=== PATIENT | male | born 1935 | race African-American/Black ===

== ENCOUNTER → 2016-03-15 | Outpatient (CLI) | payer MEDICARE, BC ==
[2016-03-15 12:00] LABS: Blood Urea Nitrogen 19 mg/dL (9-20); Non-African American GFR(MDRD) >60 (>60 ml/min/1.73 sqM)
--- NOTE | 2016-03-15 13:05 | CT ---
EXAMINATION TYPE: CT brain wo/w con DATE OF EXAM: 03/15/2016 12:57 PM COMPARISON: CT brain August 03, 2015 HISTORY: prostate CA, BLANCO CT DLP: 398 mGycm Automated Exposure Control for Dose Reduction was Utilized. TECHNIQUE: CT scan of the head is performed with IV contrast.,CT scan of the head is performed withou t and with with IV Contrast, patient injected with 100 mL of Omnipaque 300. FINDINGS: Noncontrast images show no acute intracranial hemorrhage or midline shift. There is ventr icular and sulcal prominence consistent with mild age-related cerebral atrophy. There is some low-att enuation in the periventricular white matter. Old lacunar infarct right basal ganglia near axial imag e 29 is redemonstrated. Postcontrast images show no suspicious enhancing intraparenchymal mass. The g lobes are intact and the visualized sinuses are clear. Well-defined erosive lesions along frontal kaylan varium favor enchondroma or other benign etiology. IMPRESSION: Mild generalized cerebral atrophy and chronic small vessel ischemic change redemonstrated . No suspicious new enhancing intraparenchymal mass to suggest malignancy is identified.
--- NOTE | 2016-03-15 13:18 | CT ---
EXAMINATION TYPE: CT ChestAbdPelvis w con DATE OF EXAM: 03/15/2016 12:57 PM COMPARISON: CTA chest March 28, 2015. CTA abdomen and pelvis November 05, 2014 HISTORY: prostate CA, history of colon mass removal. CT DLP: 3984 mGycm. Automated Exposure Control for Dose Reduction was Utilized. CONTRAST: CT scan of the thorax, abdomen and pelvis is performed with oral and with IV Contrast, patient inject ed with 100 mL of Omnipaque 300. FINDINGS: LUNGS: The lungs are grossly clear, there is no concerning greater than 4 mm parenchymal mass or nodu le identified on current study. There is no pleural effusion or pneumothorax seen. The tracheobron chial tree is patent. MEDIASTINUM: There are no greater than 1 cm hilar or mediastinal lymph nodes. No cardiomegaly or pe ricardial effusion is seen. OTHER: There is 1 cm calcification right submandibular gland on axial image 8 could reflect sialolith . LIVER/GB: Multiple metastatic lesions throughout the liver significantly improved from October 2014 CT. There are several low dense lesions redemonstrated. Reference anterior right hepatic dome lesion measures 1.4 cm on long axis axial image 45 versus 4.3 cm on prior study image 7. Dependent calculus is redemonstrated in gallbladder. There may be cholesterolosis in the wall centrally seen best on co gilma images. PANCREAS: No significant abnormality is seen. SPLEEN: No significant abnormality is seen. ADRENALS: No significant abnormality is seen. KIDNEYS: There is 2.2 cm simple appearing cyst lower pole level right kidney redemonstrated. Scattere d pelvic phleboliths are again seen. BOWEL: The oral contrast to the level of the transverse colon. There is no suspicious small or large bowel dilatation seen. Sigmoid colonic diverticulosis is redemonstrated. GENITAL ORGANS: Prostate gland is diminished in size versus prior exam but still bulging on bladder b ase. Eccentric prominence along the left periphery of prostate on prior study image 65 is less promin ent on current study. No adjacent adenopathy is clearly seen. LYMPH NODES: No greater than 1cm abdominal or pelvic lymph nodes are appreciated. OSSEOUS STRUCTURES: Marked exaggerated cervical thoracic kyphosis is noted. Sclerotic expansile lesio n right iliac bone is redemonstrated. There is new sclerotic lesion posterior to this near inferior s acroiliac joint on axial image 92. Large spur the right lumbosacral junction is redemonstrated. There is multilevel facet arthropathy in the lower lumbar spine. Multilevel spurring in the thoracic spine . No convincing evidence of metastatic disease otherwise. OTHER: No significant additional abnormality is seen. IMPRESSION: Interval resolution of pulmonary metastatic disease. Interval marked improvement of hepa tic metastatic disease. Nonspecific right iliac bone lesion worrisome for malignancy redemonstrated p robable metastatic in etiology. New small sclerotic lesion right iliac bone is difficult to exclude. Marked interval improvement in size of prostate gland with treatment.
== END | disposition home or self-care (01) ==
LOC: RADCTMAIN 10:41
PROVIDERS: ATTEND Internal Medicine Hematology & Oncology
DX: C61 Malignant neoplasm of prostate (principal); C78.7 Secondary malignant neoplasm of liver and intrahepatic bile duct; G31.9 Degenerative disease of nervous system, unspecified; I67.82 Cerebral ischemia
CPT/HCPCS: 82565; 84520; 70470; 71260; 74177; 36415; Q9967

== ENCOUNTER 2016-05-29 13:27 | Emergency (ER) | payer MEDICARE, BC ==
[2016-05-29 13:32] VITALS: RESP 18
[2016-05-29] MEDS ORDERED: NITROGLYCERIN OINT 1 INCH/GM PACKET TOPICAL STA (13:54)
[2016-05-29] MEDS ORDERED: ASPIRIN 81 MG CHEW PO STA (13:54)
--- NOTE | 2016-05-29 13:57 | ED ---
General Adult HPI - General Chief complaint: Chest Pain Stated complaint: Chest Pain Time Seen by Provider: 05/29/16 13:40 Source: patient, RN notes reviewed Mode of arrival: ambulatory Limitations: no limitations - History of Present Illness Initial comments: Patient is a pleasant 80-year-old male presenting to the emergency department complaining of chest discomfort. Symptoms started a couple of days ago. Symptoms have been intermittent. Discomfort is mild at this time. Patient has an ache of the left shoulder and left arm. Patient may also have some chest discomfort. No associated dyspnea. No diaphoresis or nausea. Symptoms are not positional. No history of similar symptoms previously. Currently symptoms are very mild. - Related Data Home Medications Medication Instructions Recorded Confirmed Lisinopril [Zestril] 10 mg PO QAM 08/07/13 05/29/16 Hydrocodone/Acetaminophen [Schurz 1 tab PO Q6H PRN 08/03/15 05/29/16 7.5-325] Tamsulosin [Flomax] 0.4 mg PO DAILY 02/28/16 05/29/16 Atenolol [Tenormin] 25 mg PO DAILY 05/29/16 05/29/16 Prochlorperazine [Compazine] 10 mg PO Q6H PRN 05/29/16 05/29/16 Venlafaxine HCl ER [Effexor Xr] 75 mg PO DAILY 05/29/16 05/29/16 Allergies Allergy/AdvReac Type Severity Reaction Status Date / Time No Known Allergies Allergy Verified 05/29/16 14:42 Review of Systems ROS Statement: Those systems with pertinent positive or pertinent negative responses have been documented in the HPI. ROS Other: All systems not noted in ROS Statement are negative. 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, pelvis and liver, on chemo History of Any Multi-Drug Resistant Organisms: None Reported Past Surgical History: Heart Catheterization Additional Past Surgical History / Comment(s): CATARACT SURGERY, Past Anesthesia/Blood Transfusion Reactions: No Reported Reaction Past Psychological History: No Psychological Hx Reported Smoking Status: Never smoker Past Alcohol Use History: Rare Past Drug Use History: None Reported - Past Family History Father Family Medical History: No Reported History General Exam Limitations: no limitations General appearance: alert, in no apparent distress Head exam: Present: atraumatic Eye exam: Present: normal appearance, PERRL ENT exam: Present: normal oropharynx Neck exam: Present: normal inspection Respiratory exam: Present: normal lung sounds bilaterally. Absent: chest wall tenderness Cardiovascular Exam: Present: regular rate, normal rhythm Expanded Peripheral pulses: 2+: Radial (R), Radial (L), Posterior Tibialis (R), Posterior Tibialis (L) GI/Abdominal exam: Present: soft. Absent: tenderness Extremities exam: Present: normal inspection, full ROM. Absent: tenderness, pedal edema, calf tenderness Back exam: Present: normal inspection Neurological exam: Present: alert Psychiatric exam: Present: normal affect, normal mood Skin exam: Absent: rash Course Vital Signs 05/29/16 05/29/16 05/29/16 13:30 15:46 16:30 Temperature 97.4 F L 98.0 F Pulse Rate 67 64 65 Respiratory 18 18 18 Rate Blood Pressure 209/104 162/94 169/99 O2 Sat by Pulse 98 98 98 Oximetry EKG Findings - EKG Comments: EKG Findings:: Normal sinus rhythm at 67. OR 154. QRS 110. QT 4:30. QTC 454. Left axis. LVH criteria. Nonspecific ST-T. Medical Decision Making - Medical Decision Making Patient reexamined and symptom-free. Case discussed twice with Dr. Miguel who is familiar with this patient. He recommends discharge. Patient updated on results and need for follow-up. - Lab Data Result diagrams: 05/29/16 14:05 05/29/16 14:05 Lab Results 05/29/16 05/29/16 05/29/16 Range/Units 14:05 14:05 14:05 WBC 7.1 (3.8-10.6) k/uL RBC 4.13 L (4.30-5.90) m/uL Hgb 12.6 L (13.0-17.5) gm/dL Hct 38.1 L (39.0-53.0) % MCV 92.3 (80.0-100.0) fL MCH 30.4 (25.0-35.0) pg MCHC 33.0 (31.0-37.0) g/dL RDW 15.6 H (11.5-15.5) % Plt Count 232 (150-450) k/uL Neutrophils % 66 % Lymphocytes % 24 % Monocytes % 4 % Eosinophils % 2 % Basophils % 0 % Neutrophils # 4.7 (1.3-7.7) k/uL Lymphocytes # 1.7 (1.0-4.8) k/uL Monocytes # 0.3 (0-1.0) k/uL Eosinophils # 0.1 (0-0.7) k/uL Basophils # 0.0 (0-0.2) k/uL Hypochromasia Slight PT (9.0-12.0) sec INR (<1.1) APTT (22.0-30.0) sec D-Dimer (<0.60) mg/L FEU Sodium 142 (137-145) mmol/L Potassium 4.0 (3.5-5.1) mmol/L Chloride 104 (98-107) mmol/L Carbon Dioxide 27 (22-30) mmol/L Anion Gap 11 mmol/L BUN 19 (9-20) mg/dL Creatinine 1.13 (0.66-1.25) mg/dL Est GFR (MDRD) Af Amer >60 (>60 ml/min/1.73 sqM) Est GFR (MDRD) Non-Af >60 (>60 ml/min/1.73 sqM) Glucose 139 H (74-99) mg/dL Calcium 9.7 (8.4-10.2) mg/dL Magnesium 2.1 (1.6-2.3) mg/dL Total Bilirubin 0.5 (0.2-1.3) mg/dL AST 26 (17-59) U/L ALT 29 (21-72) U/L Alkaline Phosphatase 84 (38-126) U/L Total Creatine Kinase 121 (55-170) U/L CK-MB (CK-2) 1.4 (0.0-2.4) ng/mL CK-MB (CK-2) Rel Index 1.2 Troponin I <0.012 (0.000-0.034) ng/mL Total Protein 7.4 (6.3-8.2) g/dL Albumin 4.1 (3.5-5.0) g/dL 05/29/16 Range/Units 14:05 WBC (3.8-10.6) k/uL RBC (4.30-5.90) m/uL Hgb (13.0-17.5) gm/dL Hct (39.0-53.0) % MCV (80.0-100.0) fL MCH (25.0-35.0) pg MCHC (31.0-37.0) g/dL RDW (11.5-15.5) % Plt Count (150-450) k/uL Neutrophils % % Lymphocytes % % Monocytes % % Eosinophils % % Basophils % % Neutrophils # (1.3-7.7) k/uL Lymphocytes # (1.0-4.8) k/uL Monocytes # (0-1.0) k/uL Eosinophils # (0-0.7) k/uL Basophils # (0-0.2) k/uL Hypochromasia PT 10.1 (9.0-12.0) sec INR 1.0 (<1.1) APTT 25.3 (22.0-30.0) sec D-Dimer 0.66 H (<0.60) mg/L FEU Sodium (137-145) mmol/L Potassium (3.5-5.1) mmol/L Chloride (98-107) mmol/L Carbon Dioxide (22-30) mmol/L Anion Gap mmol/L BUN (9-20) mg/dL Creatinine (0.66-1.25) mg/dL Est GFR (MDRD) Af Amer (>60 ml/min/1.73 sqM) Est GFR (MDRD) Non-Af (>60 ml/min/1.73 sqM) Glucose (74-99) mg/dL Calcium (8.4-10.2) mg/dL Magnesium (1.6-2.3) mg/dL Total Bilirubin (0.2-1.3) mg/dL AST (17-59) U/L ALT (21-72) U/L Alkaline Phosphatase (38-126) U/L Total Creatine Kinase (55-170) U/L CK-MB (CK-2) (0.0-2.4) ng/mL CK-MB (CK-2) Rel Index Troponin I (0.000-0.034) ng/mL Total Protein (6.3-8.2) g/dL Albumin (3.5-5.0) g/dL - Radiology Data Radiology results: report reviewed (Computed tomography scan of the chest shows no evidence of pulmonary embolism.), image reviewed (Two-view chest x-ray shows no acute process.) Disposition Clinical Impression: Shoulder pain Disposition: HOME SELF-CARE Condition: Stable Instructions: Chest Pain (ED) Additional Instructions: Please follow-up with Dr. Miguel in the next day or 2 for recheck. Return for increased pain, change or worsening symptoms, difficulty breathing or any other concerns. Referrals: Fritz Miguel MD [Primary Care Provider] - 1-2 days
[2016-05-29 14:26] LABS: Basophils % (A) 0 %; CH 29.4; CHCM 31.9; Eosinophils # (A) 0.1 k/uL (0-0.7); Eosinophils % (A) 2 %; HCT 38.1 % (39.0-53.0); HDW 2.81; HGB 12.6 gm/dL (13.0-17.5); Hypochromasia Slight; Luc % (Auto) 3; Lymphocytes # (A) 1.7 k/uL (1.0-4.8); Lymphocytes % (A) 24 %; MCH 30.4 pg (25.0-35.0); MCV 92.3 fL (80.0-100.0); Mean Platelet Volume 7.9; Monocytes # (A) 0.3 k/uL (0-1.0); Monocytes % (A) 4 %; Neutrophils # (A) 4.7 k/uL (1.3-7.7); Neutrophils % (A) 66 %; RBC 4.13 m/uL (4.30-5.90); RDW 15.6 % (11.5-15.5); WBC 7.1 k/uL (3.8-10.6); WBC (Perox) 7.06
--- NOTE | 2016-05-29 14:27 | XR ---
EXAMINATION TYPE: XR chest 2V DATE OF EXAM: 05/29/2016 2:21 PM COMPARISON: August 03 2015 HISTORY: chest pain TECHNIQUE: Frontal and lateral views of the chest are obtained. FINDINGS: There is no focal air space opacity, pleural effusion, or pneumothorax seen. The cardiac silhouette size is within normal limits. The osseous structures are intact. IMPRESSION: No acute cardiopulmonary process.
[2016-05-29 14:36] LABS: ALT 29 U/L (21-72); AST 26 U/L (17-59); Alkaline Phosphatase 84 U/L (38-126); Anion Gap 11 mmol/L; Blood Urea Nitrogen 19 mg/dL (9-20); Calcium 9.7 mg/dL (8.4-10.2); Carbon Dioxide 27 mmol/L (22-30); Chloride 104 mmol/L (98-107); Glucose 139 mg/dL (74-99); Magnesium 2.1 mg/dL (1.6-2.3); Non-African American GFR(MDRD) >60 (>60 ml/min/1.73 sqM); Partial Thromboplastin Time 25.3 sec (22.0-30.0); Prothrombin Time 10.1 sec (9.0-12.0); Sodium 142 mmol/L (137-145); Total Bilirubin 0.5 mg/dL (0.2-1.3); Total Protein 7.4 g/dL (6.3-8.2)
[2016-05-29 14:43] LABS: Creatine Kinase 121 U/L (55-170)
[2016-05-29 14:57] LABS: Creatine Kinase MB 1.4 ng/mL (0.0-2.4); Troponin I <0.012 ng/mL (0.000-0.034)
[2016-05-29] MEDS ORDERED: RX INFO: IV CONTRAST WAS GIVEN 1 EACH MISC MISCELLANE PRN (14:59)
--- NOTE | 2016-05-29 15:29 | CT ---
CT CHEST FOR PULMONARY EMBOLISM. EXAMINATION TYPE: CT angio chest DATE OF EXAM: 05/29/2016 3:22 PM INDICATION: Left shoulder pain, chest pain CT DLP: 309.7 mGycm, Automated exposure control for dose reduction was used. CONTRAST: Patient injected with 100 mL of Omnipaque 350. COMPARISON: CT chest 03/15/2016 TECHNIQUE: CT of the chest is performed on a spiral scan at 2 mm thick sections. Study is performed with intravenous contrast timed for evaluation for pulmonary embolism. This will limit additional po rtions of the evaluation. 3-D MIP images reconstructed by the technologist are reviewed on the compu ter in the coronal and sagittal planes. FINDINGS: No persistent filling defects are evident to suggest an acute pulmonary embolism. No mediastinal or hilar adenopathy enlarged by CT criteria is evident. The ascending aorta diameter at the level of the main pulmonary artery is 3.0 cm. The main pulmonary artery diameter at the bifur cation is 3.1 cm. Small hiatal hernia is present. Lung windows appear clear. Gallstone is present. IMPRESSIONS: 1. No acute pulmonary embolism.
[2016-05-29] MEDS ORDERED: LISINOPRIL 10 MG TAB PO STA (16:35)
[2016-05-29 17:13] VITALS: BP 147/91; PULSE 68; TEMP 98.5
== END 2016-05-29 17:21 | disposition home or self-care (01) ==
LOC: EC 13:27
DX: M25.512 Pain in left shoulder (principal); R07.89 Other chest pain; M79.602 Pain in left arm; I10 Essential (primary) hypertension; Z79.899 Other long term (current) drug therapy; Z85.46 Personal history of malignant neoplasm of prostate
CPT/HCPCS: 99285; 36415; 93005; 85379; 80053; 82550; 82553; 83735; 84484; 85025; 85610; 85730; 71020; 71275; Q9967

== ENCOUNTER → 2016-06-28 | Outpatient (CLI) | payer MEDICARE, BC ==
--- NOTE | 2016-06-28 10:46 | MR ---
EXAMINATION TYPE: MR cervical spine wo/w con DATE OF EXAM: 06/28/2016 10:31 AM COMPARISON: NONE HISTORY: cervical radiculopathy, left side weakness/numbness TECHNIQUE: Multiplanar, multisequence images of the cervical spine were acquired utilizing 15 mL intravenous Mul tiHance gadolinium contrast. Diffusion weighted imaging was performed. Abnormal signal seen diffus raman throughout the hammad may been the basis of previous ischemia. No enhancement. C2-C3: Uncovertebral joint hypertrophy. Left paracentral spondylosis but no canal stenosis or foramin al encroachment. C3-C4: Degenerative disc disease with posterior spondylosis which abuts the anterior margin the spina l cord. There is facet arthropathy and uncovertebral joint hypertrophy with mild to moderate bilatera l foraminal encroachment and mild canal stenosis. Broad-based disc bulging capped by spur. C4-C5: Severe degenerative disc disease with complete loss of disc space. Focal central disc small pr otrusion abuts the anterior margin the spinal cord results in spinal stenosis. Uncovertebral joint hy pertrophy and facet arthropathy result in mild foraminal encroachment. C5-C6: Severe degenerative disc disease with complete loss of disc signal and space. There is posteri or disc osteophyte complex resulting in moderate canal stenosis. Findings greater paracentrally to th e left. Moderate bilateral foraminal encroachment. C6-C7: Severe degenerative disc disease with central disc protrusion or small herniation capped by sp ur results in anterior contact of the spinal cord but no displacement. Facet arthropathy and uncovert ebral joint hypertrophy with moderate bilateral foraminal encroachment and moderate canal stenosis. C7-T1: Degenerative disc disease but no canal stenosis or foraminal encroachment. Cervical segments are intact. There is normal alignment. Cervical spinal cord is of normal signal. Craniovertebral junction relationships are within normal limits. Prominence the left spinal canal f oramina within the vertebral body appears to be chronic. IMPRESSION: Multilevel disc bulging or protrusions with hypertrophic changes and cervical spondylosis result in m ultilevel significant canal stenosis with anterior encroachment upon the spinal cord. Most marked fin dings seen at levels C3-C7. See above. Diffuse abnormal signal throughout the hammad may been the basis of previous ischemia correlate clinica lly. There is a rounded area of low signal on T1 imaging the region of the submandibular gland. Correlate with soft tissue CT neck for possible nodule or vascular structure.
== END | disposition home or self-care (01) ==
LOC: RADMRIMAIN 09:05
PROVIDERS: ATTEND Internal Medicine
DX: M50.11 Cervical disc disorder with radiculopathy, high cervical region (principal); M48.02 Spinal stenosis, cervical region; M46.92 Unspecified inflammatory spondylopathy, cervical region; R93.0 Abnormal findings on diagnostic imaging of skull and head, not elsewhere classified; C61 Malignant neoplasm of prostate
CPT/HCPCS: 72156; A9577

== ENCOUNTER → 2016-09-06 | Outpatient (CLI) | payer MEDICARE, BC ==
--- NOTE | 2016-09-06 12:15 | XR ---
EXAMINATION TYPE: XR chest 2V DATE OF EXAM: 09/06/2016 HISTORY: J40 bronchitis. REFERENCE: Previous study dated 05/29/2016. FINDINGS: The lungs are clear. Pleural spaces are clear. Heart size is upper limits of normal. There is hypertrophic spondylosis within the dorsal spine. IMPRESSION: NO ACUTE INTRATHORACIC ABNORMALITY.
== END | disposition home or self-care (01) ==
LOC: RADXRMAIN 11:54
PROVIDERS: ATTEND Internal Medicine
DX: J40 Bronchitis, not specified as acute or chronic (principal); R61 Generalized hyperhidrosis
CPT/HCPCS: 71020

== ENCOUNTER → 2016-10-26 | Outpatient (CLI) | payer MEDICARE, BC ==
--- NOTE | 2016-10-26 15:15 | XR ---
EXAM TYPE: LUMBAR SPINE X RAY SERIES COMPARISON: NONE HISTORY: Low back pain TECHNIQUE: 4 views are submitted. FINDINGS: There are large hypertrophic spurs involving multiple levels. Vacuum discs is seen at L3-4 and L4-5 a nd severe degenerative disc disease L5-S1. Facet arthropathy at all levels with most marked findings at L4-S1. There is a grade 1 anterolisthesis L5 on S1. Vascular calcifications in the soft tissues are noted. Findings suggest right sacroiliitis. IMPRESSION: 1. Multilevel severe degenerative disc disease with grade 1 anterolisthesis L5 on S1 likely degenerat neo secondary to severe facet arthropathy. Large hypertrophic spurs are seen anteriorly at multiple l evels with most marked findings at L5-S1.
== END | disposition home or self-care (01) ==
LOC: RADXRMAIN 14:53
PROVIDERS: ATTEND Internal Medicine
DX: M51.16 Intervertebral disc disorders with radiculopathy, lumbar region (principal); M43.17 Spondylolisthesis, lumbosacral region; C61 Malignant neoplasm of prostate; M46.07 Spinal enthesopathy, lumbosacral region
CPT/HCPCS: 72110

== ENCOUNTER → 2017-04-16 | Outpatient (CLI) | payer BC, MEDICARE ==
[~2017-04-16] MED LIST: LEUPROLIDE ACETATE 22.5 MG SYRG KIT IM ONE
[2017-04-16 14:55] VITALS: RESP 16; TEMP 97.8
[2017-04-16 15:26] VITALS: PULSE 64
[2017-04-16 15:42] VITALS: BP 194/92
== END | disposition home or self-care (01) ==
LOC: PROCWHC3 14:23
PROVIDERS: ATTEND Internal Medicine Hematology & Oncology
DX: C61 Malignant neoplasm of prostate (principal); C79.51 Secondary malignant neoplasm of bone
CPT/HCPCS: 96402; J9217

== ENCOUNTER → 2017-07-20 | Outpatient (CLI) | payer MEDICARE ==
[~2017-07-20] MED LIST changes: +DENOSUMAB 120 MG/1.7 ML VIAL SQ ONE
[2017-07-20 13:43] VITALS: BP 188/90; PULSE 64; RESP 16; TEMP 98.1
== END | disposition home or self-care (01) ==
LOC: PROCWHC3 13:13
PROVIDERS: ATTEND Internal Medicine Hematology & Oncology
DX: C61 Malignant neoplasm of prostate (principal); C79.51 Secondary malignant neoplasm of bone
CPT/HCPCS: 96372; J9217; J0897

== ENCOUNTER → 2017-10-12 | Outpatient (CLI) | payer MEDICARE ==
--- NOTE | 2017-10-13 08:29 | ECHOF ---
Referral Reason:I10 Hypertension, R06.09 Dyspnea on exertion MEASUREMENTS -------- HEIGHT: 172.7 cm WEIGHT: 77.1 kg BP: IVSd: 1.4 cm (0.6 - 1.1) LVIDd: 4.1 cm (3.9 - 5.3) LVPWd: 1.3 cm (0.6 - 1.1) IVSs: 1.5 cm LVIDs: 3.1 cm LVPWs: 1.6 cm LAESV Index (A-L): 21.58 ml/m Ao Diam: 3.5 cm (2.0 - 3.7) AV Cusp: 1.9 cm (1.5 - 2.6) LA Diam: 2.5 cm (2.7 - 3.8) MV EXCURSION: 18.872 mm (> 18.000) MV EF SLOPE: 42 mm/s (70 - 150) EPSS: 1.0 cm MV E Herve: 0.41 m/s MV DecT: 423 ms MV A Herve: 0.77 m/s MV E/A Ratio: 0.54 RAP: 5.00 mmHg RVSP: 16.65 mmHg FINDINGS -------- Sinus rhythm. This was a technically adequate study. The left ventricular size is normal. There is mild concentric left ventricular hypertrophy. Overa ll left ventricular systolic function is normal with, an EF between 55 - 60 %. The right ventricle is normal in size and function. Normal LA size by volume 22+/-6 ml/m2. The right atrium is normal in size. Aortic valve is trileaflet and is mildly thickened. There is no evidence of aortic regurgitation. There is no evidence of aortic stenosis. The mitral valve is normal. Mild mitral regurgitation is present. Mild tricuspid regurgitation present. Right ventricular systolic pressure is normal at < 35 mmHg. The right ventricular systolic pressure, as measured by Doppler, is 16.65mmHg. Trace/mild (physiologic) pulmonic regurgitation. The aortic root size is normal. Normal inferior vena cava with normal inspiratory collapse consistent with estimated right atrial pre ssure of 5 mmHg. There is no pericardial effusion. CONCLUSIONS -------- 1. Sinus rhythm. 2. This was a technically adequate study. 3. The left ventricular size is normal. 4. There is mild concentric left ventricular hypertrophy. 5. Overall left ventricular systolic function is normal with, an EF between 55 - 60 %. 6. Normal LA size by volume 22+/-6 ml/m2. 7. Aortic valve is trileaflet and is mildly thickened. 8. Mild mitral regurgitation is present. 9. Mild tricuspid regurgitation present. 10. Right ventricular systolic pressure is normal at < 35 mmHg. 11. Trace/mild (physiologic) pulmonic regurgitation. 12. The aortic root size is normal. 13. There is no pericardial effusion. ASSISTANT COUNTY ENGINEER: Omar Gudino RDCS
== END | disposition home or self-care (01) ==
LOC: RADECHMAIN 13:14
PROVIDERS: ATTEND Internal Medicine
DX: I08.1 Rheumatic disorders of both mitral and tricuspid valves (principal); I10 Essential (primary) hypertension
CPT/HCPCS: 93306

== ENCOUNTER → 2017-10-22 | Outpatient (CLI) | payer MEDICARE ==
[2017-10-22 13:27] VITALS: TEMP 98.2
[2017-10-22 13:53] VITALS: BP 186/90; PULSE 78; RESP 16
== END | disposition home or self-care (01) ==
LOC: PROCWHC3 13:02
PROVIDERS: ATTEND Internal Medicine Hematology & Oncology
DX: Z51.11 Encounter for antineoplastic chemotherapy (principal); C79.51 Secondary malignant neoplasm of bone; C61 Malignant neoplasm of prostate
CPT/HCPCS: 96372; 96402; J9217; J0897

== ENCOUNTER → 2018-01-21 | Outpatient (CLI) | payer MEDICARE ==
[~2018-01-21] MED LIST changes: +DENOSUMAB 120 MG/1.7 ML VIAL SQ NR; -DENOSUMAB 120 MG/1.7 ML VIAL SQ ONE; +LEUPROLIDE ACETATE 22.5 MG SYRG KIT IM NR; -LEUPROLIDE ACETATE 22.5 MG SYRG KIT IM ONE
[2018-01-21 13:09] VITALS: BP 179/95; PULSE 72; RESP 18; TEMP 98.1
== END ==
LOC: PROCWHC3 12:55
PROVIDERS: ATTEND Internal Medicine Hematology & Oncology
DX: Z51.11 Encounter for antineoplastic chemotherapy (principal); C61 Malignant neoplasm of prostate; C79.51 Secondary malignant neoplasm of bone
CPT/HCPCS: 96372; 96402; J9217; J0897

== ENCOUNTER → 2018-04-22 | Outpatient (CLI) | payer MEDICARE ==
[2018-04-22 13:20] VITALS: PULSE 65; RESP 16; TEMP 97.4
[2018-04-22 13:21] VITALS: BP 218/114
== END ==
LOC: PROCWHC3 13:00
PROVIDERS: ATTEND Internal Medicine Hematology & Oncology
DX: Z51.11 Encounter for antineoplastic chemotherapy (principal); C61 Malignant neoplasm of prostate; C79.51 Secondary malignant neoplasm of bone
CPT/HCPCS: 96372; 96402; J9217; J0897

== ENCOUNTER → 2018-07-23 | Outpatient (CLI) | payer MEDICARE ==
[~2018-07-23] MED LIST changes: -DENOSUMAB 120 MG/1.7 ML VIAL SQ NR; +DENOSUMAB 120 MG/1.7 ML VIAL SQ ONE; -LEUPROLIDE ACETATE 22.5 MG SYRG KIT IM NR; +LEUPROLIDE ACETATE 22.5 MG SYRG KIT IM ONE
[2018-07-23 13:06] VITALS: BP 188/97; PULSE 60; RESP 16; TEMP 98.2
== END | disposition home or self-care (01) ==
LOC: PROCWHC3 12:50
PROVIDERS: ATTEND Internal Medicine Hematology & Oncology
DX: C61 Malignant neoplasm of prostate (principal); C79.51 Secondary malignant neoplasm of bone
CPT/HCPCS: 96372; 96402; J9217; J0897

== ENCOUNTER 2018-07-28 03:59 | Inpatient (IN) | payer MEDICARE ==
[2018-07-28] MEDS ORDERED: SODIUM CHLORIDE 0.9% 1,000 ML IV STA (04:13)
--- NOTE | 2018-07-28 04:21 | ED ---
Nausea/Vomiting/Diarrhea HPI - General Chief complaint: Nausea/Vomiting/Diarrhea Stated complaint: Vomiting/Abdominal Pain Time Seen by Provider: 07/28/18 04:13 Source: patient Mode of arrival: ambulatory Limitations: no limitations - History of Present Illness Initial comments: Bonilla is a pleasant 82-year-old gentleman with a past medical history significant for metastatic prostate cancer for which he is currently being treated with Lupron injections. Patient presents the emergency department today for evaluation of 1 day of nausea vomiting and diarrhea. Patient reports that he believes this began after eating a cream filled [place] roll. Patient denies any sick contacts any feel sick in the home. Patient reports he's been unable to sleep due to epigastric discomfort persistent nausea and multiple episodes of nonbloody nonbilious emesis. denies any history of similar symptoms. He has no history of any gallbladder pathology. No History of irritable or inflammatory bowel. - Related Data Home Medications Medication Instructions Recorded Confirmed Lisinopril [Zestril] 10 mg PO HS 08/07/13 07/23/18 Hydrocodone/Acetaminophen [Hecker 1 tab PO Q6H PRN 08/03/15 07/23/18 7.5-325] Tamsulosin [Flomax] 0.4 mg PO DAILY 02/28/16 07/23/18 Atenolol [Tenormin] 50 mg PO DAILY 05/29/16 07/23/18 Prochlorperazine [Compazine] 10 mg PO Q6H PRN 05/29/16 07/23/18 Venlafaxine HCl ER [Effexor Xr] 75 mg PO DAILY 05/29/16 07/23/18 Allergies Allergy/AdvReac Type Severity Reaction Status Date / Time No Known Allergies Allergy Verified 07/28/18 04:08 Review of Systems ROS Statement: Those systems with pertinent positive or pertinent negative responses have been documented in the HPI. ROS Other: All systems not noted in ROS Statement are negative. Past Medical History Past Medical History: Cancer, Hypertension Additional Past Medical History / Comment(s): prostate CA with mets to bone, pelvis and liver, chemo completed, History of Any Multi-Drug Resistant Organisms: None Reported Past Surgical History: Heart Catheterization Additional Past Surgical History / Comment(s): CATARACT SURGERY, Past Anesthesia/Blood Transfusion Reactions: No Reported Reaction Past Psychological History: No Psychological Hx Reported Smoking Status: Former smoker Past Alcohol Use History: None Reported Past Drug Use History: None Reported - Past Family History Father Family Medical History: No Reported History General Exam - General Exam Comments Initial Comments: Physical Exam GENERAL: Chronically ill appearing elderly gentleman Appears uncomfortable and dehydrated HENT: Normocephalic, Atraumatic. EYES: PERRL, EOMI PULMONARY: Unlabored respirations CARDIOVASCULAR: RRR ABDOMEN: Soft, NABS Tenderness to palpation in epigastrum SKIN: Skin is clear with no lesions or rashes and otherwise unremarkable. : Deferred NEUROLOGIC: Patient is alert and oriented x3. Moving all extremities spontaneously MUSCULOSKELETAL: Normal extremities with adequate strength and full range of motion. No lower extremity swelling or edema. No calf tenderness. PSYCHIATRIC: Normal psychiatric evaluation Limitations: no limitations Course Vital Signs 07/28/18 07/28/18 07/28/18 04:05 04:53 06:23 Temperature 98.5 F Pulse Rate 84 74 81 Respiratory 16 16 18 Rate Blood Pressure 183/93 188/96 178/101 O2 Sat by Pulse 100 90 L 98 Oximetry Medical Decision Making - Medical Decision Making Patient was seen and evaluated history is obtained from the patient and review of medical record This is a pleasant 82-year-old with a history of metastatic prostate cancer presenting with nausea vomiting and diarrhea for 24 hours duration after eating what he believes was food that made him ill. No one else at home is sick. Labs and imaging were obtained EKG confirms a prolonged QT, Tigan and Pepcid will be ordered for nausea Labs with elevated transaminases, patient does have a history of metastatic disease to liver however there are no previous labs for comparison. Computed tomography scan of the abdomen was ordered and revealed possible gallbladder sludge, likely cysts versus metastases to the liver. No acute cholecystitis, no evidence pancreatic inflammation. No evidence of bowel obstruction. Patient with persistent nausea and discomfort despite Tigan and fluids. We'll plan to admit - Lab Data Result diagrams: 07/28/18 04:20 07/28/18 04:20 Lab Results 07/28/18 07/28/18 07/28/18 Range/Units 04:20 04:20 04:20 WBC 6.0 (3.8-10.6) k/uL RBC 4.24 L (4.30-5.90) m/uL Hgb 12.4 L (13.0-17.5) gm/dL Hct 38.5 L (39.0-53.0) % MCV 90.8 (80.0-100.0) fL MCH 29.1 (25.0-35.0) pg MCHC 32.1 (31.0-37.0) g/dL RDW 15.2 (11.5-15.5) % Plt Count 212 (150-450) k/uL Neutrophils % 77 % Lymphocytes % 19 % Monocytes % 3 % Eosinophils % 1 % Basophils % 0 % Neutrophils # 4.6 (1.3-7.7) k/uL Lymphocytes # 1.1 (1.0-4.8) k/uL Monocytes # 0.2 (0-1.0) k/uL Eosinophils # 0.0 (0-0.7) k/uL Basophils # 0.0 (0-0.2) k/uL Sodium 141 (137-145) mmol/L Potassium 3.5 (3.5-5.1) mmol/L Chloride 103 (98-107) mmol/L Carbon Dioxide 32 H (22-30) mmol/L Anion Gap 6 mmol/L BUN 16 (9-20) mg/dL Creatinine 1.13 (0.66-1.25) mg/dL Est GFR (CKD-EPI)AfAm 71 (>60 ml/min/1.73 sqM) Est GFR (CKD-EPI)NonAf 61 (>60 ml/min/1.73 sqM) Glucose 231 H (74-99) mg/dL Plasma Lactic Acid Terence 2.9 H* (0.7-2.0) mmol/L Calcium 9.6 (8.4-10.2) mg/dL Total Bilirubin 1.1 (0.2-1.3) mg/dL AST 444 H (17-59) U/L ALT 167 H (21-72) U/L Alkaline Phosphatase 164 H (38-126) U/L Total Protein 6.9 (6.3-8.2) g/dL Albumin 4.0 (3.5-5.0) g/dL Amylase 86 (30-110) U/L Lipase 337 H (23-300) U/L Urine Color Urine Appearance (Clear) Urine pH (5.0-8.0) Ur Specific [place] (1.001-1.035) Urine Protein (Negative) Urine Glucose (UA) (Negative) Urine Ketones (Negative) Urine Blood (Negative) Urine Nitrite (Negative) Urine Bilirubin (Negative) Urine Urobilinogen (<2.0) mg/dL Ur Leukocyte Esterase (Negative) Urine RBC (0-5) /hpf Urine WBC (0-5) /hpf Ur Squamous Epith Cells (0-4) /hpf Hyaline Casts (0-2) /lpf Urine Mucus (None) /hpf 07/28/18 Range/Units 05:00 WBC (3.8-10.6) k/uL RBC (4.30-5.90) m/uL Hgb (13.0-17.5) gm/dL Hct (39.0-53.0) % MCV (80.0-100.0) fL MCH (25.0-35.0) pg MCHC (31.0-37.0) g/dL RDW (11.5-15.5) % Plt Count (150-450) k/uL Neutrophils % % Lymphocytes % % Monocytes % % Eosinophils % % Basophils % % Neutrophils # (1.3-7.7) k/uL Lymphocytes # (1.0-4.8) k/uL Monocytes # (0-1.0) k/uL Eosinophils # (0-0.7) k/uL Basophils # (0-0.2) k/uL Sodium (137-145) mmol/L Potassium (3.5-5.1) mmol/L Chloride (98-107) mmol/L Carbon Dioxide (22-30) mmol/L Anion Gap mmol/L BUN (9-20) mg/dL Creatinine (0.66-1.25) mg/dL Est GFR (CKD-EPI)AfAm (>60 ml/min/1.73 sqM) Est GFR (CKD-EPI)NonAf (>60 ml/min/1.73 sqM) Glucose (74-99) mg/dL Plasma Lactic Acid Terence (0.7-2.0) mmol/L Calcium (8.4-10.2) mg/dL Total Bilirubin (0.2-1.3) mg/dL AST (17-59) U/L ALT (21-72) U/L Alkaline Phosphatase (38-126) U/L Total Protein (6.3-8.2) g/dL Albumin (3.5-5.0) g/dL Amylase (30-110) U/L Lipase (23-300) U/L Urine Color Yellow Urine Appearance Clear (Clear) Urine pH 6.5 (5.0-8.0) Ur Specific [place] 1.017 (1.001-1.035) Urine Protein 1+ H (Negative) Urine Glucose (UA) 1+ H (Negative) Urine Ketones Negative (Negative) Urine Blood Negative (Negative) Urine Nitrite Negative (Negative) Urine Bilirubin Negative (Negative) Urine Urobilinogen 3.0 (<2.0) mg/dL Ur Leukocyte Esterase Negative (Negative) Urine RBC 1 (0-5) /hpf Urine WBC 1 (0-5) /hpf Ur Squamous Epith Cells <1 (0-4) /hpf Hyaline Casts 3 H (0-2) /lpf Urine Mucus Rare H (None) /hpf - EKG Data -: EKG Interpreted by Me EKG Comments: EKG was obtained at 4:20 AM for evaluation of epigastric discomfort and for evaluation of QT given patient is on multiple medications that can prolong QT. EKG obtained at 4:20 AM, rate 79 rhythm is sinus with evidence of LVH and leftward axis. There is W[place] 172, QRS 111 QT is prolonged at [address] QTC [address] elevations or depressions or no evidence of acute ischemia or infarction. Disposition Clinical Impression: Nausea and vomiting, Transaminitis Disposition: ADMITTED IP TO THIS HOSP Referrals: Fritz Miguel MD [Primary Care Provider] - 1-2 days
[2018-07-28] MEDS ORDERED: TRIMETHOBENZAMIDE 100 MG/ML 2 ML VIAL IM STA (04:32)
[2018-07-28 04:46] LABS: Basophils % (A) 0 %; Eosinophils % (A) 1 %; HCT 38.5 % (39.0-53.0); HGB 12.4 gm/dL (13.0-17.5); Lymphocytes # (A) 1.1 k/uL (1.0-4.8); Lymphocytes % (A) 19 %; MCH 29.1 pg (25.0-35.0); MCHC 32.1 g/dL (31.0-37.0); MCV 90.8 fL (80.0-100.0); Mean Platelet Volume 8.2; Monocytes # (A) 0.2 k/uL (0-1.0); Monocytes % (A) 3 %; Neutrophils # (A) 4.6 k/uL (1.3-7.7); Neutrophils % (A) 77 %; Platelet Count 212 k/uL (150-450); RBC 4.24 m/uL (4.30-5.90); RDW 15.2 % (11.5-15.5)
[2018-07-28] MEDS ORDERED: FAMOTIDINE 20 MG/2 ML VIAL IV STA (04:51)
[2018-07-28 04:59] LABS: Calcium 9.6 mg/dL (8.4-10.2); Potassium 3.5 mmol/L (3.5-5.1); Total Bilirubin 1.1 mg/dL (0.2-1.3); Total Protein 6.9 g/dL (6.3-8.2)
[2018-07-28 05:30] LABS: Appearance,Urine Clear (Clear); Bilirubin,Urine Negative (Negative); Blood,Urine Negative (Negative); Color,Urine Yellow; Glucose,Urine (UA) 1+ (Negative); Hyaline Casts,Urine 3 /lpf (0-2); Ketones,Urine Negative (Negative); Leukocyte Esterase,Urine Negative (Negative); Mucus,Urine Rare /hpf; Nitrite,Urine Negative (Negative); PH, Urine 6.5 (5.0-8.0); Protein,Urine 1+ (Negative); RBC,Urine 1 /hpf (0-5); Specific Gravity,Urine 1.017 (1.001-1.035); Squamous Epithelial Cell,Urine <1 /hpf (0-4); WBC,Urine 1 /hpf (0-5)
[2018-07-28] MEDS: SODIUM CHLORIDE 0.9% 1,000 ML IV SCH ×3 (06:22→19:28)
--- NOTE | 2018-07-28 06:33 | CT ---
EXAM: CT Abdomen and Pelvis With Intravenous Contrast CLINICAL HISTORY: ITS.REASON CT Reason: nausea, vom, diarrhea, transaminitis, metastatic c TECHNIQUE: Axial computed tomography images of the abdomen and pelvis with intravenous contrast. CTDI is 17.4 mGy and DLP is 782 mGy-cm. This CT exam was performed using one or more of the following dose reduction techniques: automated exposure control, adjustment of the mA and/or kV according to patient size, and/or use of iterative reconstruction technique. COMPARISON: 03/15/2016 FINDINGS: Lung bases: Minimal linear changes in the lower lobes and inferior lingular segments is presumed atelectasis or scarring. ABDOMEN: Liver: Ill-defined hypodensities in the superior aspect of the liver are stable from previous exam and are presumed hepatic cysts., The largest measures 12 mm. Gallbladder and bile ducts: There is dependent hyperdensity with scattered calcifications noted in the gallbladder. This appears to be new from the previous examination. No ductal dilation. Pancreas: Unremarkable. No mass. No ductal dilation. Spleen: Unremarkable. No splenomegaly. Adrenals: Unremarkable. No mass. Kidneys and ureters: The kidneys demonstrate normal enhancement without calcifications or hydronephrosis. A stable cortical cyst involving the inferior pole the right kidney is noted measuring 2.2 cm. Delayed phase imaging demonstrates normal excreted contrast in the renal collecting systems and proximal ureters. Stomach and bowel: Diverticulosis is seen involving the colon without CT evidence for diverticulitis. Mucosal prominence of the transverse and left colon is presumed related to decompression. No obstruction. PELVIS: Appendix: No findings to suggest acute appendicitis. Bladder: Unremarkable. No mass. Reproductive: Unremarkable as visualized. ABDOMEN and PELVIS: Intraperitoneal space: Unremarkable. No free air. No significant fluid collection. Bones/joints: Degenerative changes are noted involving the lumbar spine. Grade 1 anterolisthesis of L5 on S1 is stable. No acute fracture. No dislocation. Soft tissues: Unremarkable. Vasculature: Unremarkable. No abdominal aortic aneurysm. Lymph nodes: Unremarkable. No enlarged lymph nodes. IMPRESSION: There is dependent hyperdensity with scattered calcifications noted in the gallbladder. This appears to be new from the previous examination. Primary consideration is hyperdense sludge with probable gallstones. An underlying gallbladder mass is considered less likely but is a diagnostic consideration. No CT evidence for pericholecystic fluid or gallbladder wall thickening identified. No biliary dilatation. If there is right upper quadrant tenderness, right upper quadrant ultrasound may provide greater detail in this region.
[2018-07-28] MEDS ORDERED: NALOXONE 0.4 MG/ML 1 ML VIAL IV PRN (06:56)
--- NOTE | 2018-07-28 08:06 | US ---
EXAMINATION TYPE: US gallbladder DATE OF EXAM: 07/28/2018 COMPARISON: NONE CLINICAL HISTORY: transaminitis, vomiting. EXAM MEASUREMENTS: Liver Length: 15.4 cm Gallbladder Wall: 0.2 cm CBD: 0.7 cm Right Kidney: 8.7 x 4.9 x 6.0 cm Technically difficult study due to extensive overlying bowel gas Pancreas: Obscured by bowel gas Liver: partially obscured, liver cyst noted measuring 2.8 x 2.9 x 2.4cm Gallbladder: large shadowing stone, multiple mobile echogenic foci, non -shadowing Evidence for sonographic Ryder's sign: Yes CBD: dilated Right Kidney: inferior pole cyst measuring 1.8 x 1.8 x 2.3cm, measures small The pancreas is obscured. The liver is normal in size without evidence of biliary dilatation. There are multiple nonshadowing stones within the gallbladder. Gallbladder wall measures 2 mm. The di stal common hepatic duct measures 7 mm which is normal in this age group. There is right upper quadra nt tenderness. There is a somewhat lobulated, 1.8 x 1.8 x 2.3 cm cyst in the lower pole of the right kidney. IMPRESSION: 1. LIMITED EXAMINATION. 2. NONSHADOWING GALLSTONES WITHIN THE GALLBLADDER. 3. SLIGHTLY LOBULATED RIGHT LOWER POLE RENAL CYST.
[2018-07-28] MEDS ORDERED: ONDANSETRON 4 MG/2 ML VIAL IVP PRN (09:52)
[2018-07-28] MEDS: TAMSULOSIN 0.4 MG CAP.ER.24H PO SCH (09:56)
[2018-07-28] MEDS: ATENOLOL 50 MG TAB PO SCH (09:56)
[2018-07-28] MEDS: VENLAFAXINE HCL ER 75 MG CAP PO SCH (09:56)
--- NOTE | 2018-07-28 10:01 | P.HPIM ---
History of Present Illness H&P Date: 07/28/18 Chief Complaint: Nausea vomiting abdominal pain The patient is a 82-year-old male with a past medical history of essential hypertension and stage IV prostate adenocarcinoma who presents to the ER via private vehicle with chief complaint of abdominal pain and nausea and vomiting. The patient reports that his symptoms began approximately 4 PM yesterday reports that he had previously eaten a cream filled donuts pecan and then began having midepigastric to right sided abdominal discomfort, with symptoms of bloating and belching and indigestion that progressed to intractable nausea and nonbloody bilious emesis. the patient attempted to drink some Vern[place] hakeem tadeo without any relief. He denies any change in his bowel habits denies diarrhea or constipation, denies any bright red blood per rectum or dark melanotic stools, he denies chest pain Or shortness of breath, denies any subjective fevers chills or night sweats. The patient reports to being followed by Dr. Alvarez and is currently on Lupron injections In the ER the patient had a comprehensive workup with CT abdomen and pelvis indicating gallstones and possible biliary sludge, subsequent right upper quadrant ultrasound indicated non-shadowing gallstones with gallbladder, slightly lobulated right lower pole renal cyst. Admission labs included a hemoglobin of 12.4, lactate of 2.9, AST 444, [id number], alk phos 164, lipase of 337 EKG showed normal sinus rhythm without any suggestion of acute ischemia . In the ER the patient was noted to have extremely high blood pressure but had not taken his morning meds as yet, Patient is recommended for admission Review of Systems Pertinent positives per HPI, all other review of systems otherwise negative Past Medical History Past Medical History: Cancer, Hypertension, Osteoarthritis (OA), Prostate Disorder Additional Past Medical History / Comment(s): prostate CA with mets to bone, pelvis and liver, chemo completed, History of Any Multi-Drug Resistant Organisms: None Reported Past Surgical History: Heart Catheterization Additional Past Surgical History / Comment(s): CATARACT SURGERY, Past Anesthesia/Blood Transfusion Reactions: No Reported Reaction Additional Past Anesthesia/Blood Transfusion Reaction / Comment(s): NO BLOOD PRO DUCTS Past Psychological History: No Psychological Hx Reported Smoking Status: Former smoker Past Alcohol Use History: None Reported Past Drug Use History: None Reported - Past Family History Father Family Medical History: No Reported History Medications and Allergies Home Medications Medication Instructions Recorded Confirmed Type Lisinopril [Zestril] 10 mg PO HS 08/07/13 07/28/18 History Tamsulosin [Flomax] 0.4 mg PO DAILY 02/28/16 07/28/18 History Atenolol [Tenormin] 50 mg PO DAILY 05/29/16 07/28/18 History Venlafaxine HCl ER [Effexor Xr] 75 mg PO DAILY 05/29/16 07/28/18 History Allergies Allergy/AdvReac Type Severity Reaction Status Date / Time No Known Allergies Allergy Verified 07/28/18 07:29 Physical Exam Vitals: Vital Signs Temp Pulse Pulse Resp BP BP BP 07/28/18 09:29 97.6 F 82 15 222/117 202/97 07/28/18 08:00 75 18 193/109 07/28/18 06:23 81 18 178/101 07/28/18 04:53 74 16 188/96 07/28/18 04:05 98.5 F 84 16 183/93 Pulse Ox 07/28/18 09:29 97 07/28/18 08:00 99 07/28/18 06:23 98 07/28/18 04:53 90 L 07/28/18 04:05 100 Intake and Output 07/27/18 07/28/18 07/28/18 22:59 06:59 14:59 Other: Weight 77.111 kg Constitutional: No acute distress, conversant, pleasant Eyes: Anicteric sclerae, moist conjunctiva, no lid-lag, PERRLA ENMT: NC/AT,Oropharynx clear, no erythema, exudates Neck:Supple, FROM, no masses, or JVD, No carotid bruits; No thyromegaly Lungs: Clear to auscultation, Clear to percussion, Normal respiratory effort, no accessory muscle use Cardiovascular: Heart regular in rate and rhythm, No murmurs, gallops, or rubs no peripheral edema Abdominal: Soft tender to palpation in the midepigastrium, positive Ryder sign, slightly distended, no guarding, no rebound or rigidity, Normoactive bowel sounds. Skin: Normal temperature, tone, texture, turgor, No induration No subcutaneous nodules, No rash, lesions, No ulcers Extremities:No digital cyanosis No clubbing, Pedal pulses intact and symmetrical Radial pulses intact and symmetrical Normal gait and station, No calf tenderness Psychiatric: Alert and oriented to person, place and time, Appropriate affect Intact judgement Neuro: Muscles Strength 5/5 in all 4 extremities, Sensation to light touch grossly present throughout, Cranial nerves II-XII grossly intact. No focal se nsory deficits Results CBC & Chem 7: 07/28/18 04:20 07/28/18 04:20 Labs: Abnormal Lab Results - Last 24 Hours (Table) 07/28/18 07/28/18 07/28/18 Range/Units 04:20 04:20 04:20 RBC 4.24 L (4.30-5.90) m/uL Hgb 12.4 L (13.0-17.5) gm/dL Hct 38.5 L (39.0-53.0) % Carbon Dioxide 32 H (22-30) mmol/L Glucose 231 H (74-99) mg/dL Plasma Lactic Acid Terence 2.9 H* (0.7-2.0) mmol/L AST 444 H (17-59) U/L ALT 167 H (21-72) U/L Alkaline Phosphatase 164 H (38-126) U/L Lipase 337 H (23-300) U/L Urine Protein (Negative) Urine Glucose (UA) (Negative) Hyaline Casts (0-2) /lpf Urine Mucus (None) /hpf 07/28/18 Range/Units 05:00 RBC (4.30-5.90) m/uL Hgb (13.0-17.5) gm/dL Hct (39.0-53.0) % Carbon Dioxide (22-30) mmol/L Glucose (74-99) mg/dL Plasma Lactic Acid Terence (0.7-2.0) mmol/L AST (17-59) U/L ALT (21-72) U/L Alkaline Phosphatase (38-126) U/L Lipase (23-300) U/L Urine Protein 1+ H (Negative) Urine Glucose (UA) 1+ H (Negative) Hyaline Casts 3 H (0-2) /lpf Urine Mucus Rare H (None) /hpf Assessment and Plan (1) Intractable nausea and vomiting Current Visit: Yes Status: Acute Code(s): R11.2 - NAUSEA WITH VOMITING, UNSPECIFIED SNOMED Code(s): 986730159 (2) Cholelithiasis Current Visit: Yes Status: Acute Code(s): K80.20 - CALCULUS OF GALLBLADDER W/O CHOLECYSTITIS W/O OBSTRUCTION SNOMED Code(s): 706608227 (3) Accelerated hypertension Current Visit: Yes Status: Acute Code(s): I10 - ESSENTIAL (PRIMARY) HYPERTENSION SNOMED Code(s): 28745975 (4) Transaminitis Current Visit: Yes Status: Acute Code(s): R74.0 - NONSPEC ELEV OF LEVELS OF TRANSAMNS & LACTIC ACID DEHYDRGNSE SNOMED Code(s): 158203050 (5) Prostate cancer metastatic to bone Current Visit: Yes Status: Acute Code(s): C61 - MALIGNANT NEOPLASM OF PROSTATE; C79.51 - SECONDARY MALIGNANT NEOPLASM OF BONE SNOMED Code(s): 607463611 Plan: The patient is placed on observation anticipate a less than 2 midnight stay with intractable nausea and vomiting with concern for acute hepatobiliary disease with elevated transaminases, and evidence of cholelithiasis on imaging. We'll plan to consult general surgery, check a HIDA scan, acute hepatitis panel, Coags, continue supportive treatment with PPIs therapy, GI cocktail, Zofran And IV fluids. Oncology is also consulted given the patient's history of prostate cancer and is currently on chemotherapy with Lupron. The patient is noted to have extremely elevated blood pressures due to not taking his blood pressure medications this morning, but is asymptomatic. We will resume his home hypertensive regimen and continue monitor his blood pressure closely. Continue to monitor his clinical course CODE STATUS: Full code Discussed plan of care with: Patient Anticipated discharge: 1-[address] : Home Time with Patient: Greater than 30
[2018-07-28] MEDS ORDERED: MAG HYDROX/AL HYDROX/SIMETH 30 ML, HYOSCYAMINE ELIXIR 10 ML, CIMETIDINE HCL 300 MG, LID... PO ONE ×4 (10:30)
[2018-07-28 10:37] LABS: Prothrombin Time 10.9 sec (9.0-12.0)
[2018-07-28] MEDS ORDERED: hydrALAZINE HCL 25 MG TAB PO PRN (10:58)
[2018-07-28] MEDS ORDERED: amLODIPine 10 MG TAB PO STA (10:58)
--- NOTE | 2018-07-28 11:11 | P.CONS ---
History of Present Illness - Reason for Consult Consult date: 07/28/18 Abdominal pain, N/V. Metastatic prostate cancer on treatment - History of Present Illness The patient is an 82-year-old -[place] male, well known to myself. The patient had initially presented in the fall of 2014, with abdominal pain and elevated liver enzymes. He was seen by gastroenterology and had imaging studies done which revealed multiple liver masses. He had a liver biopsy in 11/26 which showed metastatic prostate cancer. The patient was seen in consultation at that time and was found to have widespread disease with lung nodules, liver metastasis, and bone metastasis. He was started on Lupron, and also received 6 cycles of Taxotere upfront. Overall he tolerated chemotherapy reasonably well and had a very good remission by PSA and imaging studies. He is currently continuing on Lupron and Xgeva, with no evidence of progression The patient came into the hospital with fairly acute onset of abdominal pain in the right upper quadrant and epigastrium, associated with nausea and vomiting. This has started the night before. The patient had eaten outside prior to onset of the symptoms. He denied any obvious bleeding or change in bowel habits. On admission to the hospital he was found to have elevated liver enzymes. Abdominal imaging revealed no change in appearance of ill-defined liver lesions compared to 2017. However he was noted to have evidence of possible gallbladder inflammation and sludge or stones. Consult was placed for further evaluation and recommendations Review of Systems Constitutional: Reports poor appetite, Reports weakness Eyes: denies blurred vision, denies pain Ears: deny: decreased hearing, ear discharge, earache, tinnitus Ears, nose, mouth and throat: Denies headache, Denies sore throat Cardiovascular: Denies chest pain, Denies shortness of breath Respiratory: Denies cough Gastrointestinal: Reports abdominal pain, Reports nausea, Reports vomiting Genitourinary: Reports as per HPI Musculoskeletal: Reports muscle weakness Integumentary: Denies pruritus, Denies rash Neurological: Denies numbness, Denies weakness Psychiatric: Denies anxiety, Denies depression Endocrine: Denies fatigue, Denies weight change Hematologic/Lymphatic: Reports as per HPI Past Medical History Past Medical History: Cancer, Hypertension, Osteoarthritis (OA), Prostate Disorder Additional Past Medical History / Comment(s): prostate CA with mets to bone, pelvis and liver, chemo completed, History of Any Multi-Drug Resistant Organisms: None Reported Past Surgical History: Heart Catheterization Additional Past Surgical History / Comment(s): CATARACT SURGERY, Past Anesthesia/Blood Transfusion Reactions: No Reported Reaction Additional Past Anesthesia/Blood Transfusion Reaction / Comm: NO BLOOD PRODUCTS Past Psychological History: No Psychological Hx Reported Smoking Status: Former smoker Past Alcohol Use History: None Reported Past Drug Use History: None Reported - Past Family History Father Family Medical History: No Reported History Medications and Allergies Home Medications Medication Instructions Recorded Confirmed Type Lisinopril [Zestril] 10 mg PO HS 08/07/13 07/28/18 History Tamsulosin [Flomax] 0.4 mg PO DAILY 02/28/16 07/28/18 History Atenolol [Tenormin] 50 mg PO DAILY 05/29/16 07/28/18 History Venlafaxine HCl ER [Effexor Xr] 75 mg PO DAILY 05/29/16 07/28/18 History Allergies Allergy/AdvReac Type Severity Reaction Status Date / Time No Known Allergies Allergy Verified 07/28/18 07:29 Physical Exam Vitals: Vital Signs Temp Pulse Pulse Resp BP BP BP 07/28/18 09:29 97.6 F 82 15 222/117 202/97 07/28/18 08:00 75 18 193/109 07/28/18 06:23 81 18 178/101 07/28/18 04:53 74 16 188/96 07/28/18 04:05 98.5 F 84 16 183/93 Pulse Ox 07/28/18 09:29 97 07/28/18 08:00 99 07/28/18 06:23 98 07/28/18 04:53 90 L 07/28/18 04:05 100 Intake and Output 07/27/18 07/28/18 07/28/18 22:59 06:59 14:59 Other: Weight 77.111 kg - Constitutional General appearance: no acute distress - EENT Eyes: EOMI, PERRLA ENT: hearing grossly normal, normal oropharynx - Neck Neck: no lymphadenopathy - Respiratory Respiratory: bilateral: CTA - Cardiovascular Rhythm: regular Heart sounds: normal: S1, S2 - Gastrointestinal General gastrointestinal: decreased bowel sounds, soft Localized gastrointestinal: tender: RUQ - Integumentary Integumentary: normal - Neurologic Neurologic: CNII-XII intact - Musculoskeletal Musculoskeletal: generalized weakness, strength equal bilaterally - Psychiatric Psychiatric: A&O x's 3, appropriate affect Results CBC & Chem 7: 07/28/18 04:20 07/28/18 04:20 Labs: Abnormal Lab Results - Last 24 Hours (Table) 07/28/18 07/28/18 07/28/18 Range/Units 04:20 04:20 04:20 RBC 4.24 L (4.30-5.90) m/uL Hgb 12.4 L (13.0-17.5) gm/dL Hct 38.5 L (39.0-53.0) % Carbon Dioxide 32 H (22-30) mmol/L Glucose 231 H (74-99) mg/dL Plasma Lactic Acid Terence 2.9 H* (0.7-2.0) mmol/L AST 444 H (17-59) U/L ALT 167 H (21-72) U/L Alkaline Phosphatase 164 H (38-126) U/L Lipase 337 H (23-300) U/L Urine Protein (Negative) Urine Glucose (UA) (Negative) Hyaline Casts (0-2) /lpf Urine Mucus (None) /hpf 07/28/18 07/28/18 Range/Units 05:00 09:23 RBC (4.30-5.90) m/uL Hgb (13.0-17.5) gm/dL Hct (39.0-53.0) % Carbon Dioxide (22-30) mmol/L Glucose (74-99) mg/dL Plasma Lactic Acid Terence 3.3 H* (0.7-2.0) mmol/L AST (17-59) U/L ALT (21-72) U/L Alkaline Phosphatase (38-126) U/L Lipase (23-300) U/L Urine Protein 1+ H (Negative) Urine Glucose (UA) 1+ H (Negative) Hyaline Casts 3 H (0-2) /lpf Urine Mucus Rare H (None) /hpf CT scan - abdomen: report reviewed CT scan - pelvis: report reviewed US - abdomen: report reviewed Assessment and Plan (1) Cholelithiasis Narrative/Plan: The patient's current presentation is most likely related to the same. Based on exam and imaging, he appears to have cholecystitis. Case was discussed with the surgical service. There is also possibility of obstruction due to stone in transit, as lipase was also elevated. It was discussed with surgery that if the patient needs surgical intervention, there is no quadrant medication from the oncology standpoint as the patient is currently only on hormonal treatment, with no evidence of cancer progression Current Visit: Yes Status: Acute Code(s): K80.20 - CALCULUS OF GALLBLADDER W/O CHOLECYSTITIS W/O OBSTRUCTION SNOMED Code(s): 599020918 (2) Prostate cancer metastatic to bone Narrative/Plan: The patient had presented with widespread prostate cancer with bone and visceral metastasis, with diagnostic and therapeutic circumstances as noted. Is currently continuing on Lupron, and Xgeva, without evidence of cancer progression. Liver parenchymal findings on computed tomography scan are stable compared to 2017. The liver enzyme elevation noted this admission is new for him. Therefore his current presentation is likely to be unrelated to his malignancy and more due to cholecystitis and/or gallstone obstruction. He will continue Lupron and Xgeva as scheduled Current Visit: Yes Status: Acute Code(s): C61 - MALIGNANT NEOPLASM OF PROSTATE; C79.51 - SECONDARY MALIGNANT NEOPLASM OF BONE SNOMED Code(s): 557952101 Plan: Defer to the admitting service and other consultants for management of his other medical problems
[2018-07-28] MEDS: MORPHINE SULFATE 4 MG/ML SYRINGE IVP PRN (12:15)
--- NOTE | 2018-07-28 12:22 | P.GSCN ---
History of Present Illness Consult date: 07/28/18 Reason for Consult: Acute cholecystitis History of present illness: Patient came to the hospital early this morning because of abdominal pain. Pain is mostly right upper quadrant. This began last night around 7:00. He has had some nausea and vomiting with this. No history of similar events in the past. Appetite diminished. Pain is persisting. Patient had a CAT scan followed by ultrasound. Both studies reveal gallstones. Common bile duct slightly dilated. Patient with history of stage IV prostate cancer. Apparently he did have liver metastasis. The liver itself appears fairly normal-appearing and the degree of inflammation of the gallbladder by CAT scan at least does not look too bad. The patient has one large stone and several other smaller ones. Per oncology the patient's malignancy is well-controlled at this time. The patient's labs reveal an elevated lactic acid. His ALT and AST are elevated at 167 and 444. Alkaline phosphatase slightly elevated at 164 and bilirubin 1.1. Lipase elevated at 337 with normal amylase. Hepatitis panel has been ordered. Patient was having significant hypertension which is being treated. Review of Systems The patient denies any acute changes in vision or hearing, no dysphagia or odynophagia, no chest pain or shortness of breath, no dysuria or hematuria, no headache, no runny nose, no rectal bleeding or melena, no unexplained weight loss Past Medical History Past Medical History: Cancer, Hypertension, Osteoarthritis (OA), Prostate Disorder Additional Past Medical History / Comment(s): prostate CA with mets to bone, pelvis and liver, chemo completed, History of Any Multi-Drug Resistant Organisms: None Reported Past Surgical History: Heart Catheterization Additional Past Surgical History / Comment(s): CATARACT SURGERY, Past Anesthesia/Blood Transfusion Reactions: No Reported Reaction Additional Past Anesthesia/Blood Transfusion Reaction / Comm: NO BLOOD PRODUCTS Past Psychological History: No Psychological Hx Reported Smoking Status: Former smoker Past Alcohol Use History: None Reported Past Drug Use History: None Reported - Past Family History Father Family Medical History: No Reported History Medications and Allergies Home Medications Medication Instructions Recorded Confirmed Type Lisinopril [Zestril] 10 mg PO HS 08/07/13 07/28/18 History Tamsulosin [Flomax] 0.4 mg PO DAILY 02/28/16 07/28/18 History Atenolol [Tenormin] 50 mg PO DAILY 05/29/16 07/28/18 History Venlafaxine HCl ER [Effexor Xr] 75 mg PO DAILY 05/29/16 07/28/18 History Allergies Allergy/AdvReac Type Severity Reaction Status Date / Time No Known Allergies Allergy Verified 07/28/18 07:29 Surgical - Exam Vital Signs Temp Pulse Resp BP Pulse Ox 98.5 F 84 16 183/93 100 07/28/18 04:05 07/28/18 04:05 07/28/18 04:05 07/28/18 04:05 07/28/18 04:05 Physical exam: General: Well-developed, well-nourished HEENT: Normocephalic, sclerae nonicteric Abdomen: Right upper quadrant tenderness, no palpable masses, nondistended Extremities: No edema Neuro: Alert and oriented Results - Labs 07/28/18 04:20 07/28/18 04:20 Abnormal Lab Results - Last 24 Hours (Table) 07/28/18 07/28/18 07/28/18 Range/Units 04:20 04:20 04:20 RBC 4.24 L (4.30-5.90) m/uL Hgb 12.4 L (13.0-17.5) gm/dL Hct 38.5 L (39.0-53.0) % Carbon Dioxide 32 H (22-30) mmol/L Glucose 231 H (74-99) mg/dL Plasma Lactic Acid Terence 2.9 H* (0.7-2.0) mmol/L AST 444 H (17-59) U/L ALT 167 H (21-72) U/L Alkaline Phosphatase 164 H (38-126) U/L Lipase 337 H (23-300) U/L Urine Protein (Negative) Urine Glucose (UA) (Negative) Hyaline Casts (0-2) /lpf Urine Mucus (None) /hpf 07/28/18 07/28/18 Range/Units 05:00 09:23 RBC (4.30-5.90) m/uL Hgb (13.0-17.5) gm/dL Hct (39.0-53.0) % Carbon Dioxide (22-30) mmol/L Glucose (74-99) mg/dL Plasma Lactic Acid Terence 3.3 H* (0.7-2.0) mmol/L AST (17-59) U/L ALT (21-72) U/L Alkaline Phosphatase (38-126) U/L Lipase (23-300) U/L Urine Protein 1+ H (Negative) Urine Glucose (UA) 1+ H (Negative) Hyaline Casts 3 H (0-2) /lpf Urine Mucus Rare H (None) /hpf Diabetes panel 07/28/18 Range/Units 04:20 Sodium 141 (137-145) mmol/L Potassium 3.5 (3.5-5.1) mmol/L Chloride 103 (98-107) mmol/L Carbon Dioxide 32 H (22-30) mmol/L BUN 16 (9-20) mg/dL Creatinine 1.13 (0.66-1.25) mg/dL Glucose 231 H (74-99) mg/dL Calcium 9.6 (8.4-10.2) mg/dL AST 444 H (17-59) U/L ALT 167 H (21-72) U/L Alkaline Phosphatase 164 H (38-126) U/L Total Protein 6.9 (6.3-8.2) g/dL Albumin 4.0 (3.5-5.0) g/dL Calcium panel 07/28/18 Range/Units 04:20 Calcium 9.6 (8.4-10.2) mg/dL Albumin 4.0 (3.5-5.0) g/dL Pituitary panel 07/28/18 Range/Units 04:20 Sodium 141 (137-145) mmol/L Potassium 3.5 (3.5-5.1) mmol/L Chloride 103 (98-107) mmol/L Carbon Dioxide 32 H (22-30) mmol/L BUN 16 (9-20) mg/dL Creatinine 1.13 (0.66-1.25) mg/dL Glucose 231 H (74-99) mg/dL Calcium 9.6 (8.4-10.2) mg/dL Adrenal panel 07/28/18 Range/Units 04:20 Sodium 141 (137-145) mmol/L Potassium 3.5 (3.5-5.1) mmol/L Chloride 103 (98-107) mmol/L Carbon Dioxide 32 H (22-30) mmol/L BUN 16 (9-20) mg/dL Creatinine 1.13 (0.66-1.25) mg/dL Glucose 231 H (74-99) mg/dL Calcium 9.6 (8.4-10.2) mg/dL Total Bilirubin 1.1 (0.2-1.3) mg/dL AST 444 H (17-59) U/L ALT 167 H (21-72) U/L Alkaline Phosphatase 164 H (38-126) U/L Total Protein 6.9 (6.3-8.2) g/dL Albumin 4.0 (3.5-5.0) g/dL Assessment and Plan (1) Acute calculous cholecystitis Narrative/Plan: 82-year-old male with suspected acute calculus cholecystitis. Underlying choledocholithiasis/gallstone pancreatitis has not been completely excluded. Begin IV antibiotics. Keep on clear liquids for today. Repeat labs tomorrow. If the patient's liver enzymes increase further we'll consult GI to evaluate for choledocholithiasis. If the patient's liver enzymes do not suggest biliary obstruction Will proceed with laparoscopic cholecystectomy tomorrow. Risks of bleeding, infection, bile leak, bile duct injury, retained common bile duct stone, trocar injury, conversion to an open procedure, hernia, anesthesia relate d complications were reviewed. The patient understands and wishes to proceed. Current Visit: Yes Status: Acute Code(s): K80.00 - CALCULUS OF GALLBLADDER W ACUTE CHOLECYST W/O OBSTRUCTION SNOMED Code(s): 27509781715016
[2018-07-28] MEDS: HEPARIN SODIUM,PORCINE 5,000 UNIT/ML 1 ML VIAL SQ SCH ×2 (15:59→23:41)
[2018-07-28] MEDS: PIPERACILLIN-TAZOBACTAM 3.375 GM in SODIUM CHLORIDE 0.9% 100 ML IVPB SCH ×2 (15:59→23:41)
[2018-07-28] MEDS: LISINOPRIL 10 MG TAB PO SCH (20:42)
[2018-07-29] MEDS: SODIUM CHLORIDE 0.9% 1,000 ML IV SCH ×3 (04:12→19:49)
[2018-07-29] MEDS: MORPHINE SULFATE 4 MG/ML SYRINGE IVP PRN ×2 (05:31→15:49)
[2018-07-29 07:21] LABS: Basophils % (A) 0 %; Eosinophils # (A) 0.1 k/uL (0-0.7); Eosinophils % (A) 1 %; HCT 34.6 % (39.0-53.0); HGB 11.3 gm/dL (13.0-17.5); Lymphocytes # (A) 1.6 k/uL (1.0-4.8); Lymphocytes % (A) 16 %; MCH 29.4 pg (25.0-35.0); MCHC 32.8 g/dL (31.0-37.0); MCV 89.8 fL (80.0-100.0); Mean Platelet Volume 8.7; Monocytes # (A) 0.4 k/uL (0-1.0); Monocytes % (A) 4 %; Neutrophils # (A) 7.6 k/uL (1.3-7.7); Neutrophils % (A) 77 %; Platelet Count 179 k/uL (150-450); RBC 3.85 m/uL (4.30-5.90); WBC 9.8 k/uL (3.8-10.6)
[2018-07-29] MEDS: TAMSULOSIN 0.4 MG CAP.ER.24H PO SCH (07:40)
[2018-07-29] MEDS: VENLAFAXINE HCL ER 75 MG CAP PO SCH (07:40)
[2018-07-29] MEDS: ATENOLOL 50 MG TAB PO SCH (07:40)
[2018-07-29] MEDS: amLODIPine 10 MG TAB PO SCH (07:41)
[2018-07-29] MEDS: HEPARIN SODIUM,PORCINE 5,000 UNIT/ML 1 ML VIAL SQ SCH ×3 (07:41→23:12)
[2018-07-29] MEDS: PIPERACILLIN-TAZOBACTAM 3.375 GM in SODIUM CHLORIDE 0.9% 100 ML IVPB SCH ×3 (07:41→23:12)
[2018-07-29] MEDS: PANTOPRAZOLE 40 MG/10 ML VIAL IVP SCH (07:41)
[2018-07-29 08:00] LABS: Albumin 3.1 g/dL (3.5-5.0); Calcium 7.9 mg/dL (8.4-10.2); Potassium 3.3 mmol/L (3.5-5.1); Total Bilirubin 1.5 mg/dL (0.2-1.3); Total Protein 5.7 g/dL (6.3-8.2)
[2018-07-29] MEDS: POTASSIUM CHLORIDE 10 MEQ in WATER FOR INJECTION 1 100ML.BAG IVPB SCH ×4 (09:46→14:19)
[2018-07-29] MEDS ORDERED: IV FLUID CONTINUATION 1,000 ML IV ONE (10:44)
[2018-07-29 11:21] LABS: Hepatitis A Antibody IgM Non-Reactive (Non-Reactive); Hepatitis B Core IgM Non-Reactive (Non-Reactive)
[2018-07-29] MEDS ORDERED: ePHEDrine SULFATE/0.9% NACL/PF 50 MG/5 ML SYRINGE IV ONE (11:25)
[2018-07-29] MEDS ORDERED: PHENYLEPHRINE-0.9% NACL SYG 1 MG/10 ML SYRINGE ONE (11:25)
[2018-07-29] MEDS ORDERED: MIDAZOLAM 2 MG/2 ML VIAL ONE (11:25)
[2018-07-29] MEDS ORDERED: ROCURONIUM BROMIDE 10 MG/ML 10 ML VIAL IV ONE (11:25)
[2018-07-29] MEDS ORDERED: LIDOCAINE 1% INJ 10MG/ML (20 ML MDV) ONE (11:25)
[2018-07-29] MEDS ORDERED: GLYCOPYRROLATE 0.2 MG/ML 2 ML VIAL ONE (11:25)
[2018-07-29] MEDS ORDERED: PROPOFOL 10 MG/ML 20 ML VIAL IV ONE (11:25)
[2018-07-29] MEDS ORDERED: SUCCINYLCHOLINE CHLORIDE 100 MG/5 ML SYR IV ONE (11:25)
[2018-07-29] MEDS ORDERED: fentaNYL (PF) 50 MCG/ML 2 ML AMP ONE (11:25)
[2018-07-29] MEDS ORDERED: NEOSTIGMINE 1 MG/ML 10 ML VIAL ONE (11:25)
[2018-07-29] MEDS ORDERED: BUPIVACAINE-EPI 0.5%-1:200,000 10 ML VIAL SQ ONE ×2 (11:58)
[2018-07-29] MEDS ORDERED: LACTATED RINGERS 1,000 ML IV ONE ×2 (12:29)
--- NOTE | 2018-07-29 13:21 | P.OP ---
Date of Procedure: 07/29/18 Procedure(s) Performed: PREOPERATIVE DIAGNOSIS: Acute cholecystitis POSTOPERATIVE DIAGNOSIS: Acute gangrenous cholecystitis PROCEDURE: Laparoscopic cholecystectomy SURGEON: Ness EBL: Minimal see anesthesia record ANESTHESIA: Gen. COMPLICATIONS: None OPERATIVE PROCEDURE: The patient was brought and placed on the operating room table in the supine position. The patient was placed under general anesthesia at that time. The abdomen was prepped and draped in the usual sterile fashion. A small curvilinear infraumbilical incision was made. The fascia was grasped with the Altagracia forceps. The fascia was retracted anteriorly. The Veress needle was advanced into the peritoneal cavity. The saline drop test was normal. Insufflation took place up to 15 mmHg. A 5 mm optical trocar was advanced and the peritoneal cavity. 2 additional 5 mm trochars were placed in the right upper quadrant under direct visualization. A 12 mm trocar was advanced into the epigastric incision site. The gallbladder was noted to be acutely inflamed with gangrene involving 60% or more of the visualized gallbladder. This was not perforated. An opening was made in the fundus and the contents were evacuated given its tense appearance. The gallbladder was retracted superiorly and laterally. The peritoneum overlying the infundibulum was bluntly dissected. The patient's cystic duct was visualized. This was not noted to be gangrenous. The junction between the cystic duct common and hepatic duct was identified. The cystic duct was then divided after placement of 3 12 mm clips on the patient's side and one on the specimen side. The cystic artery was identified and clipped as well. A small vessel was seen along the gallbladder fossa and clipped as well. The gallbladder was then removed from the liver bed using electrocautery and blunt dissection. The gallbladder was then removed from the epigastric trocar site with an Endo Catch bag. The gallbladder fossa was irrigated with saline. There was no evidence of any bleeding or biliary drainage seen. I did place a drain in the gallbladder fossa exiting from our most lateral 5 mm trocar site. This was sutured in place using a 3-0 silk stitch. The fascia at the 12 millimeter site was closed using a running 0 Vicryl stitch. The trochars were then removed. The skin at all 3 sites was closed using a 4-0 Monocryl stitch. Skin glue was utilized on the incision sites. At the end of this procedure the sponge and needle counts were correct. DISPOSITION: Stable to the recovery room
--- NOTE | 2018-07-29 14:09 | P.PN ---
Subjective Progress Note Date: 07/29/18 Principal diagnosis: Metastatic prostate cancer In f/u today pt RUQ is less tender, denies fever, nausea, vomiting, diarrhea. Objective - Vital Signs Vital signs: Vital Signs Temp 97.3 F L 07/29/18 13:03 Pulse 48 L 07/29/18 13:48 Resp 18 07/29/18 13:48 BP 138/67 07/29/18 13:48 Pulse Ox 93 L 07/29/18 13:48 Intake & Output 07/28/18 07/29/18 07/29/18 18:59 06:59 18:59 Intake Total 1840 1800 Output Total 15 Balance 1840 1785 Intake: IV 1800 Piperacillin-Tazobactam 3 100 .375 gm In Sodium Chloride 0.9% 100 ml @ 25 mls/hr IVPB Q8HR LUIS A Rx# :[id number] Potassium Chloride 10 meq 400 In Water For Injection 1 100ml.bag @ 100 mls/hr IVPB Q1HR LUIS A Rx#: [id number] Intake, IV Titration 1600 Amount Piperacillin-Tazobactam 3 100 .375 gm In Sodium Chloride 0.9% 100 ml @ 25 mls/hr IVPB Q8HR LUIS A Rx# :[id number] Sodium Chloride 0.9% 1, 1500 000 ml @ 125 mls/hr IV . Q8H LUIS A Rx#:[id number] Oral 240 Output: Estimated Blood Loss 15 Other: Voiding Method Toilet Urinal # Voids 1 2 - Constitutional General appearance: Present: average body habitus, cooperative, no acute distress - EENT Eyes: Present: anicteric sclerae, EOMI ENT: Present: hearing grossly normal - Respiratory Respiratory: bilateral: CTA - Cardiovascular Heart sounds: normal: S1, S2 Abnormal Heart Sounds: Absent: systolic murmur, diastolic murmur, rub, S3 Gallop, S4 Gallop, click, other - Peripheral edema leg Peripheral Edema: bilateral: None - Gastrointestinal General gastrointestinal: Present: distended, normal bowel sounds, soft. Absent: absent bowel sounds, decreased bowel sounds, hepatomegaly, hyperactive bowel sounds, organomegaly, rigid, scaphoid, splenomegaly, tenderness, umbilical hernia, ventral hernia - Neurologic Neurologic: Present: CNII-XII intact - Musculoskeletal Musculoskeletal: Present: generalized weakness, strength equal bilaterally - Psychiatric Psychiatric: Present: A&O x's 3, appropriate affect, intact judgment & insight - Labs CBC & Chem 7: 07/29/18 06:56 07/29/18 06:56 Labs: Abnormal Lab Results - Last 24 Hours (Table) 07/29/18 07/29/18 Range/Units 06:56 06:56 RBC 3.85 L (4.30-5.90) m/uL Hgb 11.3 L (13.0-17.5) gm/dL Hct 34.6 L (39.0-53.0) % RDW 16.0 H (11.5-15.5) % Potassium 3.3 L (3.5-5.1) mmol/L Glucose 129 H (74-99) mg/dL Calcium 7.9 L (8.4-10.2) mg/dL Total Bilirubin 1.5 H (0.2-1.3) mg/dL AST 123 H (17-59) U/L ALT 106 H (21-72) U/L Total Protein 5.7 L (6.3-8.2) g/dL Albumin 3.1 L (3.5-5.0) g/dL Assessment and Plan (1) Prostate cancer metastatic to bone Narrative/Plan: Pt has done very well on his current regimen of RANK-Ligand inhibitor and lupron every 3 months. Last PSA, in our office, was done on 05/06/18 and was 0.21. From an Onc standpoint surgery is ok if needed. Current Visit: Yes Status: Chronic Priority: Low Code(s): C61 - MALIGNANT NEOPLASM OF PROSTATE; C79.51 - SECONDARY MALIGNANT NEOPLASM OF BONE SNOMED Code(s): 329966839 (2) Cholelithiasis Narrative/Plan: Surgery following, pending possible surgical intervention. Current Visit: Yes Status: Acute Priority: High Code(s): K80.20 - CALCULUS OF GALLBLADDER W/O CHOLECYSTITIS W/O OBSTRUCTION SNOMED Code(s): 986338272
--- NOTE | 2018-07-29 16:13 | P.PN ---
Subjective Progress Note Date: 07/29/18 Patient seen and examined at bedside. and daughter present. Having some abdominal discomfort but improved from yesterday. recently back from lap cholecystectomy. deies any significant nausea. afebrile and lactic acid improved. Objective - Vital Signs Vital signs: Vital Signs Temp 98.1 F 07/29/18 15:30 Pulse 64 07/29/18 15:30 Resp 17 07/29/18 15:30 BP 150/73 07/29/18 15:30 Pulse Ox 98 07/29/18 15:30 Intake & Output 07/28/18 07/29/18 07/29/18 18:59 06:59 18:59 Intake Total 1840 1800 Output Total 15 Balance 1840 1785 Intake: IV 1800 Piperacillin-Tazobactam 3 100 .375 gm In Sodium Chloride 0.9% 100 ml @ 25 mls/hr IVPB Q8HR [facility]IS A Rx# :[id number] Potassium Chloride 10 meq 400 In Water For Injection 1 100ml.bag @ 100 mls/hr IVPB Q1HR [facility]IS A Rx#: [id number] Intake, IV Titration 1600 Amount Piperacillin-Tazobactam 3 100 .375 gm In Sodium Chloride 0.9% 100 ml @ 25 mls/hr IVPB Q8HR [facility]IS A Rx# :[id number] Sodium Chloride 0.9% 1, 1500 000 ml @ 125 mls/hr IV . Q8H LUIS A Rx#:[id number] Oral 240 Output: Estimated Blood Loss 15 Other: Voiding Method Toilet Urinal # Voids 1 2 - Exam Constitutional: No acute distress, conversant, pleasant Eyes: Anicteric sclerae, moist conjunctiva, no lid-lag, PERRLA ENMT: NC/AT,Oropharynx clear, no erythema, exudates Neck:Supple, FROM, no masses, or JVD, No carotid bruits; No thyromegaly Lungs: Clear to auscultation, Clear to percussion, Normal respiratory effort, no accessory muscle use Cardiovascular: Heart regular in rate and rhythm, No murmurs, gallops, or rubs no peripheral edema Abdominal: Soft tender to palpation over the incision sites, no guarding, no rebound or rigidity, Normoactive bowel sounds. Skin: Normal temperature, tone, texture, turgor, No induration No subcutaneous nodules, No rash, lesions, No ulcers Extremities:No digital cyanosis No clubbing, Pedal pulses intact and symmetrical Radial pulses intact and symmetrical Normal gait and station, No calf tenderness Psychiatric: Alert and oriented to person, place and time, Appropriate affect Intact judgement Neuro: Muscles Strength 5/5 in all 4 extremities, Sensation to light touch grossly present throughout, Cranial nerves II-XII grossly intact. No focal sensory deficits - Labs CBC & Chem 7: 07/29/18 06:56 07/29/18 06:56 Labs: Abnormal Lab Results - Last 24 Hours (Table) 07/29/18 07/29/18 Range/Units 06:56 06:56 RBC 3.85 L (4.30-5.90) m/uL Hgb 11.3 L (13.0-17.5) gm/dL Hct 34.6 L (39.0-53.0) % RDW 16.0 H (11.5-15.5) % Potassium 3.3 L (3.5-5.1) mmol/L Glucose 129 H (74-99) mg/dL Calcium 7.9 L (8.4-10.2) mg/dL Total Bilirubin 1.5 H (0.2-1.3) mg/dL AST 123 H (17-59) U/L ALT 106 H (21-72) U/L Total Protein 5.7 L (6.3-8.2) g/dL Albumin 3.1 L (3.5-5.0) g/dL Assessment and Plan (1) Acute calculous cholecystitis Narrative/Plan: * s/p laporoscopic cholecystectomy 07/29 * currently on clear liquids, advance as tolerated * continue Zosyn Current Visit: Yes Status: Acute Code(s): K80.00 - CALCULUS OF GALLBLADDER W ACUTE CHOLECYST W/O OBSTRUCTION SNOMED Code(s): 21967733898144 (2) Intractable nausea and vomiting Narrative/Plan: * secondary to problem listed above Current Visit: Yes Status: Acute Code(s): R11.2 - NAUSEA WITH VOMITING, UNSPECIFIED SNOMED Code(s): 744070037 (3) Accelerated hypertension Narrative/Plan: * BP improved today * continue current regimen Current Visit: Yes Status: Resolved Code(s): I10 - ESSENTIAL (PRIMARY) HYPERTENSION SNOMED Code(s): 67717476 (4) Transaminitis Narrative/Plan: * secondary to acute cholecystitis Current Visit: Yes Status: Acute Code(s): R74.0 - NONSPEC ELEV OF LEVELS OF TRANSAMNS & LACTIC ACID DEHYDRGNSE SNOMED Code(s): 127065911 (5) Prostate cancer metastatic to bone Current Visit: Yes Status: Chronic Priority: Low Code(s): C61 - MALIGNANT NEOPLASM OF PROSTATE; C79.51 - SECONDARY MALIGNANT NEOPLASM OF BONE SNOMED Code(s): 057847160
[2018-07-29] MEDS: LISINOPRIL 10 MG TAB PO SCH (21:11)
[2018-07-30] MEDS: SODIUM CHLORIDE 0.9% 1,000 ML IV SCH ×2 (05:40→15:44)
[2018-07-30 06:58] LABS: Anisocytosis Slight; Basophils % (A) 0 %; Eosinophils % (A) 0 %; HCT 36.5 % (39.0-53.0); HGB 11.6 gm/dL (13.0-17.5); Lymphocytes # (A) 1.2 k/uL (1.0-4.8); Lymphocytes % (A) 13 %; MCH 29.3 pg (25.0-35.0); MCHC 31.7 g/dL (31.0-37.0); MCV 92.5 fL (80.0-100.0); Mean Platelet Volume 8.5; Monocytes # (A) 0.4 k/uL (0-1.0); Monocytes % (A) 4 %; Neutrophils # (A) 7.5 k/uL (1.3-7.7); Neutrophils % (A) 81 %; Platelet Count 214 k/uL (150-450); RBC 3.95 m/uL (4.30-5.90); RDW 16.2 % (11.5-15.5); WBC 9.3 k/uL (3.8-10.6)
[2018-07-30 07:24] LABS: Albumin 3.1 g/dL (3.5-5.0); Calcium 7.5 mg/dL (8.4-10.2); Potassium 3.3 mmol/L (3.5-5.1); Total Bilirubin 1.4 mg/dL (0.2-1.3); Total Protein 5.9 g/dL (6.3-8.2)
[2018-07-30] MEDS: traMADol 50 MG TAB PO PRN ×2 (08:51→17:21)
[2018-07-30] MEDS: amLODIPine 10 MG TAB PO SCH (08:52)
[2018-07-30] MEDS: PIPERACILLIN-TAZOBACTAM 3.375 GM in SODIUM CHLORIDE 0.9% 100 ML IVPB SCH ×3 (08:52→23:11)
[2018-07-30] MEDS: PANTOPRAZOLE 40 MG/10 ML VIAL IVP SCH (08:52)
[2018-07-30] MEDS: VENLAFAXINE HCL ER 75 MG CAP PO SCH (08:52)
[2018-07-30] MEDS: HEPARIN SODIUM,PORCINE 5,000 UNIT/ML 1 ML VIAL SQ SCH ×3 (08:52→23:11)
[2018-07-30] MEDS: ATENOLOL 50 MG TAB PO SCH (08:52)
[2018-07-30] MEDS: TAMSULOSIN 0.4 MG CAP.ER.24H PO SCH (08:52)
[2018-07-30] MEDS ORDERED: POTASSIUM CHLORIDE ER 20 MEQ TAB.ER PO STA (09:51)
--- NOTE | 2018-07-30 11:49 | XR ---
EXAMINATION TYPE: XR chest 2V DATE OF EXAM: 07/30/2018 COMPARISON: 05/29/2016 TECHNIQUE: PA and lateral views submitted. HISTORY: Difficulty breathing FINDINGS: Bilateral infiltrate and small effusion. No overt failure artifacts. Heart size mildly enlarged. Arth ropathy shoulders. Surgical clips in the abdomen. Surgical drains images. IMPRESSION: 1. Bilateral lower lobe infiltrate and small effusion
[2018-07-30] MEDS: MORPHINE SULFATE 4 MG/ML SYRINGE IVP PRN (12:11)
--- NOTE | 2018-07-30 16:08 | P.PN ---
Subjective Progress Note Date: 07/30/18 Principal diagnosis: Gangrenous cholecystitis Patient doing well today. His pain is improved. Drain is serosanguineous. Labs are about the same. Not eating much thus far. Objective - Vital Signs Vital signs: Vital Signs Temp 98.3 F 07/30/18 11:45 Pulse 77 07/30/18 11:45 Resp 17 07/30/18 11:45 BP 154/80 07/30/18 11:45 Pulse Ox 95 07/30/18 11:45 Intake & Output 07/29/18 07/30/18 07/30/18 18:59 06:59 18:59 Intake Total 1800 3320 700 Output Total 75 85 Balance 1725 3235 700 Intake: IV 1800 100 100 Piperacillin-Tazobactam 3 100 100 100 .375 gm In Sodium Chloride 0.9% 100 ml @ 25 mls/hr IVPB Q8HR LUIS A Rx# :[id number] Potassium Chloride 10 meq 400 In Water For Injection 1 100ml.bag @ 100 mls/hr IVPB Q1HR LUIS A Rx#: [id number] Intake, IV Titration 1900 Amount Piperacillin-Tazobactam 3 100 .375 gm In Sodium Chloride 0.9% 100 ml @ 25 mls/hr IVPB Q8HR LUIS A Rx# :[id number] Sodium Chloride 0.9% 1, 1800 000 ml @ 125 mls/hr IV . Q8H LUIS A Rx#:[id number] Oral 1320 600 Output: Drainage 60 85 Right Abdomen 60 85 Estimated Blood Loss 15 Other: Voiding Method Toilet Toilet Toilet Urinal Urinal Urinal # Voids 3 4 - Exam Abdomen: Soft, nondistended, mild tenderness, incisions clean and dry, AVNI serosanguineous - Labs CBC & Chem 7: 07/30/18 06:41 07/30/18 06:41 Labs: Abnormal Lab Results - Last 24 Hours (Table) 07/30/18 07/30/18 Range/Units 06:41 06:41 RBC 3.95 L (4.30-5.90) m/uL Hgb 11.6 L (13.0-17.5) gm/dL Hct 36.5 L (39.0-53.0) % RDW 16.2 H (11.5-15.5) % Potassium 3.3 L (3.5-5.1) mmol/L Chloride 110 H (98-107) mmol/L Carbon Dioxide 21 L (22-30) mmol/L Glucose 130 H (74-99) mg/dL Calcium 7.5 L (8.4-10.2) mg/dL Total Bilirubin 1.4 H (0.2-1.3) mg/dL AST 135 H (17-59) U/L ALT 107 H (21-72) U/L Alkaline Phosphatase 136 H (38-126) U/L Total Protein 5.9 L (6.3-8.2) g/dL Albumin 3.1 L (3.5-5.0) g/dL Assessment and Plan (1) Acute calculous cholecystitis Narrative/Plan: Continue advancing diet. Keep AVNI drain today. Recheck labs tomorrow. Probably remove drain prior to discharge tomorrow. Current Visit: Yes Status: Acute Code(s): K80.00 - CALCULUS OF GALLBLADDER W ACUTE CHOLECYST W/O OBSTRUCTION SNOMED Code(s): 04029403844113
--- NOTE | 2018-07-30 16:20 | P.PN ---
Subjective Progress Note Date: 07/30/18 Patient seen and examined at bedside. and family friend present. Denies any significant abdominal discomfort. Doing mild clear liquids this morning witho any significant nausea. No acute events overnight . Objective - Vital Signs Vital signs: Vital Signs Temp 98.3 F 07/30/18 11:45 Pulse 77 07/30/18 11:45 Resp 17 07/30/18 11:45 BP 154/80 07/30/18 11:45 Pulse Ox 95 07/30/18 11:45 Intake & Output 07/29/18 07/30/18 07/30/18 18:59 06:59 18:59 Intake Total 1800 3320 700 Output Total 75 85 Balance 1725 3235 700 Intake: IV 1800 100 100 Piperacillin-Tazobactam 3 100 100 100 .375 gm In Sodium Chloride 0.9% 100 ml @ 25 mls/hr IVPB Q8HR LUIS A Rx# :[id number] Potassium Chloride 10 meq 400 In Water For Injection 1 100ml.bag @ 100 mls/hr IVPB Q1HR LUIS A Rx#: [id number] Intake, IV Titration 1900 Amount Piperacillin-Tazobactam 3 100 .375 gm In Sodium Chloride 0.9% 100 ml @ 25 mls/hr IVPB Q8HR LUIS A Rx# :[id number] Sodium Chloride 0.9% 1, 1800 000 ml @ 125 mls/hr IV . Q8H LUIS A Rx#:[id number] Oral 1320 600 Output: Drainage 60 85 Right Abdomen 60 85 Estimated Blood Loss 15 Other: Voiding Method Toilet Toilet Toilet Urinal Urinal Urinal # Voids 3 4 - Exam Constitutional: No acute distress, conversant, pleasant Eyes: Anicteric sclerae, moist conjunctiva, no lid-lag, PERRLA ENMT: NC/AT,Oropharynx clear, no erythema, exudates Neck:Supple, FROM, no masses, or JVD, No carotid bruits; No thyromegaly Lungs: Clear to auscultation, Clear to percussion, Normal respiratory effort, no accessory muscle use Cardiovascular: Heart regular in rate and rhythm, No murmurs, gallops, or rubs no peripheral edema Abdominal: Soft tender to palpation over the incision sites, no guarding, no rebound or rigidity, Normoactive bowel sounds. Skin: Normal temperature, tone, texture, turgor, No induration No subcutaneous nodules, No rash, lesions, No ulcers Extremities:No digital cyanosis No clubbing, Pedal pulses intact and symmetrical Radial pulses intact and symmetrical Normal gait and station, No calf tenderness Psychiatric: Alert and oriented to person, place and time, Appropriate affect Intact judgement Neuro: Muscles Strength 5/5 in all 4 extremities, Sensation to light touch grossly present throughout, Cranial nerves II-XII grossly intact. No focal sensory deficits - Labs CBC & Chem 7: 07/30/18 06:41 07/30/18 06:41 Labs: Abnormal Lab Results - Last 24 Hours (Table) 07/30/18 07/30/18 Range/Units 06:41 06:41 RBC 3.95 L (4.30-5.90) m/uL Hgb 11.6 L (13.0-17.5) gm/dL Hct 36.5 L (39.0-53.0) % RDW 16.2 H (11.5-15.5) % Potassium 3.3 L (3.5-5.1) mmol/L Chloride 110 H (98-107) mmol/L Carbon Dioxide 21 L (22-30) mmol/L Glucose 130 H (74-99) mg/dL Calcium 7.5 L (8.4-10.2) mg/dL Total Bilirubin 1.4 H (0.2-1.3) mg/dL AST 135 H (17-59) U/L ALT 107 H (21-72) U/L Alkaline Phosphatase 136 H (38-126) U/L Total Protein 5.9 L (6.3-8.2) g/dL Albumin 3.1 L (3.5-5.0) g/dL Assessment and Plan (1) Acute calculous cholecystitis Narrative/Plan: * s/p laporoscopic cholecystectomy 07/29 * currently on clear liquids, advance as tolerated * AVNI drain in with scant output likely removal today or tomorrow, * continue Zosyn Current Visit: Yes Status: Acute Code(s): K80.00 - CALCULUS OF GALLBLADDER W ACUTE CHOLECYST W/O OBSTRUCTION SNOMED Code(s): 15302954083502 (2) Intractable nausea and vomiting Narrative/Plan: * secondary to problem listed above Current Visit: Yes Status: Acute Code(s): R11.2 - NAUSEA WITH VOMITING, UNSPECIFIED SNOMED Code(s): 972919430 (3) Accelerated hypertension Narrative/Plan: * BP improved today * continue current regimen Current Visit: Yes Status: Resolved Code(s): I10 - ESSENTIAL (PRIMARY) HYPERTENSION SNOMED Code(s): 94253184 (4) Transaminitis Narrative/Plan: * secondary to acute cholecystitis Current Visit: Yes Status: Acute Code(s): R74.0 - NONSPEC ELEV OF LEVELS OF TRANSAMNS & LACTIC ACID DEHYDRGNSE SNOMED Code(s): 517603701 (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
[2018-07-30] MEDS: LISINOPRIL 10 MG TAB PO SCH (20:55)
[2018-07-31] MEDS ORDERED: PANTOPRAZOLE 40 MG TABLET PO SCH (07:30)
[2018-07-31] MEDS: PIPERACILLIN-TAZOBACTAM 3.375 GM in SODIUM CHLORIDE 0.9% 100 ML IVPB SCH (09:57)
[2018-07-31] MEDS: VENLAFAXINE HCL ER 75 MG CAP PO SCH (09:59)
[2018-07-31] MEDS: TAMSULOSIN 0.4 MG CAP.ER.24H PO SCH (09:59)
[2018-07-31] MEDS: ATENOLOL 50 MG TAB PO SCH (09:59)
[2018-07-31] MEDS: HEPARIN SODIUM,PORCINE 5,000 UNIT/ML 1 ML VIAL SQ SCH (09:59)
[2018-07-31] MEDS: amLODIPine 10 MG TAB PO SCH (09:59)
[2018-07-31 10:05] LABS: Albumin 3.1 g/dL (3.5-5.0); Calcium 7.7 mg/dL (8.4-10.2); Potassium 3.4 mmol/L (3.5-5.1); Total Bilirubin 0.9 mg/dL (0.2-1.3); Total Protein 5.9 g/dL (6.3-8.2)
[2018-07-31 12:46] VITALS: BP 175/78; PULSE 95; RESP 18; TEMP 98.4
--- NOTE | 2018-07-31 16:18 | P.DS ---
Providers Date of admission: 07/28/18 12:45 Expected date of discharge: 07/31/18 Attending physician: Anabela Guzmán MD Consults: 07/28/18 06:57 Consult Physician Routine Consulting Provider: Arturo Alvarez Consult Reason/Comments: established patient, N/V Do you want consulting provider notified?: Yes 07/28/18 09:47 Consult Physician Routine Consulting Provider: Shin Arzola Consult Reason/Comments: eval for cholecysectomy Do you want consulting provider notified?: Yes Primary care physician: Fritz Miguel - Discharge Diagnosis(es) (1) Acute calculous cholecystitis Current Visit: Yes Status: Acute (2) Intractable nausea and vomiting Current Visit: Yes Status: Acute (3) Accelerated hypertension Current Visit: Yes Status: Resolved (4) Transaminitis Current Visit: Yes Status: Acute (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 Gen. surgery was consulted and Dr. Arzola performed a laparoscopic cholecystectomy that revealed a gangrenous gallbladder. Patient was to supportively with IV fluids, morphine for pain, Zofran for nausea. Postoperatively the patient did well Diet was advanced from clear liquids to regular diet and the patient's AVNI drain was pulled prior to discharge, the patient had elevated blood pressures during the hospitalization which was treated with lisinopril and Norvasc and hydralazine as needed. Patient was discharged when stable with new prescription for Norvasc. This discharge process took approximately 30 minutes Focused exam GI: Soft nontender nondistended normal bowel sounds all 4 quadrants. Patient Condition at Discharge: Good Plan - Discharge Summary Discharge Rx Participant: No New Discharge Prescriptions: New amLODIPine [Norvasc] 10 mg PO DAILY #30 tab Continue Lisinopril [Zestril] 10 mg PO HS Tamsulosin [Flomax] 0.4 mg PO DAILY Atenolol [Tenormin] 50 mg PO DAILY Venlafaxine HCl ER [Effexor XR] 75 mg PO DAILY Discharge Medication List Lisinopril [Zestril] 10 mg PO HS 08/07/13 [History] Tamsulosin [Flomax] 0.4 mg PO DAILY 02/28/16 [History] Atenolol [Tenormin] 50 mg PO DAILY 05/29/16 [History] Venlafaxine HCl ER [Effexor XR] 75 mg PO DAILY 05/29/16 [History] amLODIPine [Norvasc] 10 mg PO DAILY #30 tab 07/31/18 [Rx] Follow up Appointment(s)/Referral(s): Arturo Alvarez MD [STAFF PHYSICIAN] - 09/10/18 11:00 am Fritz Miguel MD [Primary Care Provider] - 1-2 days Patient Instructions/Handouts: *Surgery [facility] - Laparoscopic Cholecystectomy Discharge Instructions, Amlodipine (By mouth), Low Fat Diet (DC), Acute Nausea and Vomiting (DC)
--- NOTE | 2018-07-31 16:38 | P.PN ---
Subjective Progress Note Date: 07/31/18 Principal diagnosis: Metastatic prostate cancer, choleycystitis with choleycystectomy In f/u today pt has abd tenderness but, much better then on admit, no fever, nausea, vomiting or diarrhea. Objective - Vital Signs Vital signs: Vital Signs Temp 98.4 F 07/31/18 12:44 Pulse 95 07/31/18 12:44 Resp 18 07/31/18 12:44 BP 175/78 07/31/18 12:44 Pulse Ox 94 L 07/31/18 12:44 Intake & Output 07/30/18 07/31/18 07/31/18 18:59 06:59 18:59 Intake Total 700 1180 650 Output Total 80 300 370 Balance 620 880 280 Intake: IV 100 100 Piperacillin-Tazobactam 3 100 100 .375 gm In Sodium Chloride 0.9% 100 ml @ 25 mls/hr IVPB Q8HR LUIS A Rx# :[id number] Oral 600 1180 550 Output: Drainage 80 20 Right Abdomen 80 20 Urine 300 350 Other: Voiding Method Toilet Toilet Toilet Urinal Urinal Urinal # Voids 4 2 - Constitutional General appearance: Present: average body habitus, cooperative, no acute distress - EENT Eyes: Present: anicteric sclerae, EOMI - Respiratory Respiratory: bilateral: CTA - Cardiovascular Heart sounds: normal: S1, S2 - Gastrointestinal Localized gastrointestinal: tender: RUQ (laproscopic incision well approximated, AVNI drain scant look of blood in otherwise clear fluid) - Neurologic Neurologic: Present: CNII-XII intact - Musculoskeletal Musculoskeletal: Present: strength equal bilaterally - Psychiatric Psychiatric: Present: A&O x's 3, appropriate affect, intact judgment & insight - Labs CBC & Chem 7: 07/30/18 06:41 07/31/18 08:43 Labs: Abnormal Lab Results - Last 24 Hours (Table) 07/31/18 Range/Units 08:43 Potassium 3.4 L (3.5-5.1) mmol/L Chloride 109 H (98-107) mmol/L Glucose 144 H (74-99) mg/dL Calcium 7.7 L (8.4-10.2) mg/dL AST 69 H (17-59) U/L Alkaline Phosphatase 148 H (38-126) U/L Total Protein 5.9 L (6.3-8.2) g/dL Albumin 3.1 L (3.5-5.0) g/dL Assessment and Plan (1) Prostate cancer metastatic to bone Narrative/Plan: Pt has done very well on his current regimen of RANK-Ligand inhibitor and lupron every 3 months. Last PSA, in our office, was done on 05/06/18 and was 0.21, drawn here 0.2. Reviewed stable result with pt. Pt has f/u with Dr. Alvarez end of next month. Pt knows he has to keep appt with Urologist who administers his lupron and xgeva Status: Chronic Priority: Low Code(s): C61 - MALIGNANT NEOPLASM OF PROSTATE; C79.51 - SECONDARY MALIGNANT NEOPLASM OF BONE SNOMED Code(s): 739851734 (2) Cholelithiasis Narrative/Plan: S/P surgical intervention, improved symptoms, Surgeon following. Status: Acute Priority: High Code(s): K80.20 - CALCULUS OF GALLBLADDER W/O CHOLECYSTITIS W/O OBSTRUCTION SNOMED Code(s): 614793795
--- NOTE | 2018-07-31 18:11 | P.PN ---
Progress Note - Text Progress Note Date: 07/31/18 Patient is doing well today. I saw him earlier on rounds. Pain is minimal. He is tolerating diet. Drain remained serosanguineous. Liver enzymes improved. I agree with discharge. We'll remove drain prior to discharge. Follow-up one week.
== END 2018-07-31 15:37 | disposition home or self-care (01) | DRG 418 ==
LOC: EC 03:59 → 3NMEDONC 06:58 → OBSVTOIN 12:45 → 3NMEDONC 07-29 17:00
PROVIDERS: ADMIT Internal Medicine; ATTEND Internal Medicine
PROC: 0FT44ZZ Resection of Gallbladder, Percutaneous Endoscopic Approach (ICD-10-PCS; principal; 2018-07-29 11:30)
DX: K80.62 Calculus of gallbladder and bile duct with acute cholecystitis without obstruction (principal); C78.7 Secondary malignant neoplasm of liver and intrahepatic bile duct; C79.51 Secondary malignant neoplasm of bone; C61 Malignant neoplasm of prostate; M19.90 Unspecified osteoarthritis, unspecified site; I10 Essential (primary) hypertension; R74.0 Nonspecific elevation of levels of transaminase and lactic acid dehydrogenase [LDH]; Z98.49 Cataract extraction status, unspecified eye; Z87.891 Personal history of nicotine dependence; Z79.899 Other long term (current) drug therapy
CPT/HCPCS: 36415; 71046; 74177; 76705; 80053; 80074; 81001; 82150; 83605; 83690; 84153; 85025; 85610; 88304; 88341; 88342; 93005; 96361; 96372; 96374; 99285

== ENCOUNTER → 2018-10-22 | Outpatient (CLI) | payer MEDICARE ==
[~2018-10-22] MED LIST changes: +DENOSUMAB 120 MG/1.7 ML VIAL SQ NR; -DENOSUMAB 120 MG/1.7 ML VIAL SQ ONE; +LEUPROLIDE ACETATE 22.5 MG SYRG KIT IM NR; -LEUPROLIDE ACETATE 22.5 MG SYRG KIT IM ONE
[2018-10-22 11:31] VITALS: BP 206/90; PULSE 63; RESP 16; TEMP 97.9
== END | disposition home or self-care (01) ==
LOC: PROCWHC3 11:20
PROVIDERS: ATTEND Internal Medicine Hematology & Oncology
DX: Z51.11 Encounter for antineoplastic chemotherapy (principal); C79.51 Secondary malignant neoplasm of bone; C61 Malignant neoplasm of prostate
CPT/HCPCS: 96372; 96402; J9217; J0897

== ENCOUNTER → 2019-01-21 | Outpatient (CLI) | payer MEDICARE ==
[2019-01-21 17:10] LABS: HCT 37.3 % (39.0-53.0); HGB 12.6 gm/dL (13.0-17.5); MCH 31.1 pg (25.0-35.0); MCHC 33.8 g/dL (31.0-37.0); MCV 92.1 fL (80.0-100.0); Mean Platelet Volume 8.8; Platelet Count 222 k/uL (150-450); RBC 4.05 m/uL (4.30-5.90); RDW 14.5 % (11.5-15.5); WBC 7.5 k/uL (3.8-10.6)
[2019-01-21 17:27] LABS: Potassium 4.2 mmol/L (3.5-5.1)
== END | disposition home or self-care (01) ==
LOC: LABPAT 15:43
PROVIDERS: ATTEND Internal Medicine Cardiovascular Disease
DX: Z01.812 Encounter for preprocedural laboratory examination (principal); R07.2 Precordial pain
CPT/HCPCS: 80051; 82565; 84520; 85027

== ENCOUNTER → 2019-01-22 | Outpatient (CLI) | payer MEDICARE ==
[2019-01-22 11:48] VITALS: BP 180/86; PULSE 84; RESP 16; TEMP 97.8
== END ==
LOC: PROCWHC3 11:20
PROVIDERS: ATTEND Internal Medicine Hematology & Oncology
DX: Z51.11 Encounter for antineoplastic chemotherapy (principal); C61 Malignant neoplasm of prostate; C79.51 Secondary malignant neoplasm of bone
CPT/HCPCS: 96372; 96402; J9217; J0897

== ENCOUNTER → 2019-01-28 | Day surgery (SDC) | payer MEDICARE ==
[2019-01-24 13:59] VITALS: BMI 25.5
[~2019-01-28] MED LIST changes: +ALPRAZolam 0.25 MG TAB PO PRN; +ALPRAZolam 0.5 MG TAB PO PRN; +ASPIRIN 325 MG TAB PO STA; +ATORVASTATIN 80 MG TAB PO STA; -DENOSUMAB 120 MG/1.7 ML VIAL SQ NR; +IOPAMIDOL-370 125ML BTL INJ ONE; -LEUPROLIDE ACETATE 22.5 MG SYRG KIT IM NR; +LIDOCAINE 1% INJ 10MG/ML (20 ML MDV) ONE; +LIDOCAINE 1% INJ 10MG/ML (20 ML MDV) SQ ONE; +MIDAZOLAM 2 MG/2 ML VIAL IV ONE; +NITROGLYCERIN SL TABS 0.4 MG TAB SUBLINGUAL PRN; +RX INFO: IV CONTRAST WAS GIVEN 1 EACH MISC MISCELLANE PRN; +SODIUM CHLORIDE 0.9% 1,000 ML IV SCH; +SODIUM CHLORIDE 0.9% 1,000 ML in EMPTY BAG 1 BAG IV ONE; +amLODIPine 10 MG TAB PO STA; +amLODIPine 5 MG TAB ONE; +fentaNYL (PF) 50 MCG/ML 2 ML AMP IV ONE; +fentaNYL (PF) 50 MCG/ML 2 ML AMP ONE; +hydrALAZINE HCL 20 MG/ML 1 ML VIAL IVP STA
[2019-01-28 06:49] VITALS: RESP 18; TEMP 97.9
--- NOTE | 2019-01-28 08:42 | LTR ---
January 28, 2019 Re: Bonilla Glover Dear Fritz: I performed cardiac catheterization on Bonilla Glover. A detailed catheterization note is enclosed for your records. In brief, the cardiac catheterization did not reveal significant obstructive CAD and patient does not need any revascularization at this time. His management is going to be in the form of optimal control of his blood pressure and medical therapy with beta blockers and NAE inhibitors for cardiomyopathy. Thank you for giving me the privilege to participate in the care of this pleasant gentleman. Sincerely, MD DARINEL Benitez / ESTHER: [id number] /
--- NOTE | 2019-01-28 08:42 | CC ---
CARDIAC CATHETERIZATION REPORT INDICATION: Cardiomyopathy with moderate LV dysfunction. PROCEDURE NOTE: After obtaining informed consent, left heart catheterization and coronary angiogram are performed via the right femoral artery using standard Liz catheters. The patient tolerated the procedure well without any obvious immediate complications. A femoral angiogram was performed and Angio-Seal will be deployed for hemostasis. Patient received moderate conscious sedation. Total sedation time was 15 minutes. FINDINGS: 1. HEMODYNAMICS: Left ventricular end-diastolic pressure is 18 to 20 mm. There is no significant gradient across the aortic valve. 2. LEFT VENTRICULOGRAM: Left ventriculogram was not performed. 3. ANGIOGRAPHIC DATA: Left Main Coronary Artery: Left main coronary artery is a normal-sized vessel and is free of stenosis. Divides into left anterior descending coronary artery and circumflex coronary artery. LAD shows mild nonobstructive coronary artery disease. Circumflex coronary artery is a nondominant vessel shows a 30% to 40% stenosis in the proximal part. Right coronary artery is a large dominant vessel that shows mild nonobstructive disease involving proximal and middle thirds and the PDA has a 30% to 40% stenosis. CONCLUSIONS: A 30% to 40% stenosis involving PDA. Mild nonobstructive coronary artery disease involving LAD and circumflex coronary artery. PLAN: Patient's management is going to be with continued optimal medical therapy. MMODL / IJN: [id number] /
[2019-01-28 11:30] VITALS: PULSE 69
[2019-01-28 13:02] VITALS: BP 156/76
== END ==
LOC: CATHCVL 06:18
PROVIDERS: ATTEND Internal Medicine Cardiovascular Disease
DX: I25.10 Atherosclerotic heart disease of native coronary artery without angina pectoris (principal); I42.9 Cardiomyopathy, unspecified; I10 Essential (primary) hypertension; F17.210 Nicotine dependence, cigarettes, uncomplicated; Z85.9 Personal history of malignant neoplasm, unspecified; Z79.899 Other long term (current) drug therapy
CPT/HCPCS: 93458; C1769 ×2; C1760; C1894; J2250; J0360; J2001; J3010; Q9967

== ENCOUNTER → 2019-02-26 | Outpatient (CLI) | payer MEDICARE ==
[2019-02-26 18:52] LABS: Chol/HDL Ratio 3.18; LDL Cholesterol,Calculated 93.8 mg/dL (0.0-131.0); VLDL Calculation 30.2 mg/dL (5.00-40.00)
== END ==
LOC: LABWHC1 14:16
PROVIDERS: ATTEND Internal Medicine Cardiovascular Disease
DX: E78.2 Mixed hyperlipidemia (principal)
CPT/HCPCS: 36415; 80061; 84450; 84460

== ENCOUNTER → 2019-04-24 | Outpatient (CLI) | payer MEDICARE ==
[~2019-04-24] MED LIST changes: -ALPRAZolam 0.25 MG TAB PO PRN; -ALPRAZolam 0.5 MG TAB PO PRN; -ASPIRIN 325 MG TAB PO STA; -ATORVASTATIN 80 MG TAB PO STA; +DENOSUMAB 120 MG/1.7 ML VIAL SQ NR; -IOPAMIDOL-370 125ML BTL INJ ONE; +LEUPROLIDE ACETATE 22.5 MG SYRG KIT IM NR; -LIDOCAINE 1% INJ 10MG/ML (20 ML MDV) ONE; -LIDOCAINE 1% INJ 10MG/ML (20 ML MDV) SQ ONE; -MIDAZOLAM 2 MG/2 ML VIAL IV ONE; -NITROGLYCERIN SL TABS 0.4 MG TAB SUBLINGUAL PRN; -RX INFO: IV CONTRAST WAS GIVEN 1 EACH MISC MISCELLANE PRN; -SODIUM CHLORIDE 0.9% 1,000 ML IV SCH; -SODIUM CHLORIDE 0.9% 1,000 ML in EMPTY BAG 1 BAG IV ONE; -amLODIPine 10 MG TAB PO STA; -amLODIPine 5 MG TAB ONE; -fentaNYL (PF) 50 MCG/ML 2 ML AMP IV ONE; -fentaNYL (PF) 50 MCG/ML 2 ML AMP ONE; -hydrALAZINE HCL 20 MG/ML 1 ML VIAL IVP STA
[2019-04-24 14:53] VITALS: PULSE 83; RESP 16; TEMP 97.9
== END | disposition home or self-care (01) ==
LOC: PROCWHC3 14:29
PROVIDERS: ATTEND Internal Medicine Hematology & Oncology
DX: Z51.11 Encounter for antineoplastic chemotherapy (principal); C79.51 Secondary malignant neoplasm of bone; C61 Malignant neoplasm of prostate
CPT/HCPCS: 96372; 96402; J9217; J0897

== ENCOUNTER → 2019-07-24 | Outpatient (CLI) | payer MEDICARE ==
[2019-07-24 15:04] VITALS: BP 199/98; PULSE 57; RESP 16; TEMP 98.2
== END | disposition home or self-care (01) ==
LOC: PROCWHC3 14:43
PROVIDERS: ATTEND Internal Medicine Hematology & Oncology
DX: Z51.11 Encounter for antineoplastic chemotherapy (principal); C61 Malignant neoplasm of prostate; C79.51 Secondary malignant neoplasm of bone
CPT/HCPCS: 96372; 96402; J9217; J0897

== ENCOUNTER → 2019-10-23 | Outpatient (CLI) | payer MEDICARE ==
[2019-10-23 14:45] VITALS: RESP 16; TEMP 97.9
[2019-10-23 15:04] VITALS: BP 183/89
== END | disposition home or self-care (01) ==
LOC: PROCWHC3 14:28
PROVIDERS: ATTEND Internal Medicine Hematology & Oncology
DX: C61 Malignant neoplasm of prostate (principal); C79.51 Secondary malignant neoplasm of bone
CPT/HCPCS: 96372; 96402; J9217; J0897

== ENCOUNTER → 2020-01-22 | Outpatient (CLI) | payer MEDICARE ==
[2020-01-22 14:32] VITALS: PULSE 83; RESP 16; TEMP 98.4
[2020-01-22 14:38] VITALS: BP 186/99
== END | disposition home or self-care (01) ==
LOC: PROCWHC3 14:19
PROVIDERS: ATTEND Internal Medicine Hematology & Oncology
DX: C79.51 Secondary malignant neoplasm of bone (principal)
CPT/HCPCS: 96372; 96402; J9217; J0897

== ENCOUNTER → 2020-04-29 | Outpatient (CLI) | payer MEDICARE ==
[2020-04-29 14:31] VITALS: BP 192/94; PULSE 110; RESP 16; TEMP 97.8
== END | disposition home or self-care (01) ==
LOC: PROCWHC3 14:19
PROVIDERS: ATTEND Internal Medicine Hematology & Oncology
DX: Z51.11 Encounter for antineoplastic chemotherapy (principal); C61 Malignant neoplasm of prostate; C79.51 Secondary malignant neoplasm of bone
CPT/HCPCS: 96372; 96402; J9217; J0897

== ENCOUNTER 2020-06-08 18:47 | Inpatient (IN) | payer MEDICARE ==
[2020-06-08] MEDS ORDERED: PANTOPRAZOLE 40 MG/10 ML VIAL IVP STA (19:06)
[2020-06-08] MEDS ORDERED: SODIUM CHLORIDE 0.9% 1,000 ML IV STA (19:06)
--- NOTE | 2020-06-08 19:09 | ED ---
General Adult HPI - General Chief complaint: GI Bleed Stated complaint: GI Bleed Time Seen by Provider: 06/08/20 18:52 Source: patient, EMS, RN notes reviewed, old records reviewed Mode of arrival: EMS Limitations: no limitations - History of Present Illness Initial comments: Patient is a pleasant 84-year-old male presenting to the emergency Department with complaints of rectal bleeding. Onset was today. Patient did have an episode of went to his doctor. There was concern for hemorrhoids and patient was sent home. Patient is having continued bleeding. Patient is having mild unsettled feeling his stomach, no pain. No vomiting. No weakness or dyspnea. No history of similar symptoms previously. - Related Data Home Medications Medication Instructions Recorded Confirmed lisinopriL [Zestril] 10 mg PO BID 08/07/13 04/29/20 Tamsulosin [Flomax] 0.4 mg PO DAILY 02/28/16 04/29/20 Venlafaxine HCl ER [Effexor XR] 75 mg PO DAILY 05/29/16 04/29/20 atenoloL [Tenormin] 50 mg PO DAILY 05/29/16 04/29/20 Aspirin [Adult Low Dose Aspirin EC] 81 mg PO DAILY 01/24/19 04/29/20 Lupron Injection (Unknown Dose 1 tab PO DIRECTED 01/24/19 04/29/20 Allergies Allergy/AdvReac Type Severity Reaction Status Date / Time No Known Allergies Allergy Verified 04/29/20 14:28 Review of Systems ROS Statement: Those systems with pertinent positive or pertinent negative responses have been documented in the HPI. ROS Other: All systems not noted in ROS Statement are negative. Constitutional: Denies: fever Eyes: Denies: eye pain ENT: Denies: ear pain Respiratory: Denies: cough Cardiovascular: Denies: chest pain Gastrointestinal: Reports: as per HPI, hematochezia Genitourinary: Denies: dysuria Musculoskeletal: Denies: back pain Skin: Denies: rash Neurological: Denies: weakness Past Medical History Past Medical History: Cancer, Hypertension, Osteoarthritis (OA), Prostate Disorder Additional Past Medical History / Comment(s): prostate CA with mets to bone, pelvis and liver, chemo completed, History of Any Multi-Drug Resistant Organisms: None Reported Past Surgical History: Cholecystectomy, Heart Catheterization Additional Past Surgical History / Comment(s): CATARACT SURGERY, Past Anesthesia/Blood Transfusion Reactions: No Reported Reaction Additional Past Anesthesia/Blood Transfusion Reaction / Comment(s): NO BLOOD PRODUCTS Past Psychological History: No Psychological Hx Reported Smoking Status: Former smoker Past Alcohol Use History: None Reported Past Drug Use History: None Reported - Past Family History Father Family Medical History: No Reported History General Exam Limitations: no limitations General appearance: alert, in no apparent distress Head exam: Present: normocephalic Eye exam: Present: normal appearance Neck exam: Present: normal inspection Respiratory exam: Present: normal lung sounds bilaterally Cardiovascular Exam: Present: regular rate, normal rhythm GI/Abdominal exam: Present: soft. Absent: tenderness Extremities exam: Present: normal inspection Neurological exam: Present: alert Psychiatric exam: Present: normal affect, normal mood Skin exam: Present: normal color Course Vital Signs 06/08/20 06/08/20 18:49 19:42 Temperature 98.5 F Pulse Rate 62 58 L Respiratory 16 16 Rate Blood Pressure 205/93 180/86 O2 Sat by Pulse 98 97 Oximetry EKG Findings - EKG Comments: EKG Findings:: Sinus bradycardia with a rate of 58. HI 166. QRS 106. QT 454. QTC 445. Left axis. LVH with repolarization change. Medical Decision Making - Medical Decision Making Patient reevaluated and updated. Case was discussed with Dr. lee, who will admit covering for Dr. Amin. - Lab Data Result diagrams: 06/08/20 19:37 06/08/20 19:37 Lab Results 06/08/20 06/08/20 06/08/20 Range/Units 19:07 19:37 19:37 WBC 7.5 (3.8-10.6) k/uL RBC 3.38 L (4.30-5.90) m/uL Hgb 10.1 L (13.0-17.5) gm/dL Hct 30.4 L (39.0-53.0) % MCV 89.8 (80.0-100.0) fL MCH 29.8 (25.0-35.0) pg MCHC 33.2 (31.0-37.0) g/dL RDW 14.9 (11.5-15.5) % Plt Count 236 (150-450) k/uL MPV 8.1 Neutrophils % 62 % Lymphocytes % 27 % Monocytes % 6 % Eosinophils % 3 % Basophils % 0 % Neutrophils # 4.7 (1.3-7.7) k/uL Lymphocytes # 2.0 (1.0-4.8) k/uL Monocytes # 0.5 (0-1.0) k/uL Eosinophils # 0.2 (0-0.7) k/uL Basophils # 0.0 (0-0.2) k/uL PT 10.7 (9.0-12.0) sec INR 1.0 (<1.2) APTT 23.6 (22.0-30.0) sec Sodium (137-145) mmol/L Potassium (3.5-5.1) mmol/L Chloride (98-107) mmol/L Carbon Dioxide (22-30) mmol/L Anion Gap mmol/L BUN (9-20) mg/dL Creatinine (0.66-1.25) mg/dL Est GFR (CKD-EPI)AfAm (>60 ml/min/1.73 sqM) Est GFR (CKD-EPI)NonAf (>60 ml/min/1.73 sqM) Glucose (74-99) mg/dL Calcium (8.4-10.2) mg/dL Total Bilirubin (0.2-1.3) mg/dL AST (17-59) U/L ALT (4-49) U/L Alkaline Phosphatase (38-126) U/L Total Protein (6.3-8.2) g/dL Albumin (3.5-5.0) g/dL Stool Occult Blood Positive (Negative) 06/08/20 Range/Units 19:37 WBC (3.8-10.6) k/uL RBC (4.30-5.90) m/uL Hgb (13.0-17.5) gm/dL Hct (39.0-53.0) % MCV (80.0-100.0) fL MCH (25.0-35.0) pg MCHC (31.0-37.0) g/dL RDW (11.5-15.5) % Plt Count (150-450) k/uL MPV Neutrophils % % Lymphocytes % % Monocytes % % Eosinophils % % Basophils % % Neutrophils # (1.3-7.7) k/uL Lymphocytes # (1.0-4.8) k/uL Monocytes # (0-1.0) k/uL Eosinophils # (0-0.7) k/uL Basophils # (0-0.2) k/uL PT (9.0-12.0) sec INR (<1.2) APTT (22.0-30.0) sec Sodium 141 (137-145) mmol/L Potassium 3.8 (3.5-5.1) mmol/L Chloride 108 H (98-107) mmol/L Carbon Dioxide 26 (22-30) mmol/L Anion Gap 7 mmol/L BUN 20 (9-20) mg/dL Creatinine 1.07 (0.66-1.25) mg/dL Est GFR (CKD-EPI)AfAm 75 (>60 ml/min/1.73 sqM) Est GFR (CKD-EPI)NonAf 65 (>60 ml/min/1.73 sqM) Glucose 102 H (74-99) mg/dL Calcium 9.1 (8.4-10.2) mg/dL Total Bilirubin 0.3 (0.2-1.3) mg/dL AST 33 (17-59) U/L ALT 21 (4-49) U/L Alkaline Phosphatase 66 (38-126) U/L Total Protein 5.8 L (6.3-8.2) g/dL Albumin 3.1 L (3.5-5.0) g/dL Stool Occult Blood (Negative) Disposition Clinical Impression: Lower gastrointestinal hemorrhage Disposition: ADMITTED IP TO THIS HOSP Is patient prescribed a controlled substance at d/c from ED?: No Referrals: Gonzalez Trujillo MD [Primary Care Provider] - 1-2 days Decision Time: 20:05
[2020-06-08 19:44] LABS: Basophils % (A) 0 %; Eosinophils # (A) 0.2 k/uL (0-0.7); Eosinophils % (A) 3 %; HCT 30.4 % (39.0-53.0); HGB 10.1 gm/dL (13.0-17.5); Lymphocytes % (A) 27 %; MCH 29.8 pg (25.0-35.0); MCHC 33.2 g/dL (31.0-37.0); MCV 89.8 fL (80.0-100.0); Mean Platelet Volume 8.1; Monocytes # (A) 0.5 k/uL (0-1.0); Monocytes % (A) 6 %; Neutrophils # (A) 4.7 k/uL (1.3-7.7); Neutrophils % (A) 62 %; Platelet Count 236 k/uL (150-450); RBC 3.38 m/uL (4.30-5.90); RDW 14.9 % (11.5-15.5); WBC 7.5 k/uL (3.8-10.6)
[2020-06-08 19:54] LABS: Albumin 3.1 g/dL (3.5-5.0); Calcium 9.1 mg/dL (8.4-10.2); Potassium 3.8 mmol/L (3.5-5.1); Total Bilirubin 0.3 mg/dL (0.2-1.3); Total Protein 5.8 g/dL (6.3-8.2)
[2020-06-08 19:55] LABS: Partial Thromboplastin Time 23.6 sec (22.0-30.0); Prothrombin Time 10.7 sec (9.0-12.0)
[2020-06-08] MEDS ORDERED: NALOXONE 0.4 MG/ML 1 ML VIAL IV PRN (20:05)
[2020-06-08] MEDS ORDERED: hydrALAZINE HCL 25 MG TAB PO STA (21:59)
[2020-06-08] MEDS: SODIUM CHLORIDE 0.9% 1,000 ML IV SCH (22:09)
--- NOTE | 2020-06-08 23:31 | P.HPIM ---
History of Present Illness H&P Date: 06/08/20 The patient is an 84-year-old male with a PMH of prostate cancer status post brachytherapy and hypertension who presented to the emergency room with complaints of bloody bowel movements. The patient reports that he was in his usual state of health until about 3 days ago when he initially noticed a small amount of bright red blood upon wiping. The patient notes that he previously had hemorrhoids which were removed. The patient initially didn't pay much mind to it until yesterday when he again had a grossly bloody bowel movement with dark red along with black tarry stools. The patient also reported feeling a mild left sided abdominal discomfort, sharp, 2 out of 10, nonradiating, with no alleviating or exacerbating features. The patient subsequently went back to sleep and went to see his oncologist earlier today who advised him to come to the emergency room. The patient reports that throughout the day today he also had 2 additional similar bowel movements with bright red along with dark red blood. He denied pain on defecation. Also denied nausea, vomiting. Denied any history of GI bleeding. Denied use of any blood thinners aside from a baby aspirin once daily. Denied chest pain, shortness of breath, fever, chills, cough. Denied dizziness or blurred vision. EKG in the emergency room revealed sinus bradycardia at 58 bpm with LVH. Laboratory evaluation was remarkable for hemoglobin of 10.1 down from 11.6 in 09/2019. Vitals upon presentation revealed significant hypertension with BP 205/93, pulse 62, temp 98.5, and SpO2 98% on room air. Review of Systems Pertinent positives and negatives as discussed in HPI, a complete review of systems was performed and all other systems are negative. Past Medical History Past Medical History: Cancer, Hypertension, Osteoarthritis (OA), Prostate Disorder Additional Past Medical History / Comment(s): prostate CA with mets to bone, pe lvis and liver, chemo completed, History of Any Multi-Drug Resistant Organisms: None Reported Past Surgical History: Cholecystectomy, Heart Catheterization Additional Past Surgical History / Comment(s): CATARACT SURGERY, Past Anesthesia/Blood Transfusion Reactions: No Reported Reaction Additional Past Anesthesia/Blood Transfusion Reaction / Comment(s): NO BLOOD PRODUCTS Past Psychological History: No Psychological Hx Reported Smoking Status: Former smoker Past Alcohol Use History: None Reported Past Drug Use History: None Reported - Past Family History Father Family Medical History: No Reported History Medications and Allergies Home Medications Medication Instructions Recorded Confirmed Type lisinopriL [Zestril] 10 mg PO BID 08/07/13 06/08/20 History Tamsulosin [Flomax] 0.4 mg PO DAILY 02/28/16 06/08/20 History Venlafaxine HCl ER [Effexor XR] 75 mg PO DAILY 05/29/16 06/08/20 History atenoloL [Tenormin] 50 mg PO DAILY 05/29/16 06/08/20 History Aspirin [Adult Low Dose Aspirin EC] 81 mg PO DAILY 01/24/19 06/08/20 History Benzonatate [Benzonatate Perle] 200 mg PO TID PRN 06/08/20 06/08/20 History Clindamycin Phos 1% Pledget 1 applic TOPICAL BID 06/08/20 06/08/20 History Latanoprost/Pf [Latanoprost 0.005% 1 drop BOTH EYES HS 06/08/20 06/08/20 History Eye Drop] Allergies Allergy/AdvReac Type Severity Reaction Status Date / Time No Known Allergies Allergy Verified 06/08/20 20:32 Physical Exam Vitals: Vital Signs Temp Pulse Pulse Resp BP BP Pulse Ox 06/08/20 21:16 97.5 F L 62 18 196/94 98 06/08/20 20:58 59 L 16 191/96 93 L 06/08/20 19:42 58 L 16 180/86 97 06/08/20 18:49 98.5 F 62 16 205/93 98 Intake and Output 06/08/20 06/08/20 06/08/20 06:59 14:59 22:59 Other: Weight 78.018 kg General: non toxic, no distress, appears at stated age, normal weight Derm: no unusual rashes/lesions no unusual ecchymoses, warm, dry Head: atraumatic, normocephalic, symmetric Eyes: EOMI, no lid lag, anicteric sclera, pupils equal round reactive to light ENT: Nose and ears atraumatic, no thrush, no pharyngeal erythema Neck: No thyromegaly, no cervical lymphadenopathy, trachea midline, supple Mouth: no lip lesion, mucus membranes moist Cardiovascular: S1S2 reg, no murmur, positive posterior tibial pulse bilateral, no edema, capillary refill less than 2 seconds Lungs: CTA bilateral, no rhonchi, no rales , no accessory muscle use Abdominal: soft, mild left sided abdominal tenderness, no guarding, no appreciable organomegaly, normal bowel sounds Ext: no gross muscle atrophy, muscle strength 5 out of 5 in all 4 extremities grossly, no contractures, Neuro: CN II-XI grossly intact, light touch intact all 4 extremities, finger to nose within normal limits, Psych: Alert, oriented, appropriate affect Results CBC & Chem 7: 06/08/20 19:37 06/08/20 19:37 Labs: Abnormal Lab Results - Last 24 Hours (Table) 06/08/20 06/08/20 Range/Units 19:37 19:37 RBC 3.38 L (4.30-5.90) m/uL Hgb 10.1 L (13.0-17.5) gm/dL Hct 30.4 L (39.0-53.0) % Chloride 108 H (98-107) mmol/L Glucose 102 H (74-99) mg/dL Total Protein 5.8 L (6.3-8.2) g/dL Albumin 3.1 L (3.5-5.0) g/dL Assessment and Plan Plan: Acute blood loss anemia secondary to GI bleeding, suspected upper GI source -Continue to monitor CBC -GI consult -IV fluids -Protonix IV -NPO Hypertensive urgency -Status post hydralazine 25 mg by mouth -Continue home medication DVT prophylaxis -IPCDs The patient is admitted with an anticipated less than 2 midnight stay for evaluation of anemia CODE STATUS: Full Code Discussed with: Patient Anticipated discharge date: in am Anticipated discharge place: home A total of 35 minutes was spent on the care of this complex patient more than 50% of the time was spent in counseling and care coordination.
[2020-06-09] MEDS: lisinopriL 10 MG TAB PO SCH ×3 (00:23→19:46)
[2020-06-09] MEDS: PANTOPRAZOLE 40 MG/10 ML VIAL IV SCH (08:16)
[2020-06-09] MEDS: atenoloL 50 MG TAB PO SCH (08:17)
[2020-06-09] MEDS: SODIUM CHLORIDE 0.9% 1,000 ML IV SCH ×2 (08:17→17:17)
[2020-06-09] MEDS: TAMSULOSIN 0.4 MG CAP.ER.24H PO SCH (08:17)
[2020-06-09] MEDS: VENLAFAXINE HCL ER 75 MG CAP PO SCH (08:35)
[2020-06-09 09:59] LABS: Basophils # (A) 0.02 X 10*3/uL (0.00-0.10); Basophils % (A) 0.3 %; Eosinophils # (A) 0.21 X 10*3/uL (0.04-0.35); Eosinophils % (A) 3.1 %; HCT 26.8 % (39.6-50.0); HGB 8.5 g/dL (13.0-17.0); Lymphocytes # (A) 1.98 X 10*3/uL (0.90-5.00); Lymphocytes % (A) 29.4 %; MCH 29.5 pg (27.0-32.0); MCHC 31.7 g/dL (32.0-37.0); MCV 93.1 fL (80.0-97.0); Mean Platelet Volume 11.3 fL (9.5-12.2); Monocytes # (A) 0.48 X 10*3/uL (0.20-1.00); Monocytes % (A) 7.1 %; Neutrophils # (A) 4.02 X 10*3/uL (1.80-7.70); Neutrophils % (A) 59.7 %; Platelet Count 214 X 10*3/uL (140-440); RBC 2.88 X 10*6/uL (4.40-5.60); RDW 14.9 % (11.5-14.5); WBC 6.74 X 10*3/uL (4.50-10.00)
[2020-06-09 10:03] LABS: African American GFR (CKD) 91.9 (60.0-200.0); Anion Gap 5.7 mmol/L (4.00-12.00); BUN/Creat Ratio 17.78 Ratio (12.00-20.00); Calcium 8.1 mg/dL (8.7-10.3); Carbon Dioxide 24.3 mmol/L (21.6-31.8); Non-African American GFR(CKD) 79.3 (60.0-200.0); Potassium 3.5 mmol/L (3.5-5.5)
--- NOTE | 2020-06-09 13:20 | P.PN ---
Subjective Progress Note Date: 06/09/20 He told me that he is still having a lot of bloody bowel movement with blood clots. Nursing staff confirmed that. He remained hemodynamically stable. He is scheduled for a tagged RBC scan this afternoon. Objective - Vital Signs Vital signs: Vital Signs Temp 98.0 F 06/09/20 07:00 Pulse 63 06/09/20 07:00 Resp 16 06/09/20 07:00 BP 166/86 06/09/20 07:00 Pulse Ox 98 06/09/20 07:00 Intake & Output 06/08/20 06/09/20 06/09/20 18:59 06:59 18:59 Intake Total 600 Output Total 400 Balance 600 -400 Weight 78.018 kg 78.018 kg Intake: Oral 600 Output: Urine 400 Other: # Voids 2 # Bowel Movements 1 - Exam General: The patient is awake and alert, in no distress Eye: there is normal conjunctiva bilaterally. Neck: The neck is supple, there is no JVD. Cardiovascular: Normal S1-S2, no S3-S4, no murmurs. Respiratory: Lungs clear to auscultation bilaterally Gastrointestinal: Abdomen is soft, nontender Musculoskeletal: There is no pedal edema. Neurological:. Speech is normal. Skin: Skin is warm and dry - Labs CBC & Chem 7: 06/09/20 05:14 06/09/20 05:14 Labs: Abnormal Lab Results - Last 24 Hours (Table) 06/08/20 06/08/20 06/09/20 Range/Units 19:37 19:37 05:14 RBC 3.38 L 2.88 L (4.30-5.90) m/uL Hgb 10.1 L 8.5 L (13.0-17.5) gm/dL Hct 30.4 L 26.8 L (39.0-53.0) % MCHC 31.7 L (32.0-37.0) g/dL RDW 14.9 H (11.5-14.5) % Chloride 108 H (98-107) mmol/L Glucose 102 H (74-99) mg/dL Calcium (8.7-10.3) mg/dL Total Protein 5.8 L (6.3-8.2) g/dL Albumin 3.1 L (3.5-5.0) g/dL 06/09/20 Range/Units 05:14 RBC (4.30-5.90) m/uL Hgb (13.0-17.5) gm/dL Hct (39.0-53.0) % MCHC (32.0-37.0) g/dL RDW (11.5-14.5) % Chloride 113 H (98-107) mmol/L Glucose 131 H (74-99) mg/dL Calcium 8.1 L (8.7-10.3) mg/dL Total Protein (6.3-8.2) g/dL Albumin (3.5-5.0) g/dL Assessment and Plan Assessment: This is a 84-year-old male with past medical history noted below that presented to the emergency room with bloody bowel movement. Patient was evaluated in the ER and admitted to the hospital for further management of his medical problems noted below. 1. GI bleed, possibly lower. Seen and evaluated by GI. Type RBC scan ordered for today. Continue IV Protonix as ordered. 2. Acute blood loss anemia, transfuse as needed for hemoglobin less than 8. St at CBC ordered to check hemoglobin this afternoon. 3. Hypertensive urgency, blood pressure improved. We'll continue to monitor closely 4. Essential hypertension: Continue home regimen 5. History of prostate cancer 6. DVT prophylaxis with SCDs
--- NOTE | 2020-06-09 15:46 | CONS ---
CONSULTATION DATE OF DICTATION: June 09, 2020 REASON FOR CONSULTATION: Acute lower GI bleed. HISTORY OF PRESENT ILLNESS: The patient is an 84-year-old pleasant white male who is a [employer], prior history of prostate cancer, treated with radiation therapy in the past, history of hypertension presented to the hospital with multiple episodes of bright red blood per rectum that started yesterday evening. He had about 3 episodes at home and hence came into the emergency room with some dizziness and he had another 3 large bloody bowel movements with clots this morning. His initial hemoglobin was 10.5 and subsequently dropped to 8.7 g/dL. He complains of some gurgling, cramping, lower abdominal pain. He never had these symptoms in the past. His last colonoscopy by Dr. Mac was in August of 2013 and was noted to have mucosal prolapse, internal as well as external hemorrhoids that were resected. He denies any recent NSAID use. He takes aspirin on a regular basis. Not on any anticoagulation. Denies any prior history of peptic ulcer disease. PAST MEDICAL HISTORY: Significant for prostate cancer, hypertension, degenerative joint disease. PAST SURGICAL HISTORY: Prostate cancer with bone mets, cataract surgery, cholecystectomy, cardiac catheterization. MEDICATIONS: Medications at home include Zestril, Flomax, Effexor, Tenormin, aspirin, clindamycin 1% and eyedrops. ALLERGIES: None. SOCIAL HISTORY: Former smoker. No alcohol use. FAMILY HISTORY: Unremarkable. REVIEW OF SYSTEMS: CARDIOPULMONARY: No chest pain or shortness of breath. GENITOURINARY: No dysuria or hematuria. MUSCULOSKELETAL: Unremarkable. SKIN: Unremarkable. ENDOCRINE: Unremarkable. PSYCHIATRIC: Unremarkable. NEUROLOGY: Mild dizziness. ENT/VISION: Unremarkable. CONSTITUTIONAL: No recent weight loss. No fever, chills, night sweats. HEMATOLOGY: Mild anemia. PHYSICAL EXAMINATION: Blood pressure is 166/86, pulse is 63, temperature 98. HEENT EXAMINATION: Unremarkable. Conjunctivae pink. Sclerae anicteric. Oral cavity no lesions. NECK: No JVD or lymph node enlargement. CHEST: Was clear to auscultation. HEART: Regular rate and rhythm. ABDOMEN: Soft. It was nontender, nondistended. Bowel sounds are positive. No organomegaly. EXTREMITIES: No pedal edema. NEURO: He is alert and oriented x3. No focal deficits. LABS: WBC 6.7, hemoglobin 8.5, platelets 214. Hemoglobin yesterday was 10.1. BUN and creatinine are within normal limits. Basic metabolic panel is normal. Stool occult blood was positive. Coronavirus PCR is negative. IMPRESSION: Acute gastrointestinal bleed, most likely lower in etiology. The patient presented with multiple episodes of bright red blood with large clots since yesterday evening. He had at least 6 or 7 episodes since yesterday and it dropped hemoglobin from 10-8.6 g/dL. The patient is a [employer] and does not want to have any blood products at this time. Most likely dealing with a diverticular bleed but cannot rule out upper gastrointestinal source of bleeding. His last colonoscopy by Dr. Mac in July of 2013 revealed large internal and external hemorrhoids as well as sigmoid diverticulosis. RECOMMENDATIONS: I had a lengthy discussion with the patient regarding management of acute GI bleed. At this time since the patient is a [employer] and we cannot give him any blood products, I will proceed with a bleeding scan to localize the site of bleeding and also consult surgery in case of need for surgical intervention if he continues to have significant bleeding and hemodynamically instability. In the meantime, if he remains stable, we will monitor CBC every 6 hours. Continue with aggressive IV hydration and plan on EGD colonoscopy tomorrow morning. In the meantime, continue with Protonix 40 mg twice daily and we will follow with you closely. Thank you for this consultation. MMWOODL / IJN: [id number] /
--- NOTE | 2020-06-09 16:47 | NM ---
EXAMINATION TYPE: NM GI bleeding DATE OF EXAM: 06/09/2020 HISTORY: GI bleeding COMPARISON: NONE Following administration of 3 ml PYP 27.9 mCi Tc 99m Sodium Pertechnete. Immediate images post inject ion. FINDINGS: Normal tracer activity is seen in the blood pool of the abdominal aorta, common iliac arteries, femor al arteries, liver, and spleen on all of the interval images. Later images show accumulation of trace r in the urinary bladder, which is consistent with excreted tracer. No abnormal tracer uptake is pres ent outside the blood pool that would be consistent with an active GI bleed. IMPRESSION: Normal exam. No evidence of active GI bleeding.
[2020-06-09 17:46] LABS: Basophils % (A) 0 %; Eosinophils # (A) 0.1 k/uL (0-0.7); Eosinophils % (A) 2 %; HCT 22.7 % (39.0-53.0); Lymphocytes # (A) 1.4 k/uL (1.0-4.8); Lymphocytes % (A) 20 %; MCH 30.2 pg (25.0-35.0); MCHC 33.3 g/dL (31.0-37.0); MCV 90.9 fL (80.0-100.0); Mean Platelet Volume 8.3; Monocytes # (A) 0.3 k/uL (0-1.0); Monocytes % (A) 4 %; Neutrophils # (A) 5.3 k/uL (1.3-7.7); Neutrophils % (A) 73 %; Platelet Count 206 k/uL (150-450); RBC 2.49 m/uL (4.30-5.90); RDW 15.2 % (11.5-15.5); WBC 7.2 k/uL (3.8-10.6)
[2020-06-09 17:57] LABS: HGB 7.5 gm/dL (13.0-17.5)
[2020-06-09] MEDS ORDERED: PEG 3350-NA SULF,BICARB,CL/KCL 4,000 ML BOTTLE PO ONE (18:00)
--- NOTE | 2020-06-09 19:27 | P.GSCN ---
History of Present Illness Consult date: 06/09/20 History of present illness: Patient seen and evaluated. Patient had a tagged RBC scan that I personally reviewed without findings of active bleeding. He reports his recent bowel movement was stool not dark. His signs of bleeding has stopped. He is undergoing a bowel prep for colonoscopy. No reports of abdominal pain. He denies any prior episodes. Reports loss of taste and smell since his prostate cancer diagnosis. Recommend iron panel. With Jehovah witness status, other forms to supplement bone marrow includes iron infusion. Additionally, may benefit from Procrit. I personally reviewed his past computed tomography scan of the abdomen and pelvis with severe diverticulosis involving the descending colon and sigmoid colon. Past Medical History Past Medical History: Cancer, Hypertension, Osteoarthritis (OA), Prostate Disorder Additional Past Medical History / Comment(s): prostate CA with mets to bone, pelvis and liver, chemo completed, History of Any Multi-Drug Resistant Organisms: None Reported Past Surgical History: Cholecystectomy, Heart Catheterization Additional Past Surgical History / Comment(s): CATARACT SURGERY, Past Anesthesia/Blood Transfusion Reactions: No Reported Reaction Additional Past Anesthesia/Blood Transfusion Reaction / Comm: NO BLOOD PRODUCTS Past Psychological History: No Psychological Hx Reported Smoking Status: Former smoker Past Alcohol Use History: None Reported Past Drug Use History: None Reported - Past Family History Father Family Medical History: No Reported History Medications and Allergies Home Medications Medication Instructions Recorded Confirmed Type lisinopriL [Zestril] 10 mg PO BID 08/07/13 06/08/20 History Tamsulosin [Flomax] 0.4 mg PO DAILY 02/28/16 06/08/20 History Venlafaxine HCl ER [Effexor XR] 75 mg PO DAILY 05/29/16 06/08/20 History atenoloL [Tenormin] 50 mg PO DAILY 05/29/16 06/08/20 History Aspirin [Adult Low Dose Aspirin EC] 81 mg PO DAILY 01/24/19 06/08/20 History Benzonatate [Benzonatate Perle] 200 mg PO TID PRN 06/08/20 06/08/20 History Clindamycin Phos 1% Pledget 1 applic TOPICAL BID 06/08/20 06/08/20 History Latanoprost/Pf [Latanoprost 0.005% 1 drop BOTH EYES HS 06/08/20 06/08/20 History Eye Drop] Allergies Allergy/AdvReac Type Severity Reaction Status Date / Time No Known Allergies Allergy Verified 06/08/20 20:32 Surgical - Exam Vital Signs Temp Pulse Resp BP Pulse Ox 98.5 F 62 16 205/93 98 06/08/20 18:49 06/08/20 18:49 06/08/20 18:49 06/08/20 18:49 06/08/20 18:49 Results - Labs 06/09/20 16:47 06/09/20 05:14 Abnormal Lab Results - Last 24 Hours (Table) 06/08/20 06/08/20 06/09/20 Range/Units 19:37 19:37 05:14 RBC 3.38 L 2.88 L (4.30-5.90) m/uL Hgb 10.1 L 8.5 L (13.0-17.5) gm/dL Hct 30.4 L 26.8 L (39.0-53.0) % MCHC 31.7 L (32.0-37.0) g/dL RDW 14.9 H (11.5-14.5) % Chloride 108 H (98-107) mmol/L Glucose 102 H (74-99) mg/dL Calcium (8.7-10.3) mg/dL Total Protein 5.8 L (6.3-8.2) g/dL Albumin 3.1 L (3.5-5.0) g/dL 06/09/20 06/09/20 Range/Units 05:14 16:47 RBC 2.49 L (4.30-5.90) m/uL Hgb 7.5 L D (13.0-17.5) gm/dL Hct 22.7 L (39.0-53.0) % MCHC (32.0-37.0) g/dL RDW (11.5-14.5) % Chloride 113 H (98-107) mmol/L Glucose 131 H (74-99) mg/dL Calcium 8.1 L (8.7-10.3) mg/dL Total Protein (6.3-8.2) g/dL Albumin (3.5-5.0) g/dL Diabetes panel 06/08/20 06/09/20 Range/Units 19:37 05:14 Sodium 141 143 (137-145) mmol/L Potassium 3.8 3.5 (3.5-5.1) mmol/L Chloride 108 H 113 H (98-107) mmol/L Carbon Dioxide 26 24.3 (22-30) mmol/L BUN 20 16.0 (9-20) mg/dL Creatinine 1.07 0.9 (0.66-1.25) mg/dL Glucose 102 H 131 H (74-99) mg/dL Calcium 9.1 8.1 L (8.4-10.2) mg/dL AST 33 (17-59) U/L ALT 21 (4-49) U/L Alkaline Phosphatase 66 (38-126) U/L Total Protein 5.8 L (6.3-8.2) g/dL Albumin 3.1 L (3.5-5.0) g/dL Calcium panel 06/08/20 06/09/20 Range/Units 19:37 05:14 Calcium 9.1 8.1 L (8.4-10.2) mg/dL Albumin 3.1 L (3.5-5.0) g/dL Pituitary panel 06/08/20 06/09/20 Range/Units 19:37 05:14 Sodium 141 143 (137-145) mmol/L Potassium 3.8 3.5 (3.5-5.1) mmol/L Chloride 108 H 113 H (98-107) mmol/L Carbon Dioxide 26 24.3 (22-30) mmol/L BUN 20 16.0 (9-20) mg/dL Creatinine 1.07 0.9 (0.66-1.25) mg/dL Glucose 102 H 131 H (74-99) mg/dL Calcium 9.1 8.1 L (8.4-10.2) mg/dL Adrenal panel 06/08/20 06/09/20 Range/Units 19:37 05:14 Sodium 141 143 (137-145) mmol/L Potassium 3.8 3.5 (3.5-5.1) mmol/L Chloride 108 H 113 H (98-107) mmol/L Carbon Dioxide 26 24.3 (22-30) mmol/L BUN 20 16.0 (9-20) mg/dL Creatinine 1.07 0.9 (0.66-1.25) mg/dL Glucose 102 H 131 H (74-99) mg/dL Calcium 9.1 8.1 L (8.4-10.2) mg/dL Total Bilirubin 0.3 (0.2-1.3) mg/dL AST 33 (17-59) U/L ALT 21 (4-49) U/L Alkaline Phosphatase 66 (38-126) U/L Total Protein 5.8 L (6.3-8.2) g/dL Albumin 3.1 L (3.5-5.0) g/dL
[2020-06-09] MEDS: LATANOPROST 0.005% OPHTH DROPS 2.5 ML BTL BOTH EYES SCH (20:55)
[2020-06-09 23:31] LABS: HCT 21.8 % (39.0-53.0); HGB 7.3 gm/dL (13.0-17.5); MCH 30.3 pg (25.0-35.0); MCHC 33.6 g/dL (31.0-37.0); MCV 90.3 fL (80.0-100.0); Mean Platelet Volume 8.4; Platelet Count 184 k/uL (150-450); RBC 2.42 m/uL (4.30-5.90); RDW 15.2 % (11.5-15.5); WBC 6.6 k/uL (3.8-10.6)
[2020-06-10 00:39] LABS: % Iron Saturation 21.52 (15.00-50.00)
[2020-06-10 00:49] LABS: Ferritin 76.3 ng/mL (22.0-322.0)
[2020-06-10] MEDS: SODIUM CHLORIDE 0.9% 1,000 ML IV SCH (02:59)
[2020-06-10] MEDS: PANTOPRAZOLE 40 MG/10 ML VIAL IV SCH (08:50)
[2020-06-10] MEDS: lisinopriL 10 MG TAB PO SCH ×2 (08:50→20:00)
[2020-06-10] MEDS: atenoloL 50 MG TAB PO SCH (08:51)
[2020-06-10 09:50] LABS: HCT 22.5 % (39.0-53.0); HGB 7.6 gm/dL (13.0-17.5); Hypochromasia Slight; MCH 30.6 pg (25.0-35.0); MCHC 33.6 g/dL (31.0-37.0); MCV 91.2 fL (80.0-100.0); Mean Platelet Volume 8.1; Platelet Count 213 k/uL (150-450); RBC 2.47 m/uL (4.30-5.90); RDW 15.4 % (11.5-15.5); WBC 7.7 k/uL (3.8-10.6)
[2020-06-10 10:02] LABS: Calcium 7.7 mg/dL (8.4-10.2); Potassium 3.6 mmol/L (3.5-5.1)
[2020-06-10] MEDS ORDERED: DARBEPOETIN ALFA 25 MCG/0.42 ML SYRINGE SQ ONE (10:30)
--- NOTE | 2020-06-10 11:07 | P.PN ---
Subjective Progress Note Date: 06/10/20 Patient continues to have bloody bowel movement this morning. He is scheduled for colonoscopy later today. He remained hemodynamically stable. Hemoglobin this morning 7.6. Objective - Vital Signs Vital signs: Vital Signs Temp 97.6 F 06/10/20 03:28 Pulse 74 06/10/20 03:28 Resp 17 06/10/20 03:28 BP 177/84 06/10/20 03:28 Pulse Ox 98 06/10/20 03:28 Intake & Output 06/09/20 06/10/20 06/10/20 18:59 06:59 18:59 Intake Total 0 Output Total 400 Balance -400 0 Weight 78.2 kg Intake: Oral 0 Output: Urine 400 Other: Voiding Method Toilet # Voids 1 # Bowel Movements 1 1 1 - Exam General: The patient is awake and alert, in no distress Eye: there is normal conjunctiva bilaterally. Neck: The neck is supple, there is no JVD. Cardiovascular: Normal S1-S2, no S3-S4, no murmurs. Respiratory: Lungs clear to auscultation bilaterally Gastrointestinal: Abdomen is soft, nontender Musculoskeletal: There is no pedal edema. Neurological:. Speech is normal. Skin: Skin is warm and dry - Labs CBC & Chem 7: 06/10/20 09:15 06/10/20 09:15 Labs: Abnormal Lab Results - Last 24 Hours (Table) 06/09/20 06/09/20 06/09/20 Range/Units 05:14 16:47 23:08 RBC 2.49 L 2.42 L (4.30-5.90) m/uL Hgb 7.5 L D 7.3 L (13.0-17.5) gm/dL Hct 22.7 L 21.8 L (39.0-53.0) % Chloride (98-107) mmol/L Glucose (74-99) mg/dL Calcium (8.4-10.2) mg/dL Iron 51 L (65-175) ug/dL 06/10/20 06/10/20 Range/Units 09:15 09:15 RBC 2.47 L (4.30-5.90) m/uL Hgb 7.6 L (13.0-17.5) gm/dL Hct 22.5 L (39.0-53.0) % Chloride 111 H (98-107) mmol/L Glucose 112 H (74-99) mg/dL Calcium 7.7 L (8.4-10.2) mg/dL Iron (65-175) ug/dL Assessment and Plan Assessment: This is a 84-year-old male with past medical history noted below that presented to the emergency room with bloody bowel movement. Patient was evaluated in the ER and admitted to the hospital for further management of his medical problems noted below. 1. GI bleed, possibly lower. Seen and evaluated by GI. Tagged RBC scan with no identifiable source of bleeding. Plan for colonoscopy today. Continue IV Protonix as ordered. 2. Acute blood loss anemia, patient is a [employer]. We discussed risk of not receiving blood transfusions and patient is agreeable to accept that risk based on baptist belief. IV iron ordered. 3. Hypertensive urgency, blood pressure improved. We'll continue to monitor closely 4. Essential hypertension: Continue home regimen 5. History of prostate cancer 6. DVT prophylaxis with SCDs
[2020-06-10] MEDS: SODIUM FERRIC GLUCONAT-SUCROSE 125 MG in SODIUM CHLORIDE 0.9% 100 ML IVPB SCH (11:56)
[2020-06-10] MEDS: LACTATED RINGERS 1,000 ML IV SCH (12:01)
[2020-06-10] MEDS ORDERED: LIDOCAINE 1% INJ 10MG/ML (20 ML MDV) ONE (13:05)
[2020-06-10] MEDS ORDERED: PROPOFOL 10 MG/ML 20 ML VIAL IV ONE (13:05)
[2020-06-10] MEDS ORDERED: IV FLUID CONTINUATION 1,000 ML IV ONE (13:08)
--- NOTE | 2020-06-10 13:21 | P.PN ---
Subjective Progress Note Date: 06/10/20 CHIEF COMPLAINT: GI bleed HISTORY OF PRESENT ILLNESS: This is a 84-year-old male who presented to the [facility] with complaints of bright red blood per rectum. Patient continues to have bleeding. He had a bowel movement last night that contained bright red blood. He is taking the GoLYTELY prep for his colonoscopy and continues to have bleeding with no stool. Patient is scheduled for EGD and colonoscopy today. Hemoglobin 7.6. Tagged RBC scan was normal. No evidence of active GI bleeding. Patient denies any abdominal pain. Denies any nausea vomiting. He is afebrile. Blood pressures have been elevated in medicine service is following. WBC 7.7 hemoglobin has gone up from 7.3-7.6 platelets 213 sodium 140 potassium 3.6 creatinine 0.92 iron 51 TIBC 237 iron saturation 21.52 ferritin 76.3 patient is a Jehovah witness and has refused blood products PHYSICAL EXAM: VITAL SIGNS: Reviewed GENERAL: Well-developed in no acute distress. HEENT: No sclera icterus. Extraocular movements grossly intact. Moist buccal mucosa. Head is atraumatic, normocephalic. Hears conversational speech. No nasal drainage. NECK: Supple without lymphadenopathy. CHEST: Non-labored respirations and equal bilateral excursions. CARDIOVASCULAR: Palpable 2+ radial pulses. ABDOMEN: Soft. Nondistended. Nontender. MUSCULOSKELETAL: No clubbing or cyanosis. NEUROLOGIC: No focal or lateralizing signs. Cranial nerves II through XII grossly intact. PSYCH: Appropriate affect. Alert and oriented to person, place and time. SKIN: Well perfused. Good skin turgor. ASSESSMENT: 1. Acute GI bleed with possible diverticular bleed 2. Acute blood loss anemia 3. Hypertension 4. History of diverticulosis PLAN: -Patient scheduled for EGD and colonoscopy with GI service today -We will give patient IV iron 3 doses -Continue to monitor hemoglobin -Continue Protonix Physician Magneto Repairer note has been reviewed by physician. Signing provider agrees with the documented findings, assessment, and plan of care. Objective - Vital Signs Vital signs: Vital Signs Temp 97.6 F 06/10/20 03:28 Pulse 74 06/10/20 03:28 Resp 17 06/10/20 03:28 BP 177/84 06/10/20 03:28 Pulse Ox 98 06/10/20 03:28 Intake & Output 06/09/20 06/10/20 06/10/20 18:59 06:59 18:59 Intake Total 0 Output Total 400 Balance -400 0 Weight 78.2 kg Intake: Oral 0 Output: Urine 400 Other: Voiding Method Toilet # Voids 1 # Bowel Movements 1 1 1 - Labs CBC & Chem 7: 06/10/20 09:15 06/10/20 09:15 Labs: Abnormal Lab Results - Last 24 Hours (Table) 06/09/20 06/09/20 06/09/20 Range/Units 05:14 16:47 23:08 RBC 2.49 L 2.42 L (4.30-5.90) m/uL Hgb 7.5 L D 7.3 L (13.0-17.5) gm/dL Hct 22.7 L 21.8 L (39.0-53.0) % Chloride (98-107) mmol/L Glucose (74-99) mg/dL Calcium (8.4-10.2) mg/dL Iron 51 L (65-175) ug/dL 06/10/20 06/10/20 Range/Units 09:15 09:15 RBC 2.47 L (4.30-5.90) m/uL Hgb 7.6 L (13.0-17.5) gm/dL Hct 22.5 L (39.0-53.0) % Chloride 111 H (98-107) mmol/L Glucose 112 H (74-99) mg/dL Calcium 7.7 L (8.4-10.2) mg/dL Iron (65-175) ug/dL
--- NOTE | 2020-06-10 13:30 | P.PCN ---
Date of Procedure: 06/10/20 Procedure(s) Performed: Brief history: Patient is a pleasant 82-year-old white male admitted hospital with acute GI bleed. Had multiple episodes of dark-colored/Breitenbach rectum that started 2 days ago. He dropped his hemoglobin from 10-7.6 g/dL. He scheduled for an upper endoscopy as well as colonoscopy to evaluate further. Procedure performed: Esophagogastroduodenoscopy Colonoscopy Preoperative diagnosis: Acute GI bleed Anesthesia: MAC Procedure: After informed consent was obtained from the patient was brought into the endoscopy unit and IV sedation was administered by anesthesia under continuous monitoring. Initially upper endoscopy was done. The Olympus GF 160 video endoscope was inserted inserted into the mouth and esophagus intubated without any difficulty and was gradually advanced into the stomach and duodenum and carefully examined. The bulb and second part of the duodenum appeared normal. The scope was then withdrawn into the stomach adequately insufflated with air and upon careful examination the antrum had mild gastritis. No active bleeding noted. The body, cardia and fundus appeared normal. The scope was then withdrawn into the esophagus. The GE junction was located at 40 cm to the incisors. It appeared regular with no erythema erosions or ulcerations. Rest of the esophagus appeared normal. Patient tolerated the procedure well. At this time the patient continued to remain sedation. Initial digital rectal examination was normal. Olympus CF 160 video colonoscope was then inserted into the rectum and gradually advanced to the cecum without any difficulty. Careful examination was performed as the scope was gradually being withdrawn. The prep wafair. The cecum, ascending colon, transverse colon, appeared normal. There was extensive diverticulosis noted in the left colon. There was some old blood identified in the left colon but no active bleeding noted. Mucosa of the descending colon, sigmoid colon and rectum appeared normal. Retroflexion was performed in the rectum and no lesions were noted. Patient tolerated the proc edure well. Impression: 1. upper endoscopy revealed mild antral gastritis but no active upper GI bleed 2. Colonoscopy revealed extensive left sided diverticulosis with some old blood but no active bleeding Recommendations: Findings of this examination were discussed with the patient as well as his family. Recent episode of bleeding most likely diverticular in nature which has spontaneously resolved. At this time will start him on a full liquid diet and monitor CBC daily..
[2020-06-10] MEDS: TAMSULOSIN 0.4 MG CAP.ER.24H PO SCH (16:35)
[2020-06-10] MEDS: VENLAFAXINE HCL ER 75 MG CAP PO SCH (16:35)
[2020-06-10] MEDS: LATANOPROST 0.005% OPHTH DROPS 2.5 ML BTL BOTH EYES SCH (20:00)
[2020-06-11] MEDS: PANTOPRAZOLE 40 MG/10 ML VIAL IV SCH (08:36)
[2020-06-11] MEDS: VENLAFAXINE HCL ER 75 MG CAP PO SCH (08:37)
[2020-06-11] MEDS: atenoloL 50 MG TAB PO SCH (08:37)
[2020-06-11] MEDS: TAMSULOSIN 0.4 MG CAP.ER.24H PO SCH (08:37)
[2020-06-11] MEDS: lisinopriL 10 MG TAB PO SCH ×2 (08:37→20:25)
[2020-06-11 09:21] LABS: Anisocytosis Slight; HCT 23.8 % (39.0-53.0); HGB 7.6 gm/dL (13.0-17.5); Hypochromasia Slight; MCH 29.6 pg (25.0-35.0); MCV 92.5 fL (80.0-100.0); Mean Platelet Volume 8.3; Platelet Count 232 k/uL (150-450); RBC 2.57 m/uL (4.30-5.90); WBC 8.1 k/uL (3.8-10.6)
[2020-06-11] MEDS: SODIUM FERRIC GLUCONAT-SUCROSE 125 MG in SODIUM CHLORIDE 0.9% 100 ML IVPB SCH (09:56)
[2020-06-11] MEDS ORDERED: atenoloL 25 MG TAB PO STA (10:05)
--- NOTE | 2020-06-11 10:08 | P.PN ---
Subjective Progress Note Date: 06/11/20 Patient is doing fairly well today. No further episodes of GI bleed. Hemoglobin this morning is stable at 7.6. Objective - Vital Signs Vital signs: Vital Signs Temp 98.1 F 06/11/20 04:00 Pulse 91 06/11/20 04:00 Resp 18 06/11/20 04:00 BP 157/79 06/11/20 04:00 Pulse Ox 97 06/11/20 04:00 Intake & Output 06/10/20 06/11/20 06/11/20 18:59 06:59 18:59 Intake Total 1518 160 382 Output Total 800 675 Balance 718 -515 382 Weight 76.6 kg Intake: IV 100 Intake, IV Titration 820 160 Amount Lactated Ringers 1,000 ml 160 @ 20 mls/hr IV .Q24H LUIS A Rx#:[id number] Sodium Chloride 0.9% 1, 720 000 ml @ 90 mls/hr IV . Q11H7M LUIS A Rx#:[id number] Sodium Ferric Gluconat- 100 Sucrose 125 mg In Sodium Chloride 0.9% 100 ml @ 100 mls/hr IVPB DAILY LUIS A Rx#:[id number] Oral 598 382 Output: Urine 800 675 Other: Voiding Method Toilet Toilet # Voids 1 # Bowel Movements 5 1 - Exam General: The patient is awake and alert, in no distress Eye: there is normal conjunctiva bilaterally. Neck: The neck is supple, there is no JVD. Cardiovascular: Normal S1-S2, no S3-S4, no murmurs. Respiratory: Lungs clear to auscultation bilaterally Gastrointestinal: Abdomen is soft, nontender Musculoskeletal: There is no pedal edema. Neurological:. Speech is normal. Skin: Skin is warm and dry - Labs CBC & Chem 7: 06/11/20 07:38 06/10/20 09:15 Labs: Abnormal Lab Results - Last 24 Hours (Table) 06/10/20 06/11/20 Range/Units 09:15 07:38 RBC 2.57 L (4.30-5.90) m/uL Hgb 7.6 L (13.0-17.5) gm/dL Hct 23.8 L (39.0-53.0) % RDW 16.0 H (11.5-15.5) % Chloride 111 H (98-107) mmol/L Glucose 112 H (74-99) mg/dL Calcium 7.7 L (8.4-10.2) mg/dL Assessment and Plan Assessment: This is a 84-year-old male with past medical history noted below that presented to the emergency room with bloody bowel movement. Patient was evaluated in the ER and admitted to the hospital for further management of his medical problems noted below. 1. GI bleed, possibly lower. Seen and evaluated by GI. Tagged RBC scan with no identifiable source of bleeding. Patient underwent EGD showing mild antral gastritis with no active bleeding, colonoscopy revealed extensive left-sided diverticulosis with some old blood but no active bleeding. I would switch Protonix to oral 2. Acute blood loss anemia, patient is a Catholic. We discussed risk of not receiving blood transfusions and patient is agreeable to accept that risk based on sabianist belief. IV iron ordered 2/3 doses given 3. Hypertensive urgency, blood pressure improved. We'll continue to monitor closely 4. Essential hypertension: Blood pressure not well controlled. I would increase home dose of atenolol to 75 mg daily. Continue lisinopril 20 mg twice a day 5. History of prostate cancer 6. DVT prophylaxis with SCDs Today, I reviewed his medication list and lab work results. We will continue to monitor clinical status for another 24 hours to assure no recurrent bleeding given significant diverticulosis. General surgery on board if needed. Repeat CBC in the morning. Anticipate discharge home tomorrow if stable.
[2020-06-11] MEDS: LACTATED RINGERS 1,000 ML IV SCH (10:47)
--- NOTE | 2020-06-11 11:54 | P.PN ---
<Kayla Heaton - Last Filed: 06/11/20 11:51> Subjective Progress Note Date: 06/11/20 CHIEF COMPLAINT: GI bleed HISTORY OF PRESENT ILLNESS: This is a 84-year-old male who presented to the hospital with complaints of bright red blood per rectum. Patient is status post EGD and colonoscopy by Dr. Gomez. EGD showed mild antral gastritis no active upper GI bleed. Colonoscopy revealed extensive left-sided diverticulosis with some old blood but no active bleeding. Patient reports that he has had a non- bloody stool after the colonoscopy. He denies any abdominal pain. Denies any nausea or vomiting. He had no further bleeding. Afebrile. Hemoglobin stable at 7.6. WBC 8.1. Currently on a full liquid diet. Patient is receiving his second IV iron transfusion. PHYSICAL EXAM: VITAL SIGNS: Reviewed GENERAL: Well-developed in no acute distress. HEENT: No sclera icterus. Extraocular movements grossly intact. Moist buccal mucosa. Head is atraumatic, normocephalic. Hears conversational speech. No nasal drain age. NECK: Supple without lymphadenopathy. CHEST: Non-labored respirations and equal bilateral excursions. CARDIOVASCULAR: Palpable 2+ radial pulses. ABDOMEN: Soft. Nondistended. Nontender. MUSCULOSKELETAL: No clubbing or cyanosis. NEUROLOGIC: No focal or lateralizing signs. Cranial nerves II through XII grossly intact. PSYCH: Appropriate affect. Alert and oriented to person, place and time. SKIN: Well perfused. Good skin turgor. ASSESSMENT: 1. Acute GI bleed secondary to diverticular bleed 2. Acute blood loss anemia 3. Hypertension 4. History of diverticulosis PLAN: -Patient receiving second IV iron transfusion out of a total of 3 -Continue to monitor hemoglobin -No surgical intervention planned Physician Automatic Beam Warper Tender note has been reviewed by physician. Signing provider agrees with the documented findings, assessment, and plan of care. Objective - Vital Signs Vital signs: Vital Signs Temp 97.9 F 06/11/20 08:00 Pulse 91 06/11/20 08:00 Resp 18 06/11/20 08:00 BP 168/84 06/11/20 08:00 Pulse Ox 100 06/11/20 08:00 Intake & Output 06/10/20 06/11/20 06/11/20 18:59 06:59 18:59 Intake Total 1518 160 382 Output Total 800 675 Balance 718 -515 382 Weight 76.6 kg Intake: IV 100 Intake, IV Titration 820 160 Amount Lactated Ringers 1,000 ml 160 @ 20 mls/hr IV .Q24H LUIS A Rx#:[id number] Sodium Chloride 0.9% 1, 720 000 ml @ 90 mls/hr IV . Q11H7M LUIS A Rx#:[id number] Sodium Ferric Gluconat- 100 Sucrose 125 mg In Sodium Chloride 0.9% 100 ml @ 100 mls/hr IVPB DAILY LUIS A Rx#:[id number] Oral 598 382 Output: Urine 800 675 Other: Voiding Method Toilet Toilet Toilet # Voids 1 # Bowel Movements 5 1 - Labs CBC & Chem 7: 06/11/20 07:38 06/10/20 09:15 Labs: Abnormal Lab Results - Last 24 Hours (Table) 06/11/20 Range/Units 07:38 RBC 2.57 L (4.30-5.90) m/uL Hgb 7.6 L (13.0-17.5) gm/dL Hct 23.8 L (39.0-53.0) % RDW 16.0 H (11.5-15.5) % <Angela Lubin N - Last Filed: 06/11/20 19:57> Objective - Vital Signs Vital signs: Vital Signs Temp 98.0 F 06/11/20 16:00 Pulse 82 06/11/20 16:00 Resp 16 06/11/20 16:00 BP 171/84 06/11/20 16:00 Pulse Ox 97 06/11/20 16:00 Intake & Output 06/11/20 06/11/20 06/12/20 06:59 18:59 06:59 Intake Total 160 1304 Output Total 675 302 Balance -515 1002 Weight 76.6 kg 76.6 kg Intake: Intake, IV Titration 160 Amount Lactated Ringers 1,000 ml 160 @ 20 mls/hr IV .Q24H LUIS A Rx#:[id number] Oral 1304 Output: Urine 675 300 Stool 2 Other: Voiding Method Toilet Toilet # Voids 1 # Bowel Movements 1 - Labs CBC & Chem 7: 06/11/20 07:38 06/10/20 09:15 Labs: Abnormal Lab Results - Last 24 Hours (Table) 06/11/20 Range/Units 07:38 RBC 2.57 L (4.30-5.90) m/uL Hgb 7.6 L (13.0-17.5) gm/dL Hct 23.8 L (39.0-53.0) % RDW 16.0 H (11.5-15.5) %
[2020-06-11 15:03] VITALS: BMI 25.7
--- NOTE | 2020-06-11 15:50 | P.PN ---
Subjective Progress Note Date: 06/11/20 Principal diagnosis: Lower GI Bleed This is an 84-year-old male Jehovah's witnesses patient who presented to the emergency department with supple episodes of rectal bleeding and bowel movements mixed with blood. He states he had approximately 3 episodes at home with some dizziness and came to the emergency department. Yesterday he underwent an EGD and colonoscopy which showed mild antral gastritis but no active upper GI bleed, colonoscopy revealed extensive left-sided diverticulosis with some old blood but no active bleeding. He is seen and examined today and states he's had no further bleeding. He is getting IV iron transfusion. He denies abdominal pain, nausea, or vomiting. He is tolerating his full liquid diet. Objective - Vital Signs Vital signs: Vital Signs Temp 98.1 F 06/11/20 04:00 Pulse 91 06/11/20 04:00 Resp 18 06/11/20 04:00 BP 157/79 06/11/20 04:00 Pulse Ox 97 06/11/20 04:00 Intake & Output 06/10/20 06/11/20 06/11/20 18:59 06:59 18:59 Intake Total 1518 160 382 Output Total 800 675 Balance 718 -515 382 Weight 76.6 kg Intake: IV 100 Intake, IV Titration 820 160 Amount Lactated Ringers 1,000 ml 160 @ 20 mls/hr IV .Q24H LUIS A Rx#:[id number] Sodium Chloride 0.9% 1, 720 000 ml @ 90 mls/hr IV . Q11H7M LUIS A Rx#:[id number] Sodium Ferric Gluconat- 100 Sucrose 125 mg In Sodium Chloride 0.9% 100 ml @ 100 mls/hr IVPB DAILY LUIS A Rx#:[id number] Oral 598 382 Output: Urine 800 675 Other: Voiding Method Toilet Toilet # Voids 1 # Bowel Movements 5 1 - Exam General appearance: The patient is alert, oriented, appears in no acute distress. HET: Head is normocephalic and atraumatic. Conjunctiva pink. Sclera anicteric. Neck: Supple without lymphadenopathy. Abdomen: Soft, nontender, nondistended with bowel sounds. No guarding or rig idity. Extremities: Normal skin color and turgor. No pedal edema Skin: No rashes, no jaundice Neurological: No focal deficits. Alert and oriented 3. - Labs CBC & Chem 7: 06/11/20 07:38 06/10/20 09:15 Labs: Abnormal Lab Results - Last 24 Hours (Table) 06/11/20 Range/Units 07:38 RBC 2.57 L (4.30-5.90) m/uL Hgb 7.6 L (13.0-17.5) gm/dL Hct 23.8 L (39.0-53.0) % RDW 16.0 H (11.5-15.5) % Assessment and Plan (1) Lower gastrointestinal hemorrhage Narrative/Plan: This 84-year-old male who presented to the emergency department with acute gastrointestinal bleed most likely lower in etiology. The patient presented with multiple episodes of bright red blood with large clots. 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 Most likely dealing with a diverticular bleed but cannot rule out upper GI source of bleeding. Last colonoscopy was in July 2013 by which revealed large internal and external hemorrhoids as well as sigmoid diverticulosis. He underwent an upper and lower endoscopy yesterday, upper endoscopy revealed mild gastritis with no evidence of GI bleed. Colonoscopy refused extensive scattered left sigmoid diverticulosis without any active bleeding but old blood noted. Current Visit: Yes Status: Acute Code(s): K92.2 - GASTROINTESTINAL HEMORRHAGE, UNSPECIFIED SNOMED Code(s): 27633277 Plan: 1. Advance diet as tolerated 2. Repeat CBC in the morning 3. Agree with iron infusion Thank you for this consultation, we will continue to follow Dr. Ap Gomez I agree with the dictator's note, documented as a scribe by Micaela Hickman.
[2020-06-11] MEDS: LATANOPROST 0.005% OPHTH DROPS 2.5 ML BTL BOTH EYES SCH (20:25)
[2020-06-12] MEDS ORDERED: PANTOPRAZOLE 40 MG TABLET PO SCH (07:30)
[2020-06-12] MEDS: VENLAFAXINE HCL ER 75 MG CAP PO SCH (08:29)
[2020-06-12] MEDS: TAMSULOSIN 0.4 MG CAP.ER.24H PO SCH (08:30)
[2020-06-12] MEDS: lisinopriL 10 MG TAB PO SCH (08:30)
[2020-06-12] MEDS: LACTATED RINGERS 1,000 ML IV SCH (08:30)
[2020-06-12] MEDS: SODIUM FERRIC GLUCONAT-SUCROSE 125 MG in SODIUM CHLORIDE 0.9% 100 ML IVPB SCH (08:37)
[2020-06-12 08:48] LABS: Anisocytosis Slight; HCT 23.1 % (39.0-53.0); HGB 7.4 gm/dL (13.0-17.5); MCH 29.5 pg (25.0-35.0); MCHC 32.1 g/dL (31.0-37.0); MCV 91.6 fL (80.0-100.0); Mean Platelet Volume 8.5; Platelet Count 211 k/uL (150-450); RBC 2.52 m/uL (4.30-5.90); RDW 16.7 % (11.5-15.5)
[2020-06-12] MEDS ORDERED: atenoloL 25 MG TAB PO SCH (09:00)
[2020-06-12 09:15] VITALS: RESP 20
[2020-06-12 10:00] LABS: Band Neutrophils % 1 %; Myelocytes # (M) 0.08 k/uL (0); Myelocytes % 1 %; Neutrophils % (M) 74 %; Nucleated Red Blood Cells 1 /100 WBC (0-0); Total Cells Counted 200
[2020-06-12 10:01] LABS: Eosinophils # (M) 0.32 k/uL (0-0.7); Lymphocytes # (M) 1.46 k/uL (1.0-4.8); Monocytes # (M) 0.32 k/uL (0-1.0); Polychromasia Present; WBC 8.1 k/uL (3.8-10.6)
--- NOTE | 2020-06-12 11:51 | PN ---
PROGRESS NOTE DATE OF SERVICE: 06/12/2020 INTERVAL HISTORY: Patient is an 84-year-old pleasant white male admitted to the hospital with acute diverticular bleed. He underwent EGD and colonoscopy 2 days ago that showed left-sided diverticulosis and bleeding has spontaneously resolved. He dropped his hemoglobin from 10 to 7.4 g/dL and currently remains stable. He has been receiving iron infusions. He denies any bowel movements for the last 3 days. He denies any abdominal pain. No nausea, no vomiting. PHYSICAL EXAMINATION: VITAL SIGNS: Stable. Blood pressure 161/80, pulse rate 60, temperature 97.7. HEENT: Examination unremarkable. Conjunctivae are pink. Sclerae anicteric. Oral cavity no lesions. NECK: No JVD or lymph node enlargement. CHEST: Clear to auscultation. HEART: Regular rate and rhythm. ABDOMEN: Soft, bowel sounds are positive, no organomegaly. EXTREMITIES: No pedal edema. NEURO: Alert and oriented x3. No focal deficits. LABS: WBC 8.2, hemoglobin 7.4, platelets normal. Rest of the metabolic panel is normal. IMPRESSION: Acute diverticular bleed spontaneously resolved. The patient dropped hemoglobin from 10 to 7.4 g/dL. He is currently receiving IV infusions. He did not receive any blood products because of Religious. He is clinically and hemodynamically stable, status post EGD and colonoscopy 3 days ago, as mentioned above. RECOMMENDATIONS: 1. Continue with iron infusions. 2. Regular diet. 3. If hemoglobin is stable, he can be discharged home today with outpatient followup as needed. Thank you for this consultation. DARINEL / JADYNN: [id number] /
[2020-06-12 12:09] VITALS: BP 152/74; PULSE 55; TEMP 98.1
--- NOTE | 2020-06-12 18:54 | P.DS ---
Providers Date of admission: 06/10/20 15:34 Expected date of discharge: 06/12/20 Attending physician: Anabela Guzmán MD Consults: 06/08/20 20:06 Consult Physician Urgent Consulting Provider: Ignacia Gomez Consult Reason/Comments: lower gi hemorrhage Do you want consulting provider notified?: Yes 06/09/20 12:53 Consult Physician Urgent Consulting Provider: Angela Lubin Consult Reason/Comments: GI bleed Jehovah witness Do you want consulting provider notified?: Yes Primary care physician: Gonzalez Trujillo MD Hospital Course: Discharge Diagnosis: Acute diverticular bleed secondary to significant diverticulosis Acute blood loss anemia Hypertensive urgency History of prostate cancer Hospital Course: Patient is an 84-year-old male with a past medical history of hypertension, prostate cancer, and osteoarthritis who presented to the ER secondary to bloody bowel movements. In the ER he underwent an extensive evaluation. Initial laboratory analysis showed hemoglobin 10.1, and he was positive for fecal occult blood. Is admitted for further monitoring. His hemoglobin continued to downtrend. He was seen by GI and underwent an upper and lower endoscopy. EGD demonstrated mild gastritis and colonoscopy demonstrated diffuse diverticulosis without any active bleeding but old blood noted. He is a [employer]ism and would not want blood transfusion. He was given 3 doses of IV iron. His hemoglobin remained stable and he tolerated being restarted on a diet. He was determined stable for discharge. Follow-up: Atenolol increased secondary to elevated blood pressures during his hospital stay, follow up with Dr. Trujillo, PPI X 6 week for mild gastritis, ASA resumed. Follow-up with GI as needed. Recommend repeat CBC in 1 week. Patient seen and examined at bedside. Vital signs reviewed and stable. General: non toxic, no distress, appears at stated age Derm: warm, dry Head: atraumatic, normocephalic, symmetric Eyes: EOMI, no lid lag, anicteric sclera Mouth: no lip lesion, mucus membranes moist Cardiovascular: S1S2 reg, no murmur, positive posterior tibial pulse bilateral, Lungs: CTA bilateral, no rhonchi, no rales , no accessory muscle use Abdominal: soft, nontender to palpation, no guarding, no appreciable organomegaly Ext: no gross muscle atrophy, no edema, no contractures Neuro: CN II-XI grossly intact, no focal neuro deficits Psych: Alert, oriented, appropriate affect A total of 25 minutes of time were spent preparing this complex discharge summary . Patient Condition at Discharge: Stable Plan - Discharge Summary Discharge Rx Participant: Yes New Discharge Prescriptions: New Pantoprazole Sodium [Protonix] 20 mg PO DAILY #30 tablet. atenoloL [Tenormin] 75 mg PO DAILY #90 tab Continue lisinopriL [Zestril] 10 mg PO BID Tamsulosin [Flomax] 0.4 mg PO DAILY Venlafaxine HCl ER [Effexor XR] 75 mg PO DAILY Aspirin [Adult Low Dose Aspirin EC] 81 mg PO DAILY Latanoprost/Pf [Latanoprost 0.005% Eye Drop] 1 drop BOTH EYES HS Clindamycin Phos 1% Pledget 1 applic TOPICAL BID Benzonatate [Benzonatate Perle] 200 mg PO TID PRN PRN Reason: Cough Discontinued atenoloL [Tenormin] 50 mg PO DAILY Discharge Medication List lisinopriL [Zestril] 10 mg PO BID 08/07/13 [History] Tamsulosin [Flomax] 0.4 mg PO DAILY 02/28/16 [History] Venlafaxine HCl ER [Effexor XR] 75 mg PO DAILY 05/29/16 [History] Aspirin [Adult Low Dose Aspirin EC] 81 mg PO DAILY 01/24/19 [History] Benzonatate [Benzonatate Perle] 200 mg PO TID PRN 06/08/20 [History] Clindamycin Phos 1% Pledget 1 applic TOPICAL BID 06/08/20 [History] Latanoprost/Pf [Latanoprost 0.005% Eye Drop] 1 drop BOTH EYES HS 06/08/20 [History] Pantoprazole Sodium [Protonix] 20 mg PO DAILY #30 tablet. 06/12/20 [Rx] atenoloL [Tenormin] 75 mg PO DAILY #90 tab 06/12/20 [Rx] Follow up Appointment(s)/Referral(s): Gonzalez Trujillo MD [Primary Care Provider] - 1-2 days (please call office when open to make follow up appointment) [facility] [NON-STAFF] - Patient Instructions/Handouts: Gastrointestinal Bleeding (DC), High Fiber Diet (DC) Activity/Diet/Wound Care/Special Instructions: Activity: as tolerated Diet: high fiber Discharge/Stand Alone Forms: Who Do I Call? Discharge Disposition: HOME SELF-CARE
== END 2020-06-12 15:21 | disposition home or self-care (01) | DRG 378 ==
LOC: EC 18:47 → 6NMEDSUR 20:05 → 3SCARD 06-09 13:29 → OBSVTOIN 06-10 15:34
PROVIDERS: ADMIT Internal Medicine; ATTEND Internal Medicine
DX: K57.31 Diverticulosis of large intestine without perforation or abscess with bleeding (principal); D62 Acute posthemorrhagic anemia; C78.7 Secondary malignant neoplasm of liver and intrahepatic bile duct; C79.51 Secondary malignant neoplasm of bone; Z20.822 Contact with and (suspected) exposure to COVID-19; C61 Malignant neoplasm of prostate; I10 Essential (primary) hypertension; I16.0 Hypertensive urgency; K29.70 Gastritis, unspecified, without bleeding; Z92.3 Personal history of irradiation; Z92.21 Personal history of antineoplastic chemotherapy; M19.90 Unspecified osteoarthritis, unspecified site; R00.1 Bradycardia, unspecified; Z53.1 Procedure and treatment not carried out because of patient's decision for reasons of belief and group pressure; Z79.82 Long term (current) use of aspirin; Z79.899 Other long term (current) drug therapy; Z87.891 Personal history of nicotine dependence; Z90.49 Acquired absence of other specified parts of digestive tract; Z98.49 Cataract extraction status, unspecified eye
CPT/HCPCS: 36415; 43235; 45378; 78278; 80048; 80053; 82272; 82728; 83540; 83550; 85025; 85027; 85610; 85730; 86850; 86900; 86901; 87636; 93005; 96374; 99285

== ENCOUNTER → 2020-08-02 | Outpatient (CLI) | payer MEDICARE ==
[2020-08-02 14:29] VITALS: RESP 16; TEMP 98.4
[2020-08-02 14:35] VITALS: BP 175/87; PULSE 61
== END | disposition home or self-care (01) ==
LOC: PROCWHC3 13:51
PROVIDERS: ATTEND Internal Medicine Hematology & Oncology
DX: Z51.11 Encounter for antineoplastic chemotherapy (principal); C61 Malignant neoplasm of prostate; C79.51 Secondary malignant neoplasm of bone
CPT/HCPCS: 96372; 96402; J9217; J0897

== ENCOUNTER → 2020-11-02 | Outpatient (CLI) | payer MEDICARE ==
[~2020-11-02] MED LIST changes: -DENOSUMAB 120 MG/1.7 ML VIAL SQ NR
[2020-11-02 13:18] VITALS: BP 195/100; PULSE 65; RESP 16; TEMP 98.5
== END | disposition home or self-care (01) ==
LOC: PROCWHC3 12:56
PROVIDERS: ATTEND Internal Medicine Hematology & Oncology
DX: C61 Malignant neoplasm of prostate (principal)
CPT/HCPCS: 96402; J9217

== ENCOUNTER → 2021-02-03 | Outpatient (CLI) | payer MEDICARE ==
[2021-02-03 13:09] VITALS: BP 203/97; PULSE 64; RESP 15; TEMP 97.8
[2021-02-03] MEDS: LEUPROLIDE ACETATE 22.5 MG SYRG KIT IM NR (13:12)
== END ==
LOC: PROCWHC3 12:51
PROVIDERS: ATTEND Internal Medicine Hematology & Oncology
DX: C61 Malignant neoplasm of prostate (principal); Z87.891 Personal history of nicotine dependence
CPT/HCPCS: 96402; J9217

== ENCOUNTER → 2021-02-18 | Outpatient (CLI) | payer MEDICARE | END | disposition home or self-care (01) | LOC: LABWHC1 11:00 | PROVIDERS: ATTEND Internal Medicine | DX: R05.9 Cough, unspecified (principal) | CPT/HCPCS: U0003; C9803; U0005 ==

== ENCOUNTER → 2022-05-03 | Outpatient (CLI) | payer MEDICARE ==
[~2022-05-03] MED LIST changes: +DENOSUMAB 120 MG/1.7 ML VIAL SQ NR
[2022-05-03 13:14] VITALS: BP 168/99; PULSE 104; RESP 16
[2022-05-03 13:22] VITALS: TEMP 97
== END ==
LOC: PROCWHC3 12:53
PROVIDERS: ATTEND Internal Medicine Hematology & Oncology
DX: C61 Malignant neoplasm of prostate (principal); C79.51 Secondary malignant neoplasm of bone; Z87.891 Personal history of nicotine dependence
CPT/HCPCS: 96372; 96402; J9217; J0897

== ENCOUNTER 2022-05-18 20:36 | Inpatient (IN) | payer MEDICARE ==
[2022-05-18 21:43] LABS: Basophils % (A) 0 %; Eosinophils # (A) 0.2 k/uL (0-0.7); Eosinophils % (A) 2 %; HCT 35.4 % (39.0-53.0); HGB 11.5 gm/dL (13.0-17.5); Lymphocytes # (A) 1.3 k/uL (1.0-4.8); Lymphocytes % (A) 18 %; MCH 29.1 pg (25.0-35.0); MCHC 32.3 g/dL (31.0-37.0); MCV 90.1 fL (80.0-100.0); Monocytes # (A) 0.3 k/uL (0-1.0); Monocytes % (A) 4 %; Neutrophils % (A) 73 %; Platelet Count 211 k/uL (150-450); RBC 3.93 m/uL (4.30-5.90); RDW 15.6 % (11.5-15.5); WBC 6.9 k/uL (3.8-10.6)
[2022-05-18 21:49] LABS: INR 1.1 (<1.2); Partial Thromboplastin Time 25.7 sec (22.0-30.0); Prothrombin Time 11.4 sec (9.0-12.0)
[2022-05-18 21:53] LABS: Albumin 3.2 g/dL (3.5-5.0); Magnesium 2.1 mg/dL (1.6-2.3); Total Bilirubin 0.7 mg/dL (0.2-1.3)
[2022-05-18 22:00] LABS: Appearance,Urine Clear (Clear); Bilirubin,Urine Negative (Negative); Blood,Urine Negative (Negative); Color,Urine Yellow; Glucose,Urine (UA) 4+ (Negative); Ketones,Urine Negative (Negative); Leukocyte Esterase,Urine Negative (Negative); Nitrite,Urine Negative (Negative); Protein,Urine Trace (Negative); Urobilinogen,Urine <2.0 mg/dL (<2.0)
--- NOTE | 2022-05-18 22:23 | XR ---
EXAMINATION TYPE: XR chest 2V DATE OF EXAM: 05/18/2022 COMPARISON: Chest x-ray April 04, 2022 HISTORY: Difficulty in breathing. TECHNIQUE: Frontal and lateral views of the chest are obtained. FINDINGS: Cardiomegaly is redemonstrated. There are small bilateral pleural effusions and central va scular congestion. There is left greater than right bibasilar opacities. Cholecystectomy clips noted on lateral view. Osseous structures are intact. IMPRESSION: Findings consistent with CHF exacerbation are present. There is cardiomegaly with centra l vascular congestion and small bilateral pleural effusions. Bibasilar opacities favor associated ate lectasis.
--- NOTE | 2022-05-18 22:41 | ED ---
SOB HPI - General Chief Complaint: Shortness of Breath Stated Complaint: SOB, Weakness Time Seen by Provider: 05/18/22 20:57 Source: patient, EMS Mode of arrival: EMS Limitations: physical limitation - History of Present Illness Initial Comments: Patient is an 86-year-old male with history of CHF, COPD, hypertension, hyperlipidemia, and diabetes presenting with chief complaint of shortness of breath. Patient states that for several days he has had progressive shortness of breath at rest. He also admits to generalized weakness. He has had a w orsening productive cough for the last 3 days. He was seen by his PCP in the office yesterday who was concerned that this may be an exacerbation of his heart failure. EMS reports that when they arrived at his home he was 87% on room air, he was placed on 5 L nasal cannula. Patient denies any chest pain or palpitations. No fevers or chills. Admits to nasal congestion. No abdominal pain, nausea, vomiting. No diaphoresis. No lower extremity swelling. - Related Data Home Medications Medication Instructions Recorded Confirmed Tamsulosin [Flomax] 0.4 mg PO DAILY 02/28/16 05/18/22 glipiZIDE [glipiZIDE ER] 2.5 mg PO DAILY 03/27/22 05/18/22 Empagliflozin [Jardiance] 10 mg PO DAILY 05/18/22 05/18/22 Sacubitril/Valsartan [Entresto 24 1 tab PO BID 05/18/22 05/18/22 mg-26 mg Tablet] Previous Rx's Medication Instructions Recorded Aspirin 81 mg PO DAILY #30 tab 03/31/22 Atorvastatin [Lipitor] 40 mg PO HS #30 tab 03/31/22 carvediloL [Coreg] 6.25 mg PO BID-W/MEALS #60 tab 03/31/22 Furosemide [Lasix] 20 mg PO BID@0900,1600 #60 tab 04/05/22 Allergies Allergy/AdvReac Type Severity Reaction Status Date / Time No Known Allergies Allergy Verified 05/18/22 21:54 Review of Systems ROS Statement: Those systems with pertinent positive or pertinent negative responses have been documented in the HPI. ROS Other: All systems not noted in ROS Statement are negative. Past Medical History Past Medical History: Cancer, Hypertension, Osteoarthritis (OA), Prostate Disorder Additional Past Medical History / Comment(s): prostate CA with mets to bone, pelvis and liver, chemo completed, History of Any Multi-Drug Resistant Organisms: None Reported Past Surgical History: Cholecystectomy, Heart Catheterization Additional Past Surgical History / Comment(s): CATARACT SURGERY, Past Anesthesia/Blood Transfusion Reactions: No Reported Reaction Additional Past Anesthesia/Blood Transfusion Reaction / Comment(s): NO BLOOD PRODUCTS Past Psychological History: No Psychological Hx Reported Smoking Status: Former smoker - Past Family History Father Family Medical History: No Reported History General Exam Limitations: physical limitation General appearance: alert, in no apparent distress Head exam: Present: atraumatic, normocephalic, normal inspection Eye exam: Present: normal appearance Neck exam: Present: normal inspection, full ROM Respiratory exam: Present: decreased breath sounds (Diminished lung sounds at the bases). Absent: respiratory distress, wheezes, rales, rhonchi, stridor Cardiovascular Exam: Present: regular rate, normal rhythm, normal heart sounds. Absent: systolic murmur, diastolic murmur, rubs, gallop, clicks Extremities exam: Absent: pedal edema Neurological exam: Present: alert, oriented X3 Psychiatric exam: Present: normal affect, normal mood Skin exam: Present: warm, dry, intact, normal color. Absent: rash Course Vital Signs 05/18/22 05/18/22 05/19/22 20:41 22:52 00:00 Temperature 98.1 F Pulse Rate 93 87 90 Respiratory 22 20 20 Rate Blood Pressure 144/93 144/92 155/101 O2 Sat by Pulse 93 L 95 95 Oximetry Medical Decision Making - Medical Decision Making Was pt. sent in by a medical professional or institution (, PA, PSYCHOLOGICAL OPERATIONS, urgent care, hospital, or fdc...) When possible be specific @ -No Did you speak to anyone other than the patient for history (EMS, parent, family, police, friend...)? What history was obtained from this source @ - and daughter Did you review nursing and triage notes (agree or disagree)? Why? @ -I reviewed and agree with nursing and triage notes Were old charts reviewed (outside hosp., previous admission, EMS record, old EKG, old radiological studies, urgent care reports/EKG's, fdc records)? Report findings @ -No old charts were reviewed Differential Diagnosis (chest pain, altered mental status, abdominal pain women, abdominal pain men, vaginal bleeding, weakness, fever, dyspnea, syncope, headache, dizziness, GI bleed, back pain, seizure, CVA, palpatations, mental health, musculoskeletal)? @ -MDM Differential Dyspnea: Coronary syndrome, arrhythmia, tamponade, asthma, COPD, pulmonary embolism, pneumonia, pneumothorax, pulmonary effusion, anaphylaxis, diabetic ketoacidosis, flailed chest, pulmonary contusion, diaphragmatic rupture, anemia, neuromuscular this is not meant to be an all-inclusive list. EKG interpreted by me (3pts min.). @ -Sinus rhythm ventricular rate 87. IL interval 146. QRS 170. QT 437. QTC 482. Left bundle branch block. Left axis deviation. X-rays interpreted by me (1pt min.). @ -Chest x-ray findings are consistent with CHF exacerbation including cardiomegaly and small bilateral pleural effusions CT interpreted by me (1pt min.). @ -None done U/S interpreted by me (1pt. min.). @ -None done What testing was considered but not performed or refused? (CT, X-rays, U/S, labs)? Why? @ -None What meds were considered but not given or refused? Why? @ -None Did you discuss the management of the patient with other professionals (pro fessionals i.e. , PA, PSYCHOLOGICAL OPERATIONS, lab, RT, psych nurse, social and human services assistant, top lift cutter, teacher, conservation officer, case reviewer)? Give summary @ -Discussed with admitting physician Was smoking cessation discussed for >3mins.? @ -No Was critical care preformed (if so, how long)? @ -No Were there social determinants of health that impacted care today? How? (Homelessness, low income, unemployed, alcoholism, drug addiction, transportation, low edu. Level, literacy, decrease access to med. care, [facility], rehab)? @ -No Was there de-escalation of care discussed even if they declined (Discuss DNR or withdrawal of care, Hospice)? DNR status @ -No What co-morbidities impacted this encounter? (DM, HTN, Smoking, COPD, CAD, Cancer, CVA, ARF, Chemo, Hep., AIDS, mental health diagnosis, sleep apnea, morbid obesity)? @ -CHF, hypertension, diabetes, COPD Was patient admitted / discharged? Hospital course, mention meds given and route, prescriptions, significant lab abnormalities, going to OR and other pertinent info. @ -This is an 86-year-old male presenting with chief complaint of progressive shortness of breath as well as generalized weakness and productive cough. Mert juarez was hypoxic at home upon EMS arrival. At this time is resting comfortably in bed 2 L nasal cannula sating at 95%+. Lungs sounds are diminished at the bases. Lab work shows no leukocytosis, hemoglobin 11.5 consistent with baseline. BNP 17,400. Chest x-ray consistent with CHF exacerbation. Patient's negative for influenza, RSV, and Covid. On reassessment patient is resting comfortably with nasal cannula, patient and family are educated on findings and on the need for admission. I spoke with Dr. Sharp who accepted admission. Patient is agreeable to this plan. I discussed this case with my attending Dr. Soriano Undiagnosed new problem with uncertain prognosis? @ -No Drug Therapy requiring intensive monitoring for toxicity (Heparin, Nitro, Insulin, Cardizem)? @ -No Were any procedures done? @ -No Diagnosis/symptom? @ -CHF Acute, or Chronic, or Acute on Chronic? @ -Acute on chronic Uncomplicated (without systemic symptoms) or Complicated (systemic symptoms)? @ -Complicated Side effects of treatment? @ -No Exacerbation, Progression, or Severe Exacerbation? @ -Exacerbation Poses a threat to life or bodily function? How? (Chest pain, [place], [place], pneumonia, PE, COPD, DKA, ARF, appy, cholecystitis, CVA, Diverticulitis, Homicidal, Suicidal, threat to staff... and all critical care pts) @ -Yes - Lab Data Result diagrams: 05/18/22 21:25 05/18/22 21:25 Lab Results 05/18/22 05/18/22 05/18/22 Range/Units 21:25 21:25 21:25 WBC 6.9 (3.8-10.6) k/uL RBC 3.93 L (4.30-5.90) m/uL Hgb 11.5 L (13.0-17.5) gm/dL Hct 35.4 L (39.0-53.0) % MCV 90.1 (80.0-100.0) fL MCH 29.1 (25.0-35.0) pg MCHC 32.3 (31.0-37.0) g/dL RDW 15.6 H (11.5-15.5) % Plt Count 211 (150-450) k/uL MPV 9.0 Neutrophils % 73 % Lymphocytes % 18 % Monocytes % 4 % Eosinophils % 2 % Basophils % 0 % Neutrophils # 5.0 (1.3-7.7) k/uL Lymphocytes # 1.3 (1.0-4.8) k/uL Monocytes # 0.3 (0-1.0) k/uL Eosinophils # 0.2 (0-0.7) k/uL Basophils # 0.0 (0-0.2) k/uL PT 11.4 (9.0-12.0) sec INR 1.1 (<1.2) APTT 25.7 (22.0-30.0) sec Sodium 142 (137-145) mmol/L Potassium 4.0 (3.5-5.1) mmol/L Chloride 113 H (98-107) mmol/L Carbon Dioxide 22 (22-30) mmol/L Anion Gap 7 mmol/L BUN 24 H (9-20) mg/dL Creatinine 1.05 (0.66-1.25) mg/dL Est GFR (CKD-EPI)AfAm 76 (>60 ml/min/1.73 sqM) Est GFR (CKD-EPI)NonAf 65 (>60 ml/min/1.73 sqM) Glucose 134 H (74-99) mg/dL Plasma Lactic Acid Terence (0.7-2.0) mmol/L Calcium 9.0 (8.4-10.2) mg/dL Magnesium 2.1 (1.6-2.3) mg/dL Total Bilirubin 0.7 (0.2-1.3) mg/dL AST 27 (17-59) U/L ALT 19 (4-49) U/L Alkaline Phosphatase 64 (38-126) U/L Troponin I (0.000-0.034) ng/mL NT-Pro-B Natriuret Pep pg/mL Total Protein 6.0 L (6.3-8.2) g/dL Albumin 3.2 L (3.5-5.0) g/dL Urine Color Urine Appearance (Clear) Urine pH (5.0-8.0) Ur Specific Alexis (1.001-1.035) Urine Protein (Negative) Urine Glucose (UA) (Negative) Urine Ketones (Negative) Urine Blood (Negative) Urine Nitrite (Negative) Urine Bilirubin (Negative) Urine Urobilinogen (<2.0) mg/dL Ur Leukocyte Esterase (Negative) Influenza Type A (PCR) (Not Detectd) Influenza Type B (PCR) (Not Detectd) RSV (PCR) (Not Detectd) SARS-CoV-2 (PCR) (Not Detectd) 05/18/22 05/18/22 05/18/22 Range/Units 21:25 21:25 21:25 WBC (3.8-10.6) k/uL RBC (4.30-5.90) m/uL Hgb (13.0-17.5) gm/dL Hct (39.0-53.0) % MCV (80.0-100.0) fL MCH (25.0-35.0) pg MCHC (31.0-37.0) g/dL RDW (11.5-15.5) % Plt Count (150-450) k/uL MPV Neutrophils % % Lymphocytes % % Monocytes % % Eosinophils % % Basophils % % Neutrophils # (1.3-7.7) k/uL Lymphocytes # (1.0-4.8) k/uL Monocytes # (0-1.0) k/uL Eosinophils # (0-0.7) k/uL Basophils # (0-0.2) k/uL PT (9.0-12.0) sec INR (<1.2) APTT (22.0-30.0) sec Sodium (137-145) mmol/L Potassium (3.5-5.1) mmol/L Chloride (98-107) mmol/L Carbon Dioxide (22-30) mmol/L Anion Gap mmol/L BUN (9-20) mg/dL Creatinine (0.66-1.25) mg/dL Est GFR (CKD-EPI)AfAm (>60 ml/min/1.73 sqM) Est GFR (CKD-EPI)NonAf (>60 ml/min/1.73 sqM) Glucose (74-99) mg/dL Plasma Lactic Acid Terence 1.1 (0.7-2.0) mmol/L Calcium (8.4-10.2) mg/dL Magnesium (1.6-2.3) mg/dL Total Bilirubin (0.2-1.3) mg/dL AST (17-59) U/L ALT (4-49) U/L Alkaline Phosphatase (38-126) U/L Troponin I 0.121 H* (0.000-0.034) ng/mL NT-Pro-B Natriuret Pep 37552 pg/mL Total Protein (6.3-8.2) g/dL Albumin (3.5-5.0) g/dL Urine Color Urine Appearance (Clear) Urine pH (5.0-8.0) Ur Specific Alexis (1.001-1.035) Urine Protein (Negative) Urine Glucose (UA) (Negative) Urine Ketones (Negative) Urine Blood (Negative) Urine Nitrite (Negative) Urine Bilirubin (Negative) Urine Urobilinogen (<2.0) mg/dL Ur Leukocyte Esterase (Negative) Influenza Type A (PCR) (Not Detectd) Influenza Type B (PCR) (Not Detectd) RSV (PCR) (Not Detectd) SARS-CoV-2 (PCR) (Not Detectd) 05/18/22 05/18/22 Range/Units 21:25 21:44 WBC (3.8-10.6) k/uL RBC (4.30-5.90) m/uL Hgb (13.0-17.5) gm/dL Hct (39.0-53.0) % MCV (80.0-100.0) fL MCH (25.0-35.0) pg MCHC (31.0-37.0) g/dL RDW (11.5-15.5) % Plt Count (150-450) k/uL MPV Neutrophils % % Lymphocytes % % Monocytes % % Eosinophils % % Basophils % % Neutrophils # (1.3-7.7) k/uL Lymphocytes # (1.0-4.8) k/uL Monocytes # (0-1.0) k/uL Eosinophils # (0-0.7) k/uL Basophils # (0-0.2) k/uL PT (9.0-12.0) sec INR (<1.2) APTT (22.0-30.0) sec Sodium (137-145) mmol/L Potassium (3.5-5.1) mmol/L Chloride (98-107) mmol/L Carbon Dioxide (22-30) mmol/L Anion Gap mmol/L BUN (9-20) mg/dL Creatinine (0.66-1.25) mg/dL Est GFR (CKD-EPI)AfAm (>60 ml/min/1.73 sqM) Est GFR (CKD-EPI)NonAf (>60 ml/min/1.73 sqM) Glucose (74-99) mg/dL Plasma Lactic Acid Terence (0.7-2.0) mmol/L Calcium (8.4-10.2) mg/dL Magnesium (1.6-2.3) mg/dL Total Bilirubin (0.2-1.3) mg/dL AST (17-59) U/L ALT (4-49) U/L Alkaline Phosphatase (38-126) U/L Troponin I (0.000-0.034) ng/mL NT-Pro-B Natriuret Pep pg/mL Total Protein (6.3-8.2) g/dL Albumin (3.5-5.0) g/dL Urine Color Yellow Urine Appearance Clear (Clear) Urine pH 5.0 (5.0-8.0) Ur Specific Alexis 1.020 (1.001-1.035) Urine Protein Trace H (Negative) Urine Glucose (UA) 4+ H (Negative) Urine Ketones Negative (Negative) Urine Blood Negative (Negative) Urine Nitrite Negative (Negative) Urine Bilirubin Negative (Negative) Urine Urobilinogen <2.0 (<2.0) mg/dL Ur Leukocyte Esterase Negative (Negative) Influenza Type A (PCR) Not Detected (Not Detectd) Influenza Type B (PCR) Not Detected (Not Detectd) RSV (PCR) Not Detected (Not Detectd) SARS-CoV-2 (PCR) Not Detected (Not Detectd) Disposition Clinical Impression: CHF (congestive heart failure), Elevated troponin Disposition: ADMITTED IP TO THIS HOSP Condition: Fair Time of Disposition: 23:42
[2022-05-18] MEDS ORDERED: FUROSEMIDE 10 MG/ML 2 ML VIAL IV ONE (23:20)
[2022-05-18] MEDS ORDERED: ASPIRIN 81 MG PO STA (23:20)
[2022-05-18] MEDS ORDERED: NALOXONE 0.4 MG/ML 1 ML VIAL IV PRN (23:39)
--- NOTE | 2022-05-19 03:15 | P.HPIM ---
History of Present Illness H&P Date: 05/19/22 Chief Complaint: shortness of breath 86 year old male with chronic systolic CHF with LVEF 20% patient coming in due to worsening SOB over past few days, he saw his doctor ear lier this week , but no changes were made, his SOB progressed over the following days , today he was having KIM while resting doing nothing, he reports orthopnea and PNDs, but no chest pain , no leg edema, no fever, no chills, no chages in his meds. he does not use home oxygen. upon arrival of EMS, he was found to be hypoxic in the 80s requiring 5 L NC. patient had multiple hospital stays over the month of march of 2022 initially for NSTEMI , then for near syncope. with extensive workup done during both stays . he claims to be compliant with meds, no known sick contacts, no evidence of bleeding. Review of Systems Pertinent positives as noted in HPI. 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, pelvis and liver, chemo completed, History of Any Multi-Drug Resistant Organisms: None Reported Past Surgical History: Cholecystectomy, Heart Catheterization Additional Past Surgical History / Comment(s): CATARACT SURGERY, Past Anesthesia/Blood Transfusion Reactions: No Reported Reaction Additional Past Anesthesia/Blood Transfusion Reaction / Comment(s): NO BLOOD PRODUCTS Past Psychological History: No Psychological Hx Reported Smoking Status: Former smoker - Past Family History Father Family Medical History: No Reported History Medications and Allergies Home Medications Medication Instructions Recorded Confirmed Type Tamsulosin [Flomax] 0.4 mg PO DAILY 02/28/16 05/18/22 History glipiZIDE [glipiZIDE ER] 2.5 mg PO DAILY 03/27/22 05/18/22 History Aspirin 81 mg PO DAILY #30 tab 03/31/22 05/18/22 Rx Atorvastatin [Lipitor] 40 mg PO HS #30 tab 03/31/22 05/18/22 Rx carvediloL [Coreg] 6.25 mg PO BID-W/MEALS #60 tab 03/31/22 05/18/22 Rx Furosemide [Lasix] 20 mg PO BID@0900,1600 #60 tab 04/05/22 05/18/22 Rx Empagliflozin [Jardiance] 10 mg PO DAILY 05/18/22 05/18/22 History Sacubitril/Valsartan [Entresto 24 1 tab PO BID 05/18/22 05/18/22 History mg-26 mg Tablet] Allergies Allergy/AdvReac Type Severity Reaction Status Date / Time No Known Allergies Allergy Verified 05/18/22 21:54 Physical Exam Vitals: Vital Signs Temp Pulse Resp BP Pulse Ox 05/19/22 00:00 90 20 155/101 95 05/18/22 22:52 87 20 144/92 95 05/18/22 20:41 98.1 F 93 22 144/93 93 L Intake and Output 05/18/22 05/18/22 05/19/22 14:59 22:59 06:59 Other: Weight 73.936 kg Constitutional: No acute distress, conversant, pleasant Eyes: Anicteric sclerae, moist conjunctiva, Pupils equal round reactive to light ENMT: NC/AT Oropharynx clear, no erythema, or exudates Neck: Supple, no masses, or JVD No carotid bruits No thyromegaly Lungs: Clear to auscultation Clear to percussion Normal respiratory effort, no accessory muscle use Cardiovascular: Heart regular in rate and rhythm, No murmurs, gallops, or rubs No peripheral edema Abdominal: Soft Nontender, no guarding, rebound or rigidity Abdomen moving with respiration Normoactive bowel sounds No hepatomegaly, No splenomegaly No palpable mass No abdominal wall hernia noted Skin: Normal temperature, tone, texture, turgor No induration No subcutaneous nodules No rash, lesions No ulcers Extremities: No digital cyanosis No clubbing Pedal pulses intact and symmetrical Radial pulses intact and symmetrical No calf tenderness Psychiatric: Alert and oriented to person, place Neuro Muscles Strength 4/5 in all 4 extremities Sensation to light touch grossly present throughout Cranial nerves II-XII grossly intact Lymphatics: no palpable cervical or supraclavicular lymph nodes Results CBC & Chem 7: 05/18/22 21:25 05/18/22 21:25 Labs: Abnormal Lab Results - Last 24 Hours (Table) 05/18/22 05/18/22 05/18/22 Range/Units 21:25 21:25 21:25 RBC 3.93 L (4.30-5.90) m/uL Hgb 11.5 L (13.0-17.5) gm/dL Hct 35.4 L (39.0-53.0) % RDW 15.6 H (11.5-15.5) % Chloride 113 H (98-107) mmol/L BUN 24 H (9-20) mg/dL Glucose 134 H (74-99) mg/dL Troponin I 0.121 H* (0.000-0.034) ng/mL Total Protein 6.0 L (6.3-8.2) g/dL Albumin 3.2 L (3.5-5.0) g/dL Urine Protein (Negative) Urine Glucose (UA) (Negative) 05/18/22 Range/Units 21:44 RBC (4.30-5.90) m/uL Hgb (13.0-17.5) gm/dL Hct (39.0-53.0) % RDW (11.5-15.5) % Chloride (98-107) mmol/L BUN (9-20) mg/dL Glucose (74-99) mg/dL Troponin I (0.000-0.034) ng/mL Total Protein (6.3-8.2) g/dL Albumin (3.5-5.0) g/dL Urine Protein Trace H (Negative) Urine Glucose (UA) 4+ H (Negative) Assessment and Plan Assessment: 86 year old male with chronic systolic chf LVEF 20% , coming in due to worsening SOB, I discussed the case with ED doc, EMS found him hpoxic in the 80s% requiring 5 L NC , I accepted the admission for IV diuresis and cardiac workup , anticipated length of stay > 2 midnights acute hypoxic respiratory failure acute on chronic systolic CHF with LVEF 20% (mar 2022) elevated trops , type II secondary to acute CHF exacerbation IV diuresis with lasix 40 mg bid IVP ada accommodation consultant monitor vital signs trend trops , if continue to increase will start heparin gtt CXR shows atelactesis and small bilateral pleural effusion supplemental oxygen as needed continue ASA 81 mg daily , atorvastatin 40 mg qhs , coreg 6.25 po bid , entresto DM , insulin sliding scale full code DVT PPX heparin sc tid
[2022-05-19 08:09] LABS: Glucose,Whole Blood 104 mg/dL (70-110)
[2022-05-19] MEDS: INSULIN ASPART (NovoLOG) 100 UNIT/ML VIAL SQ SCH ×4 (08:19→20:26)
[2022-05-19] MEDS: carvediloL 6.25 MG TAB PO SCH ×2 (08:34→17:27)
[2022-05-19] MEDS: HEPARIN SODIUM,PORCINE/PF 5,000 UNIT/0.5 ML SYRINGE SQ SCH ×2 (08:34→17:27)
[2022-05-19] MEDS: TAMSULOSIN 0.4 MG CAP.ER.24H PO SCH (08:34)
[2022-05-19] MEDS: SACUBITRIL/VALSARTAN 24 MG-26 MG TABLET PO SCH ×2 (08:54→20:33)
[2022-05-19] MEDS: FUROSEMIDE 10 MG/ML 4 ML VIAL IV SCH ×2 (08:54→20:33)
[2022-05-19 12:20] LABS: Glucose,Whole Blood 108 mg/dL (70-110)
--- NOTE | 2022-05-19 16:51 | CA ---
Transthoracic Echo Report Name: Bonilla Glover Age: 86 Gender: M : 1935 Exam Date: 05/19/2022 12:14 Exam Location: [facility] Ht (in): 68 Wt (lb): 163 Ordering Physician: Curtis Gomez MD ([id number]) Attending/Referring Phys: Patricia KIM Separator Tender Roel Wiley RDCS Procedure CPT: Indications: chf Cardiac Hx: Technical Quality: Fair Contrast 1: Total Dose (mL): Contrast 2: Total Dose (mL): MEASUREMENTS (Male / Female) Normal Values 2D ECHO LV Diastolic Diameter PLAX 6.4 cm 4.2 - 5.9 / 3.9 - 5.3 cm LV Systolic Diameter PLAX 5.9 cm IVS Diastolic Thickness 1.2 cm 0.6 - 1.0 / 0.6 - 0.9 cm LVPW Diastolic Thickness 1.1 cm 0.6 - 1.0 / 0.6 - 0.9 cm LV Relative Wall Thickness 0.4 DOPPLER AV Peak Velocity 147.4 cm/s AV Peak Gradient 8.7 mmHg AI Peak Velocity 451.7 cm/s AI Peak Gradient 81.6 mmHg AI Pressure Half Time 907.1 ms LVOT Peak Velocity 52.0 cm/s LVOT Peak Gradient 1.1 mmHg FINDINGS Left Ventricle Mildly increased septal wall thickness. Moderately increased left ventricular diastolic diameter. Left ventricular ejection fraction is estimated at 15-20 %. Right Ventricle Right Atrium Left Atrium Mitral Valve Moderate mitral regurgitation. Aortic Valve [id number] aortic regurgitation. No aortic stenosis. Tricuspid Valve Pulmonic Valve Pericardium Small pericardial effusion. Moderate pleural effusion with fibrous material measuring 8cm. Aorta Normal size aortic root and proximal ascending aorta. CONCLUSIONS Ischemic cardiomyopathy with severe LV systolic dysfunction evidence of prior inferior wall myocardial infarction ejection fraction is 50-20% with mild to moderate aortic and moderate mitral regurgitation Moderate pleural effusion with small pericardial effusion Previewed by: Dr. Curtis Gomez MD (Electronically Signed) Final Date: 19 May 2022 16:50
[2022-05-19 17:27] LABS: Glucose,Whole Blood 102 mg/dL (70-110)
[2022-05-19] MEDS ORDERED: Potassium Replacement Protocol 1 EACH MISC MISCELLANE PRN (17:50)
[2022-05-19] MEDS ORDERED: POTASSIUM CHLORIDE ER 20 MEQ TAB.ER PO SCH (18:00)
[2022-05-19] MEDS ORDERED: PNEUMOCOCCAL VACC-PREVNAR-20 0.5 ML SYR IM ONE (18:46)
[2022-05-19 19:52] LABS: Glucose,Whole Blood 123 mg/dL (70-110)
[2022-05-19] MEDS: ATORVASTATIN 40 MG TAB PO SCH (20:33)
--- NOTE | 2022-05-19 21:43 | CONS ---
CONSULTATION CHIEF COMPLAINT: Shortness of breath. HISTORY OF PRESENT ILLNESS: This is an 86-year-old gentleman with history of metastatic prostate cancer nonischemic cardiomyopathy, congestive heart failure, hypertension and dyslipidemia who has known mild nonobstructive coronary artery disease with an ejection fraction of less than 20% who comes in complaining of shortness of breath, fatigue, tiredness, and inability to get around. His labs showed that the troponins are mildly elevated and the BNP is 17,400. His clinical presentation is consistent with acute exacerbation of chronic systolic heart failure. I will treat the patient with intravenous diuretics and resume his medications. PAST MEDICAL HISTORY: Significant for nonischemic cardiomyopathy, congestive heart failure, hypertension, dyslipidemia, and diabetes. MEDICATIONS: 1. Glipizide. 2. Coreg 6.25 b.i.d. 3. Flomax. 4. Entresto. 5. Lasix. 6. Jardiance. 7. Lipitor. 8. Aspirin. ALLERGIES: There are no known drug allergies. FAMILY HISTORY: Negative for premature coronary artery disease. SOCIAL HISTORY: Negative for current smoking, EtOH abuse or drug abuse. REVIEW OF SYSTEMS: HEENT: Unremarkable. CARDIAC: As described above. RESPIRATORY: As described above. GI: Negative. GENITOURINARY: Negative. ALLERGY/IMMUNOLOGY: Negative. SKIN: Negative. MUSCULOSKELETAL: Significant for arthritis. PSYCHOSOCIAL: Negative. DERM: Negative. CONSTITUTIONAL: Negative. ONCOLOGICAL: Significant for cancer. PHYSICAL EXAMINATION: GENERAL: Comfortable at rest. VITAL SIGNS: Stable. CHEST: Reveals diminished air entry at the bases. HEART: Reveals first and second heart sounds. No gallop, no murmur. ABDOMEN: Soft. EXTREMITIES: Reveal mild bilateral leg edema. LABORATORY DATA: Labs are as described above. Hemoglobin is 11.5. Potassium is 4, BUN is 24, creatinine is 1. ASSESSMENT: 1. Acute exacerbation of chronic systolic heart failure. 2. Dilated cardiomyopathy. 3. Metastatic prostate cancer. PLAN: Will treat the patient with intravenous diuretics and resume his medication. MMODL / IJN: [id number] /
[2022-05-20] MEDS: HEPARIN SODIUM,PORCINE/PF 5,000 UNIT/0.5 ML SYRINGE SQ SCH ×4 (00:47→23:50)
[2022-05-20 05:57] LABS: Glucose,Whole Blood 118 mg/dL (70-110)
[2022-05-20] MEDS: INSULIN ASPART (NovoLOG) 100 UNIT/ML VIAL SQ SCH ×4 (06:16→19:58)
[2022-05-20] MEDS: carvediloL 6.25 MG TAB PO SCH ×2 (06:40→16:44)
[2022-05-20] MEDS: SACUBITRIL/VALSARTAN 24 MG-26 MG TABLET PO SCH ×2 (09:37→20:07)
[2022-05-20] MEDS: FUROSEMIDE 10 MG/ML 4 ML VIAL IV SCH ×2 (09:37→20:07)
[2022-05-20] MEDS: TAMSULOSIN 0.4 MG CAP.ER.24H PO SCH (09:37)
--- NOTE | 2022-05-20 10:36 | P.PN ---
Subjective Progress Note Date: 05/20/22 HISTORY OF PRESENT ILLNESS: This is an 86-year-old male who follows in the office with Dr. Watson. Patient has history of hypertension, hyperlipidemia, reveals nonischemic cardiomyopathy, and mild coronary artery disease 30-40% by heart catheterization 2019. Patient is admitted to the hospital secondary to acute exacerbation of chronic heart failure. Patient remains on Lasix 40 mg every 12 hours. Patient reports his shortness of breath is improved. Urine output over the last 24 hours is 1500 mL. Repeat echocardiogram performed reveals ejection fraction 15- 20%, mild to moderate aortic regurgitation and moderate mitral regurgitation with small pericardial effusion. PHYSICAL EXAM: VITAL SIGNS: Reviewed. GENERAL: Well-developed in no acute distress. NECK: Supple. No JVD or thyromegaly LUNGS: Respirations even and unlabored. Lungs diminished to auscultation bilaterally. HEART: Regular rate and rhythm. S1 and S2 heard. EXTREMITIES: Normal range of motion. No clubbing or cyanosis. Peripheral pulses intact. No lower extremity edema ASSESSMENT: Shortness of breath Acute on chronic heart failure with reduced EF, 15-20% History of nonischemic cardiomyopathy Mild obstructive coronary artery disease per cardiac catheterization in 2018 Hypertension Hyperlipidemia Valvular heart disease PLAN: Continue current cardiac medications Continue IV Lasix 40 mg every 12 hours. Possible transition to oral dosing tomorrow Daily weights, accurate I&O, and monitoring of kidney function. Awaiting labs f rom this morning Further recommendations pending patient's course Patient to follow-up post discharge with Dr. Watson Nurse practitioner note has been reviewed by physician. Signing provider agrees with the documented findings, assessment, and plan of care. Objective - Vital Signs Vital signs: Vital Signs Temp 98.2 F 05/20/22 08:00 Pulse 69 05/20/22 08:00 Resp 18 05/20/22 08:00 BP 123/67 05/20/22 08:00 Pulse Ox 95 05/20/22 08:38 FiO2 Intake & Output 05/19/22 05/20/22 05/20/22 18:59 06:59 18:59 Intake Total 240 115 118 Output Total 420 1100 Balance -180 -985 118 Weight 73.936 kg 70.9 kg Intake: IV 15 Invasive Line 1 15 Oral 240 100 118 Output: Urine 420 1100 Other: Voiding Method Urinal Urinal - Labs CBC & Chem 7: 05/18/22 21:25 05/18/22 21:25 Labs: Abnormal Lab Results - Last 24 Hours (Table) 05/19/22 05/20/22 Range/Units 19:50 05:54 POC Glucose (mg/dL) 123 H 118 H (70-110) mg/dL
[2022-05-20 11:31] LABS: Glucose,Whole Blood 146 mg/dL (70-110)
[2022-05-20 11:55] LABS: Calcium 8.6 mg/dL (8.4-10.2); Potassium 3.6 mmol/L (3.5-5.1)
[2022-05-20] MEDS: ASPIRIN 81 MG PO SCH (11:55)
--- NOTE | 2022-05-20 15:20 | P.PN ---
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 On arrival to the ER he underwent extensive evaluation. Initial vital signs within normal limits. Initial laboratory analysis was remarkable for hemoglobin 11.5, chloride 113, BUN 24, creatinine 1.05, glucose 134, troponin 0.121, and BNP of 17,400. Initial chest x-ray was consistent with congestive heart failure. Influenza A/P/RSV/COVID-19 testing was negative. He was started on IV diuretics and was admitted for heart failure. Cardiology was consulted. They recommended continuing IV diuretics. Repeat echocardiogram demonstrated an EF of 15-20%. Of note the patient was hospitalized in March 2022 on 2 different occasions and again now. Patient seen and examined at bedside. He denies any chest pain, had an episode of shortness of breath this morning which he recovered from, he is having some slight abdominal bloating but is much improved. He denies any nausea or vomiting. Family arrival in the afternoon. A long family discussion and all questions were answered. Habits had home health physical and occupational therapy at home. His primary care was considering possible outpatient cardiac rehab. Vital signs reviewed General: nontoxic, no distress, appears at stated age Cardiovascular: S1S2 reg, no murmur, positive posterior tibial pulse bilateral, Lungs: Crackles bilateral, no rhonchi, no rales , no accessory muscle use Abdominal: soft, nontender to palpation, no guarding, no appreciable organomegaly Ext: no gross muscle atrophy, no edema, no contractures Neuro: CN II-XI grossly intact, no focal neuro deficits Psych: Alert, oriented, appropriate affect Assessment: Acute exacerbation of systolic congestive heart failure with ejection fraction 15-20% History of nonischemic cardiomyopathy Mild atrophic of coronary artery disease per cath in 2018 Hypertension Dyslipidemia History of prostate cancer with metastases to the bone Imaging: Echocardiogram-ejection fraction 15-20% Data Review: Vital signs reviewed from this morning temperature 98.2, pulse 69, respirations 18, blood pressure 123/67, O2 sat 94% on 2 L BMP reviewed from this morning and creatinine 1.38, glucose 146, calcium 8.6 Plan: - Strict I and O - Daily weights - Heart fialure navigator -Cardiology note reviewed: Continue with Lasix 40 mg IV every 8 hours, outpatient follow-up with Dr. Watson -Aspirin 81 mg daily, Lipitor 40 mg daily, Coreg 6.25 mg twice daily, continue withSGLT2 inhibitor, Entresto 24-26mg 1 tab twice daily. - flomax 0.4 mg twice daily DVT prophylaxis: Heparin Discussed with: Patient, nursing Anticipated discharge date: Pending clinical course Anticipated discharge place: This dictation was prepared using [employer] voice recognition software. Though every attempt is made to correct errors during during dictation some may still exist. Objective - Vital Signs Vital signs: Vital Signs Temp 97.9 F 05/20/22 12:12 Pulse 70 05/20/22 12:12 Resp 18 05/20/22 12:12 BP 114/67 05/20/22 12:12 Pulse Ox 95 05/20/22 12:12 FiO2 Intake & Output 05/19/22 05/20/22 05/20/22 18:59 06:59 18:59 Intake Total 240 115 236 Output Total 420 1100 600 Balance -180 -865 -364 Weight 73.936 kg 70.9 kg 70.8 kg Intake: IV 15 Invasive Line 1 15 Oral 240 100 236 Output: Urine 420 1100 600 Other: Voiding Method Urinal Urinal - Labs CBC & Chem 7: 05/18/22 21:25 05/20/22 11:08 Labs: Abnormal Lab Results - Last 24 Hours (Table) 05/19/22 05/20/22 05/20/22 Range/Units 19:50 05:54 11:08 BUN 23 H (9-20) mg/dL Creatinine 1.38 H (0.66-1.25) mg/dL Glucose 130 H (74-99) mg/dL POC Glucose (mg/dL) 123 H 118 H (70-110) mg/dL 05/20/22 Range/Units 11:27 BUN (9-20) mg/dL Creatinine (0.66-1.25) mg/dL Glucose (74-99) mg/dL POC Glucose (mg/dL) 146 H (70-110) mg/dL
[2022-05-20 16:09] LABS: Glucose,Whole Blood 149 mg/dL (70-110)
[2022-05-20 19:55] LABS: Glucose,Whole Blood 120 mg/dL (70-110)
[2022-05-20] MEDS: ATORVASTATIN 40 MG TAB PO SCH (20:07)
[2022-05-21 06:05] LABS: Glucose,Whole Blood 111 mg/dL (70-110)
[2022-05-21] MEDS: INSULIN ASPART (NovoLOG) 100 UNIT/ML VIAL SQ SCH ×4 (06:08→21:48)
[2022-05-21] MEDS: carvediloL 6.25 MG TAB PO SCH ×3 (06:27→17:11)
[2022-05-21 09:13] LABS: Calcium 8.2 mg/dL (8.4-10.2); Magnesium 2.2 mg/dL (1.6-2.3); Potassium 3.5 mmol/L (3.5-5.1)
[2022-05-21] MEDS: ASPIRIN 81 MG PO SCH (09:33)
[2022-05-21] MEDS: DAPAGLIFLOZIN PROPANEDIOL 5 MG TABLET PO SCH (09:33)
[2022-05-21] MEDS: FUROSEMIDE 40 MG TAB PO SCH ×2 (09:33→15:59)
[2022-05-21] MEDS: TAMSULOSIN 0.4 MG CAP.ER.24H PO SCH (09:33)
[2022-05-21] MEDS: HEPARIN SODIUM,PORCINE/PF 5,000 UNIT/0.5 ML SYRINGE SQ SCH ×2 (09:34→15:59)
[2022-05-21] MEDS: SACUBITRIL/VALSARTAN 24 MG-26 MG TABLET PO SCH ×2 (09:34→21:49)
--- NOTE | 2022-05-21 11:12 | P.PN ---
Subjective Progress Note Date: 05/21/22 HISTORY OF PRESENT ILLNESS: This is an 86-year-old male who follows in the office with Dr. Watson. Patient has history of hypertension, hyperlipidemia, reveals nonischemic cardiomyopathy, and mild coronary artery disease 30-40% by heart catheterization 2019. Patient is admitted to the hospital secondary to acute exacerbation of chronic heart failure. Patient remains on Lasix 40 mg every 12 hours. Patient reports his shortness of breath is improved. Urine output over the last 24 hours is 1500 mL. Repeat echocardiogram performed reveals ejection fraction 15- 20%, mild to moderate aortic regurgitation and moderate mitral regurgitation with small pericardial effusion. 05/21/2022 Patient examined this morning to bedside. Patient denies chest pain or pressure. He denies shortness of breath. Patient remains on IV Lasix. He is currently wearing 2 L of oxygen. Vital signs are stable. Creatinine 1.33 today. PHYSICAL EXAM: VITAL SIGNS: Reviewed. GENERAL: Well-developed in no acute distress. NECK: Supple. No JVD or thyromegaly LUNGS: Respirations even and unlabored. Lungs diminished to auscultation bilaterally. HEART: Regular rate and rhythm. S1 and S2 heard. EXTREMITIES: Normal range of motion. No clubbing or cyanosis. Peripheral pulse s intact. No lower extremity edema ASSESSMENT: Shortness of breath Acute on chronic heart failure with reduced EF, 15-20% History of nonischemic cardiomyopathy Mild obstructive coronary artery disease per cardiac catheterization in 2018 Hypertension Hyperlipidemia Valvular heart disease PLAN: Continue current cardiac medications Discontinue IV Lasix. Begin oral Lasix 40 mg twice a day Daily weights, accurate I&O, and monitoring of kidney function. Further recommendations pending patient's course Patient to follow-up post discharge with Dr. Watson Nurse practitioner note has been reviewed by physician. Signing provider agrees with the documented findings, assessment, and plan of care. Objective - Vital Signs Vital signs: Vital Signs Temp 98.5 F 05/21/22 08:10 Pulse 71 05/21/22 08:10 Resp 17 05/21/22 08:10 BP 120/65 05/21/22 08:10 Pulse Ox 95 05/21/22 08:10 FiO2 Intake & Output 05/20/22 05/21/22 05/21/22 18:59 06:59 18:59 Intake Total 354 118 Output Total 870 650 Balance -516 -650 118 Weight 70.8 kg Intake: Oral 354 118 Output: Urine 870 650 Other: Voiding Method Urinal Urinal Urinal - Labs CBC & Chem 7: 05/18/22 21:25 05/21/22 08:04 Labs: Abnormal Lab Results - Last 24 Hours (Table) 05/20/22 05/20/22 05/20/22 Range/Units 11:08 11:27 16:08 BUN 23 H (9-20) mg/dL Creatinine 1.38 H (0.66-1.25) mg/dL Glucose 130 H (74-99) mg/dL POC Glucose (mg/dL) 146 H 149 H (70-110) mg/dL Calcium (8.4-10.2) mg/dL 05/20/22 05/21/22 05/21/22 Range/Units 19:54 06:03 08:04 BUN 21 H (9-20) mg/dL Creatinine 1.33 H (0.66-1.25) mg/dL Glucose 157 H (74-99) mg/dL POC Glucose (mg/dL) 120 H 111 H (70-110) mg/dL Calcium 8.2 L (8.4-10.2) mg/dL
[2022-05-21 11:27] LABS: Glucose,Whole Blood 96 mg/dL (70-110)
--- NOTE | 2022-05-21 12:40 | P.PN ---
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 On arrival to the ER he underwent extensive evaluation. Initial vital signs within normal limits. Initial laboratory analysis was remarkable for hemoglobin 11.5, chloride 113, BUN 24, creatinine 1.05, glucose 134, troponin 0.121, and BNP of 17,400. Initial chest x-ray was consistent with congestive heart failure. Influenza A/P/RSV/COVID-19 testing was negative. He was started on IV diuretics and was admitted for heart failure. Cardiology was consulted. They recommended continuing IV diuretics. Repeat echocardiogram demonstrated an EF of 15-20%. Of note the patient was hospitalized in March 2022 on 2 different occasions and again now. Patient seen and examined at bedside. He denies any shortness of breath, still feeling weak. Much improved since admission but he is slightly nervous about going home. He has not been out of bed yet. Vital signs reviewed General: nontoxic, no distress, appears at stated age Cardiovascular: S1S2 reg, no murmur, positive posterior tibial pulse bilateral, Lungs: Clear to auscultation, no rhonchi, no rales , no accessory muscle use Abdominal: soft, nontender to palpation, no guarding, no appreciable organomegaly Ext: no gross muscle atrophy, no edema, no contractures Neuro: CN II-XI grossly intact, no focal neuro deficits Psych: Alert, oriented, appropriate affect Assessment: Acute exacerbation of systolic congestive heart failure with ejection fraction 15-20% History of nonischemic cardiomyopathy Mild atrophic of coronary artery disease per cath in 2018 Hypertension Dyslipidemia History of prostate cancer with metastases to the bone Imaging: None new Data Review: Vital signs reviewed from this morning temperature 98.5, pulse 71, respirations 17, blood pressure 120/65, O2 sat 95% on room air BMP reviewed from this morning and creatinine 1.33 Plan: - Strict I and O - Daily weights - Heart failure navigator -Cardiology note reviewed: Lasix transitioned to oral, outpatient follow-up with Dr. Watson -Aspirin 81 mg daily, Lipitor 40 mg daily, Coreg 6.25 mg twice daily, continue with SGLT2 inhibitor, Entresto 24-26mg 1 tab twice daily. - flomax 0.4 mg twice daily -Monitor for 24 hours on oral Lasix and giving patient's recurrent admissions for heart failure. If he maintains optimal fluid status will consider discharge in a.m. DVT prophylaxis: Heparin Discussed with: Patient, nursing Anticipated discharge date: in AM Anticipated discharge place: This dictation was prepared using [employer] voice recognition software. Though every attempt is made to correct errors during during dictation some may still exist. Objective - Vital Signs Vital signs: Vital Signs Temp 97.8 F 05/21/22 12:00 Pulse 69 05/21/22 12:00 Resp 17 05/21/22 12:00 BP 122/76 05/21/22 12:00 Pulse Ox 93 L 05/21/22 12:09 FiO2 Intake & Output 05/20/22 05/21/22 05/21/22 18:59 06:59 18:59 Intake Total 354 118 Output Total 870 650 Balance -516 -650 118 Weight 70.8 kg Intake: Oral 354 118 Output: Urine 870 650 Other: Voiding Method Urinal Urinal Urinal - Labs CBC & Chem 7: 05/18/22 21:25 05/21/22 08:04 Labs: Abnormal Lab Results - Last 24 Hours (Table) 05/20/22 05/20/22 05/21/22 Range/Units 16:08 19:54 06:03 BUN (9-20) mg/dL Creatinine (0.66-1.25) mg/dL Glucose (74-99) mg/dL POC Glucose (mg/dL) 149 H 120 H 111 H (70-110) mg/dL Calcium (8.4-10.2) mg/dL 05/21/22 Range/Units 08:04 BUN 21 H (9-20) mg/dL Creatinine 1.33 H (0.66-1.25) mg/dL Glucose 157 H (74-99) mg/dL POC Glucose (mg/dL) (70-110) mg/dL Calcium 8.2 L (8.4-10.2) mg/dL
[2022-05-21 16:30] LABS: Glucose,Whole Blood 133 mg/dL (70-110)
[2022-05-21 19:56] LABS: Glucose,Whole Blood 154 mg/dL (70-110)
[2022-05-21] MEDS: ATORVASTATIN 40 MG TAB PO SCH (21:47)
[2022-05-22] MEDS: HEPARIN SODIUM,PORCINE/PF 5,000 UNIT/0.5 ML SYRINGE SQ SCH ×2 (01:26→10:06)
[2022-05-22 05:22] LABS: Glucose,Whole Blood 128 mg/dL (70-110)
[2022-05-22 06:13] LABS: Calcium 8.6 mg/dL (8.4-10.2); Magnesium 2.3 mg/dL (1.6-2.3); Potassium 3.8 mmol/L (3.5-5.1)
[2022-05-22] MEDS: INSULIN ASPART (NovoLOG) 100 UNIT/ML VIAL SQ SCH (06:26)
[2022-05-22] MEDS: carvediloL 6.25 MG TAB PO SCH (06:39)
--- NOTE | 2022-05-22 09:13 | P.PN ---
Subjective Progress Note Date: 05/22/22 HISTORY OF PRESENT ILLNESS: This is an 86-year-old male who follows in the office with Dr. Watson. Patient has history of hypertension, hyperlipidemia, reveals nonischemic cardiomyopathy, and mild coronary artery disease 30-40% by heart catheterization 2019. Patient is admitted to the hospital secondary to acute exacerbation of chronic heart failure. Patient remains on Lasix 40 mg every 12 hours. Patient reports his shortness of breath is improved. Urine output over the last 24 hours is 1500 mL. Repeat echocardiogram performed reveals ejection fraction 15- 20%, mild to moderate aortic regurgitation and moderate mitral regurgitation with small pericardial effusion. 05/21/2022 Patient examined this morning to bedside. Patient denies chest pain or pressure. He denies shortness of breath. Patient remains on IV Lasix. He is currently wearing 2 L of oxygen. Vital signs are stable. Creatinine 1.33 today. 05/22 she denies any significant shortness of breath. He has no lower extremity edema. He was switched over to oral Lasix yesterday and still urinating well. His vital signs are stable. Repeat creatinine is improved at 1.2. PHYSICAL EXAM: VITAL SIGNS: Reviewed. GENERAL: Well-developed in no acute distress. NECK: Supple. No JVD or thyromegaly LUNGS: Respirations even and unlabored. Lungs diminished to auscultation bilaterally. HEART: Regular rate and rhythm. S1 and S2 heard. EXTREMITIES: Normal range of motion. No clubbing or cyanosis. Peripheral pulses intact. No lower extremity edema ASSESSMENT: Shortness of breath Acute on chronic heart failure with reduced EF, 15-20% History of nonischemic cardiomyopathy Mild obstructive coronary artery disease per cardiac catheterization in 2018 Hypertension Hyperlipidemia Valvular heart disease PLAN: Continue current cardiac medications continue oral Lasix 40 mg twice a day Daily weights, accurate I&O, and monitoring of kidney function. Patient is cleared for discharge from cardiology. Patient to follow-up post discharge with Dr. Watson Nurse practitioner note has been reviewed by physician. Signing provider agrees with the documented findings, assessment, and plan of care. Objective - Vital Signs Vital signs: Vital Signs Temp 98 F 05/22/22 04:00 Pulse 75 05/22/22 04:00 Resp 18 05/22/22 04:00 BP 121/74 05/22/22 04:00 Pulse Ox 97 05/22/22 04:00 FiO2 Intake & Output 05/21/22 05/22/22 05/22/22 18:59 06:59 18:59 Intake Total 354 118 Output Total 100 700 Balance 254 -700 118 Intake: Oral 354 118 Output: Urine 100 700 Other: Voiding Method Urinal Urinal - Labs CBC & Chem 7: 05/18/22 21:25 05/22/22 05:16 Labs: Abnormal Lab Results - Last 24 Hours (Table) 05/21/22 05/21/22 05/21/22 Range/Units 08:04 16:14 19:56 BUN 21 H (9-20) mg/dL Creatinine 1.33 H (0.66-1.25) mg/dL Glucose 157 H (74-99) mg/dL POC Glucose (mg/dL) 133 H 154 H (70-110) mg/dL Calcium 8.2 L (8.4-10.2) mg/dL 05/22/22 05/22/22 Range/Units 05:16 05:20 BUN 24 H (9-20) mg/dL Creatinine (0.66-1.25) mg/dL Glucose 123 H (74-99) mg/dL POC Glucose (mg/dL) 128 H (70-110) mg/dL Calcium (8.4-10.2) mg/dL
[2022-05-22] MEDS: SACUBITRIL/VALSARTAN 24 MG-26 MG TABLET PO SCH (10:00)
[2022-05-22] MEDS: ASPIRIN 81 MG PO SCH (10:00)
[2022-05-22] MEDS: DAPAGLIFLOZIN PROPANEDIOL 5 MG TABLET PO SCH (10:00)
[2022-05-22] MEDS: TAMSULOSIN 0.4 MG CAP.ER.24H PO SCH (10:00)
[2022-05-22] MEDS: FUROSEMIDE 40 MG TAB PO SCH (10:00)
[2022-05-22 10:16] VITALS: BP 124/77; PULSE 67; RESP 16; TEMP 97.9
--- NOTE | 2022-05-22 11:29 | P.DS ---
Providers Date of admission: 05/18/22 23:42 Expected date of discharge: 05/22/22 Attending physician: Familia Sharp MD Consults: 05/18/22 23:39 Consult Physician Urgent Consulting Provider: [facility] Consult Reason/Comments: CHF, elevated trop Do you want consulting provider notified?: Yes Primary care physician: Chaitanya Gaytan MD Hospital Course: Discharge Diagnosis: Acute exacerbation of systolic congestive heart failure with ejection fraction 15-20% History of nonischemic cardiomyopathy Mild coronary artery disease per cath in 2018 Hypertension Dyslipidemia History of prostate cancer with metastases to the bone Hospital Course: Patient is an 86-year-old male with a history of systolic congestive heart failure and an ejection fraction of 20%, hypertension, 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 On arrival to the ER he underwent extensive evaluation. Initial vital signs within normal limits. Initial laboratory analysis was remarkable for hemoglobin 11.5, chloride 113, BUN 24, creatinine 1.05, glucose 134, troponin 0.121, and BNP of 17,400. Initial chest x-ray was consistent with congestive heart failure. Influenza A/P/RSV/COVID-19 testing was negative. He was started on IV diuretics and was admitted for heart failure. Cardiology was consulted. They recommended continuing IV diuretics. Repeat echocardiogram demonstrated an EF of 15-20%. His fluid status was optimized and he was determined stable for discharge. Follow-up: Dr. Gaytan in 2-3 days, Dr. Watson in 1 week. Lasix was increased to 40 mg twice daily. He was given a CHF book and instructions. He will have home health and then likely would benefit from cardiac rehab once HH is completed. Patient seen and examined at bedside. Breathing well, no swelling. Feeling like he is doing well. Vital signs reviewed and stable. General: nontoxic, no distress, appears at stated age Derm: warm, dry Head: atraumatic, normocephalic, symmetric Eyes: EOMI, no lid lag, anicteric sclera Mouth: no lip lesion, mucus membranes moist Cardiovascular: S1S2 reg, no murmur, positive posterior tibial pulse bilateral, Lungs: CTA bilateral, no rhonchi, no rales , no accessory muscle use Abdominal: soft, nontender to palpation, no guarding, no appreciable organomegaly Ext: no gross muscle atrophy, no edema, no contractures Neuro: CN II-XI grossly intact, no focal neuro deficits Psych: Alert, oriented, appropriate affect A total of 35 minutes of time were spent preparing this complex discharge summary. Patient was discharged on 05/22/22. This dictation was prepared using [employer] voice recognition software. Though every attempt is made to correct errors during during dictation some may still exist. Patient Condition at Discharge: Fair Plan - Discharge Summary Discharge Rx Participant: No New Discharge Prescriptions: New Furosemide [Lasix] 40 mg PO BID@0900,1600 #60 tab Continue Tamsulosin [Flomax] 0.4 mg PO DAILY Atorvastatin [Lipitor] 40 mg PO HS #30 tab glipiZIDE [glipiZIDE ER] 2.5 mg PO DAILY Aspirin 81 mg PO DAILY #30 tab carvediloL [Coreg] 6.25 mg PO BID-W/MEALS #60 tab Sacubitril/Valsartan [Entresto 24 mg-26 mg Tablet] 1 tab PO BID Empagliflozin [Jardiance] 10 mg PO DAILY Discontinued Furosemide [Lasix] 20 mg PO BID@0900,1600 #60 tab Discharge Medication List Tamsulosin [Flomax] 0.4 mg PO DAILY 02/28/16 [History] glipiZIDE [glipiZIDE ER] 2.5 mg PO DAILY 03/27/22 [History] Aspirin 81 mg PO DAILY #30 tab 03/31/22 [Rx] Atorvastatin [Lipitor] 40 mg PO HS #30 tab 03/31/22 [Rx] carvediloL [Coreg] 6.25 mg PO BID-W/MEALS #60 tab 03/31/22 [Rx] Empagliflozin [Jardiance] 10 mg PO DAILY 05/18/22 [History] Sacubitril/Valsartan [Entresto 24 mg-26 mg Tablet] 1 tab PO BID 05/18/22 [History] Furosemide [Lasix] 40 mg PO BID@0900,1600 #60 tab 05/22/22 [Rx] Follow up Appointment(s)/Referral(s): Ang Watson DO [STAFF PHYSICIAN] - 06/01/22 8:30 am () Chaitanya Gaytan MD [Primary Care Provider] - 04/19/23 1:00 pm (Sunday) [facility] Visiting Nurse, [NON-STAFF] - 1-2 Days ([facility] will call you to schedule your in home nursing visits and telehealth set up. ) Patient Instructions/Handouts: Heart Failure (DC) Activity/Diet/Wound Care/Special Instructions: Activity: as tolerated Diet: Heart healthy, 2 gram sodium, consistent carb Special Instructions: Please check your weight daily if you gain greater than 3 pound if 24 hours or greater than 5 pounds in 3 days please call your electric meter tester or Dr. Gaytan. Discharge Disposition: HOME WITH HOME HEALTH SERVICES
== END 2022-05-22 12:23 | disposition home health service (06) | DRG 291 ==
LOC: EC 20:36 → 3SCARD 23:42
PROVIDERS: ADMIT Internal Medicine; ATTEND Internal Medicine
PROC: 3E0234Z Introduction of Serum, Toxoid and Vaccine into Muscle, Percutaneous Approach (ICD-10-PCS; principal; 2022-05-19)
DX: I11.0 Hypertensive heart disease with heart failure (principal); I50.23 Acute on chronic systolic (congestive) heart failure; J96.01 Acute respiratory failure with hypoxia; I31.39 Other pericardial effusion (noninflammatory); C79.51 Secondary malignant neoplasm of bone; C78.7 Secondary malignant neoplasm of liver and intrahepatic bile duct; I42.0 Dilated cardiomyopathy; I08.0 Rheumatic disorders of both mitral and aortic valves; Z20.822 Contact with and (suspected) exposure to COVID-19; I44.7 Left bundle-branch block, unspecified; I25.2 Old myocardial infarction; I25.10 Atherosclerotic heart disease of native coronary artery without angina pectoris; C61 Malignant neoplasm of prostate; Z23 Encounter for immunization; Z71.85 Encounter for immunization safety counseling; E11.9 Type 2 diabetes mellitus without complications; Z79.84 Long term (current) use of oral hypoglycemic drugs; E78.5 Hyperlipidemia, unspecified; Z79.82 Long term (current) use of aspirin; Z79.899 Other long term (current) drug therapy; Z87.891 Personal history of nicotine dependence
CPT/HCPCS: 36415; 71046; 80048; 80053; 81003; 83605; 83735; 83880; 84484; 85025; 85610; 85730; 87636; 93005; 93308; 94760; 96372; 96374; 96376; 99285

== ENCOUNTER 2022-06-12 05:44 | Day surgery (SDC) | payer MEDICARE ==
[2022-06-12] MEDS ORDERED: SODIUM CHLORIDE 0.9% 1,000 ML in EMPTY BAG 1 BAG IV SCH (06:03)
[2022-06-12] MEDS ORDERED: ALPRAZolam 0.25 MG TAB PO PRN (06:03)
[2022-06-12] MEDS ORDERED: ALPRAZolam 0.5 MG TAB PO PRN (06:03)
[2022-06-12] MEDS ORDERED: NITROGLYCERIN SL TABS 0.4 MG TAB SUBLINGUAL PRN (06:03)
[2022-06-12 06:32] LABS: Glucose,Whole Blood 111 mg/dL (70-110)
[2022-06-12 06:37] VITALS: RESP 16; TEMP 97.7
[2022-06-12] MEDS ORDERED: ASPIRIN 325 MG TAB PO ONE (07:00)
[2022-06-12] MEDS ORDERED: VERAPAMIL 2.5 MG/ML 2 ML AMP ONE (07:17)
[2022-06-12] MEDS ORDERED: HEPARIN SODIUM 1,000 UN/ML (10ML VL) ONE (07:30)
[2022-06-12] MEDS ORDERED: fentaNYL (PF) 50 MCG/ML 2 ML AMP ONE (07:30)
[2022-06-12] MEDS ORDERED: MIDAZOLAM 2 MG/2 ML VIAL IV ONE (07:40)
[2022-06-12] MEDS ORDERED: fentaNYL (PF) 50 MCG/ML 2 ML AMP IV ONE (07:40)
[2022-06-12] MEDS ORDERED: LIDOCAINE 1% INJ 10MG/ML (20 ML MDV) SQ ONE (07:41)
[2022-06-12] MEDS ORDERED: VERAPAMIL SYRINGE (5 MG/10 ML) INTRAARTER ONE (07:42)
[2022-06-12] MEDS ORDERED: HEPARIN SODIUM 1,000 UN/ML (10ML VL) IV ONE (08:12)
[2022-06-12 08:21] LABS: O2 Sat Blood Gas 65.5 %
[2022-06-12] MEDS ORDERED: IOPAMIDOL-370 200ML BTL INJ ONE (08:21)
[2022-06-12 08:23] LABS: O2 Sat Blood Gas 94.9 %
[2022-06-12 08:25] LABS: O2 Sat Blood Gas 62.1 %
[2022-06-12 16:03] VITALS: BP 122/70; PULSE 64
--- NOTE | 2022-06-12 19:36 | P.CARDCATH ---
Description of Procedure: PROCEDURES PERFORMED: Left heart catheterization, right heart catheterization, bilateral coronary angiography INDICATION: Worsened cardiomyopathy CONSENT:I have discussed the risks, benefits and alternative therapies for the above-mentioned procedure and for both sedation/analgesia as well as necessary blood product administration, if indicated, as they pertain to this patient. The patient has indicated understanding and acceptance of the risks and procedures discussed. PROCEDURE: After the risks, benefits and alternatives of the above mentioned procedure explained in detail with the patient, informed consent was obtained. Patient was taken to the catheterization lab and prepped and draped in usual fashion. 1% lidocaine was used to anesthetize the right radial artery. A 6- Hungarian sheath was placed in the right radial artery using modified Seldinger technique. 1% Lidocaine was used to anesthetize the right brachial area and a 6Fr sheath was placed in the brachial vein using modified Seldinger technique. A 6Fr [place] catheter was inserted into the RA, RV, PA and PCWP positions and pressure measurements were obtained as well as oxygen saturations. Thermodilution was performed. Left coronary angiography was performed with a 5- Hungarian JL 3.5 catheter and right coronary angiography was performed with a 5-Fr ench JR5 catheter in various views. A 5-Hungarian FR5 catheter was inserted into the left ventricle and pressure measurements were obtained. The right radial sheath was removed and a TR band was placed with hemostasis achieved. The patient tolerated the procedure well. Patient was transported back to the post catheterization holding area in stable condition. Conscious Sedation: Patient was monitored under the direct supervision of myself for conscious sedation using Versed and fentanyl for a total duration of 40 minutes HEMODYNAMICS: Ao: 117/59 LV: 112/6, LVEDP 11 mmHg PCWP: 6 mmHg RV: 28/1 RA: 4 Right radial oxygen saturation: 95% PA oxygen saturation: 66% RA oxyegn saturation: 62% CO by thermodilution: 3.25 L/min CI by thermodilution: 1.78 L/min/m2 CO by KARLENE: 4.9 L/min CI by thermodilution: 2.69 L/min/m2 SELECTIVE CORONARY ARTERIOGRAPHY: LEFT MAIN: The left main is a large caliber vessel which bifurcates into the LAD and circumflex. There is no significant stenosis. LEFT ANTERIOR DESCENDING CORONARY ARTERY: LAD is a large caliber vessel which wraps around to the apex. There are mild luminal irregularities. LEFT CIRCUMFLEX CORONARY ARTERY: Left circumflex is a moderate caliber vessel with mild luminal irregularities RIGHT CORONARY ARTERY: The right coronary artery is a large caliber vessel which gives off a PDA and PLV branch and is the dominant vessel. There are mild luminal irregularities. FINAL IMPRESSION: 1. Relatively normal coronary arteries as described above other than mild luminal irregularities. 2. Low/ normal left sided filling pressures 3. Low/ normal CO/CI PLAN: 1. Aggressive risk factor modification per most recent ACC/AHA guidelines. 2. Patient with low filling pressures and therefore recommend stopping Lasix for now and monitor response.
== END 2022-06-12 13:09 | disposition home or self-care (01) ==
LOC: CATHCVL 05:44
PROVIDERS: ATTEND Internal Medicine
DX: I25.10 Atherosclerotic heart disease of native coronary artery without angina pectoris (principal); I42.8 Other cardiomyopathies; I77.9 Disorder of arteries and arterioles, unspecified; I44.7 Left bundle-branch block, unspecified; I11.0 Hypertensive heart disease with heart failure; I50.22 Chronic systolic (congestive) heart failure; E78.5 Hyperlipidemia, unspecified; Z85.46 Personal history of malignant neoplasm of prostate; F17.210 Nicotine dependence, cigarettes, uncomplicated; Z79.82 Long term (current) use of aspirin; Z79.899 Other long term (current) drug therapy
CPT/HCPCS: 93460; 85018; 82810; 99152; 99153 ×2; C1769 ×2; C1894; C1751; J2250; J2001; J3010; J1644; Q9967

== ENCOUNTER 2022-06-30 14:12 | Inpatient (IN) | payer MEDICARE ==
[2022-06-30 14:56] LABS: Basophils % (A) 0 %; Eosinophils # (A) 0.2 k/uL (0-0.7); Eosinophils % (A) 2 %; HCT 38.6 % (39.0-53.0); HGB 12.6 gm/dL (13.0-17.5); Hypochromasia Slight; Lymphocytes # (A) 1.3 k/uL (1.0-4.8); Lymphocytes % (A) 17 %; MCH 28.7 pg (25.0-35.0); MCHC 32.5 g/dL (31.0-37.0); MCV 88.2 fL (80.0-100.0); Mean Platelet Volume 9.1; Monocytes # (A) 0.3 k/uL (0-1.0); Monocytes % (A) 4 %; Neutrophils # (A) 5.9 k/uL (1.3-7.7); Neutrophils % (A) 76 %; Platelet Count 241 k/uL (150-450); RBC 4.38 m/uL (4.30-5.90); RDW 15.7 % (11.5-15.5); WBC 7.9 k/uL (3.8-10.6)
--- NOTE | 2022-06-30 14:58 | XR ---
EXAMINATION TYPE: XR chest 2V DATE OF EXAM: 06/30/2022 COMPARISON: 05/18/2022 TECHNIQUE: PA and lateral views submitted. HISTORY: Chest pain FINDINGS: Heart is enlarged and has a coarsened interstitium with small bilateral effusions and vague bibasilar subsegmental consolidation. Surgical clips in the right abdomen. Hypertrophic degenerative changes s pine. Mild hyperinflation. IMPRESSION: 1. Correlate for mild CHF.
[2022-06-30 15:05] LABS: INR 1.1 (<1.2); Partial Thromboplastin Time 27.5 sec (22.0-30.0); Prothrombin Time 11.1 sec (9.0-12.0)
[2022-06-30 15:09] LABS: Albumin 3.6 g/dL (3.5-5.0); Calcium 9.2 mg/dL (8.4-10.2); Magnesium 2.3 mg/dL (1.6-2.3); Potassium 4.4 mmol/L (3.5-5.1); Total Bilirubin 0.8 mg/dL (0.2-1.3); Total Protein 6.5 g/dL (6.3-8.2)
--- NOTE | 2022-06-30 15:51 | ED ---
SOB HPI - General Chief Complaint: Shortness of Breath Stated Complaint: Chest pain SOB Time Seen by Provider: 06/30/22 15:39 Source: patient, RN notes reviewed, old records reviewed Mode of arrival: wheelchair Limitations: no limitations - History of Present Illness Initial Comments: This is a 86-year-old male to the emergency department for evaluation. Patient since today for evaluation of shortness of breath shortness of breath and chest pain chest pain for some time now. 3-4 days of chest pain and current chest pain here in the ER mild nausea no vomiting of travel history no sick contacts history of heart disease and did have us MD Complaint: shortness of breath, chest pain -: days(s) Radiation: back Severity: moderate Severity scale (1-10): 7 Quality: aching Consistency: constant Improves With: nothing Worsens With: nothing Known History Of: congestive heart failure Associated Symptoms: chest pain, palpitations Treatments Prior to Arrival: none - Related Data Home Medications Medication Instructions Recorded Confirmed Tamsulosin [Flomax] 0.4 mg PO DAILY 02/28/16 06/30/22 Empagliflozin [Jardiance] 10 mg PO DAILY 05/18/22 06/30/22 Sacubitril/Valsartan [Entresto 24 1 tab PO BID 05/18/22 06/30/22 mg-26 mg Tablet] Venlafaxine HCl ER [Effexor XR] 37.5 mg PO DAILY 06/07/22 06/30/22 carvediloL [Coreg] 3.125 mg PO BID-W/MEALS 06/07/22 06/30/22 Acetaminophen [Tylenol] 650 mg PO Q4H PRN 06/12/22 06/30/22 Latanoprost [Latanoprost 0.005%] 1 drop BOTH EYES DIRECTED 06/30/22 06/30/22 Spironolactone [Aldactone] 25 mg PO DAILY 06/30/22 06/30/22 Previous Rx's Medication Instructions Recorded Aspirin 81 mg PO DAILY #30 tab 03/31/22 Atorvastatin [Lipitor] 40 mg PO HS #30 tab 03/31/22 Clopidogrel [Plavix] 75 mg PO DAILY #60 tab 07/05/22 Furosemide [Lasix] 20 mg PO BID@0900,1600 #60 tab 07/05/22 Allergies Allergy/AdvReac Type Severity Reaction Status Date / Time No Known Allergies Allergy Verified 06/30/22 16:57 Review of Systems ROS Statement: Those systems with pertinent positive or pertinent negative responses have been documented in the HPI. ROS Other: All systems not noted in ROS Statement are negative. 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, pelvis and liver, chemo completed, History of Any Multi-Drug Resistant Organisms: None Reported Past Surgical History: Cholecystectomy Additional Past Surgical History / Comment(s): CATARACT SURGERY, Past Anesthesia/Blood Transfusion Reactions: No Reported Reaction Additional Past Anesthesia/Blood Transfusion Reaction / Comment(s): NO BLOOD PRODUCTS Past Psychological History: No Psychological Hx Reported Smoking Status: Former smoker Past Alcohol Use History: None Reported Past Drug Use History: None Reported - Past Family History Father Family Medical History: No Reported History General Exam Limitations: no limitations General appearance: alert, in no apparent distress, anxious, in distress Head exam: Present: atraumatic, normocephalic, normal inspection Eye exam: Present: normal appearance, PERRL, EOMI. Absent: scleral icterus, conjunctival injection, periorbital swelling ENT exam: Present: normal exam, mucous membranes moist Neck exam: Present: normal inspection. Absent: tenderness, meningismus, lymphadenopathy Respiratory exam: Present: respiratory distress, rales, rhonchi, accessory muscle use, decreased breath sounds, prolonged expiratory. Absent: wheezes, s tridor Cardiovascular Exam: Present: normal rhythm, tachycardia, normal heart sounds. Absent: systolic murmur, diastolic murmur, rubs, gallop, clicks GI/Abdominal exam: Present: soft, normal bowel sounds. Absent: distended, tenderness, guarding, rebound, rigid Extremities exam: Present: normal inspection, full ROM, normal capillary refill. Absent: tenderness, pedal edema, joint swelling, calf tenderness Back exam: Present: normal inspection Neurological exam: Present: alert, oriented X3, CN II-XII intact Psychiatric exam: Present: normal affect, normal mood Skin exam: Present: warm, dry, intact, normal color. Absent: rash Course Vital Signs 06/30/22 06/30/22 06/30/22 14:14 15:41 15:46 Temperature 97.7 F Pulse Rate 121 H 67 Respiratory 22 12 14 Rate Blood Pressure 153/91 O2 Sat by Pulse 98 95 Oximetry 06/30/22 06/30/22 06/30/22 17:14 20:00 21:00 Temperature Pulse Rate 76 112 H 100 Respiratory 14 Rate Blood Pressure 136/82 156/101 149/96 O2 Sat by Pulse 94 L Oximetry 06/30/22 06/30/22 07/01/22 22:00 23:00 00:00 Temperature Pulse Rate 113 H 95 96 Respiratory Rate Blood Pressure 144/92 149/102 131/91 O2 Sat by Pulse 98 96 Oximetry 07/01/22 07/01/22 01:00 02:00 Temperature Pulse Rate 92 110 H Respiratory Rate Blood Pressure 130/91 133/99 O2 Sat by Pulse 99 98 Oximetry - Reevaluation(s) Reevaluation #1: 06/30/22 17:03 Medical record is reviewed Reevaluation #2: 06/30/22 17:03 Patient has still shortness of breath chest pain here in the ER Reevaluation #3: 06/30/22 17:03 Patient informed results questions answered Reevaluation #4: 06/30/22 17:04 Was pt. sent in by a medical professional or institution? @ -no Did you speak to anyone other than the patient for history? @ -no Did you review nursing and triage notes? @ -agree Were old charts reviewed? @ -no Differential Diagnosis? @ -prior EKG interpreted by me (3pts min.)? @ -yes X-rays interpreted by me (1pt min.)? @ -yes CT interpreted by me (1pt min.)? @ -no U/S interpreted by me (1pt. min.)? @ -no What testing was considered but not performed? (CT, X-rays, U/S, labs)? Why? @ -no What meds were considered but not given? Why? @ -no Did you discuss the management of the patient with other professionals? @ -no Did you reconcile home meds? @ -no Was smoking cessation discussed for >3mins.? @ -no Was critical care preformed (if so, how long)? @ -no Were there social determinants of health that impacted care today? How? (Homel essness, low income, unemployed, alcoholism, drug addiction, transportation, low edu. Level, literacy, decrease access to med. care, detention, rehab)? @ -no Was there de-escalation of care discussed even if they declined? (Discuss DNR or withdrawal of care, Hospice)? @ -no What co-morbidities impacted this encounter? (DM, HTN, Smoking, COPD, CAD, Cancer, CVA, Hep., AIDS, mental health diagnosis, sleep apnea, morbid obesity)? @ -none Was patient admitted / discharged? @ -86 male DF for evaluation of chest pain cardiac disease shortness of breath CHF and acute coronary syndrome will be admitted for supportive care and cardiology to evaluate and treat Admitted Undiagnosed new problem with uncertain prognosis? @ -no Drug Therapy requiring intensive monitoring for toxicity (Heparin, Nitro, Ins ulin, Cardizem)? @ -no Were any procedures done? @ -no Diagnosis/symptom? @ -CHF, chest pain, he ACS Acute, or Chronic, or Acute on Chronic? @ -Acute Uncomplicated (without systemic symptoms) or Complicated (systemic symptoms)? @ -complicated Side effects of treatment? @ -no Exacerbation, Progression, or Severe Exacerbation] @ -no Poses a threat to life or bodily function? @ -Yes, ACS CHF Reevaluation #5: 06/30/22 17:04 Differential Dyspnea: Coronary syndrome, arrhythmia, tamponade, asthma, COPD, pulmonary embolism, pneumonia, pneumothorax, pulmonary effusion, anaphylaxis, diabetic ketoacidosis, flailed chest, pulmonary contusion, diaphragmatic rupture, anemia, neuromuscular, this is not meant to be an all-inclusive list. Differential Chest Pain: Stable Angina, Unstable Angina, STEMI, NSTEMI Aortic Dissection, Pneumothorax, Musculoskeletal, Esophageal Spasm GERD, Cholecystitis, Pancreatitis, Zoster, this is not meant to be an all-inclusive list. - Consultations Consultation #1: Spoke with sound who agree to admit this patient Medical Decision Making - Medical Decision Making 86 male to the emergency department for evaluation of shortness of breath significant CHF exacerbation [place] for diuresis and cardiology to evaluate and see - Lab Data Result diagrams: 07/05/22 08:14 07/05/22 08:14 Lab Results 06/30/22 06/30/22 06/30/22 Range/Units 14:34 14:34 14:34 WBC 7.9 (3.8-10.6) k/uL RBC 4.38 (4.30-5.90) m/uL Hgb 12.6 L (13.0-17.5) gm/dL Hct 38.6 L (39.0-53.0) % MCV 88.2 (80.0-100.0) fL MCH 28.7 (25.0-35.0) pg MCHC 32.5 (31.0-37.0) g/dL RDW 15.7 H (11.5-15.5) % Plt Count 241 (150-450) k/uL MPV 9.1 Neutrophils % 76 % Lymphocytes % 17 % Monocytes % 4 % Eosinophils % 2 % Basophils % 0 % Neutrophils # 5.9 (1.3-7.7) k/uL Lymphocytes # 1.3 (1.0-4.8) k/uL Monocytes # 0.3 (0-1.0) k/uL Eosinophils # 0.2 (0-0.7) k/uL Basophils # 0.0 (0-0.2) k/uL Hypochromasia Slight PT 11.1 (9.0-12.0) sec INR 1.1 (<1.2) APTT 27.5 (22.0-30.0) sec D-Dimer (<0.60) mg/L FEU Sodium 141 (137-145) mmol/L Potassium 4.4 (3.5-5.1) mmol/L Chloride 109 H (98-107) mmol/L Carbon Dioxide 21 L (22-30) mmol/L Anion Gap 11 mmol/L BUN 23 H (9-20) mg/dL Creatinine 1.02 (0.66-1.25) mg/dL Est GFR (CKD-EPI)AfAm 78 (>60 ml/min/1.73 sqM) Est GFR (CKD-EPI)NonAf 67 (>60 ml/min/1.73 sqM) Glucose 189 H (74-99) mg/dL POC Glucose (mg/dL) (70-110) mg/dL POC Glu Fashion Consultant ID Calcium 9.2 (8.4-10.2) mg/dL Magnesium 2.3 (1.6-2.3) mg/dL Total Bilirubin 0.8 (0.2-1.3) mg/dL AST 34 (17-59) U/L ALT 21 (4-49) U/L Alkaline Phosphatase 86 (38-126) U/L Troponin I (0.000-0.034) ng/mL NT-Pro-B Natriuret Pep pg/mL Total Protein 6.5 (6.3-8.2) g/dL Albumin 3.6 (3.5-5.0) g/dL 06/30/22 06/30/22 06/30/22 Range/Units 14:34 14:34 20:05 WBC (3.8-10.6) k/uL RBC (4.30-5.90) m/uL Hgb (13.0-17.5) gm/dL Hct (39.0-53.0) % MCV (80.0-100.0) fL MCH (25.0-35.0) pg MCHC (31.0-37.0) g/dL RDW (11.5-15.5) % Plt Count (150-450) k/uL MPV Neutrophils % % Lymphocytes % % Monocytes % % Eosinophils % % Basophils % % Neutrophils # (1.3-7.7) k/uL Lymphocytes # (1.0-4.8) k/uL Monocytes # (0-1.0) k/uL Eosinophils # (0-0.7) k/uL Basophils # (0-0.2) k/uL Hypochromasia PT (9.0-12.0) sec INR (<1.2) APTT (22.0-30.0) sec D-Dimer (<0.60) mg/L FEU Sodium (137-145) mmol/L Potassium (3.5-5.1) mmol/L Chloride (98-107) mmol/L Carbon Dioxide (22-30) mmol/L Anion Gap mmol/L BUN (9-20) mg/dL Creatinine (0.66-1.25) mg/dL Est GFR (CKD-EPI)AfAm (>60 ml/min/1.73 sqM) Est GFR (CKD-EPI)NonAf (>60 ml/min/1.73 sqM) Glucose (74-99) mg/dL POC Glucose (mg/dL) (70-110) mg/dL POC Glu Fashion Consultant ID Calcium (8.4-10.2) mg/dL Magnesium (1.6-2.3) mg/dL Total Bilirubin (0.2-1.3) mg/dL AST (17-59) U/L ALT (4-49) U/L Alkaline Phosphatase (38-126) U/L Troponin I 0.058 H* 0.146 H* (0.000-0.034) ng/mL NT-Pro-B Natriuret Pep 8600 pg/mL Total Protein (6.3-8.2) g/dL Albumin (3.5-5.0) g/dL 06/30/22 07/01/22 07/01/22 Range/Units 23:40 01:11 01:11 WBC 8.3 (3.8-10.6) k/uL RBC 4.16 L (4.30-5.90) m/uL Hgb 12.1 L (13.0-17.5) gm/dL Hct 36.5 L (39.0-53.0) % MCV 87.8 (80.0-100.0) fL MCH 29.1 (25.0-35.0) pg MCHC 33.1 (31.0-37.0) g/dL RDW 15.9 H (11.5-15.5) % Plt Count 238 (150-450) k/uL MPV 9.4 Neutrophils % 79 % Lymphocytes % 14 % Monocytes % 4 % Eosinophils % 0 % Basophils % 0 % Neutrophils # 6.5 (1.3-7.7) k/uL Lymphocytes # 1.2 (1.0-4.8) k/uL Monocytes # 0.4 (0-1.0) k/uL Eosinophils # 0.0 (0-0.7) k/uL Basophils # 0.0 (0-0.2) k/uL Hypochromasia PT 11.2 (9.0-12.0) sec INR 1.1 (<1.2) APTT 27.3 (22.0-30.0) sec D-Dimer (<0.60) mg/L FEU Sodium (137-145) mmol/L Potassium (3.5-5.1) mmol/L Chloride (98-107) mmol/L Carbon Dioxide (22-30) mmol/L Anion Gap mmol/L BUN (9-20) mg/dL Creatinine (0.66-1.25) mg/dL Est GFR (CKD-EPI)AfAm (>60 ml/min/1.73 sqM) Est GFR (CKD-EPI)NonAf (>60 ml/min/1.73 sqM) Glucose (74-99) mg/dL POC Glucose (mg/dL) (70-110) mg/dL POC Glu Fashion Consultant ID Calcium (8.4-10.2) mg/dL Magnesium (1.6-2.3) mg/dL Total Bilirubin (0.2-1.3) mg/dL AST (17-59) U/L ALT (4-49) U/L Alkaline Phosphatase (38-126) U/L Troponin I 0.625 H* (0.000-0.034) ng/mL NT-Pro-B Natriuret Pep pg/mL Total Protein (6.3-8.2) g/dL Albumin (3.5-5.0) g/dL 07/01/22 07/01/22 07/01/22 Range/Units 05:55 06:38 06:38 WBC (3.8-10.6) k/uL RBC (4.30-5.90) m/uL Hgb (13.0-17.5) gm/dL Hct (39.0-53.0) % MCV (80.0-100.0) fL MCH (25.0-35.0) pg MCHC (31.0-37.0) g/dL RDW (11.5-15.5) % Plt Count (150-450) k/uL MPV Neutrophils % % Lymphocytes % % Monocytes % % Eosinophils % % Basophils % % Neutrophils # (1.3-7.7) k/uL Lymphocytes # (1.0-4.8) k/uL Monocytes # (0-1.0) k/uL Eosinophils # (0-0.7) k/uL Basophils # (0-0.2) k/uL Hypochromasia PT (9.0-12.0) sec INR (<1.2) APTT 159.8 H* (22.0-30.0) sec D-Dimer (<0.60) mg/L FEU Sodium (137-145) mmol/L Potassium (3.5-5.1) mmol/L Chloride (98-107) mmol/L Carbon Dioxide (22-30) mmol/L Anion Gap mmol/L BUN (9-20) mg/dL Creatinine (0.66-1.25) mg/dL Est GFR (CKD-EPI)AfAm (>60 ml/min/1.73 sqM) Est GFR (CKD-EPI)NonAf (>60 ml/min/1.73 sqM) Glucose (74-99) mg/dL POC Glucose (mg/dL) 119 H (70-110) mg/dL POC Glu Fashion Consultant ID Etelvina Tellez Calcium (8.4-10.2) mg/dL Magnesium (1.6-2.3) mg/dL Total Bilirubin (0.2-1.3) mg/dL AST (17-59) U/L ALT (4-49) U/L Alkaline Phosphatase (38-126) U/L Troponin I 1.990 H* (0.000-0.034) ng/mL NT-Pro-B Natriuret Pep pg/mL Total Protein (6.3-8.2) g/dL Albumin (3.5-5.0) g/dL 07/01/22 07/01/22 07/01/22 Range/Units 09:28 11:50 15:04 WBC (3.8-10.6) k/uL RBC (4.30-5.90) m/uL Hgb (13.0-17.5) gm/dL Hct (39.0-53.0) % MCV (80.0-100.0) fL MCH (25.0-35.0) pg MCHC (31.0-37.0) g/dL RDW (11.5-15.5) % Plt Count (150-450) k/uL MPV Neutrophils % % Lymphocytes % % Monocytes % % Eosinophils % % Basophils % % Neutrophils # (1.3-7.7) k/uL Lymphocytes # (1.0-4.8) k/uL Monocytes # (0-1.0) k/uL Eosinophils # (0-0.7) k/uL Basophils # (0-0.2) k/uL Hypochromasia PT (9.0-12.0) sec INR (<1.2) APTT 57.5 H (22.0-30.0) sec D-Dimer 0.76 H (<0.60) mg/L FEU Sodium (137-145) mmol/L Potassium (3.5-5.1) mmol/L Chloride (98-107) mmol/L Carbon Dioxide (22-30) mmol/L Anion Gap mmol/L BUN (9-20) mg/dL Creatinine (0.66-1.25) mg/dL Est GFR (CKD-EPI)AfAm (>60 ml/min/1.73 sqM) Est GFR (CKD-EPI)NonAf (>60 ml/min/1.73 sqM) Glucose (74-99) mg/dL POC Glucose (mg/dL) 113 H (70-110) mg/dL POC Glu Fashion Consultant ID Fernandez Evans Calcium (8.4-10.2) mg/dL Magnesium (1.6-2.3) mg/dL Total Bilirubin (0.2-1.3) mg/dL AST (17-59) U/L ALT (4-49) U/L Alkaline Phosphatase (38-126) U/L Troponin I (0.000-0.034) ng/mL NT-Pro-B Natriuret Pep pg/mL Total Protein (6.3-8.2) g/dL Albumin (3.5-5.0) g/dL 07/01/22 07/01/22 07/02/22 Range/Units 16:50 20:04 06:31 WBC (3.8-10.6) k/uL RBC (4.30-5.90) m/uL Hgb (13.0-17.5) gm/dL Hct (39.0-53.0) % MCV (80.0-100.0) fL MCH (25.0-35.0) pg MCHC (31.0-37.0) g/dL RDW (11.5-15.5) % Plt Count (150-450) k/uL MPV Neutrophils % % Lymphocytes % % Monocytes % % Eosinophils % % Basophils % % Neutrophils # (1.3-7.7) k/uL Lymphocytes # (1.0-4.8) k/uL Monocytes # (0-1.0) k/uL Eosinophils # (0-0.7) k/uL Basophils # (0-0.2) k/uL Hypochromasia PT (9.0-12.0) sec INR (<1.2) APTT (22.0-30.0) sec D-Dimer (<0.60) mg/L FEU Sodium (137-145) mmol/L Potassium (3.5-5.1) mmol/L Chloride (98-107) mmol/L Carbon Dioxide (22-30) mmol/L Anion Gap mmol/L BUN (9-20) mg/dL Creatinine (0.66-1.25) mg/dL Est GFR (CKD-EPI)AfAm (>60 ml/min/1.73 sqM) Est GFR (CKD-EPI)NonAf (>60 ml/min/1.73 sqM) Glucose (74-99) mg/dL POC Glucose (mg/dL) 102 149 H 112 H (70-110) mg/dL POC Glu Fashion Consultant ID Nathan, Fernandez Guerrierer, Bailey Beverley, Bailey Calcium (8.4-10.2) mg/dL Magnesium (1.6-2.3) mg/dL Total Bilirubin (0.2-1.3) mg/dL AST (17-59) U/L ALT (4-49) U/L Alkaline Phosphatase (38-126) U/L Troponin I (0.000-0.034) ng/mL NT-Pro-B Natriuret Pep pg/mL Total Protein (6.3-8.2) g/dL Albumin (3.5-5.0) g/dL 07/02/22 07/02/22 07/02/22 Range/Units 09:02 09:02 09:02 WBC 6.8 (3.8-10.6) k/uL RBC 4.21 L (4.30-5.90) m/uL Hgb 12.1 L (13.0-17.5) gm/dL Hct 37.4 L (39.0-53.0) % MCV 89.0 (80.0-100.0) fL MCH 28.7 (25.0-35.0) pg MCHC 32.2 (31.0-37.0) g/dL RDW 15.8 H (11.5-15.5) % Plt Count 248 (150-450) k/uL MPV 9.6 Neutrophils % 69 % Lymphocytes % 21 % Monocytes % 4 % Eosinophils % 4 % Basophils % 0 % Neutrophils # 4.7 (1.3-7.7) k/uL Lymphocytes # 1.4 (1.0-4.8) k/uL Monocytes # 0.3 (0-1.0) k/uL Eosinophils # 0.3 (0-0.7) k/uL Basophils # 0.0 (0-0.2) k/uL Hypochromasia Slight PT 11.6 (9.0-12.0) sec INR 1.1 (<1.2) APTT 45.2 H (22.0-30.0) sec D-Dimer (<0.60) mg/L FEU Sodium 140 (137-145) mmol/L Potassium 3.6 (3.5-5.1) mmol/L Chloride 104 (98-107) mmol/L Carbon Dioxide 29 (22-30) mmol/L Anion Gap 7 mmol/L BUN 28 H (9-20) mg/dL Creatinine 1.31 H (0.66-1.25) mg/dL Est GFR (CKD-EPI)AfAm 58 (>60 ml/min/1.73 sqM) Est GFR (CKD-EPI)NonAf 50 (>60 ml/min/1.73 sqM) Glucose 149 H (74-99) mg/dL POC Glucose (mg/dL) (70-110) mg/dL POC Glu Fashion Consultant ID Calcium 8.8 (8.4-10.2) mg/dL Magnesium 2.2 (1.6-2.3) mg/dL Total Bilirubin (0.2-1.3) mg/dL AST (17-59) U/L ALT (4-49) U/L Alkaline Phosphatase (38-126) U/L Troponin I (0.000-0.034) ng/mL NT-Pro-B Natriuret Pep pg/mL Total Protein (6.3-8.2) g/dL Albumin (3.5-5.0) g/dL 07/02/22 07/02/22 07/02/22 Range/Units 11:41 17:55 20:16 WBC (3.8-10.6) k/uL RBC (4.30-5.90) m/uL Hgb (13.0-17.5) gm/dL Hct (39.0-53.0) % MCV (80.0-100.0) fL MCH (25.0-35.0) pg MCHC (31.0-37.0) g/dL RDW (11.5-15.5) % Plt Count (150-450) k/uL MPV Neutrophils % % Lymphocytes % % Monocytes % % Eosinophils % % Basophils % % Neutrophils # (1.3-7.7) k/uL Lymphocytes # (1.0-4.8) k/uL Monocytes # (0-1.0) k/uL Eosinophils # (0-0.7) k/uL Basophils # (0-0.2) k/uL Hypochromasia PT (9.0-12.0) sec INR (<1.2) APTT (22.0-30.0) sec D-Dimer (<0.60) mg/L FEU Sodium (137-145) mmol/L Potassium (3.5-5.1) mmol/L Chloride (98-107) mmol/L Carbon Dioxide (22-30) mmol/L Anion Gap mmol/L BUN (9-20) mg/dL Creatinine (0.66-1.25) mg/dL Est GFR (CKD-EPI)AfAm (>60 ml/min/1.73 sqM) Est GFR (CKD-EPI)NonAf (>60 ml/min/1.73 sqM) Glucose (74-99) mg/dL POC Glucose (mg/dL) 104 107 346 H (70-110) mg/dL POC Glu Fashion Consultant ID Emerson, Licha Dozier, Nena Ramirez Calcium (8.4-10.2) mg/dL Magnesium (1.6-2.3) mg/dL Total Bilirubin (0.2-1.3) mg/dL AST (17-59) U/L ALT (4-49) U/L Alkaline Phosphatase (38-126) U/L Troponin I (0.000-0.034) ng/mL NT-Pro-B Natriuret Pep pg/mL Total Protein (6.3-8.2) g/dL Albumin (3.5-5.0) g/dL 05/07/03/22 07/03/22 Range/Units 00:02 06:14 07:09 WBC (3.8-10.6) k/uL RBC (4.30-5.90) m/uL Hgb (13.0-17.5) gm/dL Hct (39.0-53.0) % MCV (80.0-100.0) fL MCH (25.0-35.0) pg MCHC (31.0-37.0) g/dL RDW (11.5-15.5) % Plt Count (150-450) k/uL MPV Neutrophils % % Lymphocytes % % Monocytes % % Eosinophils % % Basophils % % Neutrophils # (1.3-7.7) k/uL Lymphocytes # (1.0-4.8) k/uL Monocytes # (0-1.0) k/uL Eosinophils # (0-0.7) k/uL Basophils # (0-0.2) k/uL Hypochromasia PT (9.0-12.0) sec INR (<1.2) APTT 46.8 H (22.0-30.0) sec D-Dimer (<0.60) mg/L FEU Sodium (137-145) mmol/L Potassium (3.5-5.1) mmol/L Chloride (98-107) mmol/L Carbon Dioxide (22-30) mmol/L Anion Gap mmol/L BUN (9-20) mg/dL Creatinine (0.66-1.25) mg/dL Est GFR (CKD-EPI)AfAm (>60 ml/min/1.73 sqM) Est GFR (CKD-EPI)NonAf (>60 ml/min/1.73 sqM) Glucose (74-99) mg/dL POC Glucose (mg/dL) 108 71 (70-110) mg/dL POC Glu Fashion Consultant ID Sumner, Nena Sumner, Nena Calcium (8.4-10.2) mg/dL Magnesium (1.6-2.3) mg/dL Total Bilirubin (0.2-1.3) mg/dL AST (17-59) U/L ALT (4-49) U/L Alkaline Phosphatase (38-126) U/L Troponin I (0.000-0.034) ng/mL NT-Pro-B Natriuret Pep pg/mL Total Protein (6.3-8.2) g/dL Albumin (3.5-5.0) g/dL 07/03/22 07/03/22 07/03/22 Range/Units 07:09 07:09 07:09 WBC 6.0 (3.8-10.6) k/uL RBC 4.15 L (4.30-5.90) m/uL Hgb 11.5 L (13.0-17.5) gm/dL Hct 36.8 L (39.0-53.0) % MCV 88.6 (80.0-100.0) fL MCH 27.8 (25.0-35.0) pg MCHC 31.3 (31.0-37.0) g/dL RDW 15.8 H (11.5-15.5) % Plt Count 238 (150-450) k/uL MPV 9.3 Neutrophils % 65 % Lymphocytes % 23 % Monocytes % 4 % Eosinophils % 6 % Basophils % 0 % Neutrophils # 3.9 (1.3-7.7) k/uL Lymphocytes # 1.4 (1.0-4.8) k/uL Monocytes # 0.2 (0-1.0) k/uL Eosinophils # 0.4 (0-0.7) k/uL Basophils # 0.0 (0-0.2) k/uL Hypochromasia Slight PT (9.0-12.0) sec INR (<1.2) APTT (22.0-30.0) sec D-Dimer (<0.60) mg/L FEU Sodium 139 (137-145) mmol/L Potassium 3.4 L (3.5-5.1) mmol/L Chloride 103 (98-107) mmol/L Carbon Dioxide 28 (22-30) mmol/L Anion Gap 8 mmol/L BUN 27 H (9-20) mg/dL Creatinine 1.19 (0.66-1.25) mg/dL Est GFR (CKD-EPI)AfAm 65 (>60 ml/min/1.73 sqM) Est GFR (CKD-EPI)NonAf 56 (>60 ml/min/1.73 sqM) Glucose 89 (74-99) mg/dL POC Glucose (mg/dL) (70-110) mg/dL POC Glu [employer] ID Calcium 8.5 (8.4-10.2) mg/dL Magnesium 2.1 (1.6-2.3) mg/dL Total Bilirubin (0.2-1.3) mg/dL AST (17-59) U/L ALT (4-49) U/L Alkaline Phosphatase (38-126) U/L Troponin I 2.520 H* (0.000-0.034) ng/mL NT-Pro-B Natriuret Pep pg/mL Total Protein (6.3-8.2) g/dL Albumin (3.5-5.0) g/dL - EKG Data -: EKG Interpreted by Me (EKG is sinus rhythm rate 100 NV 126 QRS 162 QTC 453) - Radiology Data Radiology results: report reviewed (Chest x-rays positive for CHF), image re viewed Critical Care Time Critical Care Time: Yes Total Critical Care Time: 31 Disposition Clinical Impression: Left bundle branch block, Elevated troponin, CHF (congestive heart failure), Weakness, Chest pain, ACS (acute coronary syndrome), Unstable angina Disposition: ADMITTED IP TO THIS [facility] Condition: Stable Time of Disposition: 17:00
[2022-06-30] MEDS ORDERED: METOPROLOL TARTRATE 5 MG/5 ML VIAL IVP ONE (17:05)
[2022-06-30] MEDS: FUROSEMIDE 10 MG/ML 4 ML VIAL IV SCH (18:14)
[2022-06-30] MEDS ORDERED: ACETAMINOPHEN TAB 500 MG TAB PO STA (19:09)
[2022-06-30] MEDS ORDERED: ACETAMINOPHEN TAB 325 MG TAB PO PRN (21:04)
[2022-06-30] MEDS: carvediloL 3.125 MG TAB PO SCH (21:43)
[2022-06-30] MEDS: ATORVASTATIN 40 MG TAB PO SCH (21:43)
[2022-06-30] MEDS: SACUBITRIL/VALSARTAN 24 MG-26 MG TABLET PO SCH (21:44)
[2022-07-01] MEDS ORDERED: HEPARIN SODIUM 1,000 UN/ML (10ML VL) IV ONE (00:44)
[2022-07-01] MEDS ORDERED: HEPARIN SODIUM 1,000 UN/ML (10ML VL) IV PRN (00:44)
--- NOTE | 2022-07-01 01:00 | P.HPIM ---
History of Present Illness H&P Date: 06/30/22 Chief Complaint: shortness of breath 86 year old male with NICMP with LVEF 20% s/p ICD, DM patient recently discharged from the hospital 1 month ago after being treated for acute CHF exacerbation. he also underwent left heart cath June 12 , which showed non obstructive coronary artery disease , and recommendations made to maximize medical therapy. since the procedure, patient describes gradual worsening of shortness of breath at rest and with ambulation , he is describing orthopnea and PNDs, no leg edema , no changes in his meds, ,he claims compliance with his meds. he also reports shortness of breath with minimal activity like walking to the bathroom and at rest while doing nothing. he describes left sided chest discomfort with palpitations, for which he decided to come in for evaluation he is not on home oxygen , denies URI symptoms , but he does feel congested with some coughing , no hemoptysis no GI bleeding , no known sick contacts. denies tobacco smoking or drugs, denies history of blood clots. Review of Systems Pertinent positives as noted in HPI. 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, pelvis and liver, chemo completed, History of Any Multi-Drug Resistant Organisms: None Reported Past Surgical History: Cholecystectomy Additional Past Surgical History / Comment(s): CATARACT SURGERY, Past Anesthesia/Blood Transfusion Reactions: No Reported Reaction Additional Past Anesthesia/Blood Transfusion Reaction / Comment(s): NO BLOOD PRODUCTS Past Psychological History: No Psychological Hx Reported Smoking Status: Former smoker Past Alcohol Use History: None Reported Past Drug Use History: None Reported - Past Family History Father Family Medical History: No Reported History Medications and Allergies Home Medications Medication Instructions Recorded Confirmed Type Tamsulosin [Flomax] 0.4 mg PO DAILY 02/28/16 06/30/22 History glipiZIDE [glipiZIDE ER] 2.5 mg PO DAILY 03/27/22 06/30/22 History Aspirin 81 mg PO DAILY #30 tab 03/31/22 06/30/22 Rx Atorvastatin [Lipitor] 40 mg PO HS #30 tab 03/31/22 06/30/22 Rx Empagliflozin [Jardiance] 10 mg PO DAILY 05/18/22 06/30/22 History Sacubitril/Valsartan [Entresto 24 1 tab PO BID 05/18/22 06/30/22 History mg-26 mg Tablet] Venlafaxine HCl ER [Effexor Xr] 37.5 mg PO DAILY 06/07/22 06/30/22 History carvediloL [Coreg] 3.125 mg PO BID-W/MEALS 06/07/22 06/30/22 History Acetaminophen [Tylenol] 650 mg PO Q4H PRN 06/12/22 06/30/22 History Latanoprost [Latanoprost 0.005%] 1 drop BOTH EYES DIRECTED 06/30/22 06/30/22 History Spironolactone [Aldactone] 25 mg PO DAILY 06/30/22 06/30/22 History Allergies Allergy/AdvReac Type Severity Reaction Status Date / Time No Known Allergies Allergy Verified 06/30/22 16:57 Physical Exam Vitals: Vital Signs Temp Pulse Resp BP Pulse Ox 06/30/22 17:14 76 14 136/82 94 L 06/30/22 15:46 67 14 95 06/30/22 15:41 12 06/30/22 14:14 97.7 F 121 H 22 153/91 98 Intake and Output 06/30/22 06/30/22 06/30/22 06:59 14:59 22:59 Other: Weight 69.853 kg Constitutional: No acute distress, conversant, pleasant Eyes: Anicteric sclerae, moist conjunctiva, Pupils equal round reactive to light ENMT: NC/AT Oropharynx clear, no erythema, or exudates Neck: Supple, no masses, or JVD No carotid bruits No thyromegaly Lungs: decrease breath sounds at lung bases with some fine inspiratory rales Clear to percussion Normal respiratory effort, no accessory muscle use Cardiovascular: Heart tachycardia No murmurs, gallops, or rubs No peripheral edema Abdominal: Soft Nontender, no guarding, rebound or rigidity Abdomen moving with respiration Normoactive bowel sounds No hepatomegaly, No splenomegaly No palpable mass No abdominal wall hernia noted Skin: Normal temperature, tone, texture, turgor Extremities: No digital cyanosis No clubbing Pedal pulses intact and symmetrical Radial pulses intact and symmetrical No calf tenderness Psychiatric: Alert and oriented to person, place Neuro Muscles Strength 4/5 in all 4 extremities Sensation to light touch grossly present throughout Cranial nerves II-XII grossly intact Lymphatics: no palpable cervical or supraclavicular lymph nodes Results CBC & Chem 7: 06/30/22 14:34 06/30/22 14:34 Labs: Abnormal Lab Results - Last 24 Hours (Table) 06/30/22 06/30/22 06/30/22 Range/Units 14:34 14:34 14:34 Hgb 12.6 L (13.0-17.5) gm/dL Hct 38.6 L (39.0-53.0) % RDW 15.7 H (11.5-15.5) % Chloride 109 H (98-107) mmol/L Carbon Dioxide 21 L (22-30) mmol/L BUN 23 H (9-20) mg/dL Glucose 189 H (74-99) mg/dL Troponin I 0.058 H* (0.000-0.034) ng/mL 06/30/22 Range/Units 20:05 Hgb (13.0-17.5) gm/dL Hct (39.0-53.0) % RDW (11.5-15.5) % Chloride (98-107) mmol/L Carbon Dioxide (22-30) mmol/L BUN (9-20) mg/dL Glucose (74-99) mg/dL Troponin I 0.146 H* (0.000-0.034) ng/mL Assessment and Plan Assessment: 86 year old male with NICMP LVEF 20%, presented for shortness of breath , I discussed the case with ED doc, and I accepted the admission for IV lasix and cardiology evaluation with anticipated length of stay > 2 midnights systolic CHF exacerbation , NICMP LVEF 20% s/p ICD plan lasix IVP 40 mg BID daily weight fluid restrictions to 2 L daily cardiology evaluation playground monitor monitor vital signs trops 0.058 --> 0.146 --> 0.68 Hgb unreamrkable 12.6 initiate heparin gtt for ACS continue aspirion 81 mg po daily , atorvastatin 40 mg po daily continue coreg, entresto , aldactone home meds NSTEMI elevated trops , trending up higher than his baseline no acute ST changes on EKG recent left heart cath showing non obstructive coronary artery disease. DM insulin sliding scale hypertension resume metoprolol , amlodipin renal function unremarkable BUN 23 , cr 1.02 full code DVT PPx on heparin gtt
[2022-07-01 01:31] LABS: Basophils % (A) 0 %; Eosinophils % (A) 0 %; HCT 36.5 % (39.0-53.0); HGB 12.1 gm/dL (13.0-17.5); Lymphocytes # (A) 1.2 k/uL (1.0-4.8); Lymphocytes % (A) 14 %; MCH 29.1 pg (25.0-35.0); MCHC 33.1 g/dL (31.0-37.0); MCV 87.8 fL (80.0-100.0); Mean Platelet Volume 9.4; Monocytes # (A) 0.4 k/uL (0-1.0); Monocytes % (A) 4 %; Neutrophils # (A) 6.5 k/uL (1.3-7.7); Neutrophils % (A) 79 %; Platelet Count 238 k/uL (150-450); RBC 4.16 m/uL (4.30-5.90); RDW 15.9 % (11.5-15.5); WBC 8.3 k/uL (3.8-10.6)
[2022-07-01 01:52] LABS: INR 1.1 (<1.2); Partial Thromboplastin Time 27.3 sec (22.0-30.0); Prothrombin Time 11.2 sec (9.0-12.0)
[2022-07-01] MEDS: HEPARIN SOD,PORK IN 0.45% NACL 25,000 UNIT in 0.45% NACL 1 250ML.BAG IV SCH (02:19)
[2022-07-01 05:57] LABS: Glucose,Whole Blood 119 mg/dL (70-110)
[2022-07-01] MEDS: INSULIN ASPART (NovoLOG) 100 UNIT/ML VIAL SQ SCH ×4 (05:57→22:07)
[2022-07-01] MEDS: carvediloL 3.125 MG TAB PO SCH ×2 (05:59→16:54)
[2022-07-01] MEDS: FUROSEMIDE 10 MG/ML 4 ML VIAL IV SCH ×2 (05:59→16:54)
[2022-07-01] MEDS: VENLAFAXINE HCL ER 37.5 MG CAP PO SCH (08:54)
[2022-07-01] MEDS: SACUBITRIL/VALSARTAN 24 MG-26 MG TABLET PO SCH ×2 (08:54→22:12)
[2022-07-01] MEDS: ASPIRIN 81 MG PO SCH (08:54)
[2022-07-01] MEDS: TAMSULOSIN 0.4 MG CAP.ER.24H PO SCH (08:55)
[2022-07-01] MEDS: SPIRONOLACTONE 25 MG TAB PO SCH (08:55)
[2022-07-01 11:52] LABS: Glucose,Whole Blood 113 mg/dL (70-110)
--- NOTE | 2022-07-01 11:59 | P.CRDCN ---
History of Present Illness Consult date: 07/01/22 Consult reason: congestive heart failure History of present illness: HISTORY OF PRESENT ILLNESS: This is an 86-year-old male patient of Dr. Watson with a past medical history significant for prostate cancer with metastatic disease, nonobstructive coronary artery disease, nonischemic cardiomyopathy, congestive heart failure, hypertension, and hyperlipidemia. We have been asked to see the patient for heart failure. Patient states that he came into the hospital due to weakness, palpitations and shortness of breath. He denies any weight increase and denies any lower extremity edema. He states that it been going on for couple of days and his called the office and he was told to come in. He also had nausea and cough with sputum production. Patient complains of chest pain or pressure type pain. In the emergency center, patient was started on IV Lasix and he states he has been urinating well. Patient was last seen in the office on 06/26/2022 and at that time had concerns for fatigue and tired all the time occasional chest tightness with shortness of breath with activity along with phlegm production at nighttime * EKG reveals sinus mechanism with left bundle branch block * Chest xray mild CHF * Laboratory data: WBC 8.3, hemoglobin 12.1, platelet count 238. INR 1.1. D- dimer 0.76. Potassium 4.4, sodium 141, chloride 109, CO2 21, BUN 23 creatinine 1.02. Liver function tests are normal. Magnesium 2.3. Troponins are 0.058, 0.146, 0.625, 1.99. ProBNP 8600. * Current home cardiac medications include aspirin 81 mg daily, Lipitor 40 mg daily, Coreg 3.125 mg twice daily, Entresto 2426 milligrams twice daily, Aldactone 25 mg daily * Most recent echocardiogram obtained in March 2022 revealed ejection fraction less than 20%, mild to moderate mitral regurgitation, small pericardial effusion. Mild aortic regurgitation. * Cardiac catheterization history: Relatively normal coronary arteries with mild luminal irregularities. Low to normal left-sided filling pressures. Low to normal CO/CI. REVIEW OF SYSTEMS: At the time of my exam: CONSTITUTIONAL: Denies fever or chills. HEENT: Denies blurred vision, vision changes, or eye pain. Denies hemoptysis CARDIOVASCULAR: Denies chest pain. Denies orthopnea. Denies PND. Denies palpitations RESPIRATORY: Denies shortness of breath. GASTROINTESTINAL: Denies abdominal pain. Denies nausea or vomiting. HEMATOLOGIC: Denies bleeding disorders. GENITOURINARY: Denies any blood in urine. SKIN: Denies pruitis. Denies rash. PHYSICAL EXAM: VITAL SIGNS: Reviewed. GENERAL: Well-developed in no acute distress. HEENT: Head is normocephalic. Pupils are equal, round. Sclerae anicteric. Mucous membranes of the mouth are moist. Neck supple. No JVD or thyromegaly LUNGS: Crackles bilaterally. HEART: Regular rate and rhythm. S1 and S2 heard. Systolic murmur noted ABDOMEN: Soft. Nondistended. Nontender. EXTREMITIES: Normal range of motion. No clubbing or cyanosis. No lower extremity edema NEUROLOGIC: Awake and alert. Oriented x 3. ASSESSMENT: Non-ST elevated myocardial infarction Acute on chronic systolic heart failure Nonischemic cardiomyopathy Mild coronary artery disease 30-40% Hypertension Hyperlipidemia Prostate cancer in remission PLAN: Obtain limited echocardiogram Resume home cardiac medications Continue Lasix at 40 mg IV every 12 hours, monitor I&O and daily weights, electrolytes and renal function Further recommendations pending patient's course Nurse practitioner note has been reviewed by physician. Signing provider agrees with the documented findings, assessment, and plan of care. 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, pelvis and liver, chemo completed, History of Any Multi-Drug Resistant Organisms: None Reported Past Surgical History: Cholecystectomy Additional Past Surgical History / Comment(s): CATARACT SURGERY, Past Anesthesia/Blood Transfusion Reactions: No Reported Reaction Additional Past Anesthesia/Blood Transfusion Reaction / Comment(s): NO BLOOD PRODUCTS Past Psychological History: No Psychological Hx Reported Smoking Status: Former smoker Past Alcohol Use History: None Reported Additional Past Alcohol Use History / Comment(s): quit smoking in the 70s, smoked less than 1 ppd, started smoking age 20 Past Drug Use History: None Reported - Past Family History Father Family Medical History: No Reported History Medications and Allergies Home Medications Medication Instructions Recorded Confirmed Type Tamsulosin [Flomax] 0.4 mg PO DAILY 02/28/16 06/30/22 History glipiZIDE [glipiZIDE ER] 2.5 mg PO DAILY 03/27/22 06/30/22 History Aspirin 81 mg PO DAILY #30 tab 03/31/22 06/30/22 Rx Atorvastatin [Lipitor] 40 mg PO HS #30 tab 03/31/22 06/30/22 Rx Empagliflozin [Jardiance] 10 mg PO DAILY 05/18/22 06/30/22 History Sacubitril/Valsartan [Entresto 24 1 tab PO BID 05/18/22 06/30/22 History mg-26 mg Tablet] Venlafaxine HCl ER [Effexor Xr] 37.5 mg PO DAILY 06/07/22 06/30/22 History carvediloL [Coreg] 3.125 mg PO BID-W/MEALS 06/07/22 06/30/22 History Acetaminophen [Tylenol] 650 mg PO Q4H PRN 06/12/22 06/30/22 History Latanoprost [Latanoprost 0.005%] 1 drop BOTH EYES DIRECTED 06/30/22 06/30/22 History Spironolactone [Aldactone] 25 mg PO DAILY 06/30/22 06/30/22 History Allergies Allergy/AdvReac Type Severity Reaction Status Date / Time No Known Allergies Allergy Verified 06/30/22 16:57 Physical Exam Vitals: Vital Signs Temp Pulse Pulse Resp BP BP Pulse Ox 07/01/22 04:38 98 F 99 20 133/84 100 07/01/22 04:17 98 F 99 20 133/84 100 07/01/22 02:00 110 H 133/99 98 07/01/22 01:00 92 130/91 99 07/01/22 00:00 96 131/91 96 06/30/22 23:00 95 149/102 98 06/30/22 22:00 113 H 144/92 06/30/22 21:00 100 149/96 06/30/22 20:00 112 H 156/101 06/30/22 17:14 76 14 136/82 94 L 06/30/22 15:46 67 14 95 06/30/22 15:41 12 06/30/22 14:14 97.7 F 121 H 22 153/91 98 Intake and Output 06/30/22 07/01/22 07/01/22 22:59 06:59 14:59 Intake Total 48.616 Output Total 1200 Balance -1200 48.616 Intake: Intake, IV Titration 48.616 Amount Heparin Sod,Pork in 0.45% 48.616 NaCl 25,000 unit In 0.45 % NaCl 1 250ml.bag @ 12 UNITS/KG/HR 8.382 mls/hr IV .Q24H [facility] Rx#: [id number] Output: Urine 1200 Other: Weight 69.5 kg Results 07/01/22 01:11 06/30/22 14:34 Cardiac Enzymes 06/30/22 06/30/22 06/30/22 Range/Units 14:34 14:34 20:05 AST 34 (17-59) U/L Troponin I 0.058 H* 0.146 H* (0.000-0.034) ng/mL 06/30/22 07/01/22 Range/Units 23:40 06:38 AST (17-59) U/L Troponin I 0.625 H* 1.990 H* (0.000-0.034) ng/mL Coagulation 06/30/22 07/01/22 07/01/22 Range/Units 14:34 01:11 06:38 PT 11.1 11.2 (9.0-12.0) sec APTT 27.5 27.3 159.8 H* (22.0-30.0) sec CBC 06/30/22 07/01/22 Range/Units 14:34 01:11 WBC 7.9 8.3 (3.8-10.6) k/uL RBC 4.38 4.16 L (4.30-5.90) m/uL Hgb 12.6 L 12.1 L (13.0-17.5) gm/dL Hct 38.6 L 36.5 L (39.0-53.0) % Plt Count 241 238 (150-450) k/uL Comprehensive Metabolic Panel 06/30/22 Range/Units 14:34 Sodium 141 (137-145) mmol/L Potassium 4.4 (3.5-5.1) mmol/L Chloride 109 H (98-107) mmol/L Carbon Dioxide 21 L (22-30) mmol/L BUN 23 H (9-20) mg/dL Creatinine 1.02 (0.66-1.25) mg/dL Glucose 189 H (74-99) mg/dL Calcium 9.2 (8.4-10.2) mg/dL AST 34 (17-59) U/L ALT 21 (4-49) U/L Alkaline Phosphatase 86 (38-126) U/L Total Protein 6.5 (6.3-8.2) g/dL Albumin 3.6 (3.5-5.0) g/dL Current Medications Generic Name Dose Route Start Last Admin Trade Name Freq PRN Reason Stop Dose Admin Acetaminophen 650 mg 06/30/22 21:04 Acetaminophen Tab 325 Mg Tab PO Q4H PRN Pain or Fever > 100.5 Aspirin 81 mg 07/01/22 09:00 Aspirin 81 Mg PO DAILY LUIS A Atorvastatin Calcium 40 mg 06/30/22 21:15 06/30/22 21:43 Atorvastatin 40 Mg Tab PO 40 mg HS LUIS A Administration Carvedilol 3.125 mg 06/30/22 21:15 07/01/22 05:59 Carvedilol 3.125 Mg Tab PO 3.125 mg BID-W/MEALS LUIS A Administration Furosemide 40 mg 06/30/22 18:00 07/01/22 05:59 Furosemide 10 Mg/Ml 4 Ml Vial IV 40 mg Q12H LUIS A Administration Heparin Sodium (Porcine) 0 unit 07/01/22 00:44 Heparin Sodium 1,000 Un/Ml (10ml Vl) IV PER PROTOCOL PRN Low PTT Protocol Heparin Sodium/Sodium Chloride 250 mls @ 8.382 mls/hr 07/01/22 00:45 07/01/22 08:07 25,000 unit/ Sodium Chloride IV 0 units/kg/hr .Q24H LUIS A 0 mls/hr Titration Protocol 12 UNITS/KG/HR Insulin Aspart 0 unit 07/01/22 07:30 07/01/22 05:57 Insulin Aspart (Novolog) 100 Unit/Ml Vial SQ Not Given ACHS LUIS A Protocol Sacubitril/Valsartan 1 each 06/30/22 21:15 06/30/22 21:44 Sacubitril/Valsartan 24 Mg-26 Mg Tablet PO 1 each BID LUIS A Administration Spironolactone 25 mg 07/01/22 09:00 Spironolactone 25 Mg Tab PO DAILY LUIS A Tamsulosin HCl 0.4 mg 07/01/22 09:00 Tamsulosin 0.4 Mg Cap.Er.24h PO DAILY [facility] Venlafaxine HCl 37.5 mg 07/01/22 09:00 Venlafaxine Hcl Er 37.5 Mg Cap PO DAILY LUIS A Intake and Output 06/30/22 07/01/22 07/01/22 22:59 06:59 14:59 Intake Total 48.616 Output Total 1200 Balance -1200 48.616 Intake: Intake, IV Titration 48.616 Amount Heparin Sod,Pork in 0.45% 48.616 NaCl 25,000 unit In 0.45 % NaCl 1 250ml.bag @ 12 UNITS/KG/HR 8.382 mls/hr IV .Q24H [facility] Rx#: [id number] Output: Urine 1200 Other: Weight 69.5 kg 07/01/22 01:11 06/30/22 14:34
--- NOTE | 2022-07-01 13:39 | CA ---
Transthoracic Echo Report Name: Bonilla Glover Age: 86 Gender: M : 1935 Exam Date: 07/01/2022 09:54 Exam Location: [facility] Ht (in): 68 Wt (lb): 153 Ordering Physician: Olga Brown DO Attending/Referring Phys: [id number], [facility] Nurse Practitioner Tasha Whelan, RDCS Procedure CPT: Indications: lvf, NSTEMI Cardiac Hx: limited study Technical Quality: Good Contrast 1: Total Dose (mL): Contrast 2: Total Dose (mL): MEASUREMENTS (Male / Female) Normal Values 2D ECHO LV Diastolic Volume MOD 4C 168.1 cm??? LV Systolic Volume MOD 4C 129.1 cm??? LV Ejection Fraction MOD 4C 23.2 % LV Diastolic Length 4C 9.7 cm LV Systolic Length 4C 9.6 cm LV Diastolic Volume MOD 2C 148.4 cm??? LV Systolic Volume MOD 2C 126.8 cm??? LV Ejection Fraction MOD 2C 14.5 % LV Diastolic Length 2C 7.7 cm LV Systolic Length 2C 7.8 cm DOPPLER AV Peak Velocity 133.1 cm/s AV Peak Gradient 7.1 mmHg AI Peak Velocity 353.5 cm/s AI Peak Gradient 50.0 mmHg AI Pressure Half Time 574.4 ms FINDINGS Left Ventricle Left ventricular ejection fraction is estimated at 15-20 %. Severely reduced global left ventricular systolic function. Right Ventricle Right Atrium Left Atrium Mitral Valve Structurally normal mitral valve. Mild mitral regurgitation. Aortic Valve Trileaflet aortic valve. Aortic valve sclerosis. Mild aortic regurgitation. Tricuspid Valve Tricuspid valve not well visualized. Pulmonic Valve Pulmonic valve not well visualized. Pericardium Normal pericardium. Small pericardial effusion. Aorta CONCLUSIONS Severe LV systolic dysfunction secondary to ischemic cardiomyopathy with an ejection fraction of 15-20% this is related to prior extensive myocardial infarction and LAD distribution Previewed by: Dr. Curtis Gomez MD (Electronically Signed) Final Date: 01 Jul 2022 13:39
--- NOTE | 2022-07-01 14:01 | P.PN ---
Subjective Progress Note Date: 07/01/22 Patient is an 86-year-old male with a history of nonischemic cardiomyopathy with an ejection fraction of less than 20% status post AICD, diabetes, hypertension, and 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 Patient was recently hospitalized approximately one month ago and treated for an acute exacerbation of congestive heart failure, he underwent a heart cath on June 12 which showed nonobstructive coronary artery disease with recommendations to maximize medical therapy. On arrival to the ER he underwent an extensive evaluation. He was tachycardic on initial vital signs with a heart rate of 121 and blood pressure was elevated at 153/91. Initial laboratory analysis was remarkable for hemoglobin of 12.6, chloride 109, carbon dioxide 21, BUN 23, glucose 189, and troponin 0.058. His BNP was elevated at 8600. Arrangements are made for admission for acute exacerbation of systolic congestive heart failure with non-ST segment elevated myocardial infarction possibly related to CHF. He was started on Lasix. Cardiology was consulted. Patient seen and examined at bedside. He reports that the last 1-1/2 days at home he was having some centralized chest pressure with increasing shortness of breath. He denies any lower extremity edema. He denies any pain in his neck or down into his arm. He is feeling better this morning than yesterday. Vital signs reviewed General: nontoxic, no distress, appears at stated age Cardiovascular: S1S2 reg, no murmur, positive posterior tibial pulse bilateral, Lungs: Crackles bilateral bases , no accessory muscle use Abdominal: soft, nontender to palpation, no guarding, no appreciable organomegaly Ext: no gross muscle atrophy, no edema, no contractures Neuro: CN II-XI grossly intact, no focal neuro deficits Psych: Alert, oriented, appropriate affect Assessment: Acute exacerbation of systolic congestive heart failure, ejection fraction 15- 20% status post AICD Patient has an elevated d-dimer however when corrected for age is less than anticipated. His anticipated d-dimer would be 0.84. Non-ST segment elevated myocardial infarction Diabetes mellitus type 2 with hyperglycemia, A1c 7.7 in 05/04 Hypertension CKD stage III, creatinine at baseline Imaging: -Limited echo reviewed again showing severe systolic dysfunction with an ejection fraction of 15-20% Data Review: -Vital signs reviewed temperature 97.5, pulse 84, respirations 18, blood pressure 127/81, O2 sat 96% on room air. Laboratory analysis remarkable for troponin 1.9, hemoglobin 12.1 -D-dimer ordered and reviewed at 0.76. D-dimer is age-related normal Plan: -Continue with Lasix 40 mg IV push twice daily, strict I's and O's, daily weights -Coreg 3.125 mg twice daily, and trust oh, Aldactone 25 mg daily -Aspirin 81 mg daily, Lipitor 40 mg daily -Sliding-scale insulin -Continue heparin drip -Case discussed with Dr. Morrow, will review with Dr. Watson possible need for cath. Patient had a recent normal On June 12 however may have had plaque rupture. -Given need for heparin drip and IV diuretics will recheck CBC, BMP, and magnesium in a.m. This dictation was prepared using [employer] voice recognition software. Though every attempt is made to correct errors during during dictation some may still exist. Objective - Vital Signs Vital signs: Vital Signs Temp 98 F 07/01/22 04:38 Pulse 99 07/01/22 04:38 Resp 20 07/01/22 04:38 BP 133/84 07/01/22 04:38 Pulse Ox 100 07/01/22 04:38 FiO2 Intake & Output 06/30/22 07/01/22 07/01/22 18:59 06:59 18:59 Output Total 1200 Balance -1200 Weight 69.853 kg 69.5 kg Output: Urine 1200 - Labs CBC & Chem 7: 07/01/22 01:11 06/30/22 14:34 Labs: Abnormal Lab Results - Last 24 Hours (Table) 06/30/22 06/30/22 06/30/22 Range/Units 14:34 14:34 14:34 RBC (4.30-5.90) m/uL Hgb 12.6 L (13.0-17.5) gm/dL Hct 38.6 L (39.0-53.0) % RDW 15.7 H (11.5-15.5) % APTT (22.0-30.0) sec Chloride 109 H (98-107) mmol/L Carbon Dioxide 21 L (22-30) mmol/L BUN 23 H (9-20) mg/dL Glucose 189 H (74-99) mg/dL POC Glucose (mg/dL) (70-110) mg/dL Troponin I 0.058 H* (0.000-0.034) ng/mL 06/30/22 06/30/22 07/01/22 Range/Units 20:05 23:40 01:11 RBC 4.16 L (4.30-5.90) m/uL Hgb 12.1 L (13.0-17.5) gm/dL Hct 36.5 L (39.0-53.0) % RDW 15.9 H (11.5-15.5) % APTT (22.0-30.0) sec Chloride (98-107) mmol/L Carbon Dioxide (22-30) mmol/L BUN (9-20) mg/dL Glucose (74-99) mg/dL POC Glucose (mg/dL) (70-110) mg/dL Troponin I 0.146 H* 0.625 H* (0.000-0.034) ng/mL 07/01/22 07/01/22 07/01/22 Range/Units 05:55 06:38 06:38 RBC (4.30-5.90) m/uL Hgb (13.0-17.5) gm/dL Hct (39.0-53.0) % RDW (11.5-15.5) % APTT 159.8 H* (22.0-30.0) sec Chloride (98-107) mmol/L Carbon Dioxide (22-30) mmol/L BUN (9-20) mg/dL Glucose (74-99) mg/dL POC Glucose (mg/dL) 119 H (70-110) mg/dL Troponin I 1.990 H* (0.000-0.034) ng/mL
[2022-07-01 16:00] VITALS: BMI 23.3
[2022-07-01 16:52] LABS: Glucose,Whole Blood 102 mg/dL (70-110)
[2022-07-01 20:06] LABS: Glucose,Whole Blood 149 mg/dL (70-110)
[2022-07-01] MEDS: ATORVASTATIN 40 MG TAB PO SCH (22:12)
[2022-07-02] MEDS: HEPARIN SOD,PORK IN 0.45% NACL 25,000 UNIT in 0.45% NACL 1 250ML.BAG IV SCH ×2 (02:50→12:59)
[2022-07-02 06:32] LABS: Glucose,Whole Blood 112 mg/dL (70-110)
[2022-07-02] MEDS: INSULIN ASPART (NovoLOG) 100 UNIT/ML VIAL SQ SCH ×4 (06:39→21:20)
[2022-07-02] MEDS: FUROSEMIDE 10 MG/ML 4 ML VIAL IV SCH ×2 (07:04→16:42)
[2022-07-02] MEDS: carvediloL 3.125 MG TAB PO SCH ×2 (07:04→16:42)
[2022-07-02] MEDS: SACUBITRIL/VALSARTAN 24 MG-26 MG TABLET PO SCH ×2 (08:25→21:20)
[2022-07-02] MEDS: TAMSULOSIN 0.4 MG CAP.ER.24H PO SCH (08:25)
[2022-07-02] MEDS: SPIRONOLACTONE 25 MG TAB PO SCH (08:25)
[2022-07-02] MEDS: ASPIRIN 81 MG PO SCH (08:25)
[2022-07-02] MEDS: VENLAFAXINE HCL ER 37.5 MG CAP PO SCH (08:25)
[2022-07-02 09:59] LABS: Basophils % (A) 0 %; Eosinophils # (A) 0.3 k/uL (0-0.7); Eosinophils % (A) 4 %; HCT 37.4 % (39.0-53.0); HGB 12.1 gm/dL (13.0-17.5); Hypochromasia Slight; Lymphocytes # (A) 1.4 k/uL (1.0-4.8); Lymphocytes % (A) 21 %; MCH 28.7 pg (25.0-35.0); MCHC 32.2 g/dL (31.0-37.0); Mean Platelet Volume 9.6; Monocytes # (A) 0.3 k/uL (0-1.0); Monocytes % (A) 4 %; Neutrophils # (A) 4.7 k/uL (1.3-7.7); Neutrophils % (A) 69 %; Platelet Count 248 k/uL (150-450); RBC 4.21 m/uL (4.30-5.90); RDW 15.8 % (11.5-15.5); WBC 6.8 k/uL (3.8-10.6)
[2022-07-02 10:24] LABS: Calcium 8.8 mg/dL (8.4-10.2); Magnesium 2.2 mg/dL (1.6-2.3); Potassium 3.6 mmol/L (3.5-5.1)
[2022-07-02 10:26] LABS: INR 1.1 (<1.2); Partial Thromboplastin Time 45.2 sec (22.0-30.0); Prothrombin Time 11.6 sec (9.0-12.0)
[2022-07-02 11:43] LABS: Glucose,Whole Blood 104 mg/dL (70-110)
[2022-07-02] MEDS ORDERED: ALPRAZolam 0.25 MG TAB PO STA (11:56)
--- NOTE | 2022-07-02 13:00 | P.PN ---
Subjective Progress Note Date: 07/02/22 HISTORY OF PRESENT ILLNESS: This is an 86-year-old male patient of Dr. Watson with a past medical history significant for prostate cancer with metastatic disease, nonobstructive coronary artery disease, nonischemic cardiomyopathy, congestive heart failure, hypertension, and hyperlipidemia. We have been asked to see the patient for heart failure. Patient states that he came into the hospital due to weakness, palpitations and shortness of breath. He denies any weight increase and denies any lower extremity edema. He states that it been going on for couple of days and his called the office and he was told to come in. He also had nausea and cough with sputum production. Patient complains of chest pain or pressure type pain. In the emergency center, patient was started on IV Lasix and he states he has been urinating well. Patient was last seen in the office on 06/26/2022 and at that time had concerns for fatigue and tired all the time occasional chest tightness with shortness of breath with activity along with phlegm production at nighttime * EKG reveals sinus mechanism with left bundle branch block * Chest xray mild CHF * Laboratory data: WBC 8.3, hemoglobin 12.1, platelet count 238. INR 1.1. D- dimer 0.76. Potassium 4.4, sodium 141, chloride 109, CO2 21, BUN 23 creatinin e 1.02. Liver function tests are normal. Magnesium 2.3. Troponins are 0.058, 0.146, 0.625, 1.99. ProBNP 8600. * Current home cardiac medications include aspirin 81 mg daily, Lipitor 40 mg daily, Coreg 3.125 mg twice daily, Entresto 2426 milligrams twice daily, Aldactone 25 mg daily * Most recent echocardiogram obtained in March 2022 revealed ejection fraction less than 20%, mild to moderate mitral regurgitation, small pericardial effusion. Mild aortic regurgitation. * Cardiac catheterization history: Relatively normal coronary arteries with mild luminal irregularities. Low to normal left-sided filling pressures. Low to normal CO/CI. 07/02 Patient states he had sudden onset of shortness of breath and a half hour ago while at rest. He states he felt it was hard to take a deep breath. He denies chest pain. Echocardiogram reveals EF of 1520 percent. D-dimer 0.76. PHYSICAL EXAM: VITAL SIGNS: Reviewed. GENERAL: Well-developed in no acute distress. HEENT: Head is normocephalic. Pupils are equal, round. Sclerae anicteric. Mucous membranes of the mouth are moist. Neck supple. No JVD or thyromegaly LUNGS: Crackles bilateral bases. HEART: Regular rate and rhythm. S1 and S2 heard. Systolic murmur noted ABDOMEN: Soft. Nondistended. Nontender. EXTREMITIES: Normal range of motion. No clubbing or cyanosis. No lower extremity edema NEUROLOGIC: Awake and alert. Oriented x 3. ASSESSMENT: Non-ST elevated myocardial infarction Acute on chronic systolic heart failure Nonischemic cardiomyopathy Mild coronary artery disease 30-40% Hypertension Hyperlipidemia Prostate cancer in remission PLAN: Resume home cardiac medications Continue Lasix at 40 mg IV every 12 hours, monitor I&O and daily weights, electrolytes and renal function Obtain VQ scan to rule out pulmonary embolism with unexplained shortness of breath sudden onset along with mildly elevated d-dimer. Further recommendations pending patient's course Nurse practitioner note has been reviewed by physician. Signing provider agrees with the documented findings, assessment, and plan of care. Objective - Vital Signs Vital signs: Vital Signs Temp 98.2 F 07/02/22 04:00 Pulse 75 07/02/22 04:00 Resp 20 07/02/22 04:00 BP 109/67 07/02/22 04:00 Pulse Ox 95 07/02/22 04:00 FiO2 Intake & Output 07/01/22 07/02/22 07/02/22 18:59 06:59 18:59 Intake Total 1128.616 Output Total 1000 800 Balance 128.616 -800 Weight 69.5 kg 68.1 kg Intake: Intake, IV Titration 48.616 Amount Heparin Sod,Pork in 0.45% 48.616 NaCl 25,000 unit In 0.45 % NaCl 1 250ml.bag @ 12 UNITS/KG/HR 8.382 mls/hr IV .Q24H [facility] Rx#: [id number] Oral 1080 Output: Urine 1000 800 Other: Voiding Method Indwelling Catheter - Labs CBC & Chem 7: 07/02/22 09:02 07/02/22 09:02 Labs: Abnormal Lab Results - Last 24 Hours (Table) 07/01/22 07/01/22 07/01/22 Range/Units 09:28 11:50 15:04 APTT 57.5 H (22.0-30.0) sec D-Dimer 0.76 H (<0.60) mg/L FEU POC Glucose (mg/dL) 113 H (70-110) mg/dL 07/01/22 07/02/22 Range/Units 20:04 06:31 APTT (22.0-30.0) sec D-Dimer (<0.60) mg/L FEU POC Glucose (mg/dL) 149 H 112 H (70-110) mg/dL
--- NOTE | 2022-07-02 13:35 | P.PN ---
Subjective Progress Note Date: 07/02/22 Principal diagnosis: sob Patient was having an episode of sob and anxiety earlier today, was given some xanax and now feeling better. No chest pain. No n/v. Objective - Vital Signs Vital signs: Vital Signs Temp 98 F 07/02/22 08:20 Pulse 79 07/02/22 11:45 Resp 18 07/02/22 11:45 BP 106/68 07/02/22 11:45 Pulse Ox 95 07/02/22 11:45 FiO2 Intake & Output 07/01/22 07/02/22 07/02/22 18:59 06:59 18:59 Intake Total 1128.616 416.769 Output Total 1000 800 Balance 128.616 -800 416.769 Weight 69.5 kg 68.1 kg Intake: Intake, IV Titration 48.616 176.769 Amount Heparin Sod,Pork in 0.45% 48.616 176.769 NaCl 25,000 unit In 0.45 % NaCl 1 250ml.bag @ 12 UNITS/KG/HR 8.382 mls/hr IV .Q24H [facility] Rx#: [id number] Oral 1080 240 Output: Urine 1000 800 Other: Voiding Method Indwelling Catheter Indwelling Catheter - Exam Vital signs reviewed General: nontoxic, no distress, appears at stated age Cardiovascular: S1S2 reg, no murmur, positive posterior tibial pulse bilateral, Lungs: Crackles bilateral bases , no accessory muscle use Abdominal: soft, nontender to palpation, no guarding, no appreciable organomegaly Ext: no gross muscle atrophy, no edema, no contractures Neuro: CN II-XI grossly intact, no focal neuro deficits Psych: Alert, oriented, appropriate affect - Labs CBC & Chem 7: 07/02/22 09:02 07/02/22 09:02 Labs: Abnormal Lab Results - Last 24 Hours (Table) 07/01/22 07/01/22 07/02/22 Range/Units 15:04 20:04 06:31 RBC (4.30-5.90) m/uL Hgb (13.0-17.5) gm/dL Hct (39.0-53.0) % RDW (11.5-15.5) % APTT 57.5 H (22.0-30.0) sec BUN (9-20) mg/dL Creatinine (0.66-1.25) mg/dL Glucose (74-99) mg/dL POC Glucose (mg/dL) 149 H 112 H (70-110) mg/dL 07/02/22 07/02/22 07/02/22 Range/Units 09:02 09:02 09:02 RBC 4.21 L (4.30-5.90) m/uL Hgb 12.1 L (13.0-17.5) gm/dL Hct 37.4 L (39.0-53.0) % RDW 15.8 H (11.5-15.5) % APTT 45.2 H (22.0-30.0) sec BUN 28 H (9-20) mg/dL Creatinine 1.31 H (0.66-1.25) mg/dL Glucose 149 H (74-99) mg/dL POC Glucose (mg/dL) (70-110) mg/dL Assessment and Plan Plan: Assessment: Acute exacerbation of systolic congestive heart failure, ejection fraction 15- 20% status post AICD SOB anxiety related Patient has an elevated d-dimer however when corrected for age is less than anticipated. His anticipated d-dimer would be 0.84. Non-ST segment elevated myocardial infarction Diabetes mellitus type 2 with hyperglycemia, A1c 7.7 in 05/04 Hypertension CKD stage III, creatinine at baseline Imaging: -Limited echo reviewed again showing severe systolic dysfunction with an ejection fraction of 15-20% Data Review: -Vital signs reviewed temperature 97.5, pulse 84, respirations 18, blood pressure 127/81, O2 sat 96% on room air. Laboratory analysis remarkable for troponin 1.9, hemoglobin 12.1 -D-dimer ordered and reviewed at 0.76. D-dimer is age-related normal Plan: -Continue with Lasix 40 mg IV push twice daily, strict I's and O's, daily weights -SOB improved with one dose of xanax. -Coreg 3.125 mg twice daily, and trust oh, Aldactone 25 mg daily -Aspirin 81 mg daily, Lipitor 40 mg daily -Sliding-scale insulin -Continue heparin drip -Case discussed with Dr. Morrow, will review with Dr. Watson possible need for cath. Patient had a recent normal On June 12 however may have had plaque rupture.
--- NOTE | 2022-07-02 17:51 | NM ---
EXAMINATION TYPE: NM pul vent and perfuse DATE OF EXAM: 07/02/2022 CLINICAL INDICATION: Male, 86 years old with history of elevated d-dimer, shortness of breath; HISTORY: Shortness of breath Comparison: Chest x-ray 2 days ago TECHNIQUE: Utilizing inhalation of 68.7 mCi Tc 99m DTPA aerosol and intravenous injection of 4.2 mCi of Tc 99m MAA, ventilation and perfusion images are acquired post injection in multiple projections. FINDINGS: Some central clumping on ventilation images. There is no evidence of mismatched defects. IMPRESSION: Low probability for acute pulmonary embolism.
[2022-07-02 17:57] LABS: Glucose,Whole Blood 107 mg/dL (70-110)
[2022-07-02 20:20] LABS: Glucose,Whole Blood 346 mg/dL (70-110)
[2022-07-02] MEDS: ATORVASTATIN 40 MG TAB PO SCH (21:20)
[2022-07-03 00:05] LABS: Glucose,Whole Blood 108 mg/dL (70-110)
[2022-07-03 06:19] LABS: Glucose,Whole Blood 71 mg/dL (70-110)
[2022-07-03] MEDS: INSULIN ASPART (NovoLOG) 100 UNIT/ML VIAL SQ SCH ×4 (06:39→21:13)
[2022-07-03] MEDS: carvediloL 3.125 MG TAB PO SCH ×2 (06:46→18:07)
[2022-07-03 07:52] LABS: Basophils % (A) 0 %; Eosinophils # (A) 0.4 k/uL (0-0.7); Eosinophils % (A) 6 %; HCT 36.8 % (39.0-53.0); HGB 11.5 gm/dL (13.0-17.5); Hypochromasia Slight; Lymphocytes # (A) 1.4 k/uL (1.0-4.8); Lymphocytes % (A) 23 %; MCH 27.8 pg (25.0-35.0); MCHC 31.3 g/dL (31.0-37.0); MCV 88.6 fL (80.0-100.0); Mean Platelet Volume 9.3; Monocytes # (A) 0.2 k/uL (0-1.0); Monocytes % (A) 4 %; Neutrophils # (A) 3.9 k/uL (1.3-7.7); Neutrophils % (A) 65 %; Platelet Count 238 k/uL (150-450); RBC 4.15 m/uL (4.30-5.90); RDW 15.8 % (11.5-15.5)
[2022-07-03 08:17] LABS: Calcium 8.5 mg/dL (8.4-10.2); Magnesium 2.1 mg/dL (1.6-2.3); Potassium 3.4 mmol/L (3.5-5.1)
[2022-07-03] MEDS: FUROSEMIDE 10 MG/ML 4 ML VIAL IV SCH (08:48)
[2022-07-03] MEDS: SPIRONOLACTONE 25 MG TAB PO SCH (08:49)
[2022-07-03] MEDS: CLOPIDOGREL 75 MG TAB PO SCH (08:49)
[2022-07-03] MEDS: TAMSULOSIN 0.4 MG CAP.ER.24H PO SCH (08:49)
[2022-07-03] MEDS: FUROSEMIDE 10 MG/ML 2 ML VIAL IV SCH ×2 (08:49→21:19)
[2022-07-03] MEDS: ASPIRIN 81 MG PO SCH (08:49)
[2022-07-03] MEDS: VENLAFAXINE HCL ER 37.5 MG CAP PO SCH (08:50)
[2022-07-03] MEDS: SACUBITRIL/VALSARTAN 24 MG-26 MG TABLET PO SCH ×2 (08:50→21:19)
[2022-07-03] MEDS ORDERED: POTASSIUM CHLORIDE ER 20 MEQ TAB.ER PO STA (10:24)
[2022-07-03 11:21] LABS: Glucose,Whole Blood 97 mg/dL (70-110)
--- NOTE | 2022-07-03 11:47 | P.PN ---
Subjective Progress Note Date: 07/03/22 HISTORY OF PRESENT ILLNESS: This is an 86-year-old male patient of Dr. Watson with a past medical history significant for prostate cancer with metastatic disease, nonobstructive coronary artery disease, nonischemic cardiomyopathy, congestive heart failure, hypertension, and hyperlipidemia. We have been asked to see the patient for heart failure. Patient states that he came into the hospital due to weakness, palpitations and shortness of breath. He denies any weight increase and denies any lower extremity edema. He states that it been going on for couple of days and his called the office and he was told to come in. He also had nausea and cough with sputum production. Patient complains of chest pain or pressure type pain. In the emergency center, patient was started on IV Lasix and he states he has been urinating well. Patient was last seen in the office on 06/26/2022 and at that time had concerns for fatigue and tired all the time occasional chest tightness with shortness of breath with activity along with phlegm production at nighttime * EKG reveals sinus mechanism with left bundle branch block * Chest xray mild CHF * Laboratory data: WBC 8.3, hemoglobin 12.1, platelet count 238. INR 1.1. D- dimer 0.76. Potassium 4.4, sodium 141, chloride 109, CO2 21, BUN 23 creatinin e 1.02. Liver function tests are normal. Magnesium 2.3. Troponins are 0.058, 0.146, 0.625, 1.99. ProBNP 8600. * Current home cardiac medications include aspirin 81 mg daily, Lipitor 40 mg daily, Coreg 3.125 mg twice daily, Entresto 2426 milligrams twice daily, Aldactone 25 mg daily * Most recent echocardiogram obtained in March 2022 revealed ejection fraction less than 20%, mild to moderate mitral regurgitation, small pericardial effusion. Mild aortic regurgitation. * Cardiac catheterization history: Relatively normal coronary arteries with mild luminal irregularities. Low to normal left-sided filling pressures. Low to normal CO/CI. 07/02 Patient states he had sudden onset of shortness of breath and a half hour ago while at rest. He states he felt it was hard to take a deep breath. He denies chest pain. Echocardiogram reveals EF of 1520 percent. D-dimer 0.76. 07/03 The patient has been continued on heparin drip. He underwent a V/Q scan yesterday which was low probability for pulmonary embolism. Patient states his breathing is better today. He does not currently have chest pain but has had it intermittently. We ordered a repeat troponin which came back at 2.52. Po tassium 3.4 today, hemoglobin 11.5, BUN 27 creatinine 1.19. Limited echocardiogram reveals severe LV systolic dysfunction with EF of 15-20% related to prior extensive myocardial infarction in the LAD distribution. PHYSICAL EXAM: VITAL SIGNS: Reviewed. GENERAL: Well-developed in no acute distress. HEENT: Head is normocephalic. Pupils are equal, round. Sclerae anicteric. Mucous membranes of the mouth are moist. Neck supple. No JVD or thyromegaly LUNGS: Crackles bilateral bases. HEART: Regular rate and rhythm. S1 and S2 heard. Systolic murmur noted ABDOMEN: Soft. Nondistended. Nontender. EXTREMITIES: Normal range of motion. No clubbing or cyanosis. No lower extremity edema NEUROLOGIC: Awake and alert. Oriented x 3. ASSESSMENT: Non-ST elevated myocardial infarction Acute on chronic systolic heart failure Nonischemic cardiomyopathy Mild coronary artery disease 30-40% Hypertension Hyperlipidemia Prostate cancer in remission PLAN: Resume home cardiac medications Continue Lasix but decrease dose to 20 mg IV every 12 hours, monitor I&O and daily weights, electrolytes and renal function Discontinue heparin drip and start patient on Plavix 75 mg daily, continue aspirin, atorvastatin, beta manan, Entresto. Further recommendations pending patient's course Nurse practitioner note has been reviewed by physician. Signing provider agrees with the documented findings, assessment, and plan of care. Objective - Vital Signs Vital signs: Vital Signs Temp 98.1 F 07/03/22 03:16 Pulse 71 07/03/22 03:16 Resp 18 07/03/22 03:16 BP 94/56 07/03/22 03:16 Pulse Ox 91 L 07/03/22 03:16 FiO2 Intake & Output 07/02/22 07/03/22 07/03/22 18:59 06:59 18:59 Intake Total 534.769 480 200 Output Total 800 300 Balance -265.231 180 200 Weight 67.7 kg Intake: Intake, IV Titration 176.769 Amount Heparin Sod,Pork in 0.45% 176.769 NaCl 25,000 unit In 0.45 % NaCl 1 250ml.bag @ 12 UNITS/KG/HR 8.382 mls/hr IV .Q24H [facility] Rx#: [id number] Oral 358 480 200 Output: Urine 800 300 Other: Voiding Method Indwelling Catheter Indwelling Catheter - Labs CBC & Chem 7: 07/03/22 07:09 07/03/22 07:09 Labs: Abnormal Lab Results - Last 24 Hours (Table) 07/02/22 07/02/22 07/02/22 Range/Units 09:02 09:02 09:02 RBC 4.21 L (4.30-5.90) m/uL Hgb 12.1 L (13.0-17.5) gm/dL Hct 37.4 L (39.0-53.0) % RDW 15.8 H (11.5-15.5) % APTT 45.2 H (22.0-30.0) sec BUN 28 H (9-20) mg/dL Creatinine 1.31 H (0.66-1.25) mg/dL Glucose 149 H (74-99) mg/dL POC Glucose (mg/dL) (70-110) mg/dL 07/02/22 07/03/22 07/03/22 Range/Units 20:16 07:09 07:09 RBC 4.15 L (4.30-5.90) m/uL Hgb 11.5 L (13.0-17.5) gm/dL Hct 36.8 L (39.0-53.0) % RDW 15.8 H (11.5-15.5) % APTT 46.8 H (22.0-30.0) sec BUN (9-20) mg/dL Creatinine (0.66-1.25) mg/dL Glucose (74-99) mg/dL POC Glucose (mg/dL) 346 H (70-110) mg/dL
[2022-07-03] MEDS ORDERED: guaiFENesin 600 MG TABLET.ER PO PRN (14:06)
[2022-07-03 16:19] LABS: Glucose,Whole Blood 104 mg/dL (70-110)
--- NOTE | 2022-07-03 17:14 | P.PN ---
Subjective Progress Note Date: 07/03/22 (delayed charting seen at 1030) Patient is an 86-year-old male with a history of nonischemic cardiomyopathy with an ejection fraction of less than 20% status post AICD, diabetes, hypertension, and 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 Patient was recently hospitalized approximately one month ago and treated for an acute exacerbation of congestive heart failure, he underwent a heart cath on June 12 which showed nonobstructive coronary artery disease with recommendations to maximize medical therapy. On arrival to the ER he underwent an extensive evaluation. He was tachycardic on initial vital signs with a heart rate of 121 and blood pressure was elevated at 153/91. Initial laboratory analysis was remarkable for hemoglobin of 12.6, chloride 109, carbon dioxide 21, BUN 23, glucose 189, and troponin 0.058. His BNP was elevated at 8600. Arrangements are made for admission for acute exacerbation of systolic congestive heart failure with non-ST segment elevated myocardial infarction possibly related to CHF. He was started on Lasix. Cardiology was consulted. His echo showed EF 15- 20% Patient seen and examined at bedside. His breathing is doing better, feeling tired today, no chest pressure. Vital signs reviewed General: nontoxic, no distress, appears at stated age Cardiovascular: S1S2 reg, no murmur, positive posterior tibial pulse bilateral, Lungs: Decreased bs bilateral bases , no accessory muscle use Abdominal: soft, nontender to palpation, no guarding, no appreciable organomegaly Ext: no gross muscle atrophy, no edema, no contractures Neuro: CN II-XI grossly intact, no focal neuro deficits Psych: Alert, oriented, appropriate affect Assessment: Acute exacerbation of systolic congestive heart failure, ejection fraction 15- 20% status post AICD Patient has an elevated d-dimer however when corrected for age is less than anticipated. His anticipated d-dimer would be 0.84.VQ scan was low probability of PE Non-ST segment elevated myocardial infarction Diabetes mellitus type 2 with hyperglycemia, A1c 7.7 in 05/04 Hypertension CKD stage III, creatinine at baseline Imaging: VQ scan - low probability of pulmonary embolixm Data Review: Vital signs reviewed temperature 96.9, pulse 66, blood pressure 85/51, O2 sat 97% on room air. Labs reviewed remarkable for hemoglobin 11.5 (12.1 yesterday), potassium 3.4, BUN 27, creatinine 1.19, blood sugars 104, troponin 2.52 Plan: -Cardiology note reviewed. Decrease Lasix to 20 mg every 12 hour. Start Plavix 75 mg daily -Potassium 20 mEq by mouth 1 now -Coreg 3.125 mg twice daily, and entresto, Aldactone 25 mg daily -Aspirin 81 mg daily, Lipitor 40 mg daily -Sliding-scale insulin. Restart Jardiance, hold other oral DM medications. -given IV diuretics will recheck CBC, BMP, and magnesium in a.m. This dictation was prepared using [employer] voice recognition software. Though every attempt is made to correct errors during during dictation some may still exist. Objective - Vital Signs Vital signs: Vital Signs Temp 96.9 F L 07/03/22 08:00 Pulse 72 07/03/22 14:00 Resp 18 07/03/22 14:00 BP 96/60 07/03/22 12:00 Pulse Ox 96 07/03/22 12:00 FiO2 Intake & Output 07/02/22 07/03/22 07/03/22 18:59 06:59 18:59 Intake Total 534.769 480 420 Output Total 800 300 Balance -265.231 180 420 Weight 67.7 kg Intake: Intake, IV Titration 176.769 Amount Heparin Sod,Pork in 0.45% 176.769 NaCl 25,000 unit In 0.45 % NaCl 1 250ml.bag @ 12 UNITS/KG/HR 8.382 mls/hr IV .Q24H [facility] Rx#: [id number] Oral 358 480 420 Output: Urine 800 300 Other: Voiding Method Indwelling Catheter Indwelling Catheter Indwelling Catheter - Labs CBC & Chem 7: 07/03/22 07:09 07/03/22 07:09 Labs: Abnormal Lab Results - Last 24 Hours (Table) 07/02/22 07/03/22 07/03/22 Range/Units 20:16 07:09 07:09 RBC (4.30-5.90) m/uL Hgb (13.0-17.5) gm/dL Hct (39.0-53.0) % RDW (11.5-15.5) % APTT 46.8 H (22.0-30.0) sec Potassium 3.4 L (3.5-5.1) mmol/L BUN 27 H (9-20) mg/dL POC Glucose (mg/dL) 346 H (70-110) mg/dL Troponin I (0.000-0.034) ng/mL 07/03/22 07/03/22 Range/Units 07:09 07:09 RBC 4.15 L (4.30-5.90) m/uL Hgb 11.5 L (13.0-17.5) gm/dL Hct 36.8 L (39.0-53.0) % RDW 15.8 H (11.5-15.5) % APTT (22.0-30.0) sec Potassium (3.5-5.1) mmol/L BUN (9-20) mg/dL POC Glucose (mg/dL) (70-110) mg/dL Troponin I 2.520 H* (0.000-0.034) ng/mL
[2022-07-03 20:06] LABS: Glucose,Whole Blood 138 mg/dL (70-110)
[2022-07-03] MEDS: ATORVASTATIN 40 MG TAB PO SCH (21:19)
[2022-07-04 06:07] LABS: Glucose,Whole Blood 109 mg/dL (70-110)
[2022-07-04] MEDS: INSULIN ASPART (NovoLOG) 100 UNIT/ML VIAL SQ SCH ×4 (06:19→20:37)
[2022-07-04] MEDS: carvediloL 3.125 MG TAB PO SCH ×2 (06:20→17:32)
[2022-07-04] MEDS: TAMSULOSIN 0.4 MG CAP.ER.24H PO SCH (09:13)
[2022-07-04] MEDS: DAPAGLIFLOZIN PROPANEDIOL 5 MG TABLET PO SCH (09:13)
[2022-07-04] MEDS: VENLAFAXINE HCL ER 37.5 MG CAP PO SCH (09:13)
[2022-07-04] MEDS: CLOPIDOGREL 75 MG TAB PO SCH (09:13)
[2022-07-04] MEDS: SPIRONOLACTONE 25 MG TAB PO SCH (09:13)
[2022-07-04] MEDS: ASPIRIN 81 MG PO SCH (09:13)
[2022-07-04] MEDS: SACUBITRIL/VALSARTAN 24 MG-26 MG TABLET PO SCH ×2 (09:13→20:37)
[2022-07-04] MEDS: FUROSEMIDE 10 MG/ML 2 ML VIAL IV SCH ×2 (09:14→20:37)
--- NOTE | 2022-07-04 11:07 | P.PN ---
Subjective Progress Note Date: 07/04/22 HISTORY OF PRESENT ILLNESS: This is an 86-year-old male patient of Dr. Watson with a past medical history significant for prostate cancer with metastatic disease, nonobstructive coronary artery disease, nonischemic cardiomyopathy, congestive heart failure, hypertension, and hyperlipidemia. We have been asked to see the patient for heart failure. Patient states that he came into the hospital due to weakness, palpitations and shortness of breath. He denies any weight increase and denies any lower extremity edema. He states that it been going on for couple of days and his called the office and he was told to come in. He also had nausea and cough with sputum production. Patient complains of chest pain or pressure type pain. In the emergency center, patient was started on IV Lasix and he states he has been urinating well. Patient was last seen in the office on 06/26/2022 and at that time had concerns for fatigue and tired all the time occasional chest tightness with shortness of breath with activity along with phlegm production at nighttime * EKG reveals sinus mechanism with left bundle branch block * Chest xray mild CHF * Laboratory data: WBC 8.3, hemoglobin 12.1, platelet count 238. INR 1.1. D- dimer 0.76. Potassium 4.4, sodium 141, chloride 109, CO2 21, BUN 23 creatinin e 1.02. Liver function tests are normal. Magnesium 2.3. Troponins are 0.058, 0.146, 0.625, 1.99. ProBNP 8600. * Current home cardiac medications include aspirin 81 mg daily, Lipitor 40 mg daily, Coreg 3.125 mg twice daily, Entresto 2426 milligrams twice daily, Aldactone 25 mg daily * Most recent echocardiogram obtained in March 2022 revealed ejection fraction less than 20%, mild to moderate mitral regurgitation, small pericardial effusion. Mild aortic regurgitation. * Cardiac catheterization history: Relatively normal coronary arteries with mild luminal irregularities. Low to normal left-sided filling pressures. Low to normal CO/CI. 07/02 Patient states he had sudden onset of shortness of breath and a half hour ago while at rest. He states he felt it was hard to take a deep breath. He denies chest pain. Echocardiogram reveals EF of 1520 percent. D-dimer 0.76. 07/03 The patient has been continued on heparin drip. He underwent a V/Q scan yesterday which was low probability for pulmonary embolism. Patient states his breathing is better today. He does not currently have chest pain but has had it intermittently. We ordered a repeat troponin which came back at 2.52. Po tassium 3.4 today, hemoglobin 11.5, BUN 27 creatinine 1.19. Limited echocardiogram reveals severe LV systolic dysfunction with EF of 15-20% related to prior extensive myocardial infarction in the LAD distribution. 07/04 Patient denies having any chest pain, he does have orthopnea. In general he is more comfortable. He states his anxiety is less today. He is currently on IV Lasix 20 mg every 12 hours. He has been started on Plavix during this hospitalization regarding the elevated troponins. Heparin drip was discontinued yesterday as he was on it for greater than 48 hours and VQ scan was negative. Blood pressure is soft at 89/60, heart rate in the 60s and 70s. PHYSICAL EXAM: VITAL SIGNS: Reviewed. GENERAL: Well-developed in no acute distress. HEENT: Head is normocephalic. Pupils are equal, round. Sclerae anicteric. Mucous membranes of the mouth are moist. Neck supple. No JVD or thyromegaly LUNGS: Crackles right base. HEART: Regular rate and rhythm. S1 and S2 heard. Systolic murmur noted ABDOMEN: Soft. Nondistended. Nontender. EXTREMITIES: Normal range of motion. No clubbing or cyanosis. No lower extremity edema NEUROLOGIC: Awake and alert. Oriented x 3. ASSESSMENT: Non-ST elevated myocardial infarction Acute on chronic systolic heart failure Nonischemic cardiomyopathy Mild coronary artery disease 30-40% Hypertension Hyperlipidemia Prostate cancer in remission PLAN: Resume home cardiac medications Continue Lasix but decrease dose to 20 mg IV every 12 hours for another 24 hours, monitor I&O and daily weights, electrolytes and renal function Continue patient on Plavix 75 mg daily, continue aspirin, atorvastatin, beta manan, Entresto. Anticipate discharge tomorrow Further recommendations pending patient's course Nurse practitioner note has been reviewed by physician. Signing provider agrees with the documented findings, assessment, and plan of care. Objective - Vital Signs Vital signs: Vital Signs Temp 98.1 F 07/04/22 03:16 Pulse 67 07/04/22 03:16 Resp 18 07/04/22 03:16 BP 93/55 07/04/22 03:16 Pulse Ox 94 L 07/04/22 03:16 FiO2 Intake & Output 07/03/22 07/04/22 07/04/22 18:59 06:59 18:59 Intake Total 550 310 Output Total 400 Balance 550 -90 Weight 67.9 kg Intake: Oral 550 310 Output: Urine 400 Other: Voiding Method Indwelling Catheter Indwelling Catheter - Labs CBC & Chem 7: 07/03/22 07:09 07/03/22 07:09 Labs: Abnormal Lab Results - Last 24 Hours (Table) 07/03/22 07/03/22 07/03/22 Range/Units 07:09 07:09 07:09 RBC 4.15 L (4.30-5.90) m/uL Hgb 11.5 L (13.0-17.5) gm/dL Hct 36.8 L (39.0-53.0) % RDW 15.8 H (11.5-15.5) % APTT 46.8 H (22.0-30.0) sec Potassium 3.4 L (3.5-5.1) mmol/L BUN 27 H (9-20) mg/dL POC Glucose (mg/dL) (70-110) mg/dL Troponin I (0.000-0.034) ng/mL 07/03/22 07/03/22 Range/Units 07:09 20:02 RBC (4.30-5.90) m/uL Hgb (13.0-17.5) gm/dL Hct (39.0-53.0) % RDW (11.5-15.5) % APTT (22.0-30.0) sec Potassium (3.5-5.1) mmol/L BUN (9-20) mg/dL POC Glucose (mg/dL) 138 H (70-110) mg/dL Troponin I 2.520 H* (0.000-0.034) ng/mL
[2022-07-04 11:50] LABS: Glucose,Whole Blood 102 mg/dL (70-110)
--- NOTE | 2022-07-04 13:05 | P.PN ---
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 Patient was recently hospitalized approximately one month ago and treated for an acute exacerbation of congestive heart failure, he underwent a heart cath on June 12 which showed nonobstructive coronary artery disease with recommendations to maximize medical therapy. On arrival to the ER he underwent an extensive evaluation. He was tachycardic on initial vital signs with a heart rate of 121 and blood pressure was elevated at 153/91. Initial laboratory analysis was remarkable for hemoglobin of 12.6, chloride 109, carbon dioxide 21, BUN 23, glucose 189, and troponin 0.058. His BNP was elevated at 8600. Arrangements are made for admission for acute exacerbation of systolic congestive heart failure with non-ST segment elevated myocardial infarction possibly related to CHF. He was started on Lasix. Cardiology was consulted. His echo showed EF 15- 20% Patient seen and examined at bedside. His breathing is doing better, no chest pressure. Denies any significant Vital signs reviewed General: nontoxic, no distress, appears at stated age Cardiovascular: S1S2 reg, no murmur, positive posterior tibial pulse bilateral, Lungs: Decreased bs bilateral bases , no accessory muscle use Abdominal: soft, nontender to palpation, no guarding, no appreciable organomegaly Ext: no gross muscle atrophy, no edema, no contractures Neuro: CN II-XI grossly intact, no focal neuro deficits Psych: Alert, oriented, appropriate affect Assessment: Acute exacerbation of systolic congestive heart failure, ejection fraction 15- 20% status post AICD Non-ST segment elevated myocardial infarction Diabetes mellitus type 2 with hyperglycemia, A1c 7.7 in 05/04 Hypertension CKD stage III, creatinine at baseline Imaging: No new imaging today Data Review: Glucose range between 97-138 Plan: -Cardiology note reviewed. Continue Lasix 20 mg every 12 hours, possible discharge tomorrow -Coreg 3.125 mg twice daily, and entresto, Aldactone 25 mg daily -Aspirin 81 mg daily, Lipitor 40 mg daily -Sliding-scale insulin. on , hold other oral DM medications. -given IV diuretics will recheck BMP, and magnesium in a.m. DVT prophylaxis, subcu heparin Discharge likely home tomorrow Objective - Vital Signs Vital signs: Vital Signs Temp 97.7 F 07/04/22 08:00 Pulse 71 07/04/22 08:00 Resp 18 07/04/22 08:00 BP 89/60 07/04/22 08:00 Pulse Ox 95 07/04/22 08:00 FiO2 Intake & Output 07/03/22 07/04/22 07/04/22 18:59 06:59 18:59 Intake Total 550 310 Output Total 400 Balance 550 -90 Weight 67.9 kg Intake: Oral 550 310 Output: Urine 400 Other: Voiding Method Indwelling Catheter Indwelling Catheter Indwelling Catheter - Labs CBC & Chem 7: 07/03/22 07:09 07/03/22 07:09 Labs: Abnormal Lab Results - Last 24 Hours (Table) 07/03/22 Range/Units 20:02 POC Glucose (mg/dL) 138 H (70-110) mg/dL
[2022-07-04 16:44] LABS: Glucose,Whole Blood 119 mg/dL (70-110)
[2022-07-04] MEDS: ATORVASTATIN 40 MG TAB PO SCH (20:37)
[2022-07-04 20:49] LABS: Glucose,Whole Blood 112 mg/dL (70-110)
[2022-07-05 06:15] LABS: Glucose,Whole Blood 103 mg/dL (70-110)
[2022-07-05] MEDS: INSULIN ASPART (NovoLOG) 100 UNIT/ML VIAL SQ SCH ×2 (06:15→12:08)
[2022-07-05] MEDS: carvediloL 3.125 MG TAB PO SCH (06:37)
[2022-07-05] MEDS: DAPAGLIFLOZIN PROPANEDIOL 5 MG TABLET PO SCH (08:01)
[2022-07-05] MEDS: SPIRONOLACTONE 25 MG TAB PO SCH (08:01)
[2022-07-05] MEDS: ASPIRIN 81 MG PO SCH (08:01)
[2022-07-05] MEDS: SACUBITRIL/VALSARTAN 24 MG-26 MG TABLET PO SCH (08:02)
[2022-07-05] MEDS: CLOPIDOGREL 75 MG TAB PO SCH (08:02)
[2022-07-05] MEDS: VENLAFAXINE HCL ER 37.5 MG CAP PO SCH (08:02)
[2022-07-05] MEDS: TAMSULOSIN 0.4 MG CAP.ER.24H PO SCH (08:02)
[2022-07-05] MEDS: FUROSEMIDE 10 MG/ML 2 ML VIAL IV SCH (08:02)
[2022-07-05 08:41] LABS: Basophils % (A) 0 %; Eosinophils # (A) 0.2 k/uL (0-0.7); Eosinophils % (A) 4 %; HCT 38.7 % (39.0-53.0); HGB 11.7 gm/dL (13.0-17.5); Hypochromasia Slight; Lymphocytes # (A) 1.1 k/uL (1.0-4.8); Lymphocytes % (A) 22 %; MCH 26.9 pg (25.0-35.0); MCHC 30.2 g/dL (31.0-37.0); MCV 89.1 fL (80.0-100.0); Mean Platelet Volume 9.4; Monocytes # (A) 0.2 k/uL (0-1.0); Monocytes % (A) 4 %; Neutrophils # (A) 3.5 k/uL (1.3-7.7); Neutrophils % (A) 68 %; Platelet Count 243 k/uL (150-450); RBC 4.34 m/uL (4.30-5.90); RDW 15.7 % (11.5-15.5); WBC 5.1 k/uL (3.8-10.6)
[2022-07-05 08:54] LABS: Calcium 8.1 mg/dL (8.4-10.2); Magnesium 2.2 mg/dL (1.6-2.3); Potassium 3.9 mmol/L (3.5-5.1)
[2022-07-05 11:54] LABS: Glucose,Whole Blood 112 mg/dL (70-110)
--- NOTE | 2022-07-05 12:06 | P.PN ---
Subjective Progress Note Date: 07/05/22 HISTORY OF PRESENT ILLNESS: This is an 86-year-old male patient of Dr. Watson with a past medical history significant for prostate cancer with metastatic disease, nonobstructive coronary artery disease, nonischemic cardiomyopathy, congestive heart failure, hypertension, and hyperlipidemia. We have been asked to see the patient for heart failure. Patient states that he came into the hospital due to weakness, palpitations and shortness of breath. He denies any weight increase and denies any lower extremity edema. He states that it been going on for couple of days and his called the office and he was told to come in. He also had nausea and cough with sputum production. Patient complains of chest pain or pressure type pain. In the emergency center, patient was started on IV Lasix and he states he has been urinating well. Patient was last seen in the office on 06/26/2022 and at that time had concerns for fatigue and tired all the time occasional chest tightness with shortness of breath with activity along with phlegm production at nighttime * EKG reveals sinus mechanism with left bundle branch block * Chest xray mild CHF * Laboratory data: WBC 8.3, hemoglobin 12.1, platelet count 238. INR 1.1. D- dimer 0.76. Potassium 4.4, sodium 141, chloride 109, CO2 21, BUN 23 creatinin e 1.02. Liver function tests are normal. Magnesium 2.3. Troponins are 0.058, 0.146, 0.625, 1.99. ProBNP 8600. * Current home cardiac medications include aspirin 81 mg daily, Lipitor 40 mg daily, Coreg 3.125 mg twice daily, Entresto 2426 milligrams twice daily, Aldactone 25 mg daily * Most recent echocardiogram obtained in March 2022 revealed ejection fraction less than 20%, mild to moderate mitral regurgitation, small pericardial effusion. Mild aortic regurgitation. * Cardiac catheterization history: Relatively normal coronary arteries with mild luminal irregularities. Low to normal left-sided filling pressures. Low to normal CO/CI. 07/02 Patient states he had sudden onset of shortness of breath and a half hour ago while at rest. He states he felt it was hard to take a deep breath. He denies chest pain. Echocardiogram reveals EF of 1520 percent. D-dimer 0.76. 07/03 The patient has been continued on heparin drip. He underwent a V/Q scan yesterday which was low probability for pulmonary embolism. Patient states his breathing is better today. He does not currently have chest pain but has had it intermittently. We ordered a repeat troponin which came back at 2.52. Po tassium 3.4 today, hemoglobin 11.5, BUN 27 creatinine 1.19. Limited echocardiogram reveals severe LV systolic dysfunction with EF of 15-20% related to prior extensive myocardial infarction in the LAD distribution. 07/04 Patient denies having any chest pain, he does have orthopnea. In general he is more comfortable. He states his anxiety is less today. He is currently on IV Lasix 20 mg every 12 hours. He has been started on Plavix during this hospitalization regarding the elevated troponins. Heparin drip was discontinued yesterday as he was on it for greater than 48 hours and VQ scan was negative. Blood pressure is soft at 89/60, heart rate in the 60s and 70s. 07/05 Patient is seen today in follow-up. He denies any chest pain. He also states his breathing seems to be stable. We were planning for discharge home today. HR 60-70s, BP 98/63. HGB 11.7. K 3.9, BUN 26, Cr 1.32. PHYSICAL EXAM: VITAL SIGNS: Reviewed. GENERAL: Well-developed in no acute distress. HEENT: Head is normocephalic. Pupils are equal, round. Sclerae anicteric. Mucous membranes of the mouth are moist. LUNGS: Crackles right base. HEART: Regular rate and rhythm. S1 and S2 heard. Systolic murmur noted ABDOMEN: Soft. Nondistended. Nontender. EXTREMITIES: Normal range of motion. No clubbing or cyanosis. No lower extremity edema NEUROLOGIC: Awake and alert. Oriented x 3. ASSESSMENT: Non-ST elevated myocardial infarction Acute on chronic systolic heart failure Nonischemic cardiomyopathy Mild coronary artery disease 30-40% Hypertension Hyperlipidemia Prostate cancer in remission PLAN: Resume home cardiac medications Continue Lasix transition to oral, monitor I&O and daily weights, electrolytes and renal function Continue patient on Plavix 75 mg daily, continue aspirin, atorvastatin, beta bl ocker, Entresto. Patient is cleared for discharge and may follow up with Dr. Watson in one week. Nurse practitioner note has been reviewed by physician. Signing provider agrees with the documented findings, assessment, and plan of care. Objective - Vital Signs Vital signs: Vital Signs Temp 97.5 F L 07/05/22 08:00 Pulse 66 07/05/22 08:00 Resp 18 07/05/22 08:00 BP 98/63 07/05/22 08:00 Pulse Ox 96 07/05/22 08:00 FiO2 Intake & Output 07/04/22 07/05/22 07/05/22 18:59 06:59 18:59 Intake Total 118 250 240 Output Total 200 550 125 Balance -82 -300 115 Weight 66.9 kg Intake: Oral 118 250 240 Output: Urine 200 550 125 Other: Voiding Method Indwelling Catheter Indwelling Catheter Urinal # Voids 1 - Labs CBC & Chem 7: 07/05/22 08:14 07/05/22 08:14 Labs: Abnormal Lab Results - Last 24 Hours (Table) 07/04/22 07/04/22 07/05/22 Range/Units 16:34 20:48 08:14 Hgb (13.0-17.5) gm/dL Hct (39.0-53.0) % MCHC (31.0-37.0) g/dL RDW (11.5-15.5) % BUN 26 H (9-20) mg/dL Creatinine 1.32 H (0.66-1.25) mg/dL Glucose 173 H (74-99) mg/dL POC Glucose (mg/dL) 119 H 112 H (70-110) mg/dL Calcium 8.1 L (8.4-10.2) mg/dL 07/05/22 Range/Units 08:14 Hgb 11.7 L (13.0-17.5) gm/dL Hct 38.7 L (39.0-53.0) % MCHC 30.2 L (31.0-37.0) g/dL RDW 15.7 H (11.5-15.5) % BUN (9-20) mg/dL Creatinine (0.66-1.25) mg/dL Glucose (74-99) mg/dL POC Glucose (mg/dL) (70-110) mg/dL Calcium (8.4-10.2) mg/dL
--- NOTE | 2022-07-05 12:51 | P.DS ---
Providers Date of admission: 07/03/22 10:32 Expected date of discharge: 07/05/22 Attending physician: Familia Sharp MD Consults: 06/30/22 17:05 Consult Physician Routine Consulting Provider: Gonzalez Unger Consult Reason/Comments: chf Do you want consulting provider notified?: Yes Primary care physician: Chaitanya Gaytan MD Hospital Course: Discharge Diagnosis: Acute exacerbation of systolic congestive heart failure, ejection fraction 15- 20% status post AICD Non-ST segment elevated myocardial infarction Diabetes mellitus type 2 with hyperglycemia, A1c 7.7 in 05/04 Hypertension CKD stage III, creatinine at baseline Hospital Course: Patient is an 86-year-old male with a history of nonischemic cardiomyopathy with an ejection fraction of less than 20% status post AICD, diabetes, hypertension, and 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 Patient was recently hospitalized approximately one month ago and treated for an acute exacerbation of congestive heart failure, he underwent a heart cath on June 12 which showed nonobstructive coronary artery disease with recommendations to maximize medical therapy. On arrival to the ER he underwent an extensive evaluation. He was tachycardic on initial vital signs with a heart rate of 121 and blood pressure was elevated at 153/91. Initial laboratory analysis was remarkable for hemoglobin of 12.6, chloride 109, carbon dioxide 21, BUN 23, glucose 189, and troponin 0.058. His BNP was elevated at 8600. Admitted for acute exacerbation of systolic congestive heart failure with non-ST segment elevated myocardial infarction possibly related to CHF. He was started on IV Lasix. Cardiology was consulted. His echo showed EF 15-20%. Patient also had elevated d-dimer, appropriate for his age, however VQ scan was ordered and completed, showed low probability of acute PE. Troponin peaked at 2.520. Patient denies any active chest pain, currently on room air at the time of discharge. Being discharged on aspirin, Plavix, atorvastatin, and guideline directed medical therapy for heart failure. Also being discharged on oral Lasix. He will follow-up with cardiology outpatient. Glipizide discontinued due to his poor renal function and age. Continue SGLT2 inhibitor. Patient seen and examined at bedside. Vital signs reviewed and stable. General: nontoxic, no distress, appears at stated age Cardiovascular: S1S2 reg, no murmur, positive posterior tibial pulse bilateral, Lungs: Decreased bs bilateral bases , no accessory muscle use Abdominal: soft, nontender to palpation, no guarding, no appreciable organomegaly Ext: no gross muscle atrophy, no edema, no contractures Neuro: CN II-XI grossly intact, no focal neuro deficits Psych: Alert, oriented, appropriate affect A total of 33 minutes of time were spent preparing this complex discharge summary. Patient was discharged on 07/05/22 at 1243. Patient Condition at Discharge: Stable Plan - Discharge Summary Discharge Rx Participant: No New Discharge Prescriptions: New Furosemide [Lasix] 20 mg PO BID@0900,1600 #60 tab Clopidogrel [Plavix] 75 mg PO DAILY #60 tab Continue Tamsulosin [Flomax] 0.4 mg PO DAILY Atorvastatin [Lipitor] 40 mg PO HS #30 tab carvediloL [Coreg] 3.125 mg PO BID-W/MEALS Venlafaxine HCl ER [Effexor XR] 37.5 mg PO DAILY Aspirin 81 mg PO DAILY #30 tab Sacubitril/Valsartan [Entresto 24 mg-26 mg Tablet] 1 tab PO BID Empagliflozin [Jardiance] 10 mg PO DAILY Acetaminophen [Tylenol] 650 mg PO Q4H PRN PRN Reason: Pain Or Fever > 100.5 Spironolactone [Aldactone] 25 mg PO DAILY Latanoprost [Latanoprost 0.005%] 1 drop BOTH EYES DIRECTED Discontinued glipiZIDE [glipiZIDE ER] 2.5 mg PO DAILY Discharge Medication List Tamsulosin [Flomax] 0.4 mg PO DAILY 02/28/16 [History] Aspirin 81 mg PO DAILY #30 tab 03/31/22 [Rx] Atorvastatin [Lipitor] 40 mg PO HS #30 tab 03/31/22 [Rx] Empagliflozin [Jardiance] 10 mg PO DAILY 05/18/22 [History] Sacubitril/Valsartan [Entresto 24 mg-26 mg Tablet] 1 tab PO BID 05/18/22 [History] Venlafaxine HCl ER [Effexor XR] 37.5 mg PO DAILY 06/07/22 [History] carvediloL [Coreg] 3.125 mg PO BID-W/MEALS 06/07/22 [History] Acetaminophen [Tylenol] 650 mg PO Q4H PRN 06/12/22 [History] Latanoprost [Latanoprost 0.005%] 1 drop BOTH EYES DIRECTED 06/30/22 [History] Spironolactone [Aldactone] 25 mg PO DAILY 06/30/22 [History] Clopidogrel [Plavix] 75 mg PO DAILY #60 tab 07/05/22 [Rx] Furosemide [Lasix] 20 mg PO BID@0900,1600 #60 tab 07/05/22 [Rx] Follow up Appointment(s)/Referral(s): Ang Watson DO [STAFF PHYSICIAN] - 1 Week Chaitanya Gaytan MD [Primary Care Provider] - 1-2 days Patient Instructions/Handouts: Heart Failure (DC) Activity/Diet/Wound Care/Special Instructions: Please see cardiology and PCP. Discharge Disposition: HOME SELF-CARE
[2022-07-05 13:08] VITALS: BP 109/75; PULSE 76; RESP 16; TEMP 97.7
[2022-07-05] MEDS ORDERED: FUROSEMIDE 20 MG TAB PO SCH (16:00)
== END 2022-07-05 13:54 | disposition home or self-care (01) | DRG 280 ==
LOC: EC 14:12 → 3SCARD 17:05 → OBSVTOIN 07-03 10:32
PROVIDERS: ADMIT Internal Medicine; ATTEND Internal Medicine
DX: I21.4 Non-ST elevation (NSTEMI) myocardial infarction (principal); I50.23 Acute on chronic systolic (congestive) heart failure; I13.0 Hypertensive heart and chronic kidney disease with heart failure and stage 1 through stage 4 chronic kidney disease, or unspecified chronic kidney disease; C79.51 Secondary malignant neoplasm of bone; C78.7 Secondary malignant neoplasm of liver and intrahepatic bile duct; I31.39 Other pericardial effusion (noninflammatory); I42.8 Other cardiomyopathies; I25.110 Atherosclerotic heart disease of native coronary artery with unstable angina pectoris; E11.22 Type 2 diabetes mellitus with diabetic chronic kidney disease; E78.5 Hyperlipidemia, unspecified; F41.9 Anxiety disorder, unspecified; E11.65 Type 2 diabetes mellitus with hyperglycemia; I08.1 Rheumatic disorders of both mitral and tricuspid valves; I25.2 Old myocardial infarction; I44.7 Left bundle-branch block, unspecified; N18.30 Chronic kidney disease, stage 3 unspecified; M19.90 Unspecified osteoarthritis, unspecified site; Z79.82 Long term (current) use of aspirin; Z79.84 Long term (current) use of oral hypoglycemic drugs; Z79.899 Other long term (current) drug therapy; Z85.46 Personal history of malignant neoplasm of prostate; Z87.891 Personal history of nicotine dependence; Z95.810 Presence of automatic (implantable) cardiac defibrillator; Z98.42 Cataract extraction status, left eye; Z98.41 Cataract extraction status, right eye
CPT/HCPCS: 36415; 71046; 78582; 80048; 80053; 83735; 83880; 84484; 85025; 85379; 85610; 85730; 93005; 93308; 94760; 96365; 96366; 96375; 99291

== ENCOUNTER 2023-04-12 19:32 | Emergency (ER) | payer MEDICARE ==
[2023-04-12 19:57] VITALS: TEMP 97.4
[2023-04-12 21:09] LABS: Basophils % (A) 0 %; Eosinophils # (A) 0.3 k/uL (0-0.7); Eosinophils % (A) 4 %; HCT 33.1 % (39.0-53.0); Hypochromasia Slight; Lymphocytes # (A) 1.2 k/uL (1.0-4.8); Lymphocytes % (A) 19 %; MCH 31.6 pg (25.0-35.0); MCHC 33.4 g/dL (31.0-37.0); MCV 94.6 fL (80.0-100.0); Mean Platelet Volume 9.4; Monocytes # (A) 0.3 k/uL (0-1.0); Monocytes % (A) 5 %; Neutrophils # (A) 4.4 k/uL (1.3-7.7); Neutrophils % (A) 69 %; Platelet Count 206 k/uL (150-450); RBC 3.49 m/uL (4.30-5.90); RDW 14.1 % (11.5-15.5); WBC 6.3 k/uL (3.8-10.6)
[2023-04-12 21:24] LABS: Partial Thromboplastin Time 25.9 sec (22.0-30.0); Prothrombin Time 11.3 sec (10.0-12.5)
[2023-04-12 21:31] LABS: ALT 12 U/L (4-49); AST 28 U/L (17-59); African American GFR (CKD) 50 (>60 ml/min/1.73 sqM); Albumin 3.5 g/dL (3.5-5.0); Alkaline Phosphatase 79 U/L (38-126); Anion Gap 7 mmol/L; Blood Urea Nitrogen 38 mg/dL (9-20); Calcium 9.5 mg/dL (8.4-10.2); Carbon Dioxide 24 mmol/L (22-30); Chloride 114 mmol/L (98-107); Glucose 115 mg/dL (74-99); Magnesium 2.3 mg/dL (1.6-2.3); Non-African American GFR(CKD) 43 (>60 ml/min/1.73 sqM); Potassium 4.4 mmol/L (3.5-5.1); Sodium 145 mmol/L (137-145); Total Bilirubin 0.4 mg/dL (0.2-1.3)
--- NOTE | 2023-04-12 21:44 | XR ---
EXAMINATION TYPE: XR chest 2V DATE OF EXAM: 04/12/2023 COMPARISON: 06/30/2022 INDICATION: Chest pain and shortness of breath TECHNIQUE: Frontal and lateral views of the chest are obtained. FINDINGS: The heart size is enlarged. The pulmonary vasculature is normal. Mild infiltrates at the right base. Correlate for atelectasis and pneumonia. On the lateral projection there is blunting of the posterior costophrenic angle compatible with small pleural effusion IMPRESSION: 1. Cardiomegaly 2. Mild right lower lobe infiltrate. Correlate for atelectasis or pneumonia. 3. Small posterior pleural effusion.
[2023-04-12] MEDS: SODIUM CHLORIDE 0.9% 1,000 ML IV ONE (23:15)
[2023-04-12] MEDS: SODIUM CHLORIDE 0.9% 500 ML 500 ML IV STA (23:15)
--- NOTE | 2023-04-12 23:16 | ED ---
General Adult HPI - General Chief complaint: Chest Pain Stated complaint: SOB Time Seen by Provider: 04/12/23 19:43 Source: patient, EMS Mode of arrival: EMS Limitations: no limitations - History of Present Illness Initial comments: This patient is an 87-year-old man who presents with complaint that he is not feeling well. The patient has been having generalized weakness, he feels some chest pressure and shortness of breath. He has been having vomiting. With all the symptoms started a number of days ago. Patient states that the chest pain is epigastric and he describes it as an indigestion feeling. He has not noted worsening or relieving factors. -: days(s) Location: chest, abdomen Radiation: non-radiation Quality: burning, aching Consistency: constant Improves with: none Worsens with: none Associated Symptoms: nausea/vomiting, shortness of breath Treatments Prior to Arrival: none - Related Data Previous Rx's Medication Instructions Recorded Levofloxacin [Levaquin] 750 mg PO DAILY 1 Days #7 tab 04/13/23 Allergies Allergy/AdvReac Type Severity Reaction Status Date / Time No Known Allergies Allergy Verified 04/15/23 22:10 Review of Systems ROS Statement: Those systems with pertinent positive or pertinent negative responses have been documented in the HPI. ROS Other: All systems not noted in ROS Statement are negative. Constitutional: Denies: fever, chills Respiratory: Reports: dyspnea. Denies: cough Cardiovascular: Reports: chest pain. Denies: palpitations, orthopnea, edema, syncope Gastrointestinal: Reports: abdominal pain, nausea, vomiting. 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, pelvis and liver, chemo completed, History of Any Multi-Drug Resistant Organisms: None Reported Past Surgical History: Cholecystectomy Additional Past Surgical History / Comment(s): CATARACT SURGERY, Past Anesthesia/Blood Transfusion Reactions: No Reported Reaction Additional Past Anesthesia/Blood Transfusion Reaction / Comment(s): NO BLOOD PRODUCTS Past Psychological History: No Psychological Hx Reported Smoking Status: Former smoker Past Alcohol Use History: None Reported Past Drug Use History: None Reported - Past Family History Father Family Medical History: No Reported History General Exam Limitations: no limitations General appearance: alert, in no apparent distress Head exam: Present: atraumatic, normocephalic Eye exam: Present: normal appearance. Absent: scleral icterus, conjunctival injection Neck exam: Present: normal inspection Respiratory exam: Present: normal lung sounds bilaterally. Absent: respiratory distress, wheezes, rales, rhonchi, stridor, accessory muscle use Cardiovascular Exam: Present: regular rate, normal rhythm. Absent: systolic murmur, diastolic murmur, rubs, gallop GI/Abdominal exam: Present: soft, tenderness (Mild epigastric tenderness without rebound or guarding). Absent: distended, guarding, rebound, rigid, mass, pulsatile mass, hernia Extremities exam: Present: normal inspection, normal capillary refill. Absent: pedal edema, calf tenderness Back exam: Present: normal inspection. Absent: CVA tenderness (R), CVA tenderness (L) Neurological exam: Present: alert. Absent: motor sensory deficit Skin exam: Present: warm, dry, intact, normal color. Absent: rash Course Vital Signs 04/12/23 04/12/23 04/12/23 19:41 21:29 23:08 Temperature 97.4 F L Pulse Rate 106 H 89 92 Respiratory 20 18 20 Rate Blood Pressure 139/97 135/88 130/87 O2 Sat by Pulse 99 96 98 Oximetry 04/13/23 01:00 Temperature Pulse Rate 97 Respiratory 20 Rate Blood Pressure 127/88 O2 Sat by Pulse 98 Oximetry EKG Findings - EKG Comments: EKG Findings:: The patient has left bundle-branch block that is present on old ECG. - EKG Results: EKG: interpreted by ERMD, sinus rhythm, normal axis - Blocks, [place], Hypertrophy, ST Abn: AV and intraventricular conduction: left bundle branch block (fixed/intermit tent, complete/incomplete) Medical Decision Making - Medical Decision Making The patient had chest x-ray that I interpreted as showing right lower lobe infiltrate Was pt. sent in by a medical professional or institution (DAVID Natarajan, ENTERPRISE SERVICES MANAGER, urgent care, hospital, or [place] [facility] facility...) When possible be specific @ -[No] Did you speak to anyone other than the patient for history (EMS, parent, family, police, friend...)? What history was obtained from this source @ -[No] Did you review nursing and triage notes (agree or disagree)? Why? @ -[I reviewed and agree with nursing and triage notes] Were old charts reviewed (outside hosp., previous admission, EMS record, old EKG, old radiological studies, urgent care reports/EKG's, [place] [facility] facility records)? Report findings @ -[No old charts were reviewed] Differential Diagnosis (chest pain, altered mental status, abdominal pain women, abdominal pain men, vaginal bleeding, weakness, fever, dyspnea, syncope, headache, dizziness, GI bleed, back pain, seizure, CVA, palpatations, mental health, musculoskeletal)? @ -[Differential Dyspnea: Coronary syndrome, arrhythmia, tamponade, asthma, COPD, pulmonary embolism, pneumonia, pneumothorax, pulmonary effusion, anaphylaxis, diabetic ketoacidosis, flailed chest, pulmonary contusion, diaphragmatic rupture, anemia, neuromuscular, this is not meant to be an all-inclusive list. EKG interpreted by me (3pts min.). @ -[As above] X-rays interpreted by me (1pt min.). @ -[I interpreted as above CT interpreted by me (1pt min.). @ -[None done] U/S interpreted by me (1pt. min.). @ -[None done] What testing was considered but not performed or refused? (CT, X-rays, U/S, labs)? Why? @ -[None] What meds were considered but not given or refused? Why? @ -[None] Did you discuss the management of the patient with other professionals (professionals i.e. , PA, ENTERPRISE SERVICES MANAGER, lab, RT, psych nurse, social insurance specialist, tree topper, teacher, cra officer, mattress spring encaser)? Give summary @ -[No] Was smoking cessation discussed for >3mins.? @ -[No] Was critical care preformed (if so, how long)? @ -[No] Were there social determinants of health that impacted care today? How? (Homelessness, low income, unemployed, alcoholism, drug addiction, transportation, low edu. Level, literacy, decrease access to med. care, skilled nursing, rehab)? @ -[No] Was there de-escalation of care discussed even if they declined (Discuss DNR or withdrawal of care, Hospice)? DNR status @ -[No] What co-morbidities impacted this encounter? (DM, HTN, Smoking, COPD, CAD, Cancer, CVA, ARF, Chemo, Hep., AIDS, mental health diagnosis, sleep apnea, morbid obesity)? @ -[None] Was patient admitted / discharged? Hospital course, mention meds given and route, prescriptions, significant lab abnormalities, going to OR and other pertinent info. @ -[Patient is an 87-year-old man who presents with complaint that he is not feeling well. The x-ray does show suspected right lower lobe infiltrate and patient would like to try course of outpatient antibiotics and follow-up. The remainder patient's labs he does have elevated BNP but this appears stable with his previous value. The chest x-ray does not show congestive heart failure. Discussed appropriate further care and follow-up as well as return parameters. Undiagnosed new problem with uncertain prognosis? @ -[No] Drug Therapy requiring intensive monitoring for toxicity (Heparin, Nitro, Insulin, Cardizem)? @ -[No] Were any procedures done? @ -[No] Diagnosis/symptom? @ -[Acute pneumonia Acute, or Chronic, or Acute on Chronic? @ -[Acute Uncomplicated (without systemic symptoms) or Complicated (systemic symptoms)? @ -[Uncomplicated Side effects of treatment? @ -[No] Exacerbation, Progression, or Severe Exacerbation? @ -[No] Poses a threat to life or bodily function? How? (Chest pain, [place], [place], pneumonia, PE, COPD, DKA, ARF, appy, cholecystitis, CVA, Diverticulitis, Homicidal, Suicidal, threat to staff... and all critical care pts) @ -[No] - Lab Data Result diagrams: 04/12/23 20:37 04/12/23 20:37 Lab Results 04/12/23 04/12/23 04/12/23 Range/Units 20:37 20:37 20:37 WBC 6.3 (3.8-10.6) k/uL RBC 3.49 L (4.30-5.90) m/uL Hgb 11.0 L (13.0-17.5) gm/dL Hct 33.1 L (39.0-53.0) % MCV 94.6 (80.0-100.0) fL MCH 31.6 (25.0-35.0) pg MCHC 33.4 (31.0-37.0) g/dL RDW 14.1 (11.5-15.5) % Plt Count 206 (150-450) k/uL MPV 9.4 Neutrophils % 69 % Lymphocytes % 19 % Monocytes % 5 % Eosinophils % 4 % Basophils % 0 % Neutrophils # 4.4 (1.3-7.7) k/uL Lymphocytes # 1.2 (1.0-4.8) k/uL Monocytes # 0.3 (0-1.0) k/uL Eosinophils # 0.3 (0-0.7) k/uL Basophils # 0.0 (0-0.2) k/uL Hypochromasia Slight PT 11.3 (10.0-12.5) sec INR 1.0 (<1.2) APTT 25.9 (22.0-30.0) sec Sodium 145 (137-145) mmol/L Potassium 4.4 (3.5-5.1) mmol/L Chloride 114 H (98-107) mmol/L Carbon Dioxide 24 (22-30) mmol/L Anion Gap 7 mmol/L BUN 38 H (9-20) mg/dL Creatinine 1.47 H (0.66-1.25) mg/dL Est GFR (CKD-EPI)AfAm 50 (>60 ml/min/1.73 sqM) Est GFR (CKD-EPI)NonAf 43 (>60 ml/min/1.73 sqM) Glucose 115 H (74-99) mg/dL Plasma Lactic Acid Terence (0.7-2.0) mmol/L Calcium 9.5 (8.4-10.2) mg/dL Magnesium 2.3 (1.6-2.3) mg/dL Total Bilirubin 0.4 (0.2-1.3) mg/dL AST 28 (17-59) U/L ALT 12 (4-49) U/L Alkaline Phosphatase 79 (38-126) U/L Troponin I (0.000-0.034) ng/mL NT-Pro-B Natriuret Pep pg/mL Total Protein 6.0 L (6.3-8.2) g/dL Albumin 3.5 (3.5-5.0) g/dL Procalcitonin (0.02-0.09) ng/mL Urine Color Urine Appearance (Clear) Urine pH (5.0-8.0) Ur Specific [place] (1.001-1.035) Urine Protein (Negative) Urine Glucose (UA) (Negative) Urine Ketones (Negative) Urine Blood (Negative) Urine Nitrite (Negative) Urine Bilirubin (Negative) Urine Urobilinogen (<2.0) mg/dL Ur Leukocyte Esterase (Negative) Influenza Type A (PCR) (Not Detectd) Influenza Type B (PCR) (Not Detectd) RSV (PCR) (Not Detectd) SARS-CoV-2 (PCR) (Not Detectd) 04/12/23 04/12/23 04/12/23 Range/Units 20:37 20:37 21:27 WBC (3.8-10.6) k/uL RBC (4.30-5.90) m/uL Hgb (13.0-17.5) gm/dL Hct (39.0-53.0) % MCV (80.0-100.0) fL MCH (25.0-35.0) pg MCHC (31.0-37.0) g/dL RDW (11.5-15.5) % Plt Count (150-450) k/uL MPV Neutrophils % % Lymphocytes % % Monocytes % % Eosinophils % % Basophils % % Neutrophils # (1.3-7.7) k/uL Lymphocytes # (1.0-4.8) k/uL Monocytes # (0-1.0) k/uL Eosinophils # (0-0.7) k/uL Basophils # (0-0.2) k/uL Hypochromasia PT (10.0-12.5) sec INR (<1.2) APTT (22.0-30.0) sec Sodium (137-145) mmol/L Potassium (3.5-5.1) mmol/L Chloride (98-107) mmol/L Carbon Dioxide (22-30) mmol/L Anion Gap mmol/L BUN (9-20) mg/dL Creatinine (0.66-1.25) mg/dL Est GFR (CKD-EPI)AfAm (>60 ml/min/1.73 sqM) Est GFR (CKD-EPI)NonAf (>60 ml/min/1.73 sqM) Glucose (74-99) mg/dL Plasma Lactic Acid Terence (0.7-2.0) mmol/L Calcium (8.4-10.2) mg/dL Magnesium (1.6-2.3) mg/dL Total Bilirubin (0.2-1.3) mg/dL AST (17-59) U/L ALT (4-49) U/L Alkaline Phosphatase (38-126) U/L Troponin I 0.028 (0.000-0.034) ng/mL NT-Pro-B Natriuret Pep pg/mL Total Protein (6.3-8.2) g/dL Albumin (3.5-5.0) g/dL Procalcitonin 0.20 H (0.02-0.09) ng/mL Urine Color Urine Appearance (Clear) Urine pH (5.0-8.0) Ur Specific [place] (1.001-1.035) Urine Protein (Negative) Urine Glucose (UA) (Negative) Urine Ketones (Negative) Urine Blood (Negative) Urine Nitrite (Negative) Urine Bilirubin (Negative) Urine Urobilinogen (<2.0) mg/dL Ur Leukocyte Esterase (Negative) Influenza Type A (PCR) Not Detected (Not Detectd) Influenza Type B (PCR) Not Detected (Not Detectd) RSV (PCR) Not Detected (Not Detectd) SARS-CoV-2 (PCR) Not Detected (Not Detectd) 04/12/23 04/12/23 04/13/23 Range/Units 22:59 22:59 00:25 WBC (3.8-10.6) k/uL RBC (4.30-5.90) m/uL Hgb (13.0-17.5) gm/dL Hct (39.0-53.0) % MCV (80.0-100.0) fL MCH (25.0-35.0) pg MCHC (31.0-37.0) g/dL RDW (11.5-15.5) % Plt Count (150-450) k/uL MPV Neutrophils % % Lymphocytes % % Monocytes % % Eosinophils % % Basophils % % Neutrophils # (1.3-7.7) k/uL Lymphocytes # (1.0-4.8) k/uL Monocytes # (0-1.0) k/uL Eosinophils # (0-0.7) k/uL Basophils # (0-0.2) k/uL Hypochromasia PT (10.0-12.5) sec INR (<1.2) APTT (22.0-30.0) sec Sodium (137-145) mmol/L Potassium (3.5-5.1) mmol/L Chloride (98-107) mmol/L Carbon Dioxide (22-30) mmol/L Anion Gap mmol/L BUN (9-20) mg/dL Creatinine (0.66-1.25) mg/dL Est GFR (CKD-EPI)AfAm (>60 ml/min/1.73 sqM) Est GFR (CKD-EPI)NonAf (>60 ml/min/1.73 sqM) Glucose (74-99) mg/dL Plasma Lactic Acid Te[place] 1.2 (0.7-2.0) mmol/L Calcium (8.4-10.2) mg/dL Magnesium (1.6-2.3) mg/dL Total Bilirubin (0.2-1.3) mg/dL AST (17-59) U/L ALT (4-49) U/L Alkaline Phosphatase (38-126) U/L Troponin I (0.000-0.034) ng/mL NT-Pro-B Natriuret Pep 9480 pg/mL Total Protein (6.3-8.2) g/dL Albumin (3.5-5.0) g/dL Procalcitonin (0.02-0.09) ng/mL Urine Color Yellow Urine Appearance Clear (Clear) Urine pH 6.0 (5.0-8.0) Ur Specific [place] 1.024 (1.001-1.035) Urine Protein Trace H (Negative) Urine Glucose (UA) Negative (Negative) Urine Ketones Negative (Negative) Urine Blood Negative (Negative) Urine Nitrite Negative (Negative) Urine Bilirubin Negative (Negative) Urine Urobilinogen <2.0 (<2.0) mg/dL Ur Leukocyte Esterase Negative (Negative) Influenza Type A (PCR) (Not Detectd) Influenza Type B (PCR) (Not Detectd) RSV (PCR) (Not Detectd) SARS-CoV-2 (PCR) (Not Detectd) Disposition Clinical Impression: Pneumonia Disposition: HOME SELF-CARE Condition: Good Instructions (If sedation given, give patient instructions): Pneumonia (ED) Prescriptions: Levofloxacin [Levaquin] 750 mg PO DAILY 1 Days #7 tab Is patient prescribed a controlled substance at d/c from ED?: No Referrals: Chaitanya Gaytan DO [Primary Care Provider] - 1-2 days
[2023-04-12] MEDS: AZITHROMYCIN 500 MG TAB PO STA (23:19)
[2023-04-12 23:23] VITALS: RESP 20
[2023-04-13] MEDS: SODIUM CHLORIDE 0.9% 1,000 ML IV STA (00:03)
[2023-04-13 00:56] LABS: Appearance,Urine Clear (Clear); Bilirubin,Urine Negative (Negative); Blood,Urine Negative (Negative); Color,Urine Yellow; Glucose,Urine (UA) Negative (Negative); Ketones,Urine Negative (Negative); Leukocyte Esterase,Urine Negative (Negative); Nitrite,Urine Negative (Negative); Protein,Urine Trace (Negative); Specific Gravity,Urine 1.024 (1.001-1.035); Urobilinogen,Urine <2.0 mg/dL (<2.0)
[2023-04-13 01:14] VITALS: BP 127/88; PULSE 97
== END 2023-04-13 01:37 | disposition home or self-care (01) ==
LOC: EC 19:32
DX: J18.9 Pneumonia, unspecified organism (principal); I11.0 Hypertensive heart disease with heart failure; I50.9 Heart failure, unspecified; Z87.891 Personal history of nicotine dependence; Z20.822 Contact with and (suspected) exposure to COVID-19
CPT/HCPCS: 99285 ×2; 96365 ×2; 36415; 93005; 83880; 80053; 83605; 83735; 84484; 85025; 85610; 85730; 81003; 87040; 84145; 87636; 71046; J0696

== ENCOUNTER 2023-04-15 19:47 | Inpatient (IN) | payer MEDICARE ==
[2023-04-15] MEDS ORDERED: NALOXONE 0.4 MG/ML 1 ML VIAL IV PRN (20:12)
[2023-04-15] MEDS ORDERED: ONDANSETRON 4 MG/2 ML VIAL IVP PRN (20:12)
--- NOTE | 2023-04-15 20:24 | ED ---
Recheck HPI - General Chief Complaint: Shortness of Breath Stated Complaint: SOB Time Seen by Provider: 04/15/23 19:57 Source: patient, EMS, RN notes reviewed, old records reviewed Mode of arrival: EMS Limitations: no limitations - History of Present Illness Initial Comments: This is a 87-year-old male to the ER for evaluation. Patient has cough and co ngestion shortness of breath with recent diagnosis of pneumonia. Patient is taking antibiotics as prescribed presents today for evaluation of pneumonia. Worsening shortness of breath and worsening weakness. Patient does have underlying history of prostate cancer with metastasis MD Complaint: abnormal lab (Underlying cancer) -: minutes(s) Returns Today for: Called Because of Abnormal Lab/Test, persistent/worsening pain related to initial visit Symptoms Since Prior Visit: worsening pain Context: planned re-check Associated Symptoms: chills, chest pain, rash, abdominal pain Treatments Prior to Arrival: Given Pain Meds on - Related Data Previous Rx's Medication Instructions Recorded Aspirin 81 mg PO DAILY 30 Days #30 tab 04/21/23 Atorvastatin [Lipitor] 40 mg PO HS 30 Days #30 tab 04/21/23 Bumetanide [BUMEX] 1 mg PO DAILY 30 Days #30 tab 04/21/23 carvediloL [Coreg] 6.25 mg PO BID-W/MEALS 30 Days #60 04/21/23 tab Allergies Allergy/AdvReac Type Severity Reaction Status Date / Time No Known Allergies Allergy Verified 04/15/23 22:10 Review of Systems ROS Statement: Those systems with pertinent positive or pertinent negative responses have been documented in the HPI. ROS Other: All systems not noted in ROS Statement are negative. 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, pelvis and liver, chemo completed, History of Any Multi-Drug Resistant Organisms: None Reported Past Surgical History: Cholecystectomy Additional Past Surgical History / Comment(s): CATARACT SURGERY, Past Anesthesia/Blood Transfusion Reactions: No Reported Reaction Additional Past Anesthesia/Blood Transfusion Reaction / Comment(s): NO BLOOD PRODUCTS Past Psychological History: No Psychological Hx Reported Smoking Status: Former smoker Past Alcohol Use History: None Reported Past Drug Use History: None Reported - Past Family History Father Family Medical History: No Reported History General Exam Limitations: altered mental status, physical limitation General appearance: alert, anxious, in distress Head exam: Present: atraumatic, normocephalic, normal inspection Eye exam: Present: normal appearance, PERRL, EOMI. Absent: scleral icterus, conjunctival injection, periorbital swelling ENT exam: Present: normal exam, mucous membranes moist Neck exam: Present: normal inspection. Absent: tenderness, meningismus, lymphadenopathy Respiratory exam: Present: normal lung sounds bilaterally. Absent: respiratory distress, wheezes, rales, rhonchi, stridor Cardiovascular Exam: Present: normal rhythm, tachycardia, normal heart sounds. Absent: systolic murmur, diastolic murmur, rubs, gallop, clicks GI/Abdominal exam: Present: soft, normal bowel sounds. Absent: distended, tenderness, guarding, rebound, rigid Extremities exam: Present: normal inspection, full ROM, normal capillary refill. Absent: tenderness, pedal edema, joint swelling, calf tenderness Back exam: Present: normal inspection Neurological exam: Present: alert, oriented X3, CN II-XII intact Psychiatric exam: Present: normal affect, normal mood Skin exam: Present: warm, dry, intact, normal color. Absent: rash Course Vital Signs 04/15/23 04/15/23 04/15/23 20:05 21:30 21:45 Temperature 97.9 F Pulse Rate 91 84 88 Pulse Rate [ Pulse Oximetery ] Respiratory 20 Rate Blood Pressure 121/72 Blood Pressure [Right Arm] O2 Sat by Pulse 95 Oximetry 04/15/23 04/16/23 04/16/23 23:44 01:00 01:03 Temperature Pulse Rate 90 107 H 108 H Pulse Rate [ Pulse Oximetery ] Respiratory 18 18 13 Rate Blood Pressure 122/72 136/83 136/83 Blood Pressure [Right Arm] O2 Sat by Pulse 95 100 100 Oximetry 04/16/23 04/16/23 04/16/23 02:00 02:37 04:00 Temperature 97.9 F Pulse Rate 97 107 H 89 Pulse Rate [ Pulse Oximetery ] Respiratory 24 18 21 Rate Blood Pressure 152/94 121/79 121/79 Blood Pressure [Right Arm] O2 Sat by Pulse 97 98 97 Oximetry 04/16/23 04/16/23 04/16/23 06:00 06:47 08:00 Temperature 97.6 F Pulse Rate 86 89 95 Pulse Rate [ Pulse Oximetery ] Respiratory 19 18 16 Rate Blood Pressure 127/73 126/79 126/79 Blood Pressure [Right Arm] O2 Sat by Pulse 97 96 96 Oximetry 04/16/23 04/16/23 04/16/23 09:00 10:00 10:46 Temperature Pulse Rate 96 90 106 H Pulse Rate [ Pulse Oximetery ] Respiratory 18 17 16 Rate Blood Pressure 121/80 121/80 128/84 Blood Pressure [Right Arm] O2 Sat by Pulse 99 98 100 Oximetry 04/16/23 04/16/23 04/16/23 11:34 12:00 14:00 Temperature Pulse Rate 84 Pulse Rate [ Pulse Oximetery ] Respiratory 19 11 L Rate Blood Pressure 125/84 122/75 Blood Pressure [Right Arm] O2 Sat by Pulse 97 96 97 Oximetry 04/16/23 04/16/23 04/16/23 16:39 18:00 21:43 Temperature Pulse Rate 103 H 105 H Pulse Rate [ Pulse Oximetery ] Respiratory 18 16 16 Rate Blood Pressure 136/82 136/82 129/91 Blood Pressure [Right Arm] O2 Sat by Pulse 98 79 L 100 Oximetry 04/16/23 04/17/23 04/17/23 23:43 08:00 10:21 Temperature 98.2 F 97.1 F L Pulse Rate Pulse Rate [ 109 H 93 93 Pulse Oximetery ] Respiratory 18 16 16 Rate Blood Pressure Blood Pressure 115/84 103/64 [Right Arm] O2 Sat by Pulse 100 99 Oximetry 04/17/23 04/17/23 04/17/23 14:00 16:37 19:29 Temperature 98.0 F 97.6 F Pulse Rate 88 94 Pulse Rate [ 85 Pulse Oximetery ] Respiratory 17 16 18 Rate Blood Pressure 116/75 113/80 Blood Pressure 97/66 [Right Arm] O2 Sat by Pulse 100 100 Oximetry - Reevaluation(s) Reevaluation #1: 04/15/23 20:22 Medical records reviewed Reevaluation #2: 04/15/23 20:22 Patient symptoms unchanged Reevaluation #3: 04/15/23 20:22 Patient informed of results and questions answered Reevaluation #4: Was pt. sent in by a medical professional or institution (, PA, SHIPPING AND RECEIVING MATERIAL HANDLER, urgent care, hospital, or jail...) When possible be specific @ -no Did you speak to anyone other than the patient for history (EMS, parent, family, police, friend...)? What history was obtained from this source @ -no Did you review nursing and triage notes (agree or disagree)? Why? @ -agree Are old charts reviewed (outside hosp., previous admission, EMS record, old EKG, old radiological studies, urgent care reports/EKG's, jail records)? Report findings @ -yes Differential Diagnosis (chest pain, altered mental status, abdominal pain women, abdominal pain men, vaginal bleeding, weakness, fever, dyspnea, syncope, headache, dizziness, GI bleed, back pain, seizure, CVA, palpatations, mental health, musculoskeletal)? @ -prior EKG interpreted by me (3pts min.). @ -yes X-rays interpreted by me (1pt min.). @ -yes negative for acute disease CT interpreted by me (1pt min.). @ -no U/S interpreted by me (1pt. min.). @ -no What testing was considered but not performed or refused? (CT, X-rays, U/S, labs)? Why? @ -none What meds were considered but not given or refused? Why? @ -none Did you discuss the management of the patient with other professionals (professionals i.e. , PA, SH[employer]PING [employer] RECEIVING MATERIAL HANDLER, lab, RT, psych nurse, social services designee, atmospheric physicist, teacher, tourist information officer, porter sample case)? Give summary @ -no Was smoking cessation discussed for >3mins.? @ -no Was critical care preformed (if so, how long)? @ -no Were there social determinants of health that impacted care today? How? (Homelessness, low income, unemployed, alcoholism, drug addiction, transportation, low edu. Level, literacy, decrease access to med. care, long-term, rehab)? @ -none Was there de-escalation of care discussed even if they declined (Discuss DNR or withdrawal of care, Hospice)? DNR status @ -no What co-morbidities impacted this encounter? (DM, HTN, Smoking, COPD, CAD, Cancer, CVA, ARF, Chemo, Hep., AIDS, mental health diagnosis, sleep apnea, morbid obesity)? @ -none Was patient admitted / discharged? Hospital course, mention meds given and route, prescriptions, significant lab abnormalities, going to OR and other pertinent info. @ - 87 male with increasing weakness and shortness of breath with failure of outpatient treatment of pneumonia. Patient will be admitted for further evaluation and management Admitted Undiagnosed new problem with uncertain prognosis? @ -no Drug Therapy requiring intensive monitoring for toxicity (Heparin, Nitro, Insuli n, Cardizem)? @ -no Were any procedures done? @ -no Diagnosis/symptom? @ -Weakness and pneumonia Acute, or Chronic, or Acute on Chronic? @ -Acute Uncomplicated (without systemic symptoms) or Complicated (systemic symptoms)? @ -Complicated Side effects of treatment? @ -no Exacerbation, Progression, or Severe Exacerbation? @ -exacerbation Poses a threat to life or bodily function? How? (Chest pain, [place], [place], pneumonia, PE, COPD, DKA, ARF, appy, cholecystitis, CVA, Diverticulitis, Homicidal, Suicidal, threat to staff... and all critical care pts) @ -yes with extremes of age Reevaluation #5: Differential Dyspnea: Coronary syndrome, arrhythmia, tamponade, asthma, COPD, pulmonary embolism, pneumonia, pneumothorax, pulmonary effusion, anaphylaxis, diabetic ketoacidosis, flailed chest, pulmonary contusion, diaphragmatic rupture, anemia, neuromuscular, this is not meant to be an all-inclusive list. - Consultations Consultation #1: Spoke with sound who agrees to admit this patient Medical Decision Making - Medical Decision Making 87 male with increasing weakness and shortness of breath with failure of outpatient treatment of pneumonia. Patient will be admitted for further evaluation and management - Lab Data Result diagrams: 04/20/23 07:31 04/20/23 07:31 - EKG Data -: EKG Interpreted by Me (EKG is sinus 89 IL 149 QRS 189 QTc 449) - Radiology Data Radiology results: report reviewed (chest x-ray is negative for acute disease), image reviewed Disposition Clinical Impression: Chest pain, Weakness, CHF (congestive heart failure), Pneumonia, Nausea and vomiting Disposition: ADMITTED IP TO THIS HOSP Condition: Stable Is patient prescribed a controlled substance at d/c from ED?: No
[2023-04-15] MEDS: methylPREDNISolone SOD SUCCI 125 MG/2 ML VIAL IV STA (20:55)
[2023-04-15] MEDS: SODIUM CHLORIDE 0.9% 1,000 ML IV STA (20:55)
--- NOTE | 2023-04-15 21:13 | XR ---
EXAMINATION TYPE: XR chest 1V portable DATE OF EXAM: 04/15/2023 9:04 PM CLINICAL INDICATION:Male, 87 years old with history of sob; COMPARISON: Chest radiographs from 04/12/2023 TECHNIQUE: XR chest 1V portable Frontal view of the chest. FINDINGS: Lungs/Pleura: Bibasilar atelectasis. No evidence for pneumothorax, pleural effusion or focal consolid ation. Pulmonary vascularity: Pulmonary vascular congestion. Heart/mediastinum: Cardiomediastinal silhouette is enlarged and stable. Musculoskeletal: No acute osseous pathology. Other findings: None IMPRESSION: 1. Left lower lobe airspace opacities with superimposed left pleural effusion. 2. COPD changes.
[2023-04-15 21:26] LABS: Basophils % (A) 0 %; Eosinophils # (A) 0.1 k/uL (0-0.7); Eosinophils % (A) 2 %; HCT 31.7 % (39.0-53.0); HGB 10.4 gm/dL (13.0-17.5); Hypochromasia Slight; Lymphocytes # (A) 1.3 k/uL (1.0-4.8); Lymphocytes % (A) 22 %; MCH 30.8 pg (25.0-35.0); MCHC 32.7 g/dL (31.0-37.0); MCV 94.1 fL (80.0-100.0); Monocytes # (A) 0.4 k/uL (0-1.0); Monocytes % (A) 6 %; Neutrophils # (A) 3.7 k/uL (1.3-7.7); Neutrophils % (A) 66 %; Platelet Count 214 k/uL (150-450); RBC 3.37 m/uL (4.30-5.90); RDW 14.4 % (11.5-15.5); WBC 5.6 k/uL (3.8-10.6)
[2023-04-15] MEDS: IPRATROPIUM-ALBUTEROL 3 ML NEB INHALATION STA (21:30)
[2023-04-15 21:37] LABS: INR 1.1 (<1.2); Partial Thromboplastin Time 26.9 sec (22.0-30.0)
[2023-04-15 21:52] LABS: ALT 14 U/L (4-49); AST 25 U/L (17-59); African American GFR (CKD) 39 (>60 ml/min/1.73 sqM); Albumin 3.3 g/dL (3.5-5.0); Alkaline Phosphatase 77 U/L (38-126); Anion Gap 4 mmol/L; Blood Urea Nitrogen 39 mg/dL (9-20); Calcium 9.4 mg/dL (8.4-10.2); Carbon Dioxide 25 mmol/L (22-30); Chloride 113 mmol/L (98-107); Glucose 143 mg/dL (74-99); Magnesium 2.2 mg/dL (1.6-2.3); Non-African American GFR(CKD) 34 (>60 ml/min/1.73 sqM); Potassium 3.8 mmol/L (3.5-5.1); Sodium 142 mmol/L (137-145); Total Bilirubin 0.4 mg/dL (0.2-1.3); Total Protein 5.7 g/dL (6.3-8.2)
[2023-04-15 21:59] LABS: NT-Pro-B-Type Natriuretic Pept 10400 pg/mL
[2023-04-15] MEDS: SODIUM CHLORIDE 0.9% 1,000 ML IV SCH (23:49)
[2023-04-16] MEDS: FUROSEMIDE 10 MG/ML 4 ML VIAL IV SCH (01:04)
[2023-04-16] MEDS: ACETAMINOPHEN TAB 325 MG TAB PO PRN (01:11)
[2023-04-16 01:29] LABS: Appearance,Urine Clear (Clear); Bilirubin,Urine Negative (Negative); Blood,Urine Negative (Negative); Color,Urine Yellow; Glucose,Urine (UA) Negative (Negative); Ketones,Urine Negative (Negative); Leukocyte Esterase,Urine Negative (Negative); Nitrite,Urine Negative (Negative); Protein,Urine Trace (Negative); Specific Gravity,Urine 1.021 (1.001-1.035); Urobilinogen,Urine <2.0 mg/dL (<2.0)
[2023-04-16] MEDS: MORPHINE SULFATE 4 MG/ML SYRINGE IV PRN (02:34)
--- NOTE | 2023-04-16 03:25 | P.HPIM ---
History of Present Illness H&P Date: 04/15/23 Chief Complaint: Shortness of breath 87-year-old male with left ventricular systolic CHF LVEF 15-20% status post AICD Patient coming into the hospital for worsening shortness of breath he describes feeling short of breath with very mild exertion this has been progressive over the past couple days now he is short of breath even at rest doing nothing denies any chest pain denies any nausea vomiting fevers chills denies any GI bleeding denies any diarrhea or constipation He recently presented to the hospital was diagnosed with pneumonia discharged home with antibiotics. Patient denies any recent upper respiratory infection symptoms denies any recent travel or hospital stay denies any history of blood clots. Patient denies any episodes of chest pain denies any leg swelling denies any fevers or chills Patient denies tobacco smoking illicit drugs or heavy alcohol review of systems Pertinent positives as noted in HPI. All other systems were reviewed and are neg ative on exam Constitutional: No acute distress, conversant Eyes: Anicteric sclerae, moist conjunctiva, Pupils equal round reactive to light ENMT: NC/AT Oropharynx clear, no erythema, or exudates Neck: Supple, no masses, or JVD No carotid bruits No thyromegaly Lungs: Diminished breath sounds at lung bases left worse than right no wheezing Clear to percussion Normal respiratory effort, no accessory muscle use Cardiovascular: Heart regular in rate and rhythm, No murmurs, gallops, or rubs No peripheral edema Abdominal: Soft Nontender, no guarding, rebound or rigidity Abdomen moving with respiration Normoactive bowel sounds Extremities: No digital cyanosis No clubbing Pedal pulses intact and symmetrical Radial pulses intact and symmetrical No calf tenderness Psychiatric: Alert and oriented to person, place and time Appropriate affect fair judgement Neuro Muscles Strength 5/5 in all 4 extremities Sensation to light touch grossly present throughout Cranial nerves II-XII grossly intact 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, pelvis and liver, chemo completed, History of Any Multi-Drug Resistant Organisms: None Reported Past Surgical History: Cholecystectomy Additional Past Surgical History / Comment(s): CATARACT SURGERY, Past Anesthesia/Blood Transfusion Reactions: No Reported Reaction Additional Past Anesthesia/Blood Transfusion Reaction / Comment(s): NO BLOOD PRODUCTS Past Psychological History: No Psychological Hx Reported Smoking Status: Former smoker Past Alcohol Use History: None Reported Past Drug Use History: None Reported - Past Family History Father Family Medical History: No Reported History Medications and Allergies Home Medications Medication Instructions Recorded Confirmed Type Levofloxacin [Levaquin] 750 mg PO DAILY 1 Days #7 tab 04/13/23 04/15/23 Rx Allergies Allergy/AdvReac Type Severity Reaction Status Date / Time No Known Allergies Allergy Verified 04/15/23 22:10 Physical Exam Vitals: Vital Signs Temp Pulse Resp BP Pulse Ox 04/15/23 23:44 90 18 122/72 95 04/15/23 21:45 88 04/15/23 21:30 84 04/15/23 20:05 97.9 F 91 20 121/72 95 Intake and Output 04/15/23 04/15/23 04/16/23 14:59 22:59 06:59 Other: Weight 63.503 kg Results CBC & Chem 7: 04/15/23 20:40 04/15/23 20:40 Labs: Abnormal Lab Results - Last 24 Hours (Table) 04/15/23 04/15/23 04/15/23 Range/Units 20:40 20:40 20:40 RBC 3.37 L (4.30-5.90) m/uL Hgb 10.4 L (13.0-17.5) gm/dL Hct 31.7 L (39.0-53.0) % Chloride 113 H (98-107) mmol/L BUN 39 H (9-20) mg/dL Creatinine 1.80 H (0.66-1.25) mg/dL Glucose 143 H (74-99) mg/dL Plasma Lactic Acid Terence 2.9 H* (0.7-2.0) mmol/L Troponin I (0.000-0.034) ng/mL Total Protein 5.7 L (6.3-8.2) g/dL Albumin 3.3 L (3.5-5.0) g/dL 04/15/23 Range/Units 20:40 RBC (4.30-5.90) m/uL Hgb (13.0-17.5) gm/dL Hct (39.0-53.0) % Chloride (98-107) mmol/L BUN (9-20) mg/dL Creatinine (0.66-1.25) mg/dL Glucose (74-99) mg/dL Plasma Lactic Acid Terence (0.7-2.0) mmol/L Troponin I 0.037 H* (0.000-0.034) ng/mL Total Protein (6.3-8.2) g/dL Albumin (3.5-5.0) g/dL Assessment and Plan Assessment: 87-year-old male with systolic CHF left ventricular ejection fraction 15-20% diabetes mellitus CKD , patient coming in due to worsening shortness of breath over the past couple days no associated fever or chills no chest pain I discussed case with ED doctor and accepted the admission for suspected acute sy stolic CHF exacerbation with anticipated length of stay more than 2 midnights Acute CHF exacerbation with pulmonary vascular congestion and worsening left pleural effusion Recent diagnosis of pneumonia patient continues to oral antibiotics levofloxacin 750 mg p.o. daily IV diuresis with Lasix 40 mg IV push twice daily Daily weight Strict I's and O's Resume home cardiac meds Coreg 3.125 mg twice daily., Continue atorvastatin 40 mg p.o. nightly Hold Aldactone Hold Entresto Cardiology evaluation Initial troponin slightly elevated 0.035 however patient does have chronically elevated troponins will await for follow-up repeat BNP elevated 10 400 Chronic conditions Chronic anemia stable denies any GI bleeding hemoglobin 10.4 Continue to monitor Diabetes mellitus insulin sliding scale Hypertension continue with Coreg, currently Aldactone and Entresto are on hold secondary to EMILY on CKD Acute kidney injury on CKD 3 Renal function worsening currently BUN 39 creatinine 1.8 Avoid nephrotoxic meds Hold lisinopril Aldactone Monitor renal function and urine output Full code DVT prophylaxis heparin subcu 3 times daily
[2023-04-16] MEDS ORDERED: DEXTROSE 50% SYRINGE 50 ML IVP PRN ×2 (03:26)
[2023-04-16 03:45] LABS: Glucose,Whole Blood 187 mg/dL (70-110)
[2023-04-16 08:02] LABS: Glucose,Whole Blood 169 mg/dL (70-110)
[2023-04-16] MEDS: HEPARIN SODIUM,PORCINE 5,000 UNIT/ML 1 ML VIAL SQ SCH (08:13)
[2023-04-16] MEDS: carvediloL 3.125 MG TAB PO SCH (08:14)
[2023-04-16] MEDS: LEVOFLOXACIN 750 MG TAB PO SCH (08:14)
[2023-04-16] MEDS: INSULIN ASPART (NovoLOG) 100 UNIT/ML VIAL SQ SCH (08:26)
[2023-04-16 12:20] LABS: Glucose,Whole Blood 135 mg/dL (70-110)
--- NOTE | 2023-04-16 13:58 | P.PN ---
Subjective Progress Note Date: 04/16/23 Hospital Course: 87-year-old male with history of systolic CHF, EF 15 to 20%, type 2 diabetes, hypertension, CKD 3 presenting with progressive shortness of breath. In the ED, patient vital signs within normal limits. Hemoglobin 10.4, creatinine 1.8, lactate 2.9, troponin 0.037, proBNP 10,000. Urinalysis negative. Chest x-ray shows left pleural effusion, bibasilar opacities. EKG shows left bundle branch block. Patient admitted for CHF exacerbation. Cardiology consulted. Subjective: Patient seen and examined at bedside. No acute events overnight. Pertinent positives and negatives as discussed above, a complete review of systems was performed and all other systems are negative. Vitals Signs Reviewed. General: Nontoxic, no distress, appears at stated age, very thin appearing Derm: Warm, dry Head: Atraumatic, normocephalic, symmetric Eyes: EOMI, no lid lag, anicteric sclera Mouth: No lip lesion, mucus membranes moist Cardiovascular: S1S2 reg, no murmur Lungs: Bibasilar rales, no accessory muscle use, supplemental oxygen Abdominal: Soft, nontender to palpation, no guarding, no appreciable organomegaly Ext: No gross muscle atrophy, no edema, no contractures Neuro: CN II-XI grossly intact, no focal neuro deficits Psych: Alert, oriented, appropriate affect Data Reviewed Today: Pertinent Labs: Blood sugars range between 1 35-1 43 Imaging: No new imaging Assessment and Plan: Active: Systolic CHF exacerbation NSTEMI, likely nonischemic Lactic acidosis Recent pneumonia Acute kidney injury superimposed on CKD 3 Hypertension Hyperlipidemia Continue Coreg 3.125 twice daily, hold Aldactone and NAE/ARB Continue Lasix 40 twice daily IV, monitor for electrolytes and renal function Cardiology consulted, pending recommendations Trend troponin, repeat lactate pending Continue atorvastatin 40 Does have left basilar opacity, concerning for pneumonia, continue oral le vofloxacin which patient has been getting outpatient, 750 every 48 hours Type 2 diabetes Continue sliding scale insulin, monitor for hypoglycemia Chronic: Chronic anemia DVT ppx: Subcu heparin Code status: Full code Anticipated discharge place: Pending clinical course Anticipated discharge time: Pending clinical course Objective - Vital Signs Vital signs: Vital Signs Temp 97.6 F 04/16/23 06:47 Pulse 106 H 04/16/23 10:46 Resp 16 04/16/23 10:46 BP 128/84 04/16/23 10:46 Pulse Ox 97 04/16/23 11:34 FiO2 Intake & Output 04/15/23 04/16/23 04/16/23 18:59 06:59 18:59 Weight 63.503 kg - Labs CBC & Chem 7: 04/15/23 20:40 04/15/23 20:40 Labs: Abnormal Lab Results - Last 24 Hours (Table) 04/15/23 04/15/23 04/15/23 Range/Units 20:40 20:40 20:40 RBC 3.37 L (4.30-5.90) m/uL Hgb 10.4 L (13.0-17.5) gm/dL Hct 31.7 L (39.0-53.0) % Chloride 113 H (98-107) mmol/L BUN 39 H (9-20) mg/dL Creatinine 1.80 H (0.66-1.25) mg/dL Glucose 143 H (74-99) mg/dL POC Glucose (mg/dL) (70-110) mg/dL Plasma Lactic Acid Terence 2.9 H* (0.7-2.0) mmol/L Troponin I (0.000-0.034) ng/mL Total Protein 5.7 L (6.3-8.2) g/dL Albumin 3.3 L (3.5-5.0) g/dL Urine Protein (Negative) 04/15/23 04/16/23 04/16/23 Range/Units 20:40 01:20 03:43 RBC (4.30-5.90) m/uL Hgb (13.0-17.5) gm/dL Hct (39.0-53.0) % Chloride (98-107) mmol/L BUN (9-20) mg/dL Creatinine (0.66-1.25) mg/dL Glucose (74-99) mg/dL POC Glucose (mg/dL) 187 H (70-110) mg/dL Plasma Lactic Acid Terence (0.7-2.0) mmol/L Troponin I 0.037 H* (0.000-0.034) ng/mL Total Protein (6.3-8.2) g/dL Albumin (3.5-5.0) g/dL Urine Protein Trace H (Negative) 04/16/23 04/16/23 Range/Units 08:01 12:18 RBC (4.30-5.90) m/uL Hgb (13.0-17.5) gm/dL Hct (39.0-53.0) % Chloride (98-107) mmol/L BUN (9-20) mg/dL Creatinine (0.66-1.25) mg/dL Glucose (74-99) mg/dL POC Glucose (mg/dL) 169 H 135 H (70-110) mg/dL Plasma Lactic Acid Terence (0.7-2.0) mmol/L Troponin I (0.000-0.034) ng/mL Total Protein (6.3-8.2) g/dL Albumin (3.5-5.0) g/dL Urine Protein (Negative)
[2023-04-16 14:16] LABS: Basophils % (A) 0 %; Eosinophils % (A) 0 %; HCT 35.6 % (39.0-53.0); HGB 11.3 gm/dL (13.0-17.5); Hypochromasia Slight; Lymphocytes # (A) 0.6 k/uL (1.0-4.8); Lymphocytes % (A) 9 %; MCH 30.2 pg (25.0-35.0); MCHC 31.7 g/dL (31.0-37.0); MCV 95.4 fL (80.0-100.0); Mean Platelet Volume 9.3; Monocytes # (A) 0.1 k/uL (0-1.0); Monocytes % (A) 1 %; Neutrophils # (A) 5.8 k/uL (1.3-7.7); Neutrophils % (A) 89 %; Platelet Count 245 k/uL (150-450); RBC 3.73 m/uL (4.30-5.90); RDW 14.1 % (11.5-15.5); WBC 6.5 k/uL (3.8-10.6)
[2023-04-16 14:36] LABS: ALT 15 U/L (4-49); AST 27 U/L (17-59); African American GFR (CKD) 36 (>60 ml/min/1.73 sqM); Alkaline Phosphatase 85 U/L (38-126); Anion Gap 10 mmol/L; Blood Urea Nitrogen 39 mg/dL (9-20); Calcium 9.8 mg/dL (8.4-10.2); Carbon Dioxide 23 mmol/L (22-30); Chloride 111 mmol/L (98-107); Glucose 128 mg/dL (74-99); Magnesium 2.2 mg/dL (1.6-2.3); Non-African American GFR(CKD) 31 (>60 ml/min/1.73 sqM); Phosphorus 4.1 mg/dL (2.5-4.5); Potassium 4.2 mmol/L (3.5-5.1); Sodium 144 mmol/L (137-145); Total Bilirubin 0.6 mg/dL (0.2-1.3); Total Protein 6.6 g/dL (6.3-8.2)
[2023-04-16 16:38] LABS: Glucose,Whole Blood 137 mg/dL (70-110)
--- NOTE | 2023-04-16 19:23 | P.CONS ---
History of Present Illness - Reason for Consult Consult date: 04/16/23 prostate cancer Requesting physician: Kavon Shelby - Chief Complaint SOB - History of Present Illness The patient is an 87-year-old male with a significant history of prostate cancer. He is a patient of Dr. Alvarez. The patient had initially presented in the fall of 2014, with abdominal pain and elevated liver enzymes. He was seen by gastroenterology and had imaging studies done which revealed multiple liver masses. He had a liver biopsy in 11/26 which showed metastatic prostate cancer. The patient was seen in consultation at that time and was found to have widespread disease with lung nodules, liver metastasis, and bone metastasis. He was started on Lupron, and also received 6 cycles of Taxotere upfront. Overall he tolerated chemotherapy reasonably well and had a very good remission by PSA and imaging studies. He continued on Lupron and Xgeva, with no evidence of progression, but was lost to follow up in 05/2022, last receiving Lupron and Xgeva in April 2022. PSA on 05/29/22 was 0.640. The patient presented to the hospital c/o SOB and being recently diagnosed with pneumonia. Pt reports he has been having progressing cough and SOB over the last couple weeks. Patient also reports fatigue and weakness that has been ongoing for some time. Viral panel on 04/12/23 was negative. Upon admission CXR showed LLL airspace opacities with superimposed left pleural effusion and COPD changes. CBC revealed WBC 5.6, hemoglobin 10.4, MCV 94.1, platelets 214,000. Creatinine 1.8, GFR 34. Troponin mildly elevated at 0.37. BNP 10,400. Lasix started. Lac tic acid 2.9. LFTs and bilirubin WNL. UA negative for acute infection. Pt afebrile, SPO2 98% on 2L. Review of Systems 10 point ROS is negative except as stated in the HPI 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, pelvis and liver, chemo completed, History of Any Multi-Drug Resistant Organisms: None Reported Past Surgical History: Cholecystectomy Additional Past Surgical History / Comment(s): CATARACT SURGERY, Past Anesthesia/Blood Transfusion Reactions: No Reported Reaction Additional Past Anesthesia/Blood Transfusion Reaction / Comm: NO BLOOD PRODUCTS Past Psychological History: No Psychological Hx Reported Smoking Status: Former smoker Past Alcohol Use History: None Reported Past Drug Use History: None Reported - Past Family History Father Family Medical History: No Reported History Medications and Allergies Home Medications Medication Instructions Recorded Confirmed Type Levofloxacin [Levaquin] 750 mg PO DAILY 1 Days #7 tab 04/13/23 04/15/23 Rx Allergies Allergy/AdvReac Type Severity Reaction Status Date / Time No Known Allergies Allergy Verified 04/15/23 22:10 Physical Exam Vitals: Vital Signs Temp Pulse Resp BP Pulse Ox 04/16/23 11:34 97 04/16/23 10:46 106 H 16 128/84 100 04/16/23 09:00 96 18 121/80 99 04/16/23 06:47 97.6 F 89 18 126/79 96 04/16/23 02:37 97.9 F 107 H 18 121/79 98 04/16/23 01:00 107 H 18 136/83 100 04/15/23 23:44 90 18 122/72 95 04/15/23 21:45 88 04/15/23 21:30 84 04/15/23 20:05 97.9 F 91 20 121/72 95 Intake and Output 04/15/23 04/16/23 04/16/23 22:59 06:59 14:59 Other: Weight 63.503 kg - Constitutional General appearance: average body habitus, no acute distress - EENT Eyes: anicteric sclerae, EOMI ENT: hearing grossly normal - Respiratory Respiratory: bilateral: diminished - Cardiovascular Rhythm: regular Heart sounds: normal: S1, S2 - Gastrointestinal General gastrointestinal: soft, no tenderness - Integumentary Integumentary: no cyanotic - Musculoskeletal Musculoskeletal: generalized weakness - Psychiatric Psychiatric: A&O x's 3 Results CBC & Chem 7: 04/16/23 13:54 04/16/23 13:54 Labs: Abnormal Lab Results - Last 24 Hours (Table) 04/15/23 04/15/23 04/15/23 Range/Units 20:40 20:40 20:40 RBC 3.37 L (4.30-5.90) m/uL Hgb 10.4 L (13.0-17.5) gm/dL Hct 31.7 L (39.0-53.0) % Chloride 113 H (98-107) mmol/L BUN 39 H (9-20) mg/dL Creatinine 1.80 H (0.66-1.25) mg/dL Glucose 143 H (74-99) mg/dL POC Glucose (mg/dL) (70-110) mg/dL Plasma Lactic Acid Terence 2.9 H* (0.7-2.0) mmol/L Troponin I (0.000-0.034) ng/mL Total Protein 5.7 L (6.3-8.2) g/dL Albumin 3.3 L (3.5-5.0) g/dL Urine Protein (Negative) 04/15/23 04/16/23 04/16/23 Range/Units 20:40 01:20 03:43 RBC (4.30-5.90) m/uL Hgb (13.0-17.5) gm/dL Hct (39.0-53.0) % Chloride (98-107) mmol/L BUN (9-20) mg/dL Creatinine (0.66-1.25) mg/dL Glucose (74-99) mg/dL POC Glucose (mg/dL) 187 H (70-110) mg/dL Plasma Lactic Acid Terence (0.7-2.0) mmol/L Troponin I 0.037 H* (0.000-0.034) ng/mL Total Protein (6.3-8.2) g/dL Albumin (3.5-5.0) g/dL Urine Protein Trace H (Negative) 04/16/23 04/16/23 Range/Units 08:01 12:18 RBC (4.30-5.90) m/uL Hgb (13.0-17.5) gm/dL Hct (39.0-53.0) % Chloride (98-107) mmol/L BUN (9-20) mg/dL Creatinine (0.66-1.25) mg/dL Glucose (74-99) mg/dL POC Glucose (mg/dL) 169 H 135 H (70-110) mg/dL Plasma Lactic Acid Terence (0.7-2.0) mmol/L Troponin I (0.000-0.034) ng/mL Total Protein (6.3-8.2) g/dL Albumin (3.5-5.0) g/dL Urine Protein (Negative) Chest x-ray: report reviewed Assessment and Plan (1) CHF (congestive heart failure) Current Visit: Yes Status: Acute Priority: High Code(s): I50.9 - HEART FAILURE, UNSPECIFIED SNOMED Code(s): 38998655 (2) Prostate cancer metastatic to bone Current Visit: Yes Status: Chronic Priority: Medium Code(s): C61 - M ALIGNANT NEOPLASM OF PROSTATE; C79.51 - SECONDARY MALIGNANT NEOPLASM OF BONE SNOMED Code(s): 58348272 Plan: CHF: Presented with progressing SOB and cough and being recently diagnosed with pneumonia. -Viral panel on 04/12/23 was negative. Upon admission CXR showed LLL airspace opacities with superimposed left pleural effusion and COPD changes. CBC revealed WBC 5.6, hemoglobin 10.4. Troponin mildly elevated at 0.37. BNP 10,400. IV Lasix started. Pt afebrile, SPO2 98% on 2L -Defer management to cardiology and IM team Metastatic prostate cancer: -Patient continued on Lupron and Xgeva, with no evidence of progression, but was lost to follow up in 05/2022, last receiving Lupron and Xgeva in April 2022. PSA on 05/29/22 was 0.640. Patient states he has been unable to f/u due to repeat admissions and feeling too weak and fatigued. -Will repeat PSA -Clinic f/u will be scheduled upon discharge to reestablish care and will plan to restart Lupron and Xgeva. Pt agreeable with plan
[2023-04-16 20:44] LABS: Glucose,Whole Blood 136 mg/dL (70-110)
[2023-04-16] MEDS: ATORVASTATIN 40 MG TAB PO SCH (21:38)
--- NOTE | 2023-04-17 04:50 | CT ---
EXAM: CT Head Without Intravenous Contrast CLINICAL HISTORY: ITS.REASON CT Reason: confusion TECHNIQUE: Axial computed tomography images of the head/brain without intravenous contrast. CTDI is 49.2 mGy and DLP is 1212.4 mGy-cm. This CT exam was performed using one or more of the following dose reduction techniques: automated exposure control, adjustment of the mA and/or kV according to patient size, and/or use of iterative reconstruction technique. COMPARISON: No relevant prior studies available. FINDINGS: Brain: No hemorrhage, herniation, or mass effect. Chronic microvascular ischemic changes. Ventricles: No hydrocephalus. Age related cerebral volume loss. Bones/joints: Unremarkable. Soft tissues: Unremarkable. Sinuses: No air fluid levels. Mastoid air cells: Clear. IMPRESSION: No acute hemorrhage, hydrocephalus, or mass effect.
[2023-04-17 07:30] LABS: Basophils % (A) 0 %; Eosinophils # (A) 0.1 k/uL (0-0.7); Eosinophils % (A) 1 %; HCT 34.2 % (39.0-53.0); HGB 10.9 gm/dL (13.0-17.5); Hypochromasia Slight; Lymphocytes # (A) 0.9 k/uL (1.0-4.8); Lymphocytes % (A) 7 %; MCH 30.4 pg (25.0-35.0); MCV 95.1 fL (80.0-100.0); Mean Platelet Volume 9.3; Monocytes # (A) 0.6 k/uL (0-1.0); Monocytes % (A) 4 %; Neutrophils # (A) 11.4 k/uL (1.3-7.7); Neutrophils % (A) 87 %; Platelet Count 256 k/uL (150-450); RDW 14.3 % (11.5-15.5); WBC 13.1 k/uL (3.8-10.6)
[2023-04-17 08:07] LABS: ALT 16 U/L (4-49); AST 40 U/L (17-59); African American GFR (CKD) 33 (>60 ml/min/1.73 sqM); Albumin 3.5 g/dL (3.5-5.0); Alkaline Phosphatase 76 U/L (38-126); Anion Gap 10 mmol/L; Blood Urea Nitrogen 52 mg/dL (9-20); Calcium 9.7 mg/dL (8.4-10.2); Carbon Dioxide 20 mmol/L (22-30); Chloride 113 mmol/L (98-107); Glucose 111 mg/dL (74-99); Non-African American GFR(CKD) 29 (>60 ml/min/1.73 sqM); Potassium 4.4 mmol/L (3.5-5.1); Sodium 143 mmol/L (137-145); Total Bilirubin 0.5 mg/dL (0.2-1.3)
[2023-04-17] MEDS: ASPIRIN 81 MG PO SCH (10:13)
[2023-04-17] MEDS: carvediloL 6.25 MG TAB PO SCH (10:14)
--- NOTE | 2023-04-17 11:44 | P.CRDCN ---
History of Present Illness History of present illness: HISTORY OF PRESENT ILLNESS: This is a 87-year-old male with a past medical history significant for hypertension, prostate cancer with metastasis, nonischemic cardiomyopathy, congestive heart failure, and former nicotine dependence. Patient follows in the office with Dr. Watson. We have been asked to see the patient in consultation for congestive heart failure. Patient examined at the bedside in the emergency room. Patient presented to the hospital for worsening shortness of breath. Patient is receiving antibiotics for recent outpatient diagnosis of pneumonia. Patient was also found to be in acute congestive heart failure. He was started on IV Lasix 40 mg every 12 hours. He denies any chest pain or pressure. Vital signs are stable. DIAGNOSTICS: - EKG reveals sinus mechanism with left bundle branch block. - Chest xray left lower lobe airspace opacities with superimposed left pleural effusion. COPD changes.. - Laboratory data: WBC 13.1. Hemoglobin 10.9. Platelet count 256. Sodium 144. Potassium 4.2. BUN 39. Creatinine 1.93. Lactic acid 2.9. Troponin 0.037. 0.035. 0.040. 0.064. proBNP 10,400 - Current home cardiac medications include none. - Most recent echocardiogram obtained in June 2022 revealed ejection fraction 15 to 20%, mild MR, mild AR - Cardiac catheterization history: June 2022 revealing relatively normal coronary arteries other than mild luminal irregularities. Low/normal left-sided filling pressures. REVIEW OF SYSTEMS: At the time of my exam: CONSTITUTIONAL: Denies fever or chills. HEENT: Denies blurred vision, vision changes, or eye pain. Denies hemoptysis CARDIOVASCULAR: Denies chest pain. Denies orthopnea. Denies PND. Denies palpitations RESPIRATORY: Denies shortness of breath. GASTROINTESTINAL: Denies abdominal pain. Denies nausea or vomiting. HEMATOLOGIC: Denies bleeding disorders. GENITOURINARY: Denies any blood in urine. SKIN: Denies pruitis. Denies rash. PHYSICAL EXAM: VITAL SIGNS: Reviewed. GENERAL: Well-developed in no acute distress. HEENT: Head is normocephalic. Pupils are equal, round. Sclerae anicteric. Mucous membranes of the mouth are moist. Neck supple. No JVD or thyromegaly LUNGS: Respirations even and unlabored. Lungs essentially clear to auscultation bilaterally. HEART: Regular rate and rhythm. S1 and S2 heard. Systolic murmur noted. ABDOMEN: Soft. Nondistended. Nontender. EXTREMITIES: Normal range of motion. No clubbing or cyanosis. Peripheral pulses intact. Trace bilateral lower extremity edema NEUROLOGIC: Awake and alert. ASSESSMENT: Shortness of breath Recent outpatient diagnosis of pneumonia Acute on chronic heart failure with reduced EF, 15 to 20% Elevated troponins, no evidence of acute coronary syndrome, likely secondary to above, type II IN Acute on chronic kidney disease Nonischemic cardiomyopathy Relatively normal coronary arteries with mild luminal irregularities, per cardiac catheterization June 2022 Hypertension Hyperlipidemia Diabetes History of prostate cancer with metastasis Prolonged QT PLAN: Obtain 2D echo to assess cardiac structure and function Patient has been started on aspirin, Lipitor, and carvedilol Increase carvedilol to 6.25 mg twice a day Continue IV Lasix 40 mg every 12 hours Daily weights, accurate intake and output, and monitoring of kidney function Recommend modification of antibiotic therapy due to prolonged QT per Dr. Cruz. Will defer to internal medicine Further recommendations pending patient course Nurse practitioner note has been reviewed by physician. Signing provider agrees with the documented findings, assessment, and plan of care documented by [employer] MA[employer]GER as a scribe. 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, pelvis and liver, chemo completed, History of Any Multi-Drug Resistant Organisms: None Reported Past Surgical History: Cholecystectomy Additional Past Surgical History / Comment(s): CATARACT SURGERY, Past Anesthesia/Blood Transfusion Reactions: No Reported Reaction Additional Past Anesthesia/Blood Transfusion Reaction / Comment(s): NO BLOOD PRODUCTS Past Psychological History: No Psychological Hx Reported Smoking Status: Former smoker Past Alcohol Use History: None Reported Past Drug Use History: None Reported - Past Family History Father Family Medical History: No Reported History Medications and Allergies Home Medications Medication Instructions Recorded Confirmed Type Levofloxacin [Levaquin] 750 mg PO DAILY 1 Days #7 tab 04/13/23 04/15/23 Rx Allergies Allergy/AdvReac Type Severity Reaction Status Date / Time No Known Allergies Allergy Verified 04/15/23 22:10 Physical Exam Vitals: Vital Signs Temp Pulse Pulse Resp BP BP Pulse Ox 04/16/23 23:43 98.2 F 109 H 18 115/84 100 04/16/23 21:43 105 H 16 129/91 100 04/16/23 18:00 16 136/82 79 L 04/16/23 16:39 103 H 18 136/82 98 04/16/23 14:00 11 L 122/75 97 04/16/23 12:00 84 19 125/84 96 04/16/23 11:34 97 04/16/23 10:46 106 H 16 128/84 100 04/16/23 10:00 90 17 121/80 98 04/16/23 09:00 96 18 121/80 99 04/16/23 08:00 95 16 126/79 96 Intake and Output 04/16/23 04/17/23 04/17/23 22:59 06:59 14:59 Intake Total 474 Output Total 800 400 Balance -326 -400 Intake: Oral 474 Output: Urine 800 400 Results 04/17/23 06:59 04/17/23 06:59 Cardiac Enzymes 04/16/23 04/16/23 04/16/23 Range/Units 13:54 13:54 17:43 AST 27 (17-59) U/L Troponin I 0.035 H* 0.040 H* (0.000-0.034) ng/mL 04/16/23 Range/Units 20:55 AST (17-59) U/L Troponin I 0.064 H* (0.000-0.034) ng/mL CBC 04/16/23 04/17/23 Range/Units 13:54 06:59 WBC 6.5 13.1 H (3.8-10.6) k/uL RBC 3.73 L 3.60 L (4.30-5.90) m/uL Hgb 11.3 L 10.9 L (13.0-17.5) gm/dL Hct 35.6 L 34.2 L (39.0-53.0) % Plt Count 245 256 (150-450) k/uL Comprehensive Metabolic Panel 04/16/23 Range/Units 13:54 Sodium 144 (137-145) mmol/L Potassium 4.2 (3.5-5.1) mmol/L Chloride 111 H (98-107) mmol/L Carbon Dioxide 23 (22-30) mmol/L BUN 39 H (9-20) mg/dL Creatinine 1.93 H (0.66-1.25) mg/dL Glucose 128 H (74-99) mg/dL Calcium 9.8 (8.4-10.2) mg/dL AST 27 (17-59) U/L ALT 15 (4-49) U/L Alkaline Phosphatase 85 (38-126) U/L Total Protein 6.6 (6.3-8.2) g/dL Albumin 4.0 (3.5-5.0) g/dL Current Medications Generic Name Dose Route Start Last Admin Trade Name Freq PRN Reason Stop Dose Admin Acetaminophen 650 mg 04/15/23 20:12 04/16/23 01:11 Acetaminophen Tab 325 Mg Tab PO 650 mg Q6HR PRN Administration Mild Pain or Fever > 100.5 Aspirin 81 mg 04/17/23 09:00 Aspirin 81 Mg PO DAILY [facility] Atorvastatin Calcium 40 mg 04/16/23 21:00 04/16/23 21:38 Atorvastatin 40 Mg Tab PO 40 mg HS LUIS A Administration Carvedilol 3.125 mg 04/16/23 07:30 04/17/23 06:27 Carvedilol 3.125 Mg Tab PO Not Given BID-W/MEALS [facility] Dextrose/Water 25 ml 04/16/23 03:26 Dextrose 50% Syringe 50 Ml IVP PER PROTOCOL PRN Hypoglycemia Protocol Dextrose/Water 50 ml 04/16/23 03:26 Dextrose 50% Syringe 50 Ml IVP PER PROTOCOL PRN Hypoglycemia Protocol Furosemide 40 mg 04/15/23 23:45 04/16/23 21:38 Furosemide 10 Mg/Ml 4 Ml Vial IV 40 mg Q12HR LUIS A Administration Heparin Sodium (Porcine) 5,000 unit 04/16/23 08:00 04/16/23 23:40 Heparin Sodium,Porcine 5,000 Unit/Ml 1 Ml Vial SQ 5,000 unit Q8HR [facility] Administration Insulin Aspart 0 unit 04/16/23 07:30 04/17/23 06:27 Insulin Aspart (Novolog) 100 Unit/Ml Vial SQ Not Given ACHS [facility] Protocol Levofloxacin 750 mg 04/18/23 09:00 Levofloxacin 750 Mg Tab PO Q48H [facility] Protocol Morphine Sulfate 4 mg 04/15/23 20:12 04/16/23 02:34 Morphine Sulfate 4 Mg/Ml Syringe IV 4 mg Q4HR PRN Administration Severe Pain (Scale 7 to 10) Naloxone HCl 0.2 mg 04/15/23 20:12 Naloxone 0.4 Mg/Ml 1 Ml Vial IV Q2M PRN Opioid Reversal Ondansetron HCl 4 mg 04/15/23 20:12 Ondansetron 4 Mg/2 Ml Vial IVP Q8HR PRN Nausea And Vomiting Intake and Output 04/16/23 04/17/23 04/17/23 22:59 06:59 14:59 Intake Total 474 Output Total 800 400 Balance -326 -400 Intake: Oral 474 Output: Urine 800 400 04/17/23 06:59 04/16/23 13:54
--- NOTE | 2023-04-17 12:01 | CA ---
Transthoracic Echo Report Name: Bonilla Glover Age: 87 Gender: M : 1935 Exam Date: 04/17/2023 11:15 Exam Location: [place] [facility] Ht (in): 68 Wt (lb): 140 Ordering Physician: Fernando Pineda MD Attending/Referring Phys: Training Program Assistant Louisa Everett RCS Procedure CPT: Indications: chf Cardiac Hx: Technical Quality: Technically difficult study Contrast 1: Definity Total Dose (mL): 2 Contrast 2: Total Dose (mL): MEASUREMENTS (Male / Female) Normal Values 2D ECHO LV Diastolic Diameter PLAX 6.6 cm 4.2 - 5.9 / 3.9 - 5.3 cm LV Systolic Diameter PLAX 6.8 cm IVS Diastolic Thickness 0.8 cm 0.6 - 1.0 / 0.6 - 0.9 cm LVPW Diastolic Thickness 0.7 cm 0.6 - 1.0 / 0.6 - 0.9 cm LV Relative Wall Thickness 0.2 RV Internal Dim ED PLAX 3.3 cm LVOT Diameter 2.2 cm Aortic Root Diameter 3.3 cm LV Diastolic Volume MOD BP 334.5 cm??? 67 - 155 / 56 - 104 cm??? LV Systolic Volume MOD BP 289.4 cm??? 22 - 58 / 19 - 49 cm??? LV Ejection Fraction MOD BP 13.5 % >= 55 % LV Cardiac Index MOD BP 2225.2 cm???/min???m??? LV Diastolic Volume MOD 4C 348.8 cm??? LV Systolic Volume MOD 4C 305.7 cm??? LV Ejection Fraction MOD 4C 12.3 % LV Cardiac Index MOD 4C 2124.8 cm???/min???m??? LV Diastolic Length 4C 11.2 cm LV Systolic Length 4C 10.5 cm LV Diastolic Volume MOD 2C 315.0 cm??? LV Systolic Volume MOD 2C 266.3 cm??? LV Ejection Fraction MOD 2C 15.5 % LV Cardiac Index MOD 2C 2401.6 cm???/min???m??? LV Diastolic Length 2C 11.0 cm LV Systolic Length 2C 10.2 cm LA Volume 115.1 cm??? 18 - 58 / 22 - 52 cm??? LA Volume Index 66.0 cm???/m??? 16 - 28 cm???/m??? Ascending Aorta Diameter 3.1 cm DOPPLER AV Peak Velocity 113.8 cm/s AV Peak Gradient 5.2 mmHg AV Mean Velocity 74.6 cm/s AV Mean Gradient 2.5 mmHg AV Velocity Time Integral 20.4 cm LVOT Peak Velocity 91.3 cm/s LVOT Peak Gradient 3.3 mmHg LVOT Velocity Time Integral 13.6 cm LVOT Stroke Volume 51.4 cm??? LVOT Stroke Volume Index 29.2 ml/m??? LVOT Cardiac Index 2534.2 cm???/min???m??? AV Area Cont Eq vti 2.5 cm??? AV Area Cont Eq pk 3.0 cm??? TR Peak Velocity 287.5 cm/s TR Peak Gradient 33.1 mmHg PV Peak Velocity 55.9 cm/s PV Peak Gradient 1.3 mmHg FINDINGS Left Ventricle Left ventricular ejection fraction is estimated at 10-15 %. Moderately increased left ventricular diastolic diameter. Severely increased left ventricular diastolic volume. Severely increased left ventricular systolic volume. Severely decreased left ventricular ejection fraction. Left ventricular wall thickness normal. Severely reduced global left ventricular systolic function. Right Ventricle Normal right ventricular size with mildly reduced function. Right ventricular systolic pressure within normal limits. Right Atrium Normal right atrial size. Left Atrium Severely increased left atrial volume. Mildly increased left atrial area. Mitral Valve Mitral valve thickened. No evidence for mitral valve prolapse. No mitral stenosis. Mild mitral regurgitation. Aortic Valve Trileaflet aortic valve. No aortic stenosis. Mild aortic regurgitation. Tricuspid Valve Structurally normal tricuspid valve. No tricuspid prolapse. No tricuspid stenosis. Trace tricuspid regurgitation. Pulmonic Valve Structurally normal pulmonic valve. No pulmonic stenosis. Trace pulmonic regurgitation. Pericardium Small pericardial effusion. Aorta Normal size aortic root and proximal ascending aorta. CONCLUSIONS Severe LV systolic dysfunction Previewed by: Dr. Curtis Gomez MD (Electronically Signed) Final Date: 17 April 2023 12:00
[2023-04-17 12:07] LABS: Chol/HDL Ratio 2.12 Ratio; LDL Cholesterol,Calculated 50.9 mg/dL (0.0-131.0); VLDL Calculation 10.86 mg/dL (5.00-40.00)
--- NOTE | 2023-04-17 16:47 | P.PN ---
Subjective Progress Note Date: 04/17/23 Hospital course: Patient is a very pleasant 87-year-old male with a past medical history of CAD with non-ischemic cardiomyopathy with a severely reduced EF of 10-15% and metastatic prostate cancer to liver, lungs, and bone. He presented to the hospital on 04/15/2023 with a chief complaint of shortness of breath. Upon arrival to the hospital vital signs as follows blood pressure 121/72, heart rate 91, respiratory rate 20, temp 97.9 F, and SpO2 of 95% on room air. EKG was completed showing sinus mechanism at 89 bpm with a left bundle branch block (upon comparison to EKG completed 04/12/2023 left bundle branch block is previously present). Chest x-ray completed showing COPD with pulmonary vascular congestion and left lower lobe airspace opacities with superimposed left pleural effusion. Patient was admitted under our services with consultation to cardiology for CHF exacerbation and hematology/oncology for metastatic prostate cancer. CT brain without contrast was completed and was negative for acute intracranial process showing no acute hemorrhage, hydrocephalus, or mass effect. Repeat echocardiogram completed showing worsening EF, severely reduced at 10 to 15%. Physical exam: Vital signs reviewed and stable. General: Nontoxic, no distress and appears stated age. Derm: Skin warm and dry, normal coloration for ethnicity. Head: Atraumatic, normocephalic and symmetric. Eyes: EOMs intact, no lid lag, and anicteric sclera Mouth: no lip lesions, mucus membranes moist Cardiovascular: regular rate and rhythm with normal S1S2, no murmur, positive posterior tibial pulses bilaterally, and cap refill < 2 seconds. Lungs: Respirations even, regular, and unlabored on room air. Lungs diminished with soft expiratory wheezes, no rhonchi, no rales, no wheezing, and no accessory muscle usage. Abdominal: soft, nontender to palpation, no guarding, no appreciable organomegaly Ext: ROM intact. No gross muscle atrophy, no edema, no contractures Neuro: Speech clear, face symmetrical and CN II-XII grossly intact with no noted focal neuro deficits Psych: Alert and oriented to person, place, time, and situation. Appropriate and pleasant affect. Assessment and Plan of Care: Acute systolic CHF exacerbation with EF of 10-15% Left lower lobe pneumonia, community-acquired pneumonia Acute metabolic encephalopathy, secondary to above Acute kidney injury superimposed on stage III chronic kidney disease Non-anion gap metabolic acidosis, secondary to worsening renal function Elevated troponins, likely type II NSTEMI Non-ischemic cardiomyopathy Lactic acidosis upon arrival, resolved -Cardiology consulted, reviewed documentation in chart. Cardiology recommending continue IV Lasix 40 mg every 12 hours and increased carvedilol to 6.25 mg twice a day from previous 3.125 mg twice daily. -Continue telemetry monitoring -ProBNP 10,400. Troponins 0.037, 0.040, and 0.064. -Close monitoring of I's and O's with daily weight -Cardiac diet -Lasix 40 mg IVP every 12 hours -Continuation of daily medications including: Aspirin 81 mg daily, atorvastatin 40 mg nightly, and carvedilol 6.25 mg twice daily with meals. -Continued close monitoring of electrolytes while diuresing. -Discontinue Levaquin secondary to QT prolongation with LBBB and placed patient on Augmentin 500/125 mg tablets every 12 hours per renal dosing. Metastatic prostate cancer -Hematology/oncology following, reviewed documentation in chart. Data and imaging reviewed: Morning labs completed and reviewed. CBC showing leukocytosis with WBC count of 13.1 and stable normocytic anemia with hemoglobin of 10.9. BMP revealing non-anion gap metabolic acidosis with chloride of 113, bicarb of 20, and anion gap of 10. Renal function further elevating with BUN of 52, creatinine 2.06, GFR of 29. Blood glucose 111. Hemoglobin A1c 6%. Lipid profile unremarkable. Vital signs reviewed. Blood pressure 103/64, heart rate 93, respiratory rate 16, temp 97.1 F, and SpO2 of 99% on 2 L O2. Nursing communication order placed to wean patient from oxygen as he tolerates.. Echocardiogram completed and report reviewed. Echocardiogram reporting severely reduced EF of 10 to 15%. CODE STATUS: Full code DVT prophylaxis: Heparin Anticipated discharge date: Clinical course to determine Anticipated discharge place: Clinical course to determine Patient was seen independently by Nurse Pracitioner. This document was prepared using [employer] dictation software. Please allow for errors in service station equipment mechanic, while rare they do occur. Abhishek Peña NP rendered care for this patient independently, reviewed the findings and plan as documented in the note above. I did not physically speak with or examine the patient on this date. Objective - Vital Signs Vital signs: Vital Signs Temp 98.2 F 04/16/23 23:43 Pulse 109 H 04/16/23 23:43 Resp 18 04/16/23 23:43 BP 115/84 04/16/23 23:43 Pulse Ox 100 04/16/23 23:43 FiO2 Intake & Output 04/16/23 04/17/23 04/17/23 18:59 06:59 18:59 Intake Total 474 Output Total 800 400 Balance -800 74 Intake: Oral 474 Output: Urine 800 400 - Labs CBC & Chem 7: 04/20/23 07:31 04/20/23 07:31 Labs: Abnormal Lab Results - Last 24 Hours (Table) 04/16/23 04/16/23 04/16/23 Range/Units 12:18 13:54 13:54 WBC (3.8-10.6) k/uL RBC 3.73 L (4.30-5.90) m/uL Hgb 11.3 L (13.0-17.5) gm/dL Hct 35.6 L (39.0-53.0) % Neutrophils # (1.3-7.7) k/uL Lymphocytes # 0.6 L (1.0-4.8) k/uL Chloride 111 H (98-107) mmol/L Carbon Dioxide (22-30) mmol/L BUN 39 H (9-20) mg/dL Creatinine 1.93 H (0.66-1.25) mg/dL Glucose 128 H (74-99) mg/dL POC Glucose (mg/dL) 135 H (70-110) mg/dL Plasma Lactic Acid Terence (0.7-2.0) mmol/L Troponin I (0.000-0.034) ng/mL Total Protein (6.3-8.2) g/dL 04/16/23 04/16/23 04/16/23 Range/Units 13:54 13:54 16:37 WBC (3.8-10.6) k/uL RBC (4.30-5.90) m/uL Hgb (13.0-17.5) gm/dL Hct (39.0-53.0) % Neutrophils # (1.3-7.7) k/uL Lymphocytes # (1.0-4.8) k/uL Chloride (98-107) mmol/L Carbon Dioxide (22-30) mmol/L BUN (9-20) mg/dL Creatinine (0.66-1.25) mg/dL Glucose (74-99) mg/dL POC Glucose (mg/dL) 137 H (70-110) mg/dL Plasma Lactic Acid Terence 2.7 H* (0.7-2.0) mmol/L Troponin I 0.035 H* (0.000-0.034) ng/mL Total Protein (6.3-8.2) g/dL 04/16/23 04/16/23 04/16/23 Range/Units 17:43 20:43 20:55 WBC (3.8-10.6) k/uL RBC (4.30-5.90) m/uL Hgb (13.0-17.5) gm/dL Hct (39.0-53.0) % Neutrophils # (1.3-7.7) k/uL Lymphocytes # (1.0-4.8) k/uL Chloride (98-107) mmol/L Carbon Dioxide (22-30) mmol/L BUN (9-20) mg/dL Creatinine (0.66-1.25) mg/dL Glucose (74-99) mg/dL POC Glucose (mg/dL) 136 H (70-110) mg/dL Plasma Lactic Acid Terence (0.7-2.0) mmol/L Troponin I 0.040 H* 0.064 H* (0.000-0.034) ng/mL Total Protein (6.3-8.2) g/dL 04/17/23 04/17/23 Range/Units 06:59 06:59 WBC 13.1 H (3.8-10.6) k/uL RBC 3.60 L (4.30-5.90) m/uL Hgb 10.9 L (13.0-17.5) gm/dL Hct 34.2 L (39.0-53.0) % Neutrophils # 11.4 H (1.3-7.7) k/uL Lymphocytes # 0.9 L (1.0-4.8) k/uL Chloride 113 H (98-107) mmol/L Carbon Dioxide 20 L (22-30) mmol/L BUN 52 H (9-20) mg/dL Creatinine 2.06 H (0.66-1.25) mg/dL Glucose 111 H (74-99) mg/dL POC Glucose (mg/dL) (70-110) mg/dL Plasma Lactic Acid Terence (0.7-2.0) mmol/L Troponin I (0.000-0.034) ng/mL Total Protein 6.0 L (6.3-8.2) g/dL
[2023-04-17 19:02] LABS: Glucose,Whole Blood 117 mg/dL (70-110)
[2023-04-17] MEDS: AMOXIC-POT CLAV 500-125 MG 1 EACH TAB PO SCH (20:35)
[2023-04-17 20:36] LABS: Glucose,Whole Blood 109 mg/dL (70-110)
[2023-04-17] MEDS: ALPRAZolam 0.25 MG TAB PO STA (23:48)
[2023-04-18 06:10] LABS: Glucose,Whole Blood 128 mg/dL (70-110)
[2023-04-18] MEDS ORDERED: LEVOFLOXACIN 750 MG TAB PO SCH (09:00)
[2023-04-18 09:21] LABS: HCT 32.2 % (39.0-53.0); HGB 10.5 gm/dL (13.0-17.5); Hypochromasia Slight; MCH 30.8 pg (25.0-35.0); MCHC 32.5 g/dL (31.0-37.0); MCV 94.9 fL (80.0-100.0); Mean Platelet Volume 9.5; Platelet Count 222 k/uL (150-450); RBC 3.39 m/uL (4.30-5.90); RDW 14.5 % (11.5-15.5); WBC 7.9 k/uL (3.8-10.6)
[2023-04-18 09:36] LABS: African American GFR (CKD) 32 (>60 ml/min/1.73 sqM); Anion Gap 5 mmol/L; Blood Urea Nitrogen 57 mg/dL (9-20); Carbon Dioxide 27 mmol/L (22-30); Chloride 109 mmol/L (98-107); Glucose 122 mg/dL (74-99); Magnesium 2.3 mg/dL (1.6-2.3); Non-African American GFR(CKD) 28 (>60 ml/min/1.73 sqM); Potassium 3.3 mmol/L (3.5-5.1); Sodium 141 mmol/L (137-145)
[2023-04-18 11:27] LABS: Glucose,Whole Blood 126 mg/dL (70-110)
--- NOTE | 2023-04-18 11:58 | P.PN ---
Subjective Progress Note Date: 04/18/23 In follow-up today patient is reporting shortness of breath. SPO2 99% on room air. Patient breathing is mildly labored. Patient continues on antibiotic and IV Lasix Objective - Vital Signs Vital signs: Vital Signs Temp 98.1 F 04/18/23 07:57 Pulse 77 04/18/23 11:43 Resp 16 04/18/23 11:43 BP 106/62 04/18/23 11:43 Pulse Ox 99 04/18/23 11:43 FiO2 Intake & Output 04/17/23 04/18/23 04/18/23 18:59 06:59 18:59 Intake Total 10 Output Total 700 625 Balance -690 -625 Weight 68 kg Intake: IV 10 Invasive Line 1 10 Output: Urine 700 625 Other: Voiding Method External Catheter External Catheter External Catheter # Bowel Movements 1 - Constitutional General appearance: Present: no acute distress - EENT Eyes: Present: anicteric sclerae, EOMI ENT: Present: hearing grossly normal - Respiratory Details: breathing mildly labored - Cardiovascular Details: well perfused - Integumentary Integumentary: Absent: cyanotic - Musculoskeletal Musculoskeletal: Present: generalized weakness - Psychiatric Psychiatric: Present: A&O x's 3 - Labs CBC & Chem 7: 04/18/23 07:28 04/18/23 07:28 Labs: Abnormal Lab Results - Last 24 Hours (Table) 04/17/23 04/18/23 04/18/23 Range/Units 19:00 06:08 07:28 RBC 3.39 L (4.30-5.90) m/uL Hgb 10.5 L (13.0-17.5) gm/dL Hct 32.2 L (39.0-53.0) % Potassium (3.5-5.1) mmol/L Chloride (98-107) mmol/L BUN (9-20) mg/dL Creatinine (0.66-1.25) mg/dL Glucose (74-99) mg/dL POC Glucose (mg/dL) 117 H 128 H (70-110) mg/dL 04/18/23 04/18/23 Range/Units 07:28 11:24 RBC (4.30-5.90) m/uL Hgb (13.0-17.5) gm/dL Hct (39.0-53.0) % Potassium 3.3 L (3.5-5.1) mmol/L Chloride 109 H (98-107) mmol/L BUN 57 H (9-20) mg/dL Creatinine 2.11 H (0.66-1.25) mg/dL Glucose 122 H (74-99) mg/dL POC Glucose (mg/dL) 126 H (70-110) mg/dL Assessment and Plan (1) CHF (congestive heart failure) Current Visit: Yes Status: Acute Priority: High Code(s): I50.9 - HEART FAILURE, UNSPECIFIED SNOMED Code(s): 00452345 (2) Prostate cancer metastatic to bone Current Visit: Yes Status: Chronic Priority: Medium Code(s): C61 - MALIGNANT NEOPLASM OF PROSTATE; C79.51 - SECONDARY MALIGNANT NEOPLASM OF BONE SNOMED Code(s): 77499814 Plan: CHF: Presented with progressing SOB and cough and being recently diagnosed with pneumonia. -Viral panel on 04/12/23 was negative. Upon admission CXR showed LLL airspace opacities with superimposed left pleural effusion and COPD changes. CBC revealed WBC 5.6, hemoglobin 10.4. Troponin mildly elevated at 0.37. BNP 10,400. Continues Augmentin and IV Lasix. -Echocardiogram obtained revealing severe left ventricular systolic dysfunction with EF 10-15% -Defer management to cardiology and IM team Metastatic prostate cancer: -Patient continued on Lupron and Xgeva, with no evidence of progression, but was lost to follow up in 05/2022, last receiving Lupron and Xgeva in April 2022. PSA on 05/29/22 was 0.640. Patient states he has been unable to f/u due to repeat ad missions and feeling too weak and fatigued. -Repeat PSA now elevated at 4.5. Discussed results with patient -Clinic f/u will be scheduled upon discharge to reestablish care and will plan to restart Lupron and Xgeva once patient has acutely recovered. Pt agreeable with plan
--- NOTE | 2023-04-18 12:16 | P.PN ---
Subjective HISTORY OF PRESENT ILLNESS: This is a 87-year-old male with a past medical history significant for hypertension, prostate cancer with metastasis, nonischemic cardiomyopathy, congestive heart failure, and former nicotine dependence. Patient follows in the office with Dr. Watson. We have been asked to see the patient in consultation for congestive heart failure. Patient examined at the bedside in the emergency room. Patient presented to the hospital for worsening shortness of breath. Patient is receiving antibiotics for recent outpatient diagnosis of pneumonia. Patient was also found to be in acute congestive heart failure. He was started on IV Lasix 40 mg every 12 hours. He denies any chest pain or pressure. Vital signs are stable. DIAGNOSTICS: - EKG reveals sinus mechanism with left bundle branch block. - Chest xray left lower lobe airspace opacities with superimposed left pleural effusion. COPD changes.. - Laboratory data: WBC 13.1. Hemoglobin 10.9. Platelet count 256. Sodium 144. Potassium 4.2. BUN 39. Creatinine 1.93. Lactic acid 2.9. Troponin 0.037. 0.035. 0.040. 0.064. proBNP 10,400 - Current home cardiac medications include none. - Most recent echocardiogram obtained in June 2022 revealed ejection fraction 15 to 20%, mild MR, mild AR - Cardiac catheterization history: June 2022 revealing relatively normal coronary arteries other than mild luminal irregularities. Low/normal left-sided filling pressures. 04/18/2023 Patient examined this morning at bedside. Patient denies chest pain or pressure. He continues to report shortness of breath. He remains on IV Lasix 40 mg every 12 hours. Echocardiogram completed revealing ejection fraction 10 to 15% with mild AI. Creatinine today 2.11. Vital signs are stable. PHYSICAL EXAM: VITAL SIGNS: Reviewed. GENERAL: Well-developed in no acute distress. HEENT: Head is normocephalic. Pupils are equal, round. Sclerae anicteric. Mucous membranes of the mouth are moist. Neck supple. No JVD or thyromegaly LUNGS: Respirations even and unlabored. Lungs essentially clear to auscultation bilaterally. HEART: Regular rate and rhythm. S1 and S2 heard. Systolic murmur noted. ABDOMEN: Soft. Nondistended. Nontender. EXTREMITIES: Normal range of motion. No clubbing or cyanosis. Peripheral pulses intact. Trace bilateral lower extremity edema NEUROLOGIC: Awake and alert. ASSESSMENT: Shortness of breath Recent outpatient diagnosis of pneumonia Acute on chronic heart failure with reduced EF, 10 to 15% Elevated troponins, no evidence of acute coronary syndrome, likely secondary to above, type II NH Acute on chronic kidney disease Nonischemic cardiomyopathy Relatively normal coronary arteries with mild luminal irregularities, per cardiac catheterization June 2022 Hypertension Hyperlipidemia Diabetes History of prostate cancer with metastasis Prolonged QT PLAN: Continue current cardiac medications Continue IV Lasix 40 mg every 12 hours Daily weights, accurate intake and output, and monitoring of kidney function Further recommendations pending patient course Nurse practitioner note has been reviewed by physician. Signing provider agrees with the documented findings, assessment, and plan of care documented by [employer] as a scribe. Objective - Vital Signs Vital signs: Vital Signs Temp 98.1 F 04/18/23 07:57 Pulse 77 04/18/23 11:43 Resp 16 04/18/23 11:43 BP 106/62 04/18/23 11:43 Pulse Ox 99 04/18/23 11:43 FiO2 Intake & Output 04/17/23 04/18/23 04/18/23 18:59 06:59 18:59 Intake Total 10 Output Total 700 625 Balance -690 -625 Weight 68 kg Intake: IV 10 Invasive Line 1 10 Output: Urine 700 625 Other: Voiding Method External Catheter External Catheter External Catheter # Bowel Movements 1 - Labs CBC & Chem 7: 04/18/23 07:28 04/18/23 07:28 Labs: Abnormal Lab Results - Last 24 Hours (Table) 04/17/23 04/18/23 04/18/23 Range/Units 19:00 06:08 07:28 RBC 3.39 L (4.30-5.90) m/uL Hgb 10.5 L (13.0-17.5) gm/dL Hct 32.2 L (39.0-53.0) % Potassium (3.5-5.1) mmol/L Chloride (98-107) mmol/L BUN (9-20) mg/dL Creatinine (0.66-1.25) mg/dL Glucose (74-99) mg/dL POC Glucose (mg/dL) 117 H 128 H (70-110) mg/dL 04/18/23 04/18/23 Range/Units 07:28 11:24 RBC (4.30-5.90) m/uL Hgb (13.0-17.5) gm/dL Hct (39.0-53.0) % Potassium 3.3 L (3.5-5.1) mmol/L Chloride 109 H (98-107) mmol/L BUN 57 H (9-20) mg/dL Creatinine 2.11 H (0.66-1.25) mg/dL Glucose 122 H (74-99) mg/dL POC Glucose (mg/dL) 126 H (70-110) mg/dL
[2023-04-18] MEDS: POTASSIUM CHLORIDE ER 20 MEQ TAB.ER PO STA (14:21)
--- NOTE | 2023-04-18 14:23 | P.PN ---
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 He presented to the hospital on 04/15/2023 with a chief complaint of shortness of breath. Upon arrival to the hospital vital signs as follows blood pressure 121/72, heart rate 91, respiratory rate 20, temp 97.9 F, and SpO2 of 95% on room air. EKG was completed showing sinus mechanism at 89 bpm with a left bundle branch block (upon comparison to EKG completed 04/12/2023 left bundle branch block is previously present). Chest x-ray completed showing COPD with pulmonary vascular congestion and left lower lobe airspace opacities with superimposed left pleural effusion. Patient was admitted under our services with consultation to cardiology for CHF exacerbation and hematology/oncology for metastatic prostate cancer. CT brain without contrast was completed and was negative for acute intracranial process showing no acute hemorrhage, hydrocephalus, or mass effect. Repeat echocardiogram completed showing worsening EF, severely reduced at 10 to 15%. Physical exam: Patient seen and fully evaluated at the bedside. Patient reports continued shortness of breath this morning. He denies having any other complaints including headache, lightheadedness, dizziness, chest pain, or palpitations. Vital signs reviewed and stable. General: Nontoxic, no distress and appears stated age. Derm: Skin warm and dry, normal coloration for ethnicity. Head: Atraumatic, normocephalic and symmetric. Eyes: EOMs intact, no lid lag, and anicteric sclera Mouth: no lip lesions, mucus membranes moist Cardiovascular: regular rate and rhythm with normal S1S2, no murmur, positive posterior tibial pulses bilaterally, and cap refill < 2 seconds. Lungs: Respirations even, regular, and unlabored on room air. Lungs diminished with soft expiratory wheezes, no rhonchi, no rales, no wheezing, and no accessory muscle usage. Abdominal: soft, nontender to palpation, no guarding, no appreciable organomegaly Ext: ROM intact. No gross muscle atrophy, no edema, no contractures Neuro: Speech clear, face symmetrical and CN II-XII grossly intact with no noted focal neuro deficits Psych: Alert and oriented to person, place, time, and situation. Appropriate and pleasant affect. Assessment and Plan of Care: Acute systolic CHF exacerbation with EF of 10-15% Left lower lobe pneumonia, community-acquired pneumonia Acute metabolic encephalopathy, secondary to above Acute kidney injury superimposed on stage III chronic kidney disease Non-anion gap metabolic acidosis, secondary to worsening renal function Elevated troponins, likely type II NSTEMI Non-ischemic cardiomyopathy Lactic acidosis upon arrival, resolved -Cardiology consulted, reviewed documentation in chart. Cardiology recommending continue IV Lasix 40 mg every 12 hours and increased carvedilol to 6.25 mg twice a day from previous 3.125 mg twice daily. -Continue telemetry monitoring -ProBNP 10,400. Troponins 0.037, 0.040, and 0.064. -Close monitoring of I's and O's with daily weight -Cardiac diet -Lasix 40 mg IVP every 12 hours -Continuation of daily medications including: Aspirin 81 mg daily, atorvastatin 40 mg nightly, and carvedilol 6.25 mg twice daily with meals. -Continued close monitoring of electrolytes while diuresing. -Discontinue Levaquin secondary to QT prolongation with LBBB and placed patient on Augmentin 500/125 mg tablets every 12 hours per renal dosing. Hypokalemia -Potassium 3.3. Orders placed for K-Dur 40 mEq p.o. x 1 dose. -We will continue to monitor for resolution and replace abnormal electrolyte values if/when indicated based upon these results. Metastatic prostate cancer -Hematology/oncology following, reviewed documentation in chart. Data and imaging reviewed: Morning labs completed and reviewed. CBC showing stable normocytic anemia with hemoglobin of 10.5. BMP revealing hypokalemia with potassium of 3.3 and mild hyperchloremia with chloride of 109. Renal function remains elevated with BUN of 57, creatinine 2.11, and GFR of 28. Vital signs reviewed. Blood pressure 107/58, heart rate 75, respiratory rate 16, temp 98.1 F, and SpO2 of 99% on 2 L O2. Nursing communication order placed to wean patient from oxygen as he tolerates.. CODE STATUS: Full code DVT prophylaxis: Heparin Anticipated discharge date: Clinical course to determine Anticipated discharge place: Clinical course to determine Patient was seen independently by Nurse Pracitioner. This document was prepared using [employer] dictation software. Please allow for er rors in automatic lehr operator, while rare they do occur. Abhishek Peña NP rendered care for this patient independently, reviewed the findings and plan as documented in the note above. I did not physically speak with or examine the patient on this date. Objective - Vital Signs Vital signs: Vital Signs Temp 98.1 F 04/18/23 07:57 Pulse 75 04/18/23 07:57 Resp 16 04/18/23 07:57 BP 107/58 04/18/23 07:57 Pulse Ox 99 04/18/23 07:57 FiO2 Intake & Output 04/17/23 04/18/23 04/18/23 18:59 06:59 18:59 Intake Total 10 Output Total 700 Balance -690 Weight 68 kg Intake: IV 10 Invasive Line 1 10 Output: Urine 700 Other: Voiding Method External Catheter External Catheter - Labs CBC & Chem 7: 04/18/23 07:28 04/18/23 07:28 Labs: Abnormal Lab Results - Last 24 Hours (Table) 04/16/23 04/17/23 04/18/23 Range/Units 13:54 19:00 06:08 POC Glucose (mg/dL) 117 H 128 H (70-110) mg/dL Total PSA 4.5 H (<=4.0) ng/mL
[2023-04-18 16:38] LABS: Glucose,Whole Blood 108 mg/dL (70-110)
[2023-04-18] MEDS: MAG HYDROX/AL HYDROX/SIMETH 30 ML, HYOSCYAMINE ELIXIR 10 ML, LIDOCAINE VISCOUS 10 ML PO ONE (17:21)
--- NOTE | 2023-04-18 17:51 | CT ---
EXAMINATION TYPE: CT chest wo con DATE OF EXAM: 04/18/2023 COMPARISON: 05/29/2016 HISTORY: worsening SOB CT DLP: [address] of the chest was performed with lung and mediastinal window settings submitted. The la ck of contrast limits evaluation of the vascular, mediastinal and parenchymal structures including th e upper abdomen. LUNGS: There are bilateral pleural effusions are noted right greater than left small in size with com pressive basilar atelectasis. There is no evidence of pericardial effusion and cardiomegaly. MEDIASTINUM/GAGE: Thoracic aorta is of normal caliber with limited evaluation given lack of contrast . There is no evidence of pericardial effusion and cardiomegaly. No evidence for mediastinal mass. No lymph nodes greater than 1cm. UPPER ABDOMEN: No significant abnormality is seen. OTHER: No significant other abnormality. IMPRESSION: 1. Bilateral pleural effusions with compressive atelectasis. 2. Cardiomegaly without pericardial effusion.
[2023-04-18 19:57] LABS: Glucose,Whole Blood 112 mg/dL (70-110)
[2023-04-19 06:13] LABS: Glucose,Whole Blood 89 mg/dL (70-110)
[2023-04-19 09:44] LABS: HGB 11.1 gm/dL (13.0-17.5); Hypochromasia Slight; MCHC 31.8 g/dL (31.0-37.0); MCV 94.4 fL (80.0-100.0); Mean Platelet Volume 9.7; Platelet Count 217 k/uL (150-450); RBC 3.71 m/uL (4.30-5.90); RDW 14.3 % (11.5-15.5); WBC 8.1 k/uL (3.8-10.6)
[2023-04-19 10:21] LABS: African American GFR (CKD) 34 (>60 ml/min/1.73 sqM); Anion Gap 4 mmol/L; Blood Urea Nitrogen 56 mg/dL (9-20); Carbon Dioxide 30 mmol/L (22-30); Chloride 109 mmol/L (98-107); Glucose 131 mg/dL (74-99); Magnesium 2.3 mg/dL (1.6-2.3); Non-African American GFR(CKD) 29 (>60 ml/min/1.73 sqM); Potassium 4.1 mmol/L (3.5-5.1); Sodium 143 mmol/L (137-145)
--- NOTE | 2023-04-19 11:17 | P.PN ---
Subjective HISTORY OF PRESENT ILLNESS: This is a 87-year-old male with a past medical history significant for hypertension, prostate cancer with metastasis, nonischemic cardiomyopathy, congestive heart failure, and former nicotine dependence. Patient follows in the office with Dr. Watson. We have been asked to see the patient in consultation for congestive heart failure. Patient examined at the bedside in the emergency room. Patient presented to the hospital for worsening shortness of breath. Patient is receiving antibiotics for recent outpatient diagnosis of pneumonia. Patient was also found to be in acute congestive heart failure. He was started on IV Lasix 40 mg every 12 hours. He denies any chest pain or pressure. Vital signs are stable. DIAGNOSTICS: - EKG reveals sinus mechanism with left bundle branch block. - Chest xray left lower lobe airspace opacities with superimposed left pleural effusion. COPD changes.. - Laboratory data: WBC 13.1. Hemoglobin 10.9. Platelet count 256. Sodium 144. Potassium 4.2. BUN 39. Creatinine 1.93. Lactic acid 2.9. Troponin 0.037. 0.035. 0.040. 0.064. proBNP 10,400 - Current home cardiac medications include none. - Most recent echocardiogram obtained in June 2022 revealed ejection fraction 15 to 20%, mild MR, mild AR - Cardiac catheterization history: June 2022 revealing relatively normal coronary arteries other than mild luminal irregularities. Low/normal left-sided filling pressures. 04/18/2023 Patient examined this morning at bedside. Patient denies chest pain or pressure. He continues to report shortness of breath. He remains on IV Lasix 40 mg every 12 hours. Echocardiogram completed revealing ejection fraction 10 to 15% with mild AI. Creatinine today 2.11. Vital signs are stable. 04/19/2023 Patient examined this morning at the bedside. Patient currently denies chest pain or pressure. He reports improvement in his shortness of breath. He remains on Lasix 40 mg every 12 hours. BUN 56. Creatinine 2.03. Vital signs are stable. PHYSICAL EXAM: VITAL SIGNS: Reviewed. GENERAL: Well-developed in no acute distress. HEENT: Head is normocephalic. Pupils are equal, round. Sclerae anicteric. Mucous membranes of the mouth are moist. Neck supple. No JVD or thyromegaly LUNGS: Respirations even and unlabored. Lungs essentially clear to auscultation bilaterally. HEART: Regular rate and rhythm. S1 and S2 heard. Systolic murmur noted. ABDOMEN: Soft. Nondistended. Nontender. EXTREMITIES: Normal range of motion. No clubbing or cyanosis. Peripheral pulses intact. Trace bilateral lower extremity edema NEUROLOGIC: Awake and alert. ASSESSMENT: Shortness of breath Recent outpatient diagnosis of pneumonia Acute on chronic heart failure with reduced EF, 10 to 15% Elevated troponins, no evidence of acute coronary syndrome, likely secondary to above, type II TX Acute on chronic kidney disease Nonischemic cardiomyopathy Relatively normal coronary arteries with mild luminal irregularities, per cardiac catheterization June 2022 Hypertension Hyperlipidemia Diabetes History of prostate cancer with metastasis Prolonged QT PLAN: Continue current cardiac medications Discontinue IV Lasix. Begin oral Bumex 1 mg daily Daily weights, accurate intake and output, and monitoring of kidney function Further recommendations pending patient course Nurse practitioner note has been reviewed by physician. Signing provider agrees with the documented findings, assessment, and plan of care documented by COMMISSARY CLERK as a scribe. Objective - Vital Signs Vital signs: Vital Signs Temp 97.7 F 04/19/23 07:28 Pulse 79 04/19/23 07:28 Resp 16 04/19/23 07:28 BP 114/69 04/19/23 07:28 Pulse Ox 100 04/19/23 07:28 FiO2 Intake & Output 04/18/23 04/19/23 04/19/23 18:59 06:59 18:59 Intake Total 118 10 Output Total 875 450 Balance -757 -440 Weight 68.5 kg Intake: IV 10 Invasive Line 1 10 Oral 118 Output: Urine 875 450 Other: Voiding Method External Catheter External Catheter External Catheter # Bowel Movements 1 - Labs CBC & Chem 7: 04/19/23 07:39 04/19/23 07:39 Labs: Abnormal Lab Results - Last 24 Hours (Table) 04/18/23 04/18/23 04/19/23 Range/Units 11:24 19:55 07:39 RBC 3.71 L (4.30-5.90) m/uL Hgb 11.1 L (13.0-17.5) gm/dL Hct 35.0 L (39.0-53.0) % Chloride (98-107) mmol/L BUN (9-20) mg/dL Creatinine (0.66-1.25) mg/dL Glucose (74-99) mg/dL POC Glucose (mg/dL) 126 H 112 H (70-110) mg/dL 04/19/23 Range/Units 07:39 RBC (4.30-5.90) m/uL Hgb (13.0-17.5) gm/dL Hct (39.0-53.0) % Chloride 109 H (98-107) mmol/L BUN 56 H (9-20) mg/dL Creatinine 2.03 H (0.66-1.25) mg/dL Glucose 131 H (74-99) mg/dL POC Glucose (mg/dL) (70-110) mg/dL
[2023-04-19 11:25] LABS: Glucose,Whole Blood 124 mg/dL (70-110)
[2023-04-19 13:59] VITALS: BMI 22.9
--- NOTE | 2023-04-19 16:31 | P.PN ---
Subjective Progress Note Date: 04/19/23 Hospital course: Patient is a very pleasant 87-year-old male with a past medical history of CAD with non-ischemic cardiomyopathy with a severely reduced EF of 10-15% and metastatic prostate cancer to liver, lungs, and bone. He presented to the hospital on 04/15/2023 with a chief complaint of shortness of breath. Upon arrival to the hospital vital signs as follows blood pressure 121/72, heart rate 91, respiratory rate 20, temp 97.9 F, and SpO2 of 95% on room air. EKG was completed showing sinus mechanism at 89 bpm with a left bundle branch block (upon comparison to EKG completed 04/12/2023 left bundle branch block is previously present). Chest x-ray completed showing COPD with pulmonary vascular congestion and left lower lobe airspace opacities with superimposed left pleural effusion. Patient was admitted under our services with consultation to cardiology for CHF exacerbation and hematology/oncology for metastatic prostate cancer. CT brain without contrast was completed and was negative for acute intracranial process showing no acute hemorrhage, hydrocephalus, or mass effect. Repeat echocardiogram completed showing worsening EF, severely reduced at 10 to 15%. Patient continues to complain of worsening shortness of breath. CT scan was completed showing bilateral pleural effusions right greater than left with compressive atelectasis along with cardiomegaly with no evidence of pericardial effusion. Family meeting is scheduled for today at 1:30 PM to discuss further goals of care. Physical exam: Patient seen and fully evaluated at the bedside. Patient reports continued shortness of breath this morning worse with exertion, had long discussion with patient regarding that with his reduced ejection fraction and comorbidities this may be his new baseline. He denies having any other complaints including headache, lightheadedness, dizziness, chest pain, or palpitations. Vital signs reviewed and stable. General: Nontoxic, no distress and appears stated age. Derm: Skin warm and dry, normal coloration for ethnicity. Head: Atraumatic, normocephalic and symmetric. Eyes: EOMs intact, no lid lag, and anicteric sclera Mouth: no lip lesions, mucus membranes moist Cardiovascular: regular rate and rhythm with normal S1S2, no murmur, positive posterior tibial pulses bilaterally, and cap refill < 2 seconds. Lungs: Respirations even, regular, and unlabored on room air. Lungs diminished with soft expiratory wheezes, no rhonchi, no rales, no wheezing, and no acces shadi muscle usage. Abdominal: soft, nontender to palpation, no guarding, no appreciable organomegal y Ext: ROM intact. No gross muscle atrophy, no edema, no contractures Neuro: Speech clear, face symmetrical and CN II-XII grossly intact with no noted focal neuro deficits Psych: Alert and oriented to person, place, time, and situation. Appropriate and pleasant affect. Assessment and Plan of Care: Acute systolic CHF exacerbation with EF of 10-15% Left lower lobe pneumonia, community-acquired pneumonia Acute metabolic encephalopathy, secondary to above Acute kidney injury superimposed on stage III chronic kidney disease Non-anion gap metabolic acidosis, secondary to worsening renal function Elevated troponins, likely type II NSTEMI Non-ischemic cardiomyopathy Lactic acidosis upon arrival, resolved -Cardiology consulted, discussed plan of care with cardiac FIRMWARE DEVELOPER and plans for family meeting to discuss goals of care. Cardiology discontinuing IV Lasix and starting patient on Bumex 1 mg daily. -Continue telemetry monitoring -Close monitoring of I's and O's with daily weight -Cardiac diet -Continuation of daily medications including: Bumex 1 mg daily, aspirin 81 mg daily, atorvastatin 40 mg nightly, and carvedilol 6.25 mg twice daily with meals. -Continued close monitoring of electrolytes while diuresing. -Discontinued Levaquin secondary to QT prolongation with LBBB and placed patient on Augmentin 500/125 mg tablets every 12 hours per renal dosing to complete Abx course for CAP. Hypokalemia, resolved -We will continue to monitor for resolution and replace abnormal electrolyte values if/when indicated based upon these results. Metastatic prostate cancer -Hematology/oncology following, reviewed documentation in chart. Data and imaging reviewed: Morning labs completed and reviewed. CBC showing stable normocytic anemia with a hemoglobin of 11.1. BMP showing resolution of hypokalemia with potassium increasing to 4.1 this morning, continued hyperchloremia with chloride of 109, and continued but stable elevation of renal function with BUN of 56, creatinine 2.03, GFR of 29. Vital signs reviewed. Blood pressure 114/69, heart rate 79, respiratory rate 16, temp 97.7 F, and SpO2 of 100% on [address] scan showing bilateral pleural effusions right greater than left with compressive atelectasis along with cardiomegaly with no evidence of pericardial effusion. CODE STATUS: Full code DVT prophylaxis: Heparin Anticipated discharge date: Clinical course to determine Anticipated discharge place: Clinical course to determine Patient was seen independently by Nurse Pracitioner. This document was prepared using [employer] dictation software. Please allow for errors in inspector scales, while rare they do occur. Abhishek Peña FIRMWARE DEVELOPER rendered care for this patient independently, reviewed the findings and plan as documented in the note above. I did not physically speak with or examine the patient on this date. Objective - Vital Signs Vital signs: Vital Signs Temp 97.7 F 04/19/23 07:28 Pulse 79 04/19/23 07:28 Resp 16 04/19/23 07:28 BP 114/69 04/19/23 07:28 Pulse Ox 100 04/19/23 07:28 FiO2 Intake & Output 04/18/23 04/19/23 04/19/23 18:59 06:59 18:59 Intake Total 118 10 Output Total 875 450 Balance -757 -440 Weight 68.5 kg Intake: IV 10 Invasive Line 1 10 Oral 118 Output: Urine 875 450 Other: Voiding Method External Catheter External Catheter # Bowel Movements 1 - Labs CBC & Chem 7: 04/19/23 07:39 04/19/23 07:39 Labs: Abnormal Lab Results - Last 24 Hours (Table) 04/18/23 04/18/23 04/18/23 Range/Units 07:28 07:28 11:24 RBC 3.39 L (4.30-5.90) m/uL Hgb 10.5 L (13.0-17.5) gm/dL Hct 32.2 L (39.0-53.0) % Potassium 3.3 L (3.5-5.1) mmol/L Chloride 109 H (98-107) mmol/L BUN 57 H (9-20) mg/dL Creatinine 2.11 H (0.66-1.25) mg/dL Glucose 122 H (74-99) mg/dL POC Glucose (mg/dL) 126 H (70-110) mg/dL 04/18/23 Range/Units 19:55 RBC (4.30-5.90) m/uL Hgb (13.0-17.5) gm/dL Hct (39.0-53.0) % Potassium (3.5-5.1) mmol/L Chloride (98-107) mmol/L BUN (9-20) mg/dL Creatinine (0.66-1.25) mg/dL Glucose (74-99) mg/dL POC Glucose (mg/dL) 112 H (70-110) mg/dL
--- NOTE | 2023-04-19 16:39 | P.PN ---
Progress Note - Text Progress Note Date: 04/19/23 Advanced Care Planning: Diagnoses: HFrEF with EF of 10-15%, non-ischemic cardiomyopathy, and metastatic prostate cancer to lung, liver, and bone. Discussion: Was called to bedside for family meeting consisting of patient, patient's , Feli, and patient's daughter Ivory regarding goals of care forthgoing. Patient with shortness of breath and has been found during this hospitaliization to have a worsening ejection fraction of 10 to 15%. Per patient and patient's daughter, patient has been noncompliant with his cardiac medications outpatient and does not like taking them and stopped taking them long ago. Patient also reports stopping his chemotherapy for his metastatic prostate cancer 1 year ago. Patient stating that he would like to go home and just be comfortable and would like to take some medications, but not all. Had long conversation with patient, patient's , and patient's daughter regarding patient's wishes and the possibility of being discharged home on hospice care. Patient and family would like some time to personally discuss things after speaking with both myself and hospice team. At this time patient to remain a full code pending their decisio n. A total of 22 minutes of face to face time was spent discussing advanced care planning.
[2023-04-19 17:03] LABS: Glucose,Whole Blood 133 mg/dL (70-110)
--- NOTE | 2023-04-19 17:06 | P.PN ---
Subjective Progress Note Date: 04/19/23 In follow-up today patient improvement in shortness of breath. Breathing is non- labored. SPO2 100 on 2L. Patient continues on antibiotic and IV Lasix. Echocardiogram revealing EF of 10-15% Objective - Vital Signs Vital signs: Vital Signs Temp 97.7 F 04/19/23 07:28 Pulse 79 04/19/23 07:28 Resp 16 04/19/23 07:28 BP 114/69 04/19/23 07:28 Pulse Ox 100 04/19/23 07:28 FiO2 Intake & Output 04/18/23 04/19/23 04/19/23 18:59 06:59 18:59 Intake Total 118 10 Output Total 875 450 Balance -757 -440 Weight 68.5 kg Intake: IV 10 Invasive Line 1 10 Oral 118 Output: Urine 875 450 Other: Voiding Method External Catheter External Catheter External Catheter # Bowel Movements 1 - Constitutional General appearance: Present: average body habitus, no acute distress - EENT Eyes: Present: anicteric sclerae, EOMI ENT: Present: hearing grossly normal - Respiratory Details: breathing is even and unlabored - Cardiovascular Details: skin warm and dry - Musculoskeletal Musculoskeletal: Present: generalized weakness - Psychiatric Psychiatric: Present: A&O x's 3 - Labs CBC & Chem 7: 04/19/23 07:39 04/19/23 07:39 Labs: Abnormal Lab Results - Last 24 Hours (Table) 04/18/23 04/18/23 04/19/23 Range/Units 11:24 19:55 07:39 RBC 3.71 L (4.30-5.90) m/uL Hgb 11.1 L (13.0-17.5) gm/dL Hct 35.0 L (39.0-53.0) % Chloride (98-107) mmol/L BUN (9-20) mg/dL Creatinine (0.66-1.25) mg/dL Glucose (74-99) mg/dL POC Glucose (mg/dL) 126 H 112 H (70-110) mg/dL 04/19/23 Range/Units 07:39 RBC (4.30-5.90) m/uL Hgb (13.0-17.5) gm/dL Hct (39.0-53.0) % Chloride 109 H (98-107) mmol/L BUN 56 H (9-20) mg/dL Creatinine 2.03 H (0.66-1.25) mg/dL Glucose 131 H (74-99) mg/dL POC Glucose (mg/dL) (70-110) mg/dL - Imaging and Cardiology echo reviewed Assessment and Plan (1) CHF (congestive heart failure) Current Visit: Yes Status: Acute Priority: High Code(s): I50.9 - HEART FAILURE, UNSPECIFIED SNOMED Code(s): 28418668 (2) Prostate cancer metastatic to bone Current Visit: Yes Status: Chronic Priority: Medium Code(s): C61 - MALIGNANT NEOPLASM OF PROSTATE; C79.51 - SECONDARY MALIGNANT NEOPLASM OF BONE SNOMED Code(s): 36672978 Plan: CHF: Presented with progressing SOB and cough and being recently diagnosed with pneumonia. -Viral panel on 04/12/23 was negative. Upon admission CXR showed LLL airspace opacities with superimposed left pleural effusion and COPD changes. CBC revealed WBC 5.6, hemoglobin 10.4. Troponin mildly elevated at 0.37. BNP 10,400. Continues Augmentin and IV Lasix. -Echocardiogram obtained revealing severe left ventricular systolic dysfunction with EF 10-15% -Defer management to cardiology and IM team Spoke with IM team today, plan for goals of care with patient regarding severe heart failure and non-compliance with cardiac medications. From a oncology patient, his prostate cancer does remain treatable as he did well previously on lupron injections with disease well managed when on treatment. However, there is concern with patient f/u as he has been having progressing weakness and a poor PS and has been lost to f/u for the last 1 year. We discussed with patient that he would need to be strong enough to come to clinic for treatments and for f/u appts. He states that he wants to go home with hopes of becoming stronger and begin f/u again within our clinic in the future. Metastatic prostate cancer: -Patient continued on Lupron and Xgeva, with no evidence of progression, but was lost to follow up in 05/2022, last receiving Lupron and Xgeva in April 2022. PSA on 05/29/22 was 0.640. Patient states he has been unable to f/u due to repeat admissions and feeling too weak and fatigued. -Repeat PSA now elevated at 4.5. Discussed results with patient -Will plan to reestablish care upon discharge and to restart Lupron and Xgeva once patient has recovered and PS has improved. Pt agreeable with plan
[2023-04-19 20:08] LABS: Glucose,Whole Blood 161 mg/dL (70-110)
[2023-04-20 06:06] LABS: Glucose,Whole Blood 126 mg/dL (70-110)
[2023-04-20] MEDS: BUMETANIDE 1 MG TAB PO SCH (08:45)
[2023-04-20 08:54] LABS: HCT 35.6 % (39.0-53.0); HGB 11.4 gm/dL (13.0-17.5); Hypochromasia Slight; MCH 30.3 pg (25.0-35.0); MCHC 32.2 g/dL (31.0-37.0); MCV 94.1 fL (80.0-100.0); Mean Platelet Volume 9.3; Platelet Count 227 k/uL (150-450); RBC 3.78 m/uL (4.30-5.90); RDW 14.2 % (11.5-15.5); WBC 8.9 k/uL (3.8-10.6)
[2023-04-20 09:36] LABS: ALT 13 U/L (4-49); AST 27 U/L (17-59); African American GFR (CKD) 37 (>60 ml/min/1.73 sqM); Albumin 3.2 g/dL (3.5-5.0); Alkaline Phosphatase 83 U/L (38-126); Anion Gap 4 mmol/L; Blood Urea Nitrogen 55 mg/dL (9-20); Calcium 9.3 mg/dL (8.4-10.2); Carbon Dioxide 30 mmol/L (22-30); Chloride 108 mmol/L (98-107); Glucose 109 mg/dL (74-99); Magnesium 2.5 mg/dL (1.6-2.3); Non-African American GFR(CKD) 32 (>60 ml/min/1.73 sqM); Potassium 4.1 mmol/L (3.5-5.1); Sodium 142 mmol/L (137-145); Total Bilirubin 0.6 mg/dL (0.2-1.3); Total Protein 5.7 g/dL (6.3-8.2)
--- NOTE | 2023-04-20 11:45 | P.PN ---
Subjective Progress Note Date: 04/20/23 No acute events. Pt reporting improvement in shortness of breath. Breathing is non-labored. SPO2 99 on 2L. Reporting feeling fatigued. Continues on oral antibiotic and diuretic. Objective - Vital Signs Vital signs: Vital Signs Temp 97.4 F L 04/20/23 08:34 Pulse 79 04/20/23 08:34 Resp 16 04/20/23 08:34 BP 115/74 04/20/23 08:34 Pulse Ox 98 04/20/23 08:47 FiO2 Intake & Output 04/19/23 04/20/23 04/20/23 18:59 06:59 18:59 Intake Total 10 250 Output Total 400 500 Balance -400 -490 250 Weight 68.5 kg Intake: IV 10 10 Invasive Line 1 10 10 Oral 0 240 Output: Urine 400 500 Other: Voiding Method External Catheter External Catheter External Catheter - Constitutional General appearance: Present: average body habitus, no acute distress - EENT Eyes: Present: anicteric sclerae, EOMI ENT: Present: hearing grossly normal - Respiratory Details: breathing even and unlabored - Cardiovascular Details: skin warm and dry - Integumentary Integumentary: Absent: cyanotic - Musculoskeletal Musculoskeletal: Present: generalized weakness - Psychiatric Psychiatric: Present: A&O x's 3 - Labs CBC & Chem 7: 04/20/23 07:31 04/20/23 07:31 Labs: Abnormal Lab Results - Last 24 Hours (Table) 04/19/23 04/19/23 04/19/23 Range/Units 07:39 16:55 20:04 RBC (4.30-5.90) m/uL Hgb (13.0-17.5) gm/dL Hct (39.0-53.0) % Chloride (98-107) mmol/L BUN (9-20) mg/dL Creatinine (0.66-1.25) mg/dL Glucose (74-99) mg/dL POC Glucose (mg/dL) 133 H 161 H (70-110) mg/dL Magnesium (1.6-2.3) mg/dL Total Protein (6.3-8.2) g/dL Albumin (3.5-5.0) g/dL Procalcitonin 0.16 H (0.02-0.09) ng/mL 03/10/0504/20/23 04/20/23 Range/Units 06:04 07:31 07:31 RBC 3.78 L (4.30-5.90) m/uL Hgb 11.4 L (13.0-17.5) gm/dL Hct 35.6 L (39.0-53.0) % Chloride 108 H (98-107) mmol/L BUN 55 H (9-20) mg/dL Creatinine 1.87 H (0.66-1.25) mg/dL Glucose 109 H (74-99) mg/dL POC Glucose (mg/dL) 126 H (70-110) mg/dL Magnesium 2.5 H (1.6-2.3) mg/dL Total Protein 5.7 L (6.3-8.2) g/dL Albumin 3.2 L (3.5-5.0) g/dL Procalcitonin (0.02-0.09) ng/mL Assessment and Plan (1) CHF (congestive heart failure) Current Visit: Yes Status: Acute Priority: High Code(s): I50.9 - HEART FAILURE, UNSPECIFIED SNOMED Code(s): 92164347 (2) Prostate cancer metastatic to bone Current Visit: Yes Status: Chronic Priority: Medium Code(s): C61 - MALIGNANT NEOPLASM OF PROSTATE; C79.51 - SECONDARY MALIGNANT NEOPLASM OF BONE SNOMED Code(s): 20170646 Plan: CHF: Presented with progressing SOB and cough and being recently diagnosed with pneumonia. -Viral panel on 04/12/23 was negative. Upon admission CXR showed LLL airspace opacities with superimposed left pleural effusion and COPD changes. CBC revealed WBC 5.6, hemoglobin 10.4. Troponin mildly elevated at 0.37. BNP 10,400. Continues Augmentin and transitioned to Bumex -Echocardiogram obtained revealing severe left ventricular systolic dysfunction with EF 10-15% -Defer management to cardiology and IM team IM team had goals of care discussion with patient regarding severe heart failure and non-compliance with cardiac medications. From a oncology patient, his prostate cancer does remain treatable as he did well previously on lupron injections with disease well managed when on treatment. However, there is concern with patient f/u as he has been having progressing weakness and a poor PS and has been lost to f/u for the last 1 year. We discussed with patient that he would need to be strong enough to come to clinic for treatments and for f/u appts. He states that he wants to go home with hopes of becoming stronger and begin f/u again within our clinic in the future. Metastatic prostate cancer: -Patient continued on Lupron and Xgeva, with no evidence of progression, but was lost to follow up in 05/2022, last receiving Lupron and Xgeva in April 2022. PSA on 05/29/22 was 0.640. Patient states he has been unable to f/u due to repeat admissions and feeling too weak and fatigued. -Repeat PSA now elevated at 4.5. Discussed results with patient -Will plan to reestablish care upon discharge and to restart Lupron and Xgeva once patient has recovered and PS has improved. Pt agreeable with plan
[2023-04-20 11:46] LABS: Glucose,Whole Blood 138 mg/dL (70-110)
[2023-04-20 12:21] VITALS: RESP 18
--- NOTE | 2023-04-20 15:12 | P.PN ---
Subjective Progress Note Date: 04/20/23 Hospital course: Patient is a very pleasant 87-year-old male with a past medical history of CAD with non-ischemic cardiomyopathy with a severely reduced EF of 10-15% and metastatic prostate cancer to liver, lungs, and bone. He presented to the hospital on 04/15/2023 with a chief complaint of shortness of breath. Upon arrival to the hospital vital signs as follows blood pressure 121/72, heart rate 91, respiratory rate 20, temp 97.9 F, and SpO2 of 95% on room air. EKG was completed showing sinus mechanism at 89 bpm with a left bundle branch block (upon comparison to EKG completed 04/12/2023 left bundle branch block is previously present). Chest x-ray completed showing COPD with pulmonary vascular congestion and left lower lobe airspace opacities with superimposed left pleural effusion. Patient was admitted under our services with consultation to cardiology for CHF exacerbation and hematology/oncology for metastatic prostate cancer. CT brain without contrast was completed and was negative for acute intracranial process showing no acute hemorrhage, hydrocephalus, or mass effect. Repeat echocardiogram completed showing worsening EF, severely reduced at 10 to 15%. Patient continues to complain of worsening shortness of breath. CT scan was completed showing bilateral pleural effusions right greater than left with compressive atelectasis along with cardiomegaly with no evidence of pericardial effusion. Had family meeting on 04/19/2023 to discuss goals of care going forward. After this meeting, patient and his family unanimously agreed for plan to discharge home on hospice. Patient's CODE STATUS changed to DNR/DNI per his request. Hospice team on board arranging delivery of home equipment/needs. Plan is for discharge home tomorrow morning with family on hospice. Physical exam: Patient seen and fully evaluated at the bedside. Patient sitting up in the chair this morning and appeared to overall be doing better. Patient reports he is glad he is going home and just knowing that makes him feel better. Currently he denies having any questions, needs, or complaints. Vital signs reviewed and stable. General: Nontoxic, no distress and appears stated age. Derm: Skin warm and dry, normal coloration for ethnicity. Head: Atraumatic, normocephalic and symmetric. Eyes: EOMs intact, no lid lag, and anicteric sclera Mouth: no lip lesions, mucus membranes moist Cardiovascular: regular rate and rhythm with normal S1S2, no murmur, positive posterior tibial pulses bilaterally, and cap refill < 2 seconds. Lungs: Respirations even, regular, and unlabored on room air. Lungs diminished with soft expiratory wheezes, no rhonchi, no rales, no wheezing, and no access ory muscle usage. Abdominal: soft, nontender to palpation, no guarding, no appreciable organomegaly Ext: ROM intact. No gross muscle atrophy, no edema, no contractures Neuro: Speech clear, face symmetrical and CN II-XII grossly intact with no noted focal neuro deficits Psych: Alert and oriented to person, place, time, and situation. Appropriate and pleasant affect. Assessment and Plan of Care: Acute systolic CHF exacerbation with EF of 10-15% Left lower lobe pneumonia, community-acquired pneumonia Acute metabolic encephalopathy, secondary to above. Resolved Acute kidney injury superimposed on stage III chronic kidney disease, improving Non-anion gap metabolic acidosis, secondary to worsening renal function Elevated troponins, likely type II NSTEMI Non-ischemic cardiomyopathy Lactic acidosis upon arrival, resolved -Cardiology following, reviewed documentation in chart. -Continue telemetry monitoring -Close monitoring of I's and O's with daily weight -Cardiac diet -Continuation of daily medications including: Bumex 1 mg daily, aspirin 81 mg daily, atorvastatin 40 mg nightly, and carvedilol 6.25 mg twice daily with meals. -Continued close monitoring of electrolytes while diuresing. -Discontinued Levaquin secondary to QT prolongation with LBBB and placed patient on Augmentin 500/125 mg tablets every 12 hours per renal dosing to complete Abx course for CAP. Hypokalemia, resolved -We will continue to monitor for resolution and replace abnormal electrolyte values if/when indicated based upon these results. Metastatic prostate cancer -Hematology/oncology following, reviewed documentation in chart. Data and imaging reviewed: Morning labs completed and reviewed. CBC showing stable normocytic anemia with hemoglobin of 11.4. BMP showing hyperchloremia with chloride of 108 and elevated but improving renal function with BUN of 55, creatinine 1.87, and GFR of 32. Vital signs reviewed. Blood pressure 115/74, heart rate 79, respiratory rate 16, temp 97.4 F, and SpO2 of 99% on 2 L. CODE STATUS: DNR/DNI DVT prophylaxis: Heparin Anticipated discharge date: Plan is for discharge home on hospice tomorrow morning. Anticipated discharge place: Clinical course to determine Patient was seen independently by Nurse Pracitioner. This document was prepared using [employer] dictation software. Please allow for errors in drill sharpener operator, while rare they do occur. Abhishek Peña NP rendered care for this patient independently, reviewed the findings and plan as documented in the note above. I did not physically speak with or examine the patient on this date. Objective - Vital Signs Vital signs: Vital Signs Temp 97.7 F 04/20/23 04:00 Pulse 76 04/20/23 04:00 Resp 18 04/20/23 04:00 BP 117/74 04/20/23 04:00 Pulse Ox 100 04/20/23 04:00 FiO2 Intake & Output 04/19/23 04/20/23 04/20/23 18:59 06:59 18:59 Intake Total 10 Output Total 400 500 Balance -400 -490 Weight 68.5 kg Intake: IV 10 Invasive Line 1 10 Oral 0 Output: Urine 400 500 Other: Voiding Method External Catheter External Catheter - Labs CBC & Chem 7: 04/20/23 07:31 04/20/23 07:31 Labs: Abnormal Lab Results - Last 24 Hours (Table) 04/19/23 04/19/23 04/19/23 Range/Units 07:39 07:39 07:39 RBC 3.71 L (4.30-5.90) m/uL Hgb 11.1 L (13.0-17.5) gm/dL Hct 35.0 L (39.0-53.0) % Chloride 109 H (98-107) mmol/L BUN 56 H (9-20) mg/dL Creatinine 2.03 H (0.66-1.25) mg/dL Glucose 131 H (74-99) mg/dL POC Glucose (mg/dL) (70-110) mg/dL Procalcitonin 0.16 H (0.02-0.09) ng/mL 04/19/23 04/19/23 04/19/23 Range/Units 11:22 16:55 20:04 RBC (4.30-5.90) m/uL Hgb (13.0-17.5) gm/dL Hct (39.0-53.0) % Chloride (98-107) mmol/L BUN (9-20) mg/dL Creatinine (0.66-1.25) mg/dL Glucose (74-99) mg/dL POC Glucose (mg/dL) 124 H 133 H 161 H (70-110) mg/dL Procalcitonin (0.02-0.09) ng/mL 04/20/23 Range/Units 06:04 RBC (4.30-5.90) m/uL Hgb (13.0-17.5) gm/dL Hct (39.0-53.0) % Chloride (98-107) mmol/L BUN (9-20) mg/dL Creatinine (0.66-1.25) mg/dL Glucose (74-99) mg/dL POC Glucose (mg/dL) 126 H (70-110) mg/dL Procalcitonin (0.02-0.09) ng/mL
[2023-04-20 16:51] LABS: Glucose,Whole Blood 96 mg/dL (70-110)
[2023-04-20 20:20] LABS: Glucose,Whole Blood 167 mg/dL (70-110)
[2023-04-21 05:20] LABS: Glucose,Whole Blood 96 mg/dL (70-110)
--- NOTE | 2023-04-21 09:34 | P.DS ---
Providers Date of admission: 04/15/23 20:12 Expected date of discharge: 04/21/23 Attending physician: Anabela Guzmán MD Consults: 04/15/23 20:12 Consult Physician Routine Consulting Provider: Makenna Haynes Consult Reason/Comments: knowny Do you want consulting provider notified?: Yes 04/16/23 11:05 Consult Physician Routine Consulting Provider: Van Colon Consult Reason/Comments: exertional dyspnea, hx of HFrEF Do you want consulting provider notified?: Yes [facility]: Patient Discharged Home on Hospice: Diagnosis: Acute systolic CHF exacerbation with worsening EF of 10-15%. Elevated troponins, type II NSTEMI. Nonischemic cardiomyopathy Metastatic prostate cancer to liver, lungs, and bone Acute kidney injury superimposed on stage III chronic kidney disease. Improved with BUN of 55, creatinine 1.87, GFR of 32 on discharge. Left lower lobe pneumonia, community-acquired pneumonia. Completed 5-day course of IV antibiotics with Augmentin. Acute metabolic encephalopathy, secondary to above. Resolved. Non-anion gap metabolic acidosis, secondary to worsening renal function. Resolved. Lactic acidosis upon arrival, resolved. 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 He presented to the hospital on 04/15/2023 with a chief complaint of shortness of breath. Upon arrival to the hospital vital signs as follows blood pressure 121/72, heart rate 91, respiratory rate 20, temp 97.9 F, and SpO2 of 95% on room air. EKG was completed showing sinus mechanism at 89 bpm with a left bundle branch block (upon comparison to EKG completed 04/12/2023 left bundle branch block is previously present). Chest x-ray completed showing COPD with pulmonary vascular congestion and left lower lobe airspace opacities with superimposed left pleural effusion. Patient was admitted under our services with consultation to cardiol joaquina for CHF exacerbation and hematology/oncology for metastatic prostate cancer. CT brain without contrast was completed and was negative for acute intracranial process showing no acute hemorrhage, hydrocephalus, or mass effect. Repeat echocardiogram completed showing worsening EF, severely reduced at 10 to 15%. Patient continues to complain of worsening shortness of breath. CT scan was completed showing bilateral pleural effusions right greater than left with compressive atelectasis along with cardiomegaly with no evidence of pericardial effusion. Had family meeting on 04/19/2023 to discuss goals of care going forward. After this meeting, patient and his family unanimously agreed for plan to discharge home on hospice. Patient's CODE STATUS changed to DNR/DNI per his request. Hospice team on board arranged delivery of home equipment/needs. Patient discharged home to family with [facility]. Physical exam: Vital signs reviewed and stable. General: Nontoxic, no distress and appears stated age. Derm: Skin warm and dry, normal coloration for ethnicity. Head: Atraumatic, normocephalic and symmetric. Eyes: EOMs intact, no lid lag, and anicteric sclera Mouth: no lip lesions, mucus membranes moist Cardiovascular: regular rate and rhythm with normal S1S2, no murmur, positive posterior tibial pulses bilaterally, and cap refill < 2 seconds. Lungs: Respirations even, regular, and unlabored on room air. Lungs diminished with soft expiratory wheezes, no rhonchi, no rales, no wheezing, and no accessory muscle usage. Abdominal: soft, nontender to palpation, no guarding, no appreciable organomegaly Ext: ROM intact. No gross muscle atrophy, no edema, no contractures Neuro: Speech clear, face symmetrical and CN II-XII grossly intact with no noted focal neuro deficits Psych: Alert and oriented to person, place, time, and situation. Appropriate and pleasant affect. A total of 35 minutes of time were spent preparing this complex discharge summary. Pt was discharged on 04/21/2023 at 9:36 AM. Patient was seen independently by Nurse Practitioner. This document was prepared using [employer] dictation software. Please allow for errors in timber cruiser while rare they do occur. Abhishek Peña NP rendered care for this patient independently, reviewed the findings and plan as documented in the note above. I did not physically speak with or examine the patient on this date. Patient Condition at Discharge: Stable Plan - Discharge Summary Discharge Rx Participant: No New Discharge Prescriptions: New Atorvastatin [Lipitor] 40 mg PO HS 30 Days #30 tab Aspirin 81 mg PO DAILY 30 Days #30 tab Bumetanide [BUMEX] 1 mg PO DAILY 30 Days #30 tab carvediloL [Coreg] 6.25 mg PO BID-W/MEALS 30 Days #60 tab Discontinued Levofloxacin [Levaquin] 750 mg PO DAILY 1 Days #7 tab Discharge Medication List Aspirin 81 mg PO DAILY 30 Days #30 tab 04/21/23 [Rx] Atorvastatin [Lipitor] 40 mg PO HS 30 Days #30 tab 04/21/23 [Rx] Bumetanide [BUMEX] 1 mg PO DAILY 30 Days #30 tab 04/21/23 [Rx] carvediloL [Coreg] 6.25 mg PO BID-W/MEALS 30 Days #60 tab 04/21/23 [Rx] Follow up Appointment(s)/Referral(s): Chaitanya Gaytan DO [Primary Care Provider] - 1-2 days Discharge Disposition: HOME WITH HOSPICE
[2023-04-21 09:42] VITALS: BP 109/65; PULSE 67; TEMP 97.3
== END 2023-04-21 11:41 | disposition hospice, home (50) | DRG 280 ==
LOC: EC 19:47 → 4SSUR 20:12 → 3NCARDOBS 22:08 → 1SOBS 04-16 10:49 → 3SCARD 04-16 15:57
PROVIDERS: ADMIT Internal Medicine; ATTEND Internal Medicine
DX: I13.0 Hypertensive heart and chronic kidney disease with heart failure and stage 1 through stage 4 chronic kidney disease, or unspecified chronic kidney disease (principal); I21.A1 Myocardial infarction type 2; G93.41 Metabolic encephalopathy; I50.23 Acute on chronic systolic (congestive) heart failure; J18.9 Pneumonia, unspecified organism; C78.7 Secondary malignant neoplasm of liver and intrahepatic bile duct; C79.51 Secondary malignant neoplasm of bone; E87.20 Acidosis, unspecified; J98.11 Atelectasis; N17.9 Acute kidney failure, unspecified; E11.22 Type 2 diabetes mellitus with diabetic chronic kidney disease; C61 Malignant neoplasm of prostate; I44.7 Left bundle-branch block, unspecified; I42.8 Other cardiomyopathies; E87.6 Hypokalemia; M19.90 Unspecified osteoarthritis, unspecified site; Z11.52 Encounter for screening for COVID-19; R21 Rash and other nonspecific skin eruption; Z51.5 Encounter for palliative care; Z66 Do not resuscitate; Z28.310 Unvaccinated for COVID-19; R94.31 Abnormal electrocardiogram [ECG] [EKG]; D64.9 Anemia, unspecified; E78.5 Hyperlipidemia, unspecified; I25.10 Atherosclerotic heart disease of native coronary artery without angina pectoris; N18.30 Chronic kidney disease, stage 3 unspecified; Z79.02 Long term (current) use of antithrombotics/antiplatelets; Z79.4 Long term (current) use of insulin; Z79.82 Long term (current) use of aspirin; Z79.84 Long term (current) use of oral hypoglycemic drugs; Z79.899 Other long term (current) drug therapy; Z87.01 Personal history of pneumonia (recurrent); Z87.891 Personal history of nicotine dependence; Z91.148 Patient's other noncompliance with medication regimen for other reason; Z95.810 Presence of automatic (implantable) cardiac defibrillator; Z92.21 Personal history of antineoplastic chemotherapy
CPT/HCPCS: 36415; 70450; 71045; 71250; 80048; 80053; 80061; 81003; 83036; 83605; 83735; 83880; 84100; 84145; 84153; 84154; 84484; 85025; 85027; 85610; 85730; 93005; 93306; 94640; 94760; 96361; 96372; 96374; 96375; 96376; 99285